=== PATIENT | female | born 1955 | race Caucasian/White ===

== ENCOUNTER 2016-09-04 11:57 | Observation (INO) ==
[2016-09-04] MEDS ORDERED: Ondansetron 4 MG/2 ML VIAL IVP ONE (13:15)
[2016-09-04] MEDS ORDERED: 0.9 % Sodium Chloride 1,000 ML IVC ONE (13:15)
[2016-09-04 13:22] LABS: Bilirubin,Urine Negative (Negative); Blood,Urine Large (Negative); Clarity,Urine Cloudy (Clear); Color,Urine Yellow (Yellow); Glucose,Urine (UA) Normal (Normal); Ketones,Urine Negative (Negative); Leukocyte Esterase,Urine Moderate (Negative); Nitrite,Urine Negative (Negative); PH,Urine 6.5 pH Units (5.0-8.0); Protein,Urine Trace mg/dL (Neg-Trace); Specific Gravity,Urine 1.015 (1.010-1.025); Urobilinogen,Urine Normal (Normal)
[2016-09-04 13:24] LABS: Bacteria,Urine None Seen per hpf (None-Few); Hyaline Casts,Urine None Seen per lpf (None-Few); RBC,Urine TNTC per hpf (0-3); Squamous Epithelial Cell,Urine Many per lpf (None-Few); WBC,Urine TNTC per hpf (0-3)
[2016-09-04 13:33] LABS: Calcium 9.5 mg/dL (8.6-10.8); Potassium 4.8 mEq/L (3.5-4.5)
--- NOTE | 2016-09-04 14:27 | Emergency Department Note ---
Disposition Clinical Impression: Diverticulitis Qualifiers: Diverticulitis site: large intestine Diverticulitis bleeding: without bleeding Diverticulitis complication: without perforation or abscess Qualified Code(s): K57.32 - Diverticulitis of large intestine without perforation or abscess without bleeding Disposition: Admitted As Inpatient Condition: Good Time of Disposition: 16:00 Abdominal Pain HPI - General Chief Complaint: ED Abdominal Pain Stated Complaint: abd pain Time Seen by Provider: 09/04/16 13:01 Source: patient Mode of arrival: ambulatory Limitations: no limitations Nursing Notes Reviewed: Yes Vital Signs Reviewed: Yes - History of Present Illness HPI Narrative: Patient is a 61-year-old female who presents to [facility] ED with a chief complaint of worsening left lower quadrant abdominal pain. States her symptoms started up again yesterday and have been worsening especially when she tries to eat. She has felt some nausea, no vomiting. Patient has been having small amounts of bowel movements without blood in them. Denies any fevers, has had some chills. Patient was recently admitted over [place] for pyelonephritis and sigmoid diverticulitis. She was treated while she was in the hospital on meropenem and then sent home on 2 weeks of Flagyl and Cipro. Pt Subjective Complaint: abdominal pain Onset (ago): day(s) Consistency: Worsening Location: LLQ Pain Severity: moderate Pain Scale: 3 Quality: stabbing, aching Radiation: none Migration to: no migration Improves with: nothing Worsens with: eating Context: recent antibiotic use Associated symptoms: Reports: nausea, chills. Denies: vomiting, diarrhea, fever , dysuria Treatments prior to arrival: none - Related Data Home Medications Medication Instructions Recorded Confirmed Allopurinol [Zyloprim] 100 mg PO DAILY 09/04/16 09/04/16 Previous Rx's Medication Instructions Recorded Metoprolol XL (24 HR) Succ [Toprol 25 mg PO DAILY 30 Days 08/28/16 Xl] Amoxicillin/Clavulanate [Augmentin] 875 mg PO BIDWM 14 Days 09/06/16 MetroNIDAZOLE [Flagyl] 500 mg PO TID #42 tablet 09/06/16 Allergies Allergy/AdvReac Type Severity Reaction Status Date / Time acetaminophen [From Percocet] Allergy Itching Verified 11/01/15 10:14 cephalexin Allergy Rash Verified 11/01/15 10:14 Cephalosporins Allergy Rash Verified 11/01/15 10:14 codeine Allergy Nausea Verified 11/01/15 10:14 hydrocodone [From Vicodin] Allergy Itching Verified 11/01/15 10:14 morphine Allergy Nausea Verified 11/01/15 10:14 Oxycodone [From Percocet] Allergy Itching Verified 11/01/15 10:14 Penicillins Allergy Rash Verified 11/01/15 10:14 propoxyphene Allergy Itching Verified 11/01/15 10:14 [From Darvocet-N 100] tobramycin Allergy Chest Pain Verified 02/21/16 15:50 diphenhydramine AdvReac Mild See Verified 09/04/16 15:08 [From Benadryl] Comments doxycycline AdvReac Vomiting Verified 11/01/15 10:14 beta-lactam Allergy Rash Uncoded 11/01/15 10:14 penicillin Allergy Rash Uncoded 11/01/15 10:14 All systems ED: reviewed and negative except as stated. Abdominal Pain PMH - Past Medical History Medical history: Reports: arthritis, cardiomyopathy, GERD, GI bleed, hypertension, osteoporosis, renal disease Female Surgical History: Reports: other HALL MONITOR history: Reports: bilateral tubal ligation, other Psychiatric history: Reports: no psych history - Social History Smoking status: Never smoker Alcohol use: Reports: none Drug use: Reports: none Physical Exam - General Limitations: no limitations General appearance: alert, in no apparent distress - Head Head exam: atraumatic, normocephalic, normal inspection - Eye Eye exam: Present: normal appearance, PERRL, EOMI - ENT ENT exam: normal exam, normal oropharynx, mucous membranes moist - Neck Neck exam: Present: normal inspection, full ROM, trachea midline - Chest Chest inspection: Present: normal inspection, symmetric chest wall rise - Respiratory Respiratory exam: Present: normal lung sounds bilaterally - Cardiovascular Cardiovascular exam: Present: regular rate, normal rhythm, normal heart sounds - Abdominal Exam Abdominal exam: Present: soft, tenderness, diminished bowel sounds. Absent: distention, guarding, rebound, rigidity Abdominal tenderness: Present: LLQ, moderate - Extremities Exam Extremities exam: Present: normal inspection, full ROM. Absent: tenderness, pedal edema - Back Exam Back exam: Present: normal inspection, full ROM. Absent: tenderness - Neurological Exam Neurological exam: Present: alert, oriented X3 - Psychiatric Psychiatric exam: Present: normal affect, normal mood - Skin Skin exam: Present: warm, dry, intact, normal color Course Course Narrative: Patient seen and examined. Recent diagnosis of diverticulitis. Already undergone 2 weeks of oral Cipro and Flagyl. Started having left lower quadrant abdominal pain again. We will get a BMP level to check renal function and CT abdomen and pelvis with IV contrast. - Reevaluation(s) Reevaluation #1: Patient's renal function with elevated and she has a history of only having one kidney. CT abdomen and pelvis without contrast ordered. This showed that she had worsening thickening of the sigmoid colon. We will talk with surgery for admission. I spoke with Dr. Mnotilla who has accepted patient for admission. Time: 16:00 Vital Signs Temperature 98.0 F 09/04/16 11:59 Pulse Rate 91 09/04/16 11:59 Respiratory Rate 16 09/04/16 11:59 Blood Pressure 121/85 09/04/16 11:59 O2 Sat by Pulse Oximetry 98 09/04/16 11:59 Temperature 97.5 F L 09/06/16 10:20 Pulse Rate 76 09/06/16 10:20 Respiratory Rate 16 09/06/16 10:20 Blood Pressure 125/83 09/06/16 10:20 O2 Sat by Pulse Oximetry 99 09/06/16 10:20 Oxygen Delivery Oxygen Delivery Room Air Abdominal Pain - Medical Records Medical records reviewed: Yes I reviewed the patient's medical records. - Lab Data Lab results reviewed: Yes I reviewed the patient's lab results. Result diagrams: 09/06/16 04:27 09/06/16 04:27 Lab Results 09/04/16 09/04/16 09/04/16 Range/Units 12:30 13:07 13:07 Sodium 137 (136-145) mEq/L Potassium 4.8 H (3.5-4.5) mEq/L Chloride 107 (98-109) mEq/L Carbon Dioxide 20 (19-29) mEq/L BUN 15 (7-20) mg/dL Creatinine 1.34 H (0.57-1.11) mg/dL Est GFR ( Amer) 49 L (> 60) Est GFR (Non-Af Amer) 40 L (> 60) BUN/Creatinine Ratio 11 (6-26) Glucose 90 (70-99) mg/dL Calculated Osmolality 284 (280-300) Lactic Acid 1.1 (0.5-2.2) mmol/L Calcium 9.5 (8.6-10.8) mg/dL Urine Color Yellow (Yellow) Urine Clarity Cloudy A (Clear) Urine pH 6.5 (5.0-8.0) pH Units Ur Specific [place] 1.015 (1.010-1.025) Urine Protein Trace (Neg-Trace) mg/dL Urine Glucose (UA) Normal (Normal) mg/dL Urine Ketones Negative (Negative) mg/dL Urine Blood Large H (Negative) Urine Nitrite Negative (Negative) Urine Bilirubin Negative (Negative) Urine Urobilinogen Normal (Normal) mg/dL Ur Leukocyte Esterase Moderate H (Negative) Urine Microscopic RBC TNTC H (0-3) per hpf Urine Microscopic WBC TNTC H (0-3) per hpf Ur Squamous Epith Cells Many H (None-Few) per lpf Urine Bacteria None Seen (None-Few) per hpf Hyaline Casts None Seen (None-Few) per lpf Ur Culture Indicated? YES A (NO) - Radiology Data Radiology results reviewed: Yes I reviewed the patient's radiology results. Attestation Statement - Attestation Attestation: I examined this patient and my medical decision-making was reviewed with the Resident Physician. I agree with the documented findings, disposition and treatment plan as described except to the extent set forth below. 2-week course of Cipro and Flagyl for diverticulitis, persistent and now worsening pain. CT shows persistent inflammation, no abscess. Admission for IV antibiotics, surgery eval.
[2016-09-04] MEDS ORDERED: Piperacillin/Tazobactam 3.375 GM in D5% in Water (Mini-Bag+) 100 ML IVPB ONE (14:54)
[2016-09-04] MEDS ORDERED: Naloxone 0.4 MG/ML INJ IVP PRN (17:05)
[2016-09-04] MEDS ORDERED: *HR* HYDROmorphone (PF) 1 MG/ML SYRINGE IVP PRN (17:05)
[2016-09-04] MEDS ORDERED: *HR* Promethazine 25 MG/ML VIAL IVP PRN (17:05)
[2016-09-04] MEDS ORDERED: Ondansetron 4 MG/2 ML VIAL IVP PRN (17:05)
[2016-09-04] MEDS: 0.9 % Sodium Chloride 1,000 ML IVC SCH (17:53)
--- NOTE | 2016-09-04 19:01 | General Surg History&Physical ---
<Connie Flaherty - Last Filed: 09/04/16 19:23> Date of Encounter: 09/04/16 Time of Encounter: 18:59 Assessment and Plan (1) Diverticulitis Current Visit: Yes Status: Acute The assessment and plan as outlined above was discussed with the patient and/or family members who expressed understanding and agreement. All questions were answered. CT shows sigmoid colonic perforation likely representing diverticulitis. The degree of wall thickening and adjacent pericolonic fat stranding has increased since prior study. no signs of peritonitis on abdominal exam NPO IVF IV cipro and flagyl pain control supportive care repeat labs AM Qualifiers: Diverticulitis site: large intestine Diverticulitis bleeding: without bleeding Diverticulitis complication: without perforation or abscess Qualified Code(s): K57.32 - Diverticulitis of large intestine without perforation or abscess without bleeding (2) Acute kidney injury superimposed on chronic kidney disease Current Visit: No Status: Acute IVF continue to monitor repeat labs AM (3) Recurrent UTI Current Visit: No Status: Chronic atonic neurogenic bladder, has been straight cathing for 20 years more recent hx of recurrent UTI urine culture pending (4) DVT prophylaxis Current Visit: No Status: Acute heparin 5,000 units SQ q8hr History of Present Illness Chief complaint: diverticulitis HPI: Ms. Hannon is a 61 year old female admitted from the emergency department with diverticulitis. She has left lower quadrant pain that radiates to midline characterized as sharp cramping pain that comes and goes in waves. At its worst she states the pain was over a 10 and she was doubled over in tears. Eating and drinking make the pain worse. Having a bowel movement makes the pain better. She has had 2 episodes of non-bloody, non-mucous diarrhea since she has arrived to the hospital. She states that this pain has been bothering her off and on for the past 4-5 months. She was in the hospital for sepsis due to complicated UTI over and had diverticulitis at that point in time. She was discharged 08/28 with 6 days of cipro and flagyl. She states that previous her prior admission she had IV antibiotics for a UTI for 2 weeks and 1 week later was when she was admitted. Her PCP, Dr. Gomes, has referred her to ID due to frequent UTIs. She straight-caths due to urinary retention and has been doing so for the past 20 years. Past Med Surg Social Fam HX - Past Medical History Medical history: arthritis, cardiomyopathy, GERD, GI bleed, hypertension, osteoporosis, renal disease, other (gout) Psychiatric history: no psych history - Past Surgical History Surgical History: other (reconstruction of ureter) - Social History Smoking Status: Never smoker Smokeless Tobacco Status: No Alcohol use: none Drug use: none - Family History Mother Living Status: Hx Family Cardiac Disorders: Yes Hx Family Respiratory Disorders: No Hx Family Cancer: No Hx Family GI Disorders: No Hx Family Endocrine Disorder: No Hx Family Neuromuscular Disorders: No Hx Family Neurologic Disorders: Yes (stroke) Hx Family HEENT Disorders: No Hx Family Autoimmune Disorders: No Medications and Allergies Metoprolol XL (24 HR) Succ [Toprol Xl] 25 mg PO DAILY 30 Days 08/28/16 [Rx] MetroNIDAZOLE [Flagyl] 500 mg PO TID 6 Days 08/28/16 [Rx] Allopurinol [Zyloprim] 100 mg PO DAILY 09/04/16 [History] Allergies acetaminophen [From Percocet] Allergy (Verified 11/01/15 10:14) Itching cephalexin Allergy (Verified 11/01/15 10:14) Rash Cephalosporins Allergy (Verified 11/01/15 10:14) Rash codeine Allergy (Verified 11/01/15 10:14) Nausea hydrocodone [From Vicodin] Allergy (Verified 11/01/15 10:14) Itching morphine Allergy (Verified 11/01/15 10:14) Nausea Oxycodone [From Percocet] Allergy (Verified 11/01/15 10:14) Itching Penicillins Allergy (Verified 11/01/15 10:14) Rash propoxyphene [From Darvocet-N 100] Allergy (Verified 11/01/15 10:14) Itching tobramycin Allergy (Verified 02/21/16 15:50) Chest Pain diphenhydramine [From Benadryl] Adverse Reaction (Mild, Verified 09/04/16 15:08) See Comments Pt states it made her dellusional doxycycline Adverse Reaction (Verified 11/01/15 10:14) Vomiting beta-lactam Allergy (Uncoded 11/01/15 10:14) Rash penicillin Allergy (Uncoded 11/01/15 10:14) Rash Review of Systems All systems PM: A 10-system review of systems was performed and is negative for pertinent findings except as documented above in the HPI. - Constitutional headache(s) (states it is a medication side effect), no anorexia, no chills, no fever(s) - Cardiovascular no chest pain - Respiratory no dyspnea - Gastrointestinal abdominal pain (LLQ ), diarrhea, no nausea, no vomiting - Genitourinary Genitourinary: no dysuria, no urinary frequency, no urinary hesitancy, no urinary urgency - Musculoskeletal no arthralgias, no myalgias - Integumentary no rash General Surgery Exam Initial Vital Signs Temp Pulse Resp BP Pulse Ox 98.0 F 91 16 121/85 98 09/04/16 11:59 09/04/16 11:59 09/04/16 11:59 09/04/16 11:59 09/04/16 11:59 - General physical appearance well developed, well nourished, no distress - Eyes PERRL, normal ocular movement - ENT normal mucosa, atraumatic, normocephalic - Neck trachea midline - Respiratory normal respiratory effort, clear to auscultation - Cardiovascular Cardiovascular exam: Present: RRR - Abdomen Abdomen general surgery: Present: bowel sounds present, soft, non tender - Integumentary Integumentary general surgery: Present: warm and dry - Neurologic Present: CN 2-12 grossly intact - Psychiatric Psychiatric general surgery: Present: A&Ox3, speech is normal Results - Labs 09/04/16 13:07 Abnormal lab results Potassium 4.8 mEq/L (3.5-4.5) H 09/04/16 13:07 Creatinine 1.34 mg/dL (0.57-1.11) H 09/04/16 13:07 Est GFR ( Amer) 49 (> 60) L 09/04/16 13:07 Est GFR (Non-Af Amer) 40 (> 60) L 09/04/16 13:07 Urine Clarity Cloudy (Clear) A 09/04/16 12:30 Urine Blood Large (Negative) H 09/04/16 12:30 Ur Leukocyte Esterase Moderate (Negative) H 09/04/16 12:30 Urine Microscopic RBC TNTC per hpf (0-3) H 09/04/16 12:30 Urine Microscopic WBC TNTC per hpf (0-3) H 09/04/16 12:30 Ur Squamous Epith Cells Many per lpf (None-Few) H 09/04/16 12:30 Ur Culture Indicated? YES (NO) A 09/04/16 12:30 All other labs normal. <Isabela Montilla - Last Filed: 09/06/16 08:50> Date of Encounter: 09/04/16 Assessment and Plan (1) Diverticulitis Current Visit: Yes Status: Acute The assessment and plan as outlined above was discussed with the patient and/or family members who expressed understanding and agreement. All questions were answered. CT does NOT show sigmoid colon perforation but rather continued sigmoid colon inflammation only. Will continue Abx, prn pain control, serial abdominal exams, check labs in AM, npo currently Qualifiers: Diverticulitis site: large intestine Diverticulitis bleeding: without bleeding Diverticulitis complication: without perforation or abscess Qualified Code(s): K57.32 - Diverticulitis of large intestine without perforation or abscess without bleeding (2) HTN (hypertension) Current Visit: No Status: Chronic The assessment and plan as outlined above was discussed with the patient and/or family members who expressed understanding and agreement. All questions were answered. continue home medication Qualifiers: Hypertension type: essential hypertension Qualified Code(s): I10 - Essential (primary) hypertension History of Present Illness HPI: Ms. Hannon is a 61 year old female who was recently admitted over [place] with diverticulitis. She was treated with cipro and flagyl and sent home on said medication as well. She is still taking the cipro and flagyl when she continued to have left lower quadrant abdominal pain, sharp which has worsened over the last few days. Past Med Surg Social Fam HX - Past Medical History Source: patient Review of Systems All systems PM: reviewed and no additional remarkable complaints except as stated All systems PM: A 10-system review of systems was performed and is negative for pertinent findings except as documented above in the HPI. General Surgery Exam Initial Vital Signs Temp Pulse Resp BP Pulse Ox 98.0 F 91 16 121/85 98 09/04/16 11:59 09/04/16 11:59 09/04/16 11:59 09/04/16 11:59 09/04/16 11:59 - General physical appearance well developed, well nourished, no distress, no pain - Eyes PERRL, normal ocular movement - ENT normal mucosa, atraumatic, normocephalic - Neck trachea midline - Respiratory normal expansion, clear to auscultation - Cardiovascular Cardiovascular exam: Present: RRR - Abdomen Abdomen general surgery: Present: bowel sounds present, soft, non tender - Integumentary Integumentary general surgery: Present: warm and dry, no abnormal pigmentation - Neurologic Present: CN 2-12 grossly intact - Musculoskeletal Present: normal gait, normal posture - Psychiatric Psychiatric general surgery: Present: A&Ox3, speech is normal Results - Labs 09/06/16 04:27 09/06/16 04:27 Abnormal lab results RBC 3.30 M/mcL (3.82-4.97) L 09/06/16 04:27 Hgb 9.2 g/dL (11.5-15.4) L 09/06/16 04:27 Hct 29.5 % (35.3-44.9) L 09/06/16 04:27 MCH 27.9 pg (28.0-33.3) L 09/06/16 04:27 MCHC 31.2 g/dL (31.6-35.5) L 09/06/16 04:27 RDW 16.1 % (11.5-14.5) H 09/06/16 04:27 MPV 9.1 fL (9.4-12.4) L 09/06/16 04:27 Chloride 113 mEq/L (98-109) H 09/06/16 04:27 Carbon Dioxide 18 mEq/L (19-29) L 09/06/16 04:27 Creatinine 1.18 mg/dL (0.57-1.11) H 09/06/16 04:27 Est GFR ( Amer) 56 (> 60) L 09/06/16 04:27 Est GFR (Non-Af Amer) 46 (> 60) L 09/06/16 04:27 Calcium 8.4 mg/dL (8.6-10.8) L 09/06/16 04:27 Urine Clarity Cloudy (Clear) A 09/04/16 12:30 Urine Blood Large (Negative) H 09/04/16 12:30 Ur Leukocyte Esterase Moderate (Negative) H 09/04/16 12:30 Urine Microscopic RBC TNTC per hpf (0-3) H 09/04/16 12:30 Urine Microscopic WBC TNTC per hpf (0-3) H 09/04/16 12:30 Ur Squamous Epith Cells Many per lpf (None-Few) H 09/04/16 12:30 Ur Culture Indicated? YES (NO) A 09/04/16 12:30 Diabetes panel 09/06/16 Range/Units 04:27 Sodium 139 (136-145) mEq/L Potassium 4.3 (3.5-4.5) mEq/L Chloride 113 H (98-109) mEq/L Carbon Dioxide 18 L (19-29) mEq/L BUN 11 (7-20) mg/dL Creatinine 1.18 H (0.57-1.11) mg/dL Glucose 72 (70-99) mg/dL Calcium 8.4 L (8.6-10.8) mg/dL Calcium panel 09/06/16 Range/Units 04:27 Calcium 8.4 L (8.6-10.8) mg/dL Pituitary panel 09/06/16 Range/Units 04:27 Sodium 139 (136-145) mEq/L Potassium 4.3 (3.5-4.5) mEq/L Chloride 113 H (98-109) mEq/L Carbon Dioxide 18 L (19-29) mEq/L BUN 11 (7-20) mg/dL Creatinine 1.18 H (0.57-1.11) mg/dL Glucose 72 (70-99) mg/dL Calcium 8.4 L (8.6-10.8) mg/dL Adrenal panel 09/06/16 Range/Units 04:27 Sodium 139 (136-145) mEq/L Potassium 4.3 (3.5-4.5) mEq/L Chloride 113 H (98-109) mEq/L Carbon Dioxide 18 L (19-29) mEq/L BUN 11 (7-20) mg/dL Creatinine 1.18 H (0.57-1.11) mg/dL Glucose 72 (70-99) mg/dL Calcium 8.4 L (8.6-10.8) mg/dL All other labs normal. - Imaging CT scan - abdomen: report reviewed, image reviewed CT scan - pelvis: report reviewed, image reviewed - Attending Attestation I examined this patient and my medical decision-making was reviewed with the [employer] TECHNICIAN/PA/Advanced Practice Nurse/Resident Physician. I agree with the documented findings, disposition and treatment plan as described except to the extent set forth below.
[2016-09-05] MEDS: MetroNIDAZOLE 500 MG/100 ML 500 MG/100 ML BAG IVPB SCH ×3 (00:13→16:16)
[2016-09-05] MEDS: *HR* Heparin 5,000 UNIT/ML VIAL SQ SCH ×3 (00:13→16:17)
[2016-09-05] MEDS: 0.9 % Sodium Chloride 1,000 ML IVC SCH (05:04)
[2016-09-05 05:08] LABS: Basophils % 0.6 %; Eosinophils # 0.2 K/mcL (0.0-0.6); Eosinophils % 3.1 %; Hematocrit 29.4 % (35.3-44.9); Immature Granulocytes % 1.3 % (0-4); Lymphocytes # 1.1 K/mcL (0.6-4.6); Lymphocytes % 16.4 %; Mean Corpuscular HGB Conc 30.6 g/dL (31.6-35.5); Mean Corpuscular Hemoglobin 26.9 pg (28.0-33.3); Monocytes # 0.6 K/mcL (0.0-1.3); Monocytes % 9.4 %; Neutrophils # 4.7 K/mcL (1.6-8.9); Platelet Count 211 K/mcL (140-400); Red Blood Count 3.34 M/mcL (3.82-4.97); Red Cell Distribution Width 15.9 % (11.5-14.5); Segmented Neutrophils % 69.2 %
[2016-09-05 05:19] LABS: Calcium 8.3 mg/dL (8.6-10.8); Magnesium 1.8 mg/dL (1.6-2.6); Phosphorous 4.5 mg/dL (2.3-4.7); Potassium 4.1 mEq/L (3.5-4.5)
[2016-09-05] MEDS ORDERED: Pantoprazole 40 MG VIAL IVP SCH (09:00)
[2016-09-05] MEDS ORDERED: Ibuprofen 400 MG TABLET PO PRN (11:16)
--- NOTE | 2016-09-05 16:47 | General Surgery Progress Note ---
<Flaquita Garcia Mary - Last Filed: 09/05/16 16:53> Date of Encounter: 09/05/16 Time of Encounter: 16:46 - Assessment and Plan (1) Diverticulitis Current Visit: Yes Status: Acute Conservative therapy Advance to clear liquids IV antibiotics- change to Zosyn Supportive care Repeat labs in the am Plan for interval colonoscopy in 6-[address] Montilla Qualifiers: Diverticulitis site: large intestine Diverticulitis bleeding: without bleeding Diverticulitis complication: without perforation or abscess Qualified Code(s): K57.32 - Diverticulitis of large intestine without perforation or abscess without bleeding (2) BORIS (acute kidney injury) Current Visit: No Status: Acute Mild improvement today 1.34>1.24 IV fluids (3) Recurrent UTI Current Visit: No Status: Chronic Urine culture from 09/04/16 shows no growth (4) DVT prophylaxis Current Visit: No Status: Acute Heparin 5,000 units SQ twice daily for DVT prophylaxis Subjective Patient reports: feels better, voiding w/o difficulty, flatus, bowel movement, afebrile Objective Vital Signs - Last 8 Hours Temp Pulse Resp BP Pulse Ox 09/05/16 16:42 98.1 F 74 16 130/82 98 09/05/16 11:29 98.1 F 68 16 126/79 100 Intake and Output 09/05/16 09/05/16 09/05/16 07:59 15:59 23:59 Intake Total 1300 / 1300 100 / 100 Output Total 0 / 0 0 / 0 Balance 1300 / 1300 100 / 100 0 / 0 Intake: IV Fluids 1300 / 1300 100 / 100 0.9 % Sodium Chloride 1, 1000 / 1000 000 ML @ 120 mls/hr IVC . Q8H20M [facility] Rx#:[id number] Cipro 400 MG/200 ML 400 200 / 200 mg In 200 ml @ 200 mls/hr IVPB Q12HR [facility] Rx#: [id number] Flagyl 500 MG/100 ML 500 100 / 100 100 / 100 mg In 100 ml @ 100 mls/hr IVPB Q8HR [facility] Rx#: [id number] Oral 0 / 0 Output: Urine 0 / 0 0 / 0 Other: Meal NPO Stool Size Moderate # Voids 1 1 Weight 73.2 kg Patient Weight 09/05/16 23:59 Weight 73.2 kg - General physical appearance well developed, well nourished, no distress, no pain - Eyes normal ocular movement - ENT normal mucosa, atraumatic, normocephalic - Neck Neck exam: trachea midline - Respiratory normal respiratory effort, clear to auscultation - Cardiovascular Cardiovascular exam: Present: RRR - Abdomen Abdomen: Present: bowel sounds present, soft, non tender - Integumentary no rash, no growths - Neurologic CN 2-12 grossly intact - Musculoskeletal normal gait, normal posture - Psychiatric oriented to time, oriented to person, oriented to place, speech is normal, memory intact - Labs 09/05/16 04:08 09/05/16 04:08 Diabetes panel 09/05/16 Range/Units 04:08 Sodium 138 (136-145) mEq/L Potassium 4.1 (3.5-4.5) mEq/L Chloride 110 H (98-109) mEq/L Carbon Dioxide 22 (19-29) mEq/L BUN 13 (7-20) mg/dL Creatinine 1.24 H (0.57-1.11) mg/dL Glucose 73 (70-99) mg/dL Calcium 8.3 L (8.6-10.8) mg/dL Calcium panel 09/05/16 Range/Units 04:08 Calcium 8.3 L (8.6-10.8) mg/dL Phosphorus 4.5 (2.3-4.7) mg/dL Pituitary panel 09/05/16 Range/Units 04:08 Sodium 138 (136-145) mEq/L Potassium 4.1 (3.5-4.5) mEq/L Chloride 110 H (98-109) mEq/L Carbon Dioxide 22 (19-29) mEq/L BUN 13 (7-20) mg/dL Creatinine 1.24 H (0.57-1.11) mg/dL Glucose 73 (70-99) mg/dL Calcium 8.3 L (8.6-10.8) mg/dL Adrenal panel 09/05/16 Range/Units 04:08 Sodium 138 (136-145) mEq/L Potassium 4.1 (3.5-4.5) mEq/L Chloride 110 H (98-109) mEq/L Carbon Dioxide 22 (19-29) mEq/L BUN 13 (7-20) mg/dL Creatinine 1.24 H (0.57-1.11) mg/dL Glucose 73 (70-99) mg/dL Calcium 8.3 L (8.6-10.8) mg/dL Consult Discharge Plan - Plan Referrals: Mir Gomes DO [Primary Care Provider] - 09/16/16 12:00 pm - Attending Attestation I examined this patient and my medical decision-making was reviewed with the HIGH SCHOOL COACH/PA/Advanced Practice Nurse/Resident Physician. I agree with the documented findings, disposition and treatment plan as described except to the extent set forth below. <Isabela Montilla - Last Filed: 09/06/16 08:54> Date of Encounter: 09/05/16 - Assessment and Plan (1) Diverticulitis Current Visit: Yes Status: Acute start clears, change Abx to zosyn, pt states PCN allergy was when she was 2 months old and she has been told it was likely due to the preservative or something that they used at that time. She was already on cipro/flagyl when her diverticulitis continues to flair. Qualifiers: Diverticulitis site: large intestine Diverticulitis bleeding: without bleeding Diverticulitis complication: without perforation or abscess Qualified Code(s): K57.32 - Diverticulitis of large intestine without perforation or abscess without bleeding (2) HTN (hypertension) Current Visit: No Status: Chronic continue home meds Qualifiers: Hypertension type: essential hypertension Qualified Code(s): I10 - Essential (primary) hypertension Subjective Patient reports: no new complaints, feels better, pain is less, voiding w/o difficulty, flatus, afebrile Objective Vital Signs - Last 8 Hours Temp Pulse Resp BP Pulse Ox 09/06/16 06:37 98.6 F 77 17 128/78 95 09/06/16 03:44 98.3 F 80 14 127/80 95 Intake and Output 09/05/16 09/06/16 09/06/16 23:59 07:59 15:59 Intake Total 460 / 460 950 / 950 Output Total 0 / 0 1250 / 1250 Balance 460 / 460 -300 / -300 Intake: IV Fluids 950 / 950 0.9 % Sodium Chloride 1, 950 / 950 000 ML @ 120 mls/hr IVC . Q8H20M [facility] Rx#:[id number] Oral 460 / 460 Output: Urine 0 / 0 600 / 600 Straight Cath 650 / 650 Other: Meal CLEARS Weight 73.2 kg Patient Weight 09/06/16 23:59 Weight 73.2 kg - General physical appearance well developed, well nourished, no distress, no pain - Eyes PERRL, normal ocular movement - ENT normal mucosa, atraumatic, normocephalic - Neck Neck exam: trachea midline - Respiratory normal expansion, normal respiratory effort, clear to auscultation - Abdomen Abdomen: Present: bowel sounds present, soft, non tender - Integumentary no rash, no growths - Neurologic CN 2-12 grossly intact - Musculoskeletal normal gait, normal posture - Psychiatric oriented to time, oriented to person, speech is normal, memory intact - Labs 09/06/16 04:27 09/06/16 04:27 Diabetes panel 09/06/16 Range/Units 04:27 Sodium 139 (136-145) mEq/L Potassium 4.3 (3.5-4.5) mEq/L Chloride 113 H (98-109) mEq/L Carbon Dioxide 18 L (19-29) mEq/L BUN 11 (7-20) mg/dL Creatinine 1.18 H (0.57-1.11) mg/dL Glucose 72 (70-99) mg/dL Calcium 8.4 L (8.6-10.8) mg/dL Calcium panel 09/06/16 Range/Units 04:27 Calcium 8.4 L (8.6-10.8) mg/dL Pituitary panel 09/06/16 Range/Units 04:27 Sodium 139 (136-145) mEq/L Potassium 4.3 (3.5-4.5) mEq/L Chloride 113 H (98-109) mEq/L Carbon Dioxide 18 L (19-29) mEq/L BUN 11 (7-20) mg/dL Creatinine 1.18 H (0.57-1.11) mg/dL Glucose 72 (70-99) mg/dL Calcium 8.4 L (8.6-10.8) mg/dL Adrenal panel 09/06/16 Range/Units 04:27 Sodium 139 (136-145) mEq/L Potassium 4.3 (3.5-4.5) mEq/L Chloride 113 H (98-109) mEq/L Carbon Dioxide 18 L (19-29) mEq/L BUN 11 (7-20) mg/dL Creatinine 1.18 H (0.57-1.11) mg/dL Glucose 72 (70-99) mg/dL Calcium 8.4 L (8.6-10.8) mg/dL
[2016-09-06] MEDS: *HR* Heparin 5,000 UNIT/ML VIAL SQ SCH ×2 (00:23→09:56)
[2016-09-06] MEDS: 0.9 % Sodium Chloride 1,000 ML IVC SCH ×4 (02:49→11:54)
[2016-09-06 05:21] LABS: Basophils % 0.6 %; Eosinophils # 0.2 K/mcL (0.0-0.6); Hematocrit 29.5 % (35.3-44.9); Hemoglobin 9.2 g/dL (11.5-15.4); Immature Granulocytes % 0.8 % (0-4); Lymphocytes # 0.8 K/mcL (0.6-4.6); Lymphocytes % 15.6 %; Mean Corpuscular HGB Conc 31.2 g/dL (31.6-35.5); Mean Corpuscular Hemoglobin 27.9 pg (28.0-33.3); Mean Corpuscular Volume 89.4 fL (83.0-100.0); Mean Platelet Volume 9.1 fL (9.4-12.4); Monocytes # 0.4 K/mcL (0.0-1.3); Monocytes % 8.3 %; Neutrophils # 3.6 K/mcL (1.6-8.9); Platelet Count 175 K/mcL (140-400); Red Cell Distribution Width 16.1 % (11.5-14.5); Segmented Neutrophils % 71.7 %
[2016-09-06 05:49] LABS: Calcium 8.4 mg/dL (8.6-10.8); Potassium 4.3 mEq/L (3.5-4.5)
[2016-09-06] MEDS ORDERED: *HR* HYDROmorphone (PF) 1 MG/ML SYRINGE IVP PRN (08:58)
[2016-09-06] MEDS ORDERED: Metoprolol XL (24 HR) Succ 25 MG TAB.ER.24H PO SCH (09:00)
[2016-09-06 10:23] VITALS: BP 125/83
--- NOTE | 2016-09-06 12:22 | Discharge Summary ---
Date of Encounter: 09/06/16 Time of Encounter: 12:19 - Discharge Diagnosis (1) Diverticulitis Priority: Primary Status: Acute Qualifiers: Diverticulitis site: large intestine Diverticulitis bleeding: without bleeding Diverticulitis complication: without perforation or abscess Qualified Code(s): K57.32 - Diverticulitis of large intestine without perforation or abscess without bleeding (2) HTN (hypertension) Priority: Secondary Status: Chronic Qualifiers: Hypertension type: essential hypertension Qualified Code(s): I10 - Essential (primary) hypertension - Discharge Medications Home Medications: Metoprolol XL (24 HR) Succ [Toprol Xl] 25 mg PO DAILY 30 Days 08/28/16 [Rx] Allopurinol [Zyloprim] 100 mg PO DAILY 09/04/16 [History] Amoxicillin/Clavulanate [Augmentin] 875 mg PO BIDWM 14 Days 09/06/16 [Rx] MetroNIDAZOLE [Flagyl] 500 mg PO TID #42 tablet 09/06/16 [Rx] Allergies/Adverse Reactions: Allergies acetaminophen [From Percocet] Allergy (Verified 11/01/15 10:14) Itching cephalexin Allergy (Verified 11/01/15 10:14) Rash Cephalosporins Allergy (Verified 11/01/15 10:14) Rash codeine Allergy (Verified 11/01/15 10:14) Nausea hydrocodone [From Vicodin] Allergy (Verified 11/01/15 10:14) Itching morphine Allergy (Verified 11/01/15 10:14) Nausea Oxycodone [From Percocet] Allergy (Verified 11/01/15 10:14) Itching Penicillins Allergy (Verified 11/01/15 10:14) Rash propoxyphene [From Darvocet-N 100] Allergy (Verified 11/01/15 10:14) Itching tobramycin Allergy (Verified 02/21/16 15:50) Chest Pain diphenhydramine [From Benadryl] Adverse Reaction (Mild, Verified 09/04/16 15:08) See Comments Pt states it made her dellusional doxycycline Adverse Reaction (Verified 11/01/15 10:14) Vomiting beta-lactam Allergy (Uncoded 11/01/15 10:14) Rash penicillin Allergy (Uncoded 11/01/15 10:14) Rash General Surgery Exam Initial Vital Signs Temp Pulse Resp BP Pulse Ox 98.0 F 91 16 121/85 98 09/04/16 11:59 09/04/16 11:59 09/04/16 11:59 09/04/16 11:59 09/04/16 11:59 - General physical appearance well developed, well nourished, no distress - Eyes PERRL, normal ocular movement - ENT normal mucosa, atraumatic, normocephalic - Respiratory normal expansion, clear to auscultation - Cardiovascular Cardiovascular exam: Present: RRR - Abdomen Abdomen general surgery: Present: bowel sounds present, soft, non tender. Absent: distended, tender, guarding, rebound - Integumentary Integumentary general surgery: Present: warm and dry, no abnormal pigmentation - Neurologic Present: CN 2-12 grossly intact - Musculoskeletal Present: normal gait, normal posture - Psychiatric Psychiatric general surgery: Present: A&Ox3, speech is normal Date of admission: 09/04/16 16:06 Primary care physician: Sirena Taylor Discharging clinician: Isabela Montilla Anticipated date of discharge: 09/06/16 - Patient Status Disposition: Home, Self-Care Condition: Good Overall status at discharge: patient is progressing back to baseline - Discharge Instructions Instructions: Low Fiber Diet (GEN), Diverticulitis Diet (GEN) Follow Up With: Mir Gomes DO [Primary Care Provider] - 09/16/16 12:00 pm Isabela Montilla MD [Partnered Physician] - 09/18/16 1:40 pm (1:40 pm on September 18) Forms: Inpatient Work/School Release Additional Instructions: Do a low residue diet for 6-8 weeks after hospital admission. After 6-8 weeks on a low residue diet you will switch to a high fiber diet and a daily fiber supplement: either gummy fibers 2 po daily or metamucil capsules 2 po daily - Diet and Activity Activity: increase activity as tolerated Diet: other (low residue diet) - Hospital Course Hospital course: Ms. Hannon is a 61 year old female who was admitted with diverticulitis - recurrent. She was previously on cipro/flagyl when she had a recurrent flair. She was admitted and started on abx and conservative management. Her pain resolved and she was started on clears which she tolerated. Will discharge home in stable condition. Pain resolved. Will send home on 2 weeks augmentin and flagyl. - Time Spent with Patient Total time spent providing and/or coordinating discharge services: Labs on day of discharge: Labs from last 24 hours 09/06/16 09/06/16 04:27 04:27 WBC 5.1 RBC 3.30 L Hgb 9.2 L Hct 29.5 L MCV 89.4 MCH 27.9 L MCHC 31.2 L RDW 16.1 H Plt Count 175 MPV 9.1 L Immature Gran % 0.8 Seg Neutrophils % 71.7 Lymphocytes % 15.6 Monocytes % 8.3 Eosinophils % 3.0 Basophils % 0.6 Neutrophils # 3.6 Lymphocytes # 0.8 Monocytes # 0.4 Eosinophils # 0.2 Basophils # 0.0 Sodium 139 Potassium 4.3 Chloride 113 H Carbon Dioxide 18 L BUN 11 Creatinine 1.18 H Est GFR ( Amer) 56 L Est GFR (Non-Af Amer) 46 L BUN/Creatinine Ratio 9 Glucose 72 Calculated Osmolality 286 Calcium 8.4 L
[2016-09-06] MEDS ORDERED: Piperacillin/Tazobactam 3.375 GM in D5% in Water (Mini-Bag+) 100 ML IVPB SCH (16:45)
== END 2016-09-06 13:52 | disposition home or self-care (01) ==
LOC: 3ANU 11:57 → EMEROO 11:57 → 3ANU 16:31
PROVIDERS: ADMIT Surgery; ATTEND Surgery

== ENCOUNTER 2016-10-10 18:08 | Observation (INO) ==
--- NOTE | 2016-10-10 18:24 | Emergency Department Note ---
Disposition Clinical Impression: Recurrent UTI Nausea & vomiting Qualifiers: Vomiting type: unspecified Vomiting Intractability: unspecified Qualified Code( s): R11.2 - Nausea with vomiting, unspecified Disposition: Admitted As Inpatient Condition: Good Referrals: Mir Gomes DO [Primary Care Provider] - Forms: ED Satisfaction Letter Time of Disposition: 19:31 General Adult HPI - General Chief complaint: ED Urogenital-Female Stated complaint: UTI Time Seen by Provider: 10/10/16 18:17 Source: patient Limitations: no limitations Nursing Notes Reviewed: Yes Vital Signs Reviewed: Yes - History of Present Illness HPI Narrative: 61-year-old who was seen here 3 days ago had a urine done culture grows out Escherichia coli greater than 100,000th and VRE greater 100,000. Patient had a fever today was not feeling well. Not been able to keep anything down. Saw her family doctor today who sent her in to be admitted for IV antibiotics. Onset (ago): day(s) Location: abdomen Radiation: non-radiation Pain Scale: 0 Associated symptoms: Reports: nausea/vomiting - Related Data Home Medications Medication Instructions Recorded Confirmed Allopurinol [Zyloprim] 100 mg PO DAILY 09/04/16 09/04/16 Previous Rx's Medication Instructions Recorded Metoprolol XL (24 HR) Succ [Toprol 25 mg PO DAILY 30 Days 08/28/16 Xl] Amoxicillin/Clavulanate [Augmentin] 875 mg PO BIDWM 14 Days 09/06/16 MetroNIDAZOLE [Flagyl] 500 mg PO TID #42 tablet 09/06/16 Cephalexin 500 mg PO QID #40 tablet 09/13/16 Allergies Allergy/AdvReac Type Severity Reaction Status Date / Time acetaminophen [From Percocet] Allergy Itching Verified 11/01/15 10:14 cephalexin Allergy Rash Verified 11/01/15 10:14 Cephalosporins Allergy Rash Verified 11/01/15 10:14 codeine Allergy Nausea Verified 11/01/15 10:14 hydrocodone [From Vicodin] Allergy Itching Verified 11/01/15 10:14 morphine Allergy Nausea Verified 11/01/15 10:14 Oxycodone [From Percocet] Allergy Itching Verified 11/01/15 10:14 Penicillins Allergy Rash Verified 11/01/15 10:14 propoxyphene Allergy Itching Verified 03/02/16 10:14 [From Darvocet-N 100] tobramycin Allergy Chest Pain Verified 02/21/16 15:50 diphenhydramine AdvReac Mild See Verified 09/04/16 15:08 [From Benadryl] Comments doxycycline AdvReac Vomiting Verified 11/01/15 10:14 beta-lactam Allergy Rash Uncoded 11/01/15 10:14 penicillin Allergy Rash Uncoded 11/01/15 10:14 Constitutional: Reports: fever. Denies: chills, weakness, weight change Eyes: Denies: eye pain, eye discharge, vision change ENT ED: Denies: ear pain, throat pain, dental pain, hearing loss, epistaxis, congestion, dysphagia Cardiovascular: Denies: chest pain, palpitations, dyspnea on exertion, edema, syncope Respiratory: Denies: cough, dyspnea, wheezes, hemoptysis, stridor Gastrointestinal: Reports: nausea, vomiting. Denies: diarrhea, constipation, hematemesis, melena, hematochezia Genitourinary: Denies: dysuria, frequency, hematuria, discharge Musculoskeletal: Denies: back pain, neck pain, arthralgia, myalgia Integumentary: Denies: rash, abrasion, lesions Neurological: Denies: headache, weakness, numbness, paresthesias, confusion, abnormal gait, vertigo Psychiatric: Denies: anxiety, depression, suicidal thoughts, homicidal thoughts , auditory hallucinations, visual hallucinations Endocrine: Denies: fatigue Hematological/Lymphatic: Denies: easy bleeding, easy bruising Allergic/Immunologic: Denies: facial swelling, urticaria Past Medical History - Past Medical History Medical history: Reports: arthritis, cardiomyopathy, GERD, GI bleed, hypertension, osteoporosis, renal disease 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) Psychiatric history: Reports: no psych history 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, other - Social History Smoking Status: Never smoker Smokeless Tobacco Status: No Alcohol use: Reports: none Drug use: Reports: none Physical Exam - General Limitations: no limitations General appearance: alert - Head Head exam: atraumatic, normocephalic, normal inspection - Eye Eye exam: Present: normal appearance, PERRL, EOMI - ENT ENT exam: normal exam, normal oropharynx, mucous membranes moist - Neck Neck exam: Present: normal inspection, full ROM, trachea midline - Chest Chest inspection: Present: normal inspection, symmetric chest wall rise - Respiratory Respiratory exam: Present: normal lung sounds bilaterally - Cardiovascular Cardiovascular exam: Present: regular rate, normal rhythm, normal heart sounds - Abdominal Exam Abdominal exam: Present: soft, Non-Tender. Absent: tenderness, distention, guarding, rebound, rigidity - Extremities Exam Extremities exam: Present: normal inspection, full ROM. Absent: tenderness, pedal edema - Expanded Lower Extremity Exam Hip/Pelvis exam: Present: normal inspection, full ROM Upper leg exam: Present: normal inspection, full ROM Neurovascular/Tendon exam: Absent: motor deficit, sensory deficit, tendon deficit Gait: observed and normal - Back Exam Back exam: Present: normal inspection - Neurological Exam Neurological exam: Present: alert, oriented X3 - Psychiatric Psychiatric exam: Present: normal affect, normal mood - Skin Skin exam: Present: warm, dry, intact, normal color Course - Reevaluation(s) Reevaluation #1: I discussed antibiotics with the patient the patient lists supple X and as an allergy however she states she took in August without any problems she also states that she took Rocephin in the past without any problems Time: 19:40 - Consultations Consultation #1: Discussed antibiotic dosing with pharmacy recommendations given. Time: 19:30 Consultation #2: Discussed with tan Marte. Time: 20:12 Vital Signs Temperature 99.2 F 10/10/16 18:11 Pulse Rate 113 10/10/16 18:11 Respiratory Rate 18 10/10/16 18:11 Blood Pressure 133/85 10/10/16 18:11 O2 Sat by Pulse Oximetry 100 10/10/16 18:11 Temperature 99.2 F 10/10/16 18:11 Pulse Rate 111 10/10/16 20:04 Respiratory Rate 18 10/10/16 20:04 Blood Pressure 116/72 10/10/16 20:04 O2 Sat by Pulse Oximetry 100 10/10/16 20:04 Oxygen Delivery Oxygen Delivery Room Air Medical Decision Making - Lab Data Result diagrams: 10/10/16 18:45 10/10/16 18:45 Lab Results 10/10/16 10/10/16 10/10/16 Range/Units 18:45 18:45 18:51 WBC 9.1 (4.3-11.1) K/mcL RBC 3.48 L (3.82-4.97) M/mcL Hgb 10.6 L (11.5-15.4) g/dL Hct 33.3 L (35.3-44.9) % MCV 95.7 D (83.0-100.0) fL MCH 30.5 (28.0-33.3) pg MCHC 31.8 (31.6-35.5) g/dL RDW 15.0 H (11.5-14.5) % Plt Count 198 (140-400) K/mcL MPV 8.9 L (9.4-12.4) fL Immature Gran % 0.8 (0-4) % Seg Neutrophils % 86.4 % Lymphocytes % 4.5 % Monocytes % 7.5 % Eosinophils % 0.7 % Basophils % 0.1 % Neutrophils # 7.9 (1.6-8.9) K/mcL Lymphocytes # 0.4 L (0.6-4.6) K/mcL Monocytes # 0.7 (0.0-1.3) K/mcL Eosinophils # 0.1 (0.0-0.6) K/mcL Basophils # 0.0 (0.0-0.2) K/mcL Sodium 138 (136-145) mEq/L Potassium 3.7 (3.5-4.5) mEq/L Chloride 107 (98-109) mEq/L Carbon Dioxide 18 L (19-29) mEq/L BUN 14 (7-20) mg/dL Creatinine 1.45 H (0.57-1.11) mg/dL Est GFR ( Amer) 44 L (> 60) Est GFR (Non-Af Amer) 37 L (> 60) BUN/Creatinine Ratio 10 (6-26) Glucose 162 H (70-99) mg/dL Calculated Osmolality 290 (280-300) Calcium 9.5 (8.6-10.8) mg/dL Ur Specimen Adequacy See below A Urine Color Red A (Yellow) Urine Clarity Cloudy A (Clear) Urine pH 5.5 (5.0-8.0) pH Units Ur Specific [place] 1.022 (1.010-1.025) Urine Protein 100 H (Neg-Trace) mg/dL Urine Glucose (UA) Normal (Normal) mg/dL Urine Ketones Trace H (Negative) mg/dL Urine Blood Large H (Negative) Urine Nitrite Positive A (Negative) Urine Bilirubin Moderate H (Negative) Urine Urobilinogen Normal (Normal) mg/dL Ur Leukocyte Esterase Large H (Negative) Ur Culture Indicated? YES A (NO)
[2016-10-10] MEDS ORDERED: Ondansetron 4 MG/2 ML VIAL IVP ONE (18:46)
[2016-10-10 19:05] LABS: Bilirubin,Urine Moderate (Negative); Blood,Urine Large (Negative); Clarity,Urine Cloudy (Clear); Color,Urine Red (Yellow); Glucose,Urine (UA) Normal (Normal); Ketones,Urine Trace mg/dL (Negative); Leukocyte Esterase,Urine Large (Negative); Nitrite,Urine Positive (Negative); PH,Urine 5.5 pH Units (5.0-8.0); Protein,Urine 100 mg/dL (Neg-Trace); Specific Gravity,Urine 1.022 (1.010-1.025); Urobilinogen,Urine Normal (Normal)
[2016-10-10 19:09] LABS: Basophils % 0.1 %; Eosinophils # 0.1 K/mcL (0.0-0.6); Eosinophils % 0.7 %; Hematocrit 33.3 % (35.3-44.9); Hemoglobin 10.6 g/dL (11.5-15.4); Immature Granulocytes % 0.8 % (0-4); Lymphocytes # 0.4 K/mcL (0.6-4.6); Lymphocytes % 4.5 %; Mean Corpuscular HGB Conc 31.8 g/dL (31.6-35.5); Mean Corpuscular Hemoglobin 30.5 pg (28.0-33.3); Mean Platelet Volume 8.9 fL (9.4-12.4); Monocytes # 0.7 K/mcL (0.0-1.3); Monocytes % 7.5 %; Neutrophils # 7.9 K/mcL (1.6-8.9); Platelet Count 198 K/mcL (140-400); Red Blood Count 3.48 M/mcL (3.82-4.97); Segmented Neutrophils % 86.4 %
[2016-10-10 19:10] LABS: Mean Corpuscular Volume 95.7 fL (83.0-100.0)
[2016-10-10] MEDS: 0.9 % Sodium Chloride 1,000 ML IVC SCH (19:21)
[2016-10-10 19:22] LABS: Calcium 9.5 mg/dL (8.6-10.8); Potassium 3.7 mEq/L (3.5-4.5)
[2016-10-10] MEDS ORDERED: Naloxone 0.4 MG/ML INJ IVP PRN (21:27)
--- NOTE | 2016-10-10 21:52 | Internal Med History&Physical ---
Date of Encounter: 10/11/16 Time of Encounter: 21:00 Assessment and Plan (1) Complicated UTI (urinary tract infection) Current visit: No Status: Acute 1 patient has frequent UTIs-secondary to frequent catheterizations. Culture sensitivity grew Escherichia coli and VRE. Blood cultures were obtained patient was started on Rocephin and nitrofurantoin in the ER which were sensitive. [address] patient on Zyvox for VRE coverage and cefepime for Escherichia coli patient's creatinine clearance is [address] santos monitor I/O (2) Chronic renal failure, stage 3 (moderate) Current visit: No Status: Chronic 1 patient has chronic kidney disease she states she only has her right kidney. Creatinine is 1.45 and appears her baseline is 1.2- 1.5 we will continue to monitor 2 avoid nephrotoxins and renally dose all antibiotics 3 monitor intake and output and daily weight (3) DVT prophylaxis Current visit: No Status: Acute 1 Heparin Internal Medicine - H&P: HPI Chief complaint: UTI Admitted From: Emergency Dept Plans for Post Hospital Care: Home History of present illness: Ms. Hannon is a 61 year old female with past medical history of GERD CKD stage III recurrent UTIs diverticulitis. She has been experiencing nausea vomiting fatigue fevers and chills over the past few days. She does have a history of frequent UTIs and went to her primary care physician10/07/2016 who prescribed her antibiotics. Her urine culture grew Escherichia coli and VRE her primary care physician advised her to go to the ER tissue being admitted to get IV antibiotics. In the ER the patient was tachycardic heart rate 11 temperature was 90.2 for pressures 1 1672 she had no leukocytosis her urine was positive for nitrate and large esterase BUN is 18 creatinine is 1.45. Blood cultures were obtained patient was given IV fluids she was given Rocephin and nitrofurantoin which were sensitive. She is admitted for further orthopedic evaluation. Presently patient appears tired she denies any abdominal pain nausea vomiting fever at this time patient states she gets urinary tract infections frequently because she straight catheters herself due to urinary retention 2-3 times a day. At present her heart rates improved at 99 for pressures stable she denies any pain or discomfort. I reviewed this case with Dr. Pizarro who agrees with the plan Past Med Surg Social Fam HX - Past Medical History Medical history: arthritis, cardiomyopathy, GERD, GI bleed, hypertension, osteoporosis, renal disease Psychiatric history: no psych history - Past Surgical History Surgical History: other (reconstruction of ureter) - Social History Smoking Status: Never smoker Smokeless Tobacco Status: No Alcohol use: none Drug use: none - Family History Mother Living Status: Hx Family Cardiac Disorders: Yes Hx Family Respiratory Disorders: No Hx Family Cancer: No Hx Family GI Disorders: No Hx Family Endocrine Disorder: No Hx Family Neuromuscular Disorders: No Hx Family Neurologic Disorders: Yes (stroke) Hx Family HEENT Disorders: No Hx Family Autoimmune Disorders: No Internal Medicine - H&P: Meds Ascorbate Calcium [Vitamin C] 500 mg PO DAILY 10/10/16 [History] Esomeprazole Magnesium [Nexium] 40 mg PO DAILY 10/10/16 [History] Ondansetron HCl [Zofran] 4 mg PO Q8H PRN 10/10/16 [History] Allergies acetaminophen [From Percocet] Allergy (Verified 11/01/15 10:14) Itching cephalexin Allergy (Verified 11/01/15 10:14) Rash Cephalosporins Allergy (Verified 11/01/15 10:14) Rash codeine Allergy (Verified 11/01/15 10:14) Nausea hydrocodone [From Vicodin] Allergy (Verified 11/01/15 10:14) Itching morphine Allergy (Verified 11/01/15 10:14) Nausea Oxycodone [From Percocet] Allergy (Verified 11/01/15 10:14) Itching Penicillins Allergy (Verified 11/01/15 10:14) Rash propoxyphene [From Darvocet-N 100] Allergy (Verified 11/01/15 10:14) Itching tobramycin Allergy (Verified 02/21/16 15:50) Chest Pain diphenhydramine [From Benadryl] Adverse Reaction (Mild, Verified 09/04/16 15:08) See Comments Pt states it made her dellusional doxycycline Adverse Reaction (Verified 11/01/15 10:14) Vomiting beta-lactam Allergy (Uncoded 11/01/15 10:14) Rash penicillin Allergy (Uncoded 11/01/15 10:14) Rash All Systems PM: A 10-system review of systems was performed and is negative for pertinent findings except as documented above in the HPI. - Constitutional Constitutional: chills, fever(s), weakness - Cardiovascular Cardiovascular ROS IM: no chest pain, no diaphoresis, no dyspnea, no lightheadedness, no palpitations, no syncope - Respiratory Respiratory: no cough, no dyspnea, no wheezing, no excessive phlegm production - Gastrointestinal Gastrointestinal: loose stools, nausea, vomiting - Genitourinary Genitourinary: urinary frequency - Neurological Neurological ROS: no confusion, no convulsions, no focal weakness, no numbness, no tingling, no tremor(s) - Constitutional Vitals: Temp Pulse Resp BP Pulse Ox 99.2 F 111 18 105/58 100 10/10/16 18:11 10/10/16 20:04 10/10/16 21:10 10/10/16 21:10 10/10/16 20:04 General appearance: Present: A&O X 3, answers questions appropriately - Head Head exam: Present: atraumatic, normocephalic - Respiratory Respiratory exam: Present: CTAB. Absent: accessory muscle use, rales, rhonchi, wheezes - Cardiovascular Cardiovascular exam: Present: RRR, +S1, +S2. Absent: diastolic murmur, gallop, rubs, systolic murmur - GI/Abdominal GI/Abdominal exam: Present: normal bowel sounds, soft, no peritoneal signs. Absent: distended, tenderness - Extremities Exam Extremities exam: Present: warm, radial pulses palpable and symetrical. Absent : calf tenderness, cyanotic, pedal edema - Neurological Exam Neurological exam: Present: CN II-XII intact, oriented X3, no focal deficits. Absent: pronater drift, facial droop, speech deficit - Skin Skin exam: Present: dry, intact Internal Med - H&P Results - Labs CBC & Chem 7: 10/10/16 18:45 10/10/16 18:45
[2016-10-10] MEDS ORDERED: 0.9 % Sodium Chloride 1,000 ML IVC ONE (22:32)
--- NOTE | 2016-10-11 01:38 | Event Note ---
Date of Encounter: 10/11/16 Time of Encounter: 01:32 Patient seen and examined withpetitioner. Patient self catheterize every day and has history of recurrent urinary tract infections. She has been placed for the past 4 days of ciprofloxacin for UTI. She continues to have fevers up to 102 at home. She is nauseous. Urine culture done 3 days ago shows VRE and E. coli. Patient would be started on Zyvox and cefepime. She she would be hydrated. 1 L food bolus will be given now. She is not hypotensive. She is alert oriented times 3. There is no CVA tenderness. She was diagnosed with stress cardiomyopathy month ago during hospitalization however repeat echocardiogram according to her showed normal LV function. Also the diagnosis of see the suspected last admission was never confirmed by lab testing. She denies any diarrhea currently. Full code. Inpatient admission
[2016-10-11] MEDS: Ondansetron 4 MG/2 ML VIAL IVP PRN (04:27)
[2016-10-11] MEDS ORDERED: Cefepime HCl 1,000 MG in D5% in Water (Mini-Bag+) 100 ML IVPB SCH (06:00)
[2016-10-11 06:04] LABS: Basophils % 0.3 %; Eosinophils # 0.1 K/mcL (0.0-0.6); Eosinophils % 0.9 %; Hematocrit 27.9 % (35.3-44.9); Immature Granulocytes % 0.7 % (0-4); Lymphocytes # 0.6 K/mcL (0.6-4.6); Lymphocytes % 8.7 %; Mean Corpuscular HGB Conc 31.9 g/dL (31.6-35.5); Mean Corpuscular Hemoglobin 30.6 pg (28.0-33.3); Mean Corpuscular Volume 95.9 fL (83.0-100.0); Mean Platelet Volume 8.8 fL (9.4-12.4); Monocytes # 0.7 K/mcL (0.0-1.3); Monocytes % 10.6 %; Neutrophils # 5.3 K/mcL (1.6-8.9); Platelet Count 148 K/mcL (140-400); Red Blood Count 2.91 M/mcL (3.82-4.97); Segmented Neutrophils % 78.8 %
[2016-10-11 06:06] LABS: Hemoglobin 8.9 g/dL (11.5-15.4)
[2016-10-11 06:19] LABS: BUN/Creatinine Ratio 10 (6-26); Blood Urea Nitrogen 11 mg/dL (7-20); Calcium 8.2 mg/dL (8.6-10.8); Carbon Dioxide 18 mEq/L (19-29); Chloride 111 mEq/L (98-109); Glucose 124 mg/dL (70-99); Osmolality,Calculated 287 (280-300); Potassium 3.4 mEq/L (3.5-4.5); Sodium 138 mEq/L (136-145); eGFR For African Americans > 60 (> 60); eGFR For Non-African Americans 50 (> 60)
[2016-10-11] MEDS ORDERED: Potassium Chloride Elixir 20 MEQ/15 ML UDC PO ONE (06:45)
[2016-10-11] MEDS: *HR* Heparin 5,000 UNIT/ML VIAL SQ SCH ×2 (09:09→19:58)
[2016-10-11] MEDS: Ascorbic Acid 500 MG TABLET PO SCH (09:09)
[2016-10-11] MEDS: Famotidine 20 MG TABLET PO SCH (09:09)
--- NOTE | 2016-10-11 09:37 | Internal Med Progress Note ---
<Jose David Narayan - Last Filed: 10/11/16 14:05> Date of Encounter: 10/11/16 Time of Encounter: 08:30 - Assessment and plan (1) Complicated UTI (urinary tract infection) Current Visit: No Status: Acute Assessment and plan: -Sensitivities for Urine culture to macrobid and rocephin. Patient has good GFR. Patient has only one functioning kidney. Spoke with pharmacist about this and she agrees with treatment plan. -Patient not having complains. Frequent UTIs and divertiulitis. Concern that patient may have fistula formation. -Consider getting CT scan to evaluate for fistula. Plan -Abx switch to macrobid and rocephin. (2) DVT prophylaxis Current Visit: No Status: Acute Assessment and plan: -On heparin. Continue heparin. Dont use lovenox to spare the kidneys. - Time Spent With Patient Greater than 35 minutes - Subjective Interval history: c/c complicated UTI Patient seen by her PCP for UTI like symptoms. PCP did urine culture. Found to have Ecoli and VRE. Patient at that time had fever, nausea and vomiting. Told to go to ED and be evaluated. Patient states she is doing well today. Denies N/V/D/abdominal pain/superpubic pain, CVA tenderness. She has a santos in place. Has to self cath because her "bladder doesn't empty". Denies stroke, trauma. Blames over filling of her bladder on an OB procedure during child . 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 She has several UTI. States that sometimes she finds stool in her underware, which could contribute to her UTIs. Denies any stool mixed with her urine. PHM of recurrent diverticulitis. - Constitutional Vitals: Temp Pulse Resp BP Pulse Ox 97.6 F 82 16 118/75 92 L 10/11/16 08:19 10/11/16 08:19 10/11/16 08:19 10/11/16 08:19 10/11/16 04:07 General appearance: Present: A&O X 3, answers questions appropriately - Head Head exam: Present: atraumatic, normocephalic - Eye Eye exam: Present: PERRL, conjuntiva pink, sclera anicteric Pupils: Present: PERRL - Neck Neck exam general surgery: Present: supple, trachea midline. Absent: lymphadenopathy - Respiratory Respiratory exam: Present: CTAB. Absent: accessory muscle use, rales, rhonchi, wheezes - Cardiovascular Cardiovascular exam: Present: RRR, +S1, +S2. Absent: diastolic murmur, gallop, rubs, systolic murmur - GI/Abdominal GI/Abdominal exam: Present: normal bowel sounds, soft, no peritoneal signs. Absent: distended, tenderness - Extremities Exam Extremities exam: Present: warm, radial pulses palpable and symetrical. Absent : calf tenderness, cyanotic, pedal edema - Neurological Exam Neurological exam: Present: CN II-XII intact, oriented X3, no focal deficits. Absent: pronater drift, facial droop, speech deficit - Skin Skin exam: Present: dry, intact - Other Additional findings: No CVA tenderness, superpubic pain or adominal pain. Santos in place. Dark yellow urine in bag. Internal Medicine: Result - Labs CBC & Chem 7: 10/11/16 13:00 10/11/16 05:48 Labs: Short CBC 10/11/16 Range/Units 05:48 WBC 6.7 (4.3-11.1) K/mcL Hgb 8.9 L D (11.5-15.4) g/dL Hct 27.9 L (35.3-44.9) % Plt Count 148 (140-400) K/mcL Neutrophils # 5.3 (1.6-8.9) K/mcL BMP 10/11/16 05:48 Sodium 138 Potassium 3.4 L Chloride 111 H Carbon Dioxide 18 L BUN 11 Creatinine 1.10 Glucose 124 H Calcium 8.2 L Consult Discharge Plan - Plan Referrals: Mir Gomes DO [Primary Care Provider] - <Satya Sanchez P - Last Filed: 10/11/16 14:55> Date of Encounter: 10/11/16 - Constitutional Vitals: Temp Pulse Resp BP Pulse Ox 99.0 F 86 18 126/47 99 10/11/16 12:18 10/11/16 12:18 10/11/16 12:18 10/11/16 12:18 10/11/16 12:18 Internal Medicine: Result - Labs CBC & Chem 7: 10/11/16 13:00 10/11/16 05:48 Labs: Short CBC 10/11/16 10/11/16 Range/Units 05:48 13:00 WBC 6.7 (4.3-11.1) K/mcL Hgb 8.9 L D 9.0 L (11.5-15.4) g/dL Hct 27.9 L 28.5 L (35.3-44.9) % Plt Count 148 (140-400) K/mcL Neutrophils # 5.3 (1.6-8.9) K/mcL BMP 10/11/16 05:48 Sodium 138 Potassium 3.4 L Chloride 111 H Carbon Dioxide 18 L BUN 11 Creatinine 1.10 Glucose 124 H Calcium 8.2 L - Attending Attestation I examined this patient and my medical decision-making was reviewed with the CHLORINE OPERATOR/PA/Advanced Practice Nurse/Resident Physician. I agree with the documented findings, disposition and treatment plan as described except to the extent set forth below.
[2016-10-11] MEDS ORDERED: Calcium Gluconate 1,000 MG in D5% in Water 100 ML IVPB PRN (10:18)
[2016-10-11] MEDS ORDERED: Magnesium Sulfate 2 GM in D5% in Water 100 ML IVPB PRN (10:18)
[2016-10-11 13:17] LABS: Hematocrit 28.5 % (35.3-44.9)
[2016-10-11] MEDS: 0.9 % Sodium Chloride 1,000 ML IVC SCH (15:55)
[2016-10-11] MEDS: Nitrofurantoin (BID) 100 MG CAPSULE PO SCH (17:59)
[2016-10-12] MEDS: 0.9 % Sodium Chloride 1,000 ML IVC SCH ×3 (03:52→21:56)
[2016-10-12] MEDS: *HR* Heparin 5,000 UNIT/ML VIAL SQ SCH ×2 (06:00→18:25)
[2016-10-12 06:28] LABS: Hematocrit 27.2 % (35.3-44.9); Hemoglobin 8.8 g/dL (11.5-15.4)
[2016-10-12 06:42] LABS: BUN/Creatinine Ratio 8 (6-26); Blood Urea Nitrogen 8 mg/dL (7-20); Calcium 8.3 mg/dL (8.6-10.8); Carbon Dioxide 20 mEq/L (19-29); Chloride 111 mEq/L (98-109); Glucose 80 mg/dL (70-99); Osmolality,Calculated 283 (280-300); Potassium 3.8 mEq/L (3.5-4.5); Sodium 138 mEq/L (136-145); eGFR For African Americans > 60 (> 60); eGFR For Non-African Americans 59 (> 60)
[2016-10-12] MEDS: Ascorbic Acid 500 MG TABLET PO SCH (10:30)
[2016-10-12] MEDS: Nitrofurantoin (BID) 100 MG CAPSULE PO SCH (10:31)
[2016-10-12] MEDS: Famotidine 20 MG TABLET PO SCH (10:31)
[2016-10-12] MEDS: Ondansetron 4 MG/2 ML VIAL IVP PRN ×2 (13:40→22:05)
--- NOTE | 2016-10-12 18:09 | Internal Med Progress Note ---
Date of Encounter: 10/12/16 Time of Encounter: 18:07 - Assessment and plan (1) Complicated UTI (urinary tract infection) Current Visit: No Status: Acute Assessment and plan: -Sensitivities for Urine culture to macrobid and rocephin. Patient has good GFR. Patient has only one functioning kidney. Spoke with pharmacist about this and she agrees with treatment plan. -Patient not having complains. Frequent UTIs and divertiulitis. Concern that patient may have fistula formation. -Consider getting CT scan to evaluate for fistula. Plan -Abx switch to macrobid and rocephin. 10/12/2016. Date 2: Ceftriaxone Urine culture: Escherichia coli: Sensitive to ceftriaxone Will continue same antibiotics. (2) DVT prophylaxis Current Visit: No Status: Acute Assessment and plan: -On heparin. Continue heparin. Dont use lovenox to spare the kidneys. - Subjective Interval history: Seen and examined. Patient is comfortably lying in the bed. Denies any pain or dysuria. Has occasional discomfort in the lower abdomen. - Constitutional Vitals: Temp Pulse Resp BP Pulse Ox 99 F 97 16 112/72 96 10/12/16 16:19 10/12/16 11:06 10/12/16 16:19 10/12/16 16:19 10/12/16 16:19 General appearance: Present: A&O X 3, answers questions appropriately - Head Head exam: Present: atraumatic, normocephalic - Eye Eye exam: Present: PERRL, conjuntiva pink, sclera anicteric Pupils: Present: PERRL - Neck Neck exam general surgery: Present: supple, trachea midline. Absent: lymphadenopathy - Respiratory Respiratory exam: Present: CTAB. Absent: accessory muscle use, rales, rhonchi, wheezes - Cardiovascular Cardiovascular exam: Present: RRR, +S1, +S2. Absent: diastolic murmur, gallop, rubs, systolic murmur - GI/Abdominal GI/Abdominal exam: Present: normal bowel sounds, soft, no peritoneal signs. Absent: distended, tenderness - Extremities Exam Extremities exam: Present: warm, radial pulses palpable and symetrical. Absent : calf tenderness, cyanotic, pedal edema - Neurological Exam Neurological exam: Present: CN II-XII intact, oriented X3, no focal deficits. Absent: pronater drift, facial droop, speech deficit - Skin Skin exam: Present: dry, intact Internal Medicine: Result - Labs CBC & Chem 7: 10/12/16 06:14 10/12/16 06:14 Labs: Short CBC 10/12/16 Range/Units 06:14 Hgb 8.8 L (11.5-15.4) g/dL Hct 27.2 L (35.3-44.9) % BMP 10/12/16 06:14 Sodium 138 Potassium 3.8 Chloride 111 H Carbon Dioxide 20 BUN 8 Creatinine 0.96 Glucose 80 Calcium 8.3 L Consult Discharge Plan - Plan Referrals: Mir Gomes DO [Primary Care Provider] -
[2016-10-13 05:39] LABS: Basophils % 0.6 %; Eosinophils # 0.2 K/mcL (0.0-0.6); Eosinophils % 3.6 %; Hematocrit 27.4 % (35.3-44.9); Hemoglobin 8.8 g/dL (11.5-15.4); Immature Granulocytes % 1.3 % (0-4); Lymphocytes # 0.7 K/mcL (0.6-4.6); Lymphocytes % 15.6 %; Mean Corpuscular HGB Conc 32.1 g/dL (31.6-35.5); Mean Corpuscular Hemoglobin 30.7 pg (28.0-33.3); Mean Corpuscular Volume 95.5 fL (83.0-100.0); Mean Platelet Volume 8.9 fL (9.4-12.4); Monocytes # 0.5 K/mcL (0.0-1.3); Neutrophils # 3.2 K/mcL (1.6-8.9); Platelet Count 156 K/mcL (140-400); Red Blood Count 2.87 M/mcL (3.82-4.97); Red Cell Distribution Width 14.6 % (11.5-14.5); Segmented Neutrophils % 67.9 %
[2016-10-13 05:53] LABS: BUN/Creatinine Ratio 7 (6-26); Blood Urea Nitrogen 6 mg/dL (7-20); Calcium 8.2 mg/dL (8.6-10.8); Carbon Dioxide 20 mEq/L (19-29); Chloride 112 mEq/L (98-109); Glucose 79 mg/dL (70-99); Osmolality,Calculated 285 (280-300); Sodium 139 mEq/L (136-145); eGFR For African Americans > 60 (> 60); eGFR For Non-African Americans > 60 (> 60)
[2016-10-13] MEDS: *HR* Heparin 5,000 UNIT/ML VIAL SQ SCH ×2 (06:30→18:27)
--- NOTE | 2016-10-13 08:56 | Urology - Consult Note ---
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 We have discussed nephroureterectomy in the past to remove the atrophic kidney and ureter. One month ago it appeared she had a significant diverticulitis. No imaging in the last month. I' m suspicious that her recent illness and fever are secondary to persistent diverticulitis rather than a significant urinary tract infection. This is highlighted further by the fact that she describes no recent dysuria or increasing urinary symptoms. I recommend a CT urogram with by mouth contrast to help identify the etiology of her recent illness. Continue culture specific antibiotics until the imaging is complete Urology CN:HPI Consult date: 10/13/16 History of present illness: patient well known to [facility] service. long hx of recurrent UTIs and colonization. hx of left ureteral reimplantation by prior urologist but problems persisted. we have discussed on multiple occasions proceeding with a nephroureterectomy to remove possible nidus for stones but pt has elected for observation bc unsure if surgery would resolve issue. CT scan last month with diverticulitis and possible perforation. left lower quadrant pain has worsened. currently admitted bc of increasing symptoms. Past Med Surg Social Fam HX - Past Medical History Medical history: arthritis, cardiomyopathy, GERD, GI bleed, hypertension, osteoporosis, renal disease Psychiatric history: no psych history - Past Surgical History Surgical History: other (reconstruction of ureter) - Social History Smoking Status: Never smoker Smokeless Tobacco Status: No Alcohol use: none Drug use: none - Family History Mother Living Status: Hx Family Cardiac Disorders: Yes Hx Family Respiratory Disorders: No Hx Family Cancer: No Hx Family GI Disorders: No Hx Family Endocrine Disorder: No Hx Family Neuromuscular Disorders: No Hx Family Neurologic Disorders: Yes (stroke) Hx Family HEENT Disorders: No Hx Family Autoimmune Disorders: No Medications and Allergies Ascorbate Calcium [Vitamin C] 500 mg PO DAILY 10/10/16 [History] Esomeprazole Magnesium [Nexium] 40 mg PO DAILY 10/10/16 [History] Ondansetron HCl [Zofran] 4 mg PO Q8H PRN 02/09/17 [History] Allergies acetaminophen [From Percocet] Allergy (Verified 11/01/15 10:14) Itching cephalexin Allergy (Verified 11/01/15 10:14) Rash Cephalosporins Allergy (Verified 11/01/15 10:14) Rash codeine Allergy (Verified 11/01/15 10:14) Nausea hydrocodone [From Vicodin] Allergy (Verified 11/01/15 10:14) Itching morphine Allergy (Verified 11/01/15 10:14) Nausea Oxycodone [From Percocet] Allergy (Verified 11/01/15 10:14) Itching Penicillins Allergy (Verified 11/01/15 10:14) Rash propoxyphene [From Darvocet-N 100] Allergy (Verified 11/01/15 10:14) Itching tobramycin Allergy (Verified 02/21/16 15:50) Chest Pain diphenhydramine [From Benadryl] Adverse Reaction (Mild, Verified 09/04/16 15:08) See Comments Pt states it made her dellusional doxycycline Adverse Reaction (Verified 11/01/15 10:14) Vomiting beta-lactam Allergy (Uncoded 11/01/15 10:14) Rash penicillin Allergy (Uncoded 11/01/15 10:14) Rash Review of Systems - Constitutional chills, fatigue, fever(s), malaise - EENT Nose, mouth and throat: no dizziness - Cardiovascular no chest pain - Respiratory no cough - Gastrointestinal abdominal pain, nausea, no vomiting - Genitourinary Genitourinary: other (no pneumoturia), no dysuria - Musculoskeletal back pain - Integumentary no erythema - Neurological no confusion - Psychiatric no anxiety - Hematologic/Lymphatic no easy bleeding - Allergic/Immunologic no throat swelling Exam Initial Vital Signs Temp Pulse Resp BP Pulse Ox 99.2 F 113 18 133/85 100 10/10/16 18:11 10/10/16 18:11 10/10/16 18:11 10/10/16 18:11 10/10/16 18:11 - General physical appearance Present: well developed, no distress - Eyes Present: PERRL - ENT Present: normal nares - Neck Present: no masses - Respiratory Present: normal respiratory effort - Cardiovascular Cardiovascular exam IM: RRR - Abdomen Abdomen: Present: soft - Integumentary Present: no rash - Neurologic Present: normal coordination. Absent: disoriented, confused - Additional Findings santos cath with clear urine Urology Results - Labs 10/13/16 05:10 10/13/16 05:10 Abnormal lab results RBC 2.87 M/mcL (3.82-4.97) L 10/13/16 05:10 Hgb 8.8 g/dL (11.5-15.4) L 10/13/16 05:10 Hct 27.4 % (35.3-44.9) L 10/13/16 05:10 RDW 14.6 % (11.5-14.5) H 10/13/16 05:10 MPV 8.9 fL (9.4-12.4) L 10/13/16 05:10 Chloride 112 mEq/L (98-109) H 10/13/16 05:10 BUN 6 mg/dL (7-20) L 10/13/16 05:10 Calcium 8.2 mg/dL (8.6-10.8) L 10/13/16 05:10 Magnesium 1.2 mg/dL (1.6-2.6) L 10/11/16 05:48 Ur Specimen Adequacy See below A 10/10/16 18:51 Urine Color Red (Yellow) A 10/10/16 18:51 Urine Clarity Cloudy (Clear) A 10/10/16 18:51 Urine Protein 100 mg/dL (Neg-Trace) H 10/10/16 18:51 Urine Ketones Trace mg/dL (Negative) H 10/10/16 18:51 Urine Blood Large (Negative) H 10/10/16 18:51 Urine Nitrite Positive (Negative) A 10/10/16 18:51 Urine Bilirubin Moderate (Negative) H 10/10/16 18:51 Ur Leukocyte Esterase Large (Negative) H 10/10/16 18:51 Ur Culture Indicated? YES (NO) A 10/10/16 18:51 Diabetes panel 10/13/16 Range/Units 05:10 Sodium 139 (136-145) mEq/L Potassium 4.0 (3.5-4.5) mEq/L Chloride 112 H (98-109) mEq/L Carbon Dioxide 20 (19-29) mEq/L BUN 6 L (7-20) mg/dL Creatinine 0.89 (0.57-1.11) mg/dL Glucose 79 (70-99) mg/dL Calcium 8.2 L (8.6-10.8) mg/dL Calcium panel 10/13/16 Range/Units 05:10 Calcium 8.2 L (8.6-10.8) mg/dL Pituitary panel 10/13/16 Range/Units 05:10 Sodium 139 (136-145) mEq/L Potassium 4.0 (3.5-4.5) mEq/L Chloride 112 H (98-109) mEq/L Carbon Dioxide 20 (19-29) mEq/L BUN 6 L (7-20) mg/dL Creatinine 0.89 (0.57-1.11) mg/dL Glucose 79 (70-99) mg/dL Calcium 8.2 L (8.6-10.8) mg/dL Adrenal panel 10/13/16 Range/Units 05:10 Sodium 139 (136-145) mEq/L Potassium 4.0 (3.5-4.5) mEq/L Chloride 112 H (98-109) mEq/L Carbon Dioxide 20 (19-29) mEq/L BUN 6 L (7-20) mg/dL Creatinine 0.89 (0.57-1.11) mg/dL Glucose 79 (70-99) mg/dL Calcium 8.2 L (8.6-10.8) mg/dL All other labs normal. Consult Discharge Plan - Plan Referrals: Mir Gomes DO [Primary Care Provider] -
[2016-10-13] MEDS: Famotidine 20 MG TABLET PO SCH (09:45)
[2016-10-13] MEDS: Ascorbic Acid 500 MG TABLET PO SCH (09:46)
--- NOTE | 2016-10-13 10:31 | Internal Med Progress Note ---
<Mir Reyes - Last Filed: 10/13/16 11:43> Date of Encounter: 10/13/16 Time of Encounter: 09:20 - Assessment and plan (1) Complicated UTI (urinary tract infection) Current Visit: No Status: Acute Assessment and plan: Hx of recurrent urinary tract infections with frequent findings of E.coli in urine cultures. Recent Urine culture on 10/07/2016 demonstrated VRE and E.coli, sensitivities were reviewed and she was started on the appropriate antibiotics. Urine culture collected on 10/10/2016 resulted E.coli which is sensitive to Rocephin. Patient continued on Rocephin. She has a history of frequent recurrent urinary tract infections with roughly 7 in the past 1.5 years. She has a known atrophic left kidney with an associated hx of left ureteral reimplantation by prior urologist. Her right kidney demonstrates signs of scarring likely from previous episodes of pyleonephritis. Recent CT scan has been reviewed which demonstrates distal colonic diverticula and sigmoid wall thickening with associated adjacent inflammatory changes. There is concern for possible colonic-vesicular fistula vs. colonic disease including possible diverticular abscess that may be contributing to her current symptoms. Dr. Florian with Urology was consulted and is following the patient. Plan: - CT abd/pelvis W/WO contrast was ordered for CT urogram, CT with PO contrast with delayed imaging was ordered - Imaging studies to be reviewed may require general surgery involvement. - Continue Rocephin (day 3). (2) DVT prophylaxis Current Visit: No Status: Acute Assessment and plan: Continue SQ Heparin Q12hrs. - Subjective Interval history: Ms. Hannon has been seen and evaluated at patient bedside this morning. She says she is doing well and her only concern is feeling gassy. She denies any recent fevers, chills, or sweating all of which she had prior to admission. She denies any abdominal pain and has regular bowel movements. She has tolerated PO intake without nausea or vomiting. In discussion regarding her bladder she mentions she has a history of urinary retention and straight caths 3 x per day. She voids but does not fully empty her bladder. She has recurrent urinary infections over the past 5 + years and has had 7 in the last 1.5 years with E.coli present in all of her urine cultures. She denies any pain/burning with urination. She has a history of diverticulitis but denies any trouble currently. - Constitutional Vitals: Temp Pulse Resp BP Pulse Ox 98.3 F 80 15 115/76 97 10/13/16 06:57 10/13/16 06:57 10/13/16 06:57 10/13/16 06:57 10/13/16 06:57 General appearance: Present: A&O X 3, answers questions appropriately - Head Head exam: Present: atraumatic, normocephalic - Eye Eye exam: Present: PERRL, conjuntiva pink, sclera anicteric Pupils: Present: PERRL - ENT ENT exam: Present: mucous membranes moist - Neck Neck exam general surgery: Present: supple, trachea midline. Absent: lymphadenopathy - Respiratory Respiratory exam: Present: CTAB. Absent: accessory muscle use, rales, rhonchi, wheezes - Cardiovascular Cardiovascular exam: Present: RRR, systolic murmur. Absent: diastolic murmur, gallop, rubs Additional comments: grade 2/6 systolic ejection murmur. - GI/Abdominal GI/Abdominal exam: Present: normal bowel sounds, soft Additional comments: non-tender to palpation, fullness to the hypogastric region. - Extremities Exam Extremities exam: Present: warm, radial pulses palpable and symetrical. Absent : calf tenderness, cyanotic, pedal edema - Neurological Exam Neurological exam: Present: alert, oriented X3, no focal deficits. Absent: pronater drift, facial droop, speech deficit - Psychiatric Psychiatric exam: Present: normal affect, normal mood - Skin Skin exam: Present: dry, warm Internal Medicine: Result - Labs CBC & Chem 7: 10/13/16 05:10 10/13/16 05:10 Labs: Short CBC 10/13/16 Range/Units 05:10 WBC 4.7 (4.3-11.1) K/mcL Hgb 8.8 L (11.5-15.4) g/dL Hct 27.4 L (35.3-44.9) % Plt Count 156 (140-400) K/mcL Neutrophils # 3.2 (1.6-8.9) K/mcL BMP 10/13/16 05:10 Sodium 139 Potassium 4.0 Chloride 112 H Carbon Dioxide 20 BUN 6 L Creatinine 0.89 Glucose 79 Calcium 8.2 L Consult Discharge Plan - Plan Referrals: Mir Gomes DO [Primary Care Provider] - <Satya Sanchez P - Last Filed: 10/13/16 16:31> Date of Encounter: 10/13/16 - Assessment and plan (1) Complicated UTI (urinary tract infection) Current Visit: No Status: Acute (2) DVT prophylaxis Current Visit: No Status: Acute - Constitutional Vitals: Temp Pulse Resp BP Pulse Ox 98.2 F 81 15 121/79 96 10/13/16 16:01 10/13/16 16:01 10/13/16 16:01 10/13/16 16:01 10/13/16 16:01 Internal Medicine: Result - Labs CBC & Chem 7: 10/13/16 05:10 10/13/16 05:10 Labs: Short CBC 10/13/16 Range/Units 05:10 WBC 4.7 (4.3-11.1) K/mcL Hgb 8.8 L (11.5-15.4) g/dL Hct 27.4 L (35.3-44.9) % Plt Count 156 (140-400) K/mcL Neutrophils # 3.2 (1.6-8.9) K/mcL BMP 10/13/16 05:10 Sodium 139 Potassium 4.0 Chloride 112 H Carbon Dioxide 20 BUN 6 L Creatinine 0.89 Glucose 79 Calcium 8.2 L - Attending Attestation I examined this patient and my medical decision-making was reviewed with the TYPING CHECKER/PA/Advanced Practice Nurse/Resident Physician. I agree with the documented findings, disposition and treatment plan as described except to the extent set forth below.
[2016-10-13] MEDS ORDERED: Acetaminophen/Aspirin/Caffeine TABLET PO ONE (11:30)
[2016-10-14] MEDS: *HR* Heparin 5,000 UNIT/ML VIAL SQ SCH ×2 (06:19→19:38)
[2016-10-14 06:47] LABS: BUN/Creatinine Ratio 7 (6-26); Blood Urea Nitrogen 6 mg/dL (7-20); Calcium 8.2 mg/dL (8.6-10.8); Carbon Dioxide 19 mEq/L (19-29); Chloride 110 mEq/L (98-109); Glucose 77 mg/dL (70-99); Osmolality,Calculated 278 (280-300); Potassium 3.8 mEq/L (3.5-4.5); Sodium 136 mEq/L (136-145); eGFR For African Americans > 60 (> 60); eGFR For Non-African Americans > 60 (> 60)
--- NOTE | 2016-10-14 09:55 | Internal Med Progress Note ---
<Agapito Bañuelos - Last Filed: 10/14/16 14:11> Date of Encounter: 10/14/16 Time of Encounter: 09:53 - Assessment and plan (1) Complicated UTI (urinary tract infection) Current Visit: No Status: Acute Assessment and plan: 61 y/o Female with hx of mutliple UTI, urinary retention and straight caths 3x per day. Patient has left atrophic kidney, with hx of left ureteral reimplantation. Patient has hx of PHILIP and multidurg resistant ecoli. Currently she has UTI 2nd to Ecoli and being with rocephin. Patient had CT abdomen/pelvis with delayed oral contrast showing sigmonid diverticulitis without abscess or fistula formation. Urology states patient was offered to undergo a left nephroureterectomy to remove with the atrophic kidney and ureter however patient elected not to undergo procedure. Today she is on day four of ceftriaxone. (2) DVT prophylaxis Current Visit: No Status: Acute Assessment and plan: -continue heparin (3) Diverticulitis Current Visit: No Status: Acute Assessment and plan: Past two CT indicates sigmoid diverticulitis w/o perforation, abscess or fistula. Patient is currently on rocephin and will add flagyl. Continue regular diet. Qualifiers: Diverticulitis site: large intestine Diverticulitis bleeding: without bleeding Diverticulitis complication: without perforation or abscess Qualified Code(s): K57.32 - Diverticulitis of large intestine without perforation or abscess without bleeding - Subjective Interval history: Patient had no complaints overnight. She underwent a Abdomen and pelvis CT scan with oral contrast with delayed imaging this morning. - Constitutional Vitals: Temp Pulse Resp BP Pulse Ox 98 F 72 16 147/87 98 10/14/16 07:39 10/14/16 07:39 10/14/16 07:39 10/14/16 07:39 10/14/16 08:43 General appearance: Present: A&O X 3, answers questions appropriately - Head Head exam: Present: atraumatic, normocephalic - Eye Eye exam: Present: PERRL, conjuntiva pink, sclera anicteric Pupils: Present: PERRL - Neck Neck exam general surgery: Present: supple, trachea midline. Absent: lymphadenopathy - Respiratory Respiratory exam: Present: CTAB. Absent: accessory muscle use, rales, rhonchi, wheezes - Cardiovascular Cardiovascular exam: Present: RRR, +S1, +S2. Absent: diastolic murmur, gallop, rubs, systolic murmur - GI/Abdominal GI/Abdominal exam: Present: normal bowel sounds, soft, no peritoneal signs. Absent: distended, tenderness - Extremities Exam Extremities exam: Present: warm, radial pulses palpable and symetrical. Absent : calf tenderness, cyanotic, pedal edema - Neurological Exam Neurological exam: Present: CN II-XII intact, oriented X3, no focal deficits. Absent: pronater drift, facial droop, speech deficit - Skin Skin exam: Present: dry, intact Internal Medicine: Result - Labs CBC & Chem 7: 10/14/16 10:30 10/14/16 05:58 Labs: BMP 10/14/16 05:58 Sodium 136 Potassium 3.8 Chloride 110 H Carbon Dioxide 19 BUN 6 L Creatinine 0.90 Glucose 77 Calcium 8.2 L - Impressions Impressions Abdomen/Pelvis CT 10/13/16 13:30 IMPRESSION: Findings consistent with persistent diverticulitis and free fluid seen within the pelvis, there is no evidence for abscess or bowel rupture. D/ / 10/13/2016 16:36:51 Clint Enriquez MD / barbra Interpreting Provider: Clint Enriquez MD Consult Discharge Plan - Plan Referrals: Mir Gomes DO [Primary Care Provider] - <Satya Sanchez - Last Filed: 10/14/16 18:02> Date of Encounter: 10/14/16 - Assessment and plan (1) Complicated UTI (urinary tract infection) Current Visit: No Status: Acute (2) DVT prophylaxis Current Visit: No Status: Acute - Constitutional Vitals: Temp Pulse Resp BP Pulse Ox 98.9 F 76 16 131/82 97 10/14/16 15:49 10/14/16 15:49 10/14/16 15:49 10/14/16 15:49 10/14/16 15:49 Internal Medicine: Result - Labs CBC & Chem 7: 10/14/16 10:30 10/14/16 05:58 Labs: Short CBC 10/14/16 Range/Units 10:30 WBC 5.5 (4.3-11.1) K/mcL Hgb 9.4 L (11.5-15.4) g/dL Hct 28.6 L (35.3-44.9) % Plt Count 192 (140-400) K/mcL [facility] 10/14/16 05:58 Sodium 136 Potassium 3.8 Chloride 110 H Carbon Dioxide 19 BUN 6 L Creatinine 0.90 Glucose 77 Calcium 8.2 L - Impressions Impressions Abdomen/Pelvis CT 10/13/16 13:30 IMPRESSION: Findings consistent with persistent diverticulitis and free fluid seen within the pelvis, there is no evidence for abscess or bowel rupture. D/ / 10/13/2016 16:36:51 Clint Enriquez MD / barbra Interpreting Provider: Clint Enriquez MD Abdomen/Pelvis CT 10/14/16 09:30 IMPRESSION: A least moderate wall thickening of a long segment of sigmoid colon with adjacent fat stranding suggesting acute inflammation. Inflammatory changes are similar to increased since prior study. Findings are suggestive of recurrent or unresolved diverticulitis. Follow-up to exclude underlying neoplasm is recommended. D/ / Emelia Dinero Cha, MD / Emelia Dinero Cha, MD Interpreting Provider: Emelia Dinero Cha, MD - Attending Attestation I examined this patient and my medical decision-making was reviewed with the SYNTHETIC CLOTH BINDING CUTTER/PA/Advanced Practice Nurse/Resident Physician. I agree with the documented findings, disposition and treatment plan as described except to the extent set forth below. Need surgery opinion tomorrow for possible chronic inflammation and possible fistula.
[2016-10-14 11:02] LABS: Hematocrit 28.6 % (35.3-44.9); Hemoglobin 9.4 g/dL (11.5-15.4); Mean Corpuscular HGB Conc 32.9 g/dL (31.6-35.5); Mean Corpuscular Hemoglobin 30.5 pg (28.0-33.3); Mean Corpuscular Volume 92.9 fL (83.0-100.0); Mean Platelet Volume 9.3 fL (9.4-12.4); Platelet Count 192 K/mcL (140-400); Red Blood Count 3.08 M/mcL (3.82-4.97); Red Cell Distribution Width 14.6 % (11.5-14.5)
[2016-10-14] MEDS: Famotidine 20 MG TABLET PO SCH (11:46)
[2016-10-14] MEDS: Ascorbic Acid 500 MG TABLET PO SCH (11:47)
[2016-10-14] MEDS: Ondansetron 4 MG/2 ML VIAL IVP PRN (14:51)
[2016-10-14] MEDS: MetroNIDAZOLE 500 MG/100 ML 500 MG/100 ML BAG IVPB SCH (18:30)
[2016-10-14] MEDS: 0.9 % Sodium Chloride 1,000 ML IVC SCH (19:39)
[2016-10-15] MEDS: MetroNIDAZOLE 500 MG/100 ML 500 MG/100 ML BAG IVPB SCH ×2 (01:45→08:28)
[2016-10-15 05:44] LABS: Basophils % 0.4 %; Eosinophils # 0.1 K/mcL (0.0-0.6); Eosinophils % 2.2 %; Hematocrit 27.6 % (35.3-44.9); Hemoglobin 8.9 g/dL (11.5-15.4); Immature Granulocytes % 1.5 % (0-4); Lymphocytes # 0.9 K/mcL (0.6-4.6); Lymphocytes % 16.9 %; Mean Corpuscular HGB Conc 32.2 g/dL (31.6-35.5); Mean Corpuscular Hemoglobin 30.8 pg (28.0-33.3); Mean Corpuscular Volume 95.5 fL (83.0-100.0); Mean Platelet Volume 8.7 fL (9.4-12.4); Monocytes # 0.5 K/mcL (0.0-1.3); Monocytes % 9.6 %; Neutrophils # 3.8 K/mcL (1.6-8.9); Platelet Count 165 K/mcL (140-400); Red Blood Count 2.89 M/mcL (3.82-4.97); Red Cell Distribution Width 14.5 % (11.5-14.5); Segmented Neutrophils % 69.4 %
[2016-10-15 06:04] LABS: BUN/Creatinine Ratio 8 (6-26); Blood Urea Nitrogen 7 mg/dL (7-20); Calcium 8.4 mg/dL (8.6-10.8); Carbon Dioxide 24 mEq/L (19-29); Chloride 111 mEq/L (98-109); Glucose 98 mg/dL (70-99); Osmolality,Calculated 288 (280-300); Potassium 4.5 mEq/L (3.5-4.5); Sodium 140 mEq/L (136-145); eGFR For African Americans > 60 (> 60); eGFR For Non-African Americans > 60 (> 60)
[2016-10-15] MEDS: 0.9 % Sodium Chloride 1,000 ML IVC SCH (08:27)
[2016-10-15] MEDS: Ascorbic Acid 500 MG TABLET PO SCH (08:30)
[2016-10-15] MEDS: Famotidine 20 MG TABLET PO SCH (08:30)
[2016-10-15] MEDS: *HR* Heparin 5,000 UNIT/ML VIAL SQ SCH (08:31)
--- NOTE | 2016-10-15 10:56 | Discharge Summary ---
<Agapito Bañuelos - Last Filed: 10/15/16 10:52> Date of Encounter: 10/15/16 Time of Encounter: 10:52 - Discharge Diagnosis (1) Complicated UTI (urinary tract infection) Priority: Primary Status: Acute (2) DVT prophylaxis Priority: Secondary Status: Acute (3) Diverticulitis Priority: Secondary Status: Acute Qualifiers: Diverticulitis site: large intestine Diverticulitis bleeding: without bleeding Diverticulitis complication: without perforation or abscess Qualified Code(s): K57.32 - Diverticulitis of large intestine without perforation or abscess without bleeding - Discharge Medications Prescriptions: Ciprofloxacin [Cipro] 500 mg PO BID #28 tablet MetroNIDAZOLE [Flagyl] 500 mg PO TID #42 tablet Home Medications: Ascorbate Calcium [Vitamin C] 500 mg PO DAILY 10/10/16 [History] Esomeprazole Magnesium [Nexium] 40 mg PO DAILY 10/10/16 [History] Ondansetron HCl [Zofran] 4 mg PO Q8H PRN 10/10/16 [History] Ciprofloxacin [Cipro] 500 mg PO BID #28 tablet 10/15/16 [Rx] MetroNIDAZOLE [Flagyl] 500 mg PO TID #42 tablet 10/15/16 [Rx] Allergies/Adverse Reactions: Allergies acetaminophen [From Percocet] Allergy (Verified 11/01/15 10:14) Itching cephalexin Allergy (Verified 11/01/15 10:14) Rash Cephalosporins Allergy (Verified 11/01/15 10:14) Rash codeine Allergy (Verified 11/01/15 10:14) Nausea hydrocodone [From Vicodin] Allergy (Verified 11/01/15 10:14) Itching morphine Allergy (Verified 11/01/15 10:14) Nausea Oxycodone [From Percocet] Allergy (Verified 11/01/15 10:14) Itching Penicillins Allergy (Verified 11/01/15 10:14) Rash propoxyphene [From Darvocet-N 100] Allergy (Verified 11/01/15 10:14) Itching tobramycin Allergy (Verified 02/21/16 15:50) Chest Pain diphenhydramine [From Benadryl] Adverse Reaction (Mild, Verified 09/04/16 15:08) See Comments Pt states it made her dellusional doxycycline Adverse Reaction (Verified 11/01/15 10:14) Vomiting beta-lactam Allergy (Uncoded 11/01/15 10:14) Rash penicillin Allergy (Uncoded 11/01/15 10:14) Rash Procedures/tests Complete & Pending: Procedures Performed prior 72 hours Category Date Time Status CT abd pelvis wo iv oral only [CT] Routine Cat Scan 10/14/16 09:[address] abdomen pelvis wo/w con [CT] Routine Cat Scan 10/13/16 13:30 Completed Date of admission: 10/10/16 22:35 Primary care physician: Sirena Taylor Consults: 10/14/16 13:13 Consult to Paper Winder [CONS] Routine Reason for SW Consult: Poss home IV abx Discharging clinician: Agapito Bañuelos Anticipated date of discharge: 10/15/16 - Patient Status Disposition: Home, Self-Care Condition: Good Functional capacity at discharge: independent ambulation Overall status at discharge: patient is progressing back to baseline - Discharge Instructions Instructions: Urinary Tract Infection in Women (DC) Follow Up With: Mir Gomes DO [Primary Care Provider] - Isabela Montilla MD [Partnered Physician] - (Recurrent diverticulitis. Patient started fourteen day course on cipro and flagyl on 10/15/16. In the past year she has had multiple occurences of diverticulitis. CT Abdomen and pelvis shows sigmoid diverticulitis. Last colonoscopy in October 2015. ) - Diet and Activity Activity: increase activity as tolerated Diet: advance to your usual diet Hospital course: Ms. Hannon is a 61 year old female 61-year-old female with history of recurrent UTIs, diverticulitis, CTD stage III, left atrophic kidney, left ureteral reconstruction who presented with nausea and vomiting fatigue fevers and chills on 10/10/16. 3 days before admission patient had went to her primary care physician who prescribed her antibiotics. At that time her urine culture grew Escherichia coli and VRE and her primary care physician advised her to go to the ER to get IV antibiotics. Patient was started on IV fluids, Rocephin and nitrofurantoin based on based on culture sensitivities. Patient has an atonic bladder and straight catheters herself 2-3 times a day. On admission her creatinine was 1.45 which is her baseline. Due to recurrent diverticulitis and UTI it was considered that patient may have veisculocolic fistula. CT obtained did not show this but there was evidence of acute diverticulitis. Repeat urine cultures indecated sensitivity to ceftriaxone and patient was switched to ceftriaxone. Urology was consulted for further evaluation and explained patient has left atrophic kideny and ureter. She has hx of left ureter reconstruction that was unsuccessful and afterwards her left kidney function declined. She was offered left nephroureterectomy but denied the procedure. Urologist believe her condition and symptoms may be more likely 2nd to diverticulitis than UTI. They recommend patient not be treated for UTI unless she is symptomatic as she will further develop resistance. Patient was started on flagyl for diverticulitis. Her nausea, vomitting improved over the course of her stay. Her kindey funciton remained stable. She has good oral intake, urine output, and bowel movements. She will need to restart straight caths at home. Today she has no complaints. She will be discharged with 14 day course of cipro and flagyl and will need to see general surgery outpatient for treatment of recurrent diverticulitis. Furthermore she will need to see PCP in the next 7 days. - Time Spent with Patient Total time spent providing and/or coordinating discharge services: - Constitutional Vitals: Temp Pulse Resp BP Pulse Ox 98.6 F 83 22 127/80 100 10/15/16 07:50 10/15/16 07:50 10/15/16 07:50 10/15/16 07:50 10/14/16 21:00 General appearance: Present: A&O X 3, answers questions appropriately - Head Head exam: Present: atraumatic, normocephalic - Eye Eye exam: Present: PERRL, conjuntiva pink, sclera anicteric - Neck Neck exam general surgery: Present: supple, trachea midline. Absent: lymphadenopathy - Respiratory Respiratory exam: Present: CTAB. Absent: accessory muscle use, rales, rhonchi, wheezes - Cardiovascular Cardiovascular exam: Present: RRR, +S1, +S2. Absent: diastolic murmur, gallop, rubs, systolic murmur - GI/Abdominal GI/Abdominal exam: Present: normal bowel sounds, soft, no peritoneal signs. Absent: distended, tenderness - Extremities Exam Extremities exam: Present: warm, radial pulses palpable and symetrical. Absent : calf tenderness, cyanotic, pedal edema - Neurological Exam Neurological exam: Present: CN II-XII intact, oriented X3, no focal deficits. Absent: pronater drift, facial droop, speech deficit - Skin Skin exam: Present: dry, intact <Mike Watson - Last Filed: 10/15/16 17:15> Date of Encounter: 10/15/16 - Discharge Diagnosis (1) Diverticulitis Status: Acute Qualifiers: Diverticulitis site: large intestine Diverticulitis bleeding: without bleeding Diverticulitis complication: without perforation or abscess Qualified Code(s): K57.32 - Diverticulitis of large intestine without perforation or abscess without bleeding (2) Anemia of chronic disease Priority: Secondary Status: Chronic (3) Complicated UTI (urinary tract infection) Status: Acute (4) HTN (hypertension) Priority: Secondary Status: Chronic Qualifiers: Hypertension type: essential hypertension Qualified Code(s): I10 - Essential (primary) hypertension Procedures/tests Complete & Pending: Procedures Performed prior 72 hours Category Date Time Status CT abd pelvis wo iv oral only [CT] Routine Cat Scan 10/14/16 09:[address] abdomen pelvis wo/w con [CT] Routine Cat Scan 10/13/16 13:30 Completed Date of admission: 10/10/16 22:35 Primary care physician: Sirena Taylor Consults: 10/14/16 13:13 Consult to Paper Winder [CONS] Routine Reason for SW Consult: Poss home IV abx Hospital course: Ms. Hannon is a 61 year old female - Time Spent with Patient Total time spent providing and/or coordinating discharge services: 33min - Constitutional Vitals: Temp Pulse Resp BP Pulse Ox 97.9 F 86 18 132/82 100 10/15/16 11:10 10/15/16 11:10 10/15/16 11:10 10/15/16 11:10 10/14/16 21:00 - Attending Attestation I examined this patient and my medical decision-making was reviewed with the Resident Physician on 10/15/16. I agree with the documented findings, disposition and treatment plan as described except to the extent set forth below. Ms. Hannon is feeling better. She is ready to go home. No new symptoms overnight. Exam Alert. Comfortable Heart reg No wheeze Plan D/C today.
[2016-10-15 11:24] VITALS: BP 132/82
== END 2016-10-15 14:37 | disposition home or self-care (01) ==
LOC: EMEROO 18:08 → 2NENU 18:08 → SUATTDRO 22:35
PROVIDERS: ADMIT Internal Medicine; ATTEND Internal Medicine

== ENCOUNTER 2016-11-04 11:02 | Inpatient (IN) ==
[2016-11-04] MEDS ORDERED: 0.9 % Sodium Chloride 1,000 ML IVC ONE (11:40)
[2016-11-04 12:16] LABS: Basophils % 0.1 %; Hematocrit 34.3 % (35.3-44.9); Hemoglobin 11.1 g/dL (11.5-15.4); Immature Granulocytes % 0.5 % (0-4); Lymphocytes # 0.3 K/mcL (0.6-4.6); Mean Corpuscular HGB Conc 32.4 g/dL (31.6-35.5); Mean Corpuscular Hemoglobin 29.8 pg (28.0-33.3); Mean Platelet Volume 8.8 fL (9.4-12.4); Monocytes % 5.8 %; Neutrophils # 15.3 K/mcL (1.6-8.9); Platelet Count 203 K/mcL (140-400); Red Blood Count 3.73 M/mcL (3.82-4.97); Red Cell Distribution Width 13.1 % (11.5-14.5); Segmented Neutrophils % 91.6 %
--- NOTE | 2016-11-04 12:16 | Emergency Department Note ---
Disposition Clinical Impression: Diverticulitis Qualifiers: Diverticulitis site: large intestine Diverticulitis bleeding: with bleeding Diverticulitis complication: with perforation and abscess Qualified Code(s): K57.21 - Diverticulitis of large intestine with perforation and abscess with bleeding Disposition: Admitted As Inpatient Condition: Fair Abdominal Pain HPI - General Chief Complaint: ED Abdominal Pain Stated Complaint: diverticulitis, bloody stool Time Seen by Provider: 11/04/16 11:36 Source: patient, family Mode of arrival: ambulatory Limitations: no limitations Nursing Notes Reviewed: Yes Vital Signs Reviewed: Yes - History of Present Illness HPI Narrative: Patient here for evaluation of left lower quadrant pain. Patient states she has been dealing with diverticulitis and describes complicated course in outpatient management regarding increase in estimated antibiotics. She has been taken care of by Dr. Smith, the general surgeon, and have already discussed possible need for surgery. The patient was going to have some outpatient blood work and CT scan, however she had 2 episodes of bright red blood per rectum and came to the emergency department. Pain Scale: 0 - Related Data Home Medications Medication Instructions Recorded Confirmed Ascorbate Calcium [Vitamin C] 500 mg PO DAILY 10/10/16 11/04/16 Esomeprazole Magnesium [Nexium] 40 mg PO DAILY 10/10/16 11/04/16 Ondansetron HCl [Zofran] 4 mg PO Q8H PRN 10/10/16 11/04/16 Previous Rx's Medication Instructions Recorded Ciprofloxacin [Cipro] 500 mg PO BID #28 tablet 10/15/16 MetroNIDAZOLE [Flagyl] 500 mg PO TID #42 tablet 10/15/16 Allergies Allergy/AdvReac Type Severity Reaction Status Date / Time acetaminophen [From Percocet] Allergy Itching Verified 11/04/16 11:22 Cephalosporins Allergy Rash Verified 11/04/16 11:22 codeine Allergy Nausea Verified 11/04/16 11:22 hydrocodone [From Vicodin] Allergy Itching Verified 11/04/16 11:22 morphine Allergy Nausea Verified 11/04/16 11:22 Oxycodone [From Percocet] Allergy Itching Verified 11/04/16 11:22 propoxyphene Allergy Itching Verified 11/04/16 11:22 [From Darvocet-N 100] tobramycin Allergy Chest Pain Verified 11/04/16 11:22 diphenhydramine AdvReac Mild See Verified 09/04/16 15:08 [From Benadryl] Comments doxycycline AdvReac Vomiting Verified 11/01/15 10:14 beta-lactam Allergy Rash Uncoded 11/01/15 10:14 Constitutional: Reports: fever, chills, weakness Cardiovascular: Denies: chest pain, palpitations Respiratory: Denies: cough, dyspnea Gastrointestinal: Reports: abdominal pain, nausea, hematochezia. Denies: vomiting, diarrhea Genitourinary: Denies: urgency Endocrine: Reports: fatigue Abdominal Pain PMH - Past Medical History Medical history: Reports: arthritis, cardiomyopathy, GERD, GI bleed, hypertension, osteoporosis, renal disease Female Surgical History: Reports: other ACCESS SERVICES REPRESENTATIVE history: Reports: bilateral tubal ligation, other Psychiatric history: Reports: no psych history - Social History Smoking status: Never smoker Alcohol use: Reports: none Drug use: Reports: none Physical Exam - General Limitations: no limitations General appearance: alert, in no apparent distress - Head Head exam: atraumatic, normocephalic - Eye Eye exam: Present: normal appearance - ENT ENT exam: normal exam, normal oropharynx - Neck Neck exam: Present: normal inspection. Absent: tenderness - Chest Chest inspection: Present: normal inspection, symmetric chest wall rise. Absent : tenderness - Respiratory Respiratory exam: Present: normal lung sounds bilaterally. Absent: respiratory distress, wheezes - Cardiovascular Cardiovascular exam: Present: regular rate, normal rhythm - Abdominal Exam Abdominal exam: Present: soft, tenderness Abdominal tenderness: Present: LLQ, moderate - Extremities Exam Extremities exam: Present: normal inspection - Neurological Exam Neurological exam: Present: alert, oriented X3 - Psychiatric Psychiatric exam: Present: normal affect, normal mood - Skin Skin exam: Present: warm, dry, intact Course - Reevaluation(s) Reevaluation #1: Patient with complicated diverticulitis including contained perforation and abscess. Patient's heart rate improving with fluids. Remains borderline hypotensive. - Consultations Consultation #1: Discussed with Dr. Smith. This patient is accepted to his service and will be placed on meropenem. He has discussed this with pharmacy. Zosyn had been given in the emergency department so meropenem will be added in addition to Zosyn. Vital Signs Temperature 98.3 F 11/04/16 11:22 Pulse Rate 105 11/04/16 11:22 Respiratory Rate 18 11/04/16 11:22 Blood Pressure 92/63 11/04/16 11:22 O2 Sat by Pulse Oximetry 98 11/04/16 11:22 Temperature 98.9 F 11/05/16 03:20 Pulse Rate 88 11/05/16 03:20 Respiratory Rate 20 11/05/16 03:20 Blood Pressure 133/83 11/05/16 03:20 O2 Sat by Pulse Oximetry 94 L 11/05/16 03:20 Oxygen Delivery Oxygen Delivery Room Air Abdominal Pain - Lab Data Lab results reviewed: Yes I reviewed the patient's lab results. Result diagrams: 11/05/16 06:27 11/05/16 06:27 Lab Results 11/04/16 11/04/16 11/04/16 Range/Units 12:00 12:00 12:00 WBC 16.7 H (4.3-11.1) K/mcL RBC 3.73 L (3.82-4.97) M/mcL Hgb 11.1 L (11.5-15.4) g/dL Hct 34.3 L (35.3-44.9) % MCV 92.0 (83.0-100.0) fL MCH 29.8 (28.0-33.3) pg MCHC 32.4 (31.6-35.5) g/dL RDW 13.1 (11.5-14.5) % Plt Count 203 (140-400) K/mcL MPV 8.8 L (9.4-12.4) fL Immature Gran % 0.5 (0-4) % Seg Neutrophils % 91.6 % Lymphocytes % 2.0 % Monocytes % 5.8 % Eosinophils % 0.0 % Basophils % 0.1 % Neutrophils # 15.3 H (1.6-8.9) K/mcL Lymphocytes # 0.3 L (0.6-4.6) K/mcL Monocytes # 1.0 (0.0-1.3) K/mcL Eosinophils # 0.0 (0.0-0.6) K/mcL Basophils # 0.0 (0.0-0.2) K/mcL PT 16.5 H (9.4-12.1) Seconds INR 1.5 Sodium 138 (136-145) mEq/L Potassium 3.8 (3.5-4.5) mEq/L Chloride 108 (98-109) mEq/L Carbon Dioxide 22 (19-29) mEq/L BUN 15 (7-20) mg/dL Creatinine 1.27 H (0.57-1.11) mg/dL Est GFR ( Amer) 52 L (> 60) Est GFR (Non-Af Amer) 43 L (> 60) BUN/Creatinine Ratio 12 (6-26) Glucose 130 H (70-99) mg/dL Calculated Osmolality 289 (280-300) Lactic Acid (0.5-2.2) mmol/L Calcium 8.6 (8.6-10.8) mg/dL Total Bilirubin 0.4 (0.2-1.2) mg/dL Direct Bilirubin 0.2 (0.0-0.5) mg/dL Indirect Bilirubin 0.2 (0.0-1.2) mg/dL AST 12 (5-34) Units/L ALT < 6 (0-55) Units/L Alkaline Phosphatase 51 (38-126) Units/L Serum Total Protein 6.8 (6.0-8.3) g/dL Albumin 3.0 L (3.5-5.0) g/dL Globulin 3.8 H (2.4-3.5) g/dL Albumin/Globulin Ratio 0.8 L (1.1-2.2) Lipase 13 (8-78) Units/L Blood Type Antibody Screen Antibody Identification 11/04/16 11/04/16 Range/Units 12:52 12:52 WBC (4.3-11.1) K/mcL RBC (3.82-4.97) M/mcL Hgb (11.5-15.4) g/dL Hct (35.3-44.9) % MCV (83.0-100.0) fL MCH (28.0-33.3) pg MCHC (31.6-35.5) g/dL RDW (11.5-14.5) % Plt Count (140-400) K/mcL MPV (9.4-12.4) fL Immature Gran % (0-4) % Seg Neutrophils % % Lymphocytes % % Monocytes % % Eosinophils % % Basophils % % Neutrophils # (1.6-8.9) K/mcL Lymphocytes # (0.6-4.6) K/mcL Monocytes # (0.0-1.3) K/mcL Eosinophils # (0.0-0.6) K/mcL Basophils # (0.0-0.2) K/mcL PT (9.4-12.1) Seconds INR Sodium (136-145) mEq/L Potassium (3.5-4.5) mEq/L Chloride (98-109) mEq/L Carbon Dioxide (19-29) mEq/L BUN (7-20) mg/dL Creatinine (0.57-1.11) mg/dL Est GFR ( Amer) (> 60) Est GFR (Non-Af Amer) (> 60) BUN/Creatinine Ratio (6-26) Glucose (70-99) mg/dL Calculated Osmolality (280-300) Lactic Acid 0.8 (0.5-2.2) mmol/L Calcium (8.6-10.8) mg/dL Total Bilirubin (0.2-1.2) mg/dL Direct Bilirubin (0.0-0.5) mg/dL Indirect Bilirubin (0.0-1.2) mg/dL AST (5-34) Units/L ALT (0-55) Units/L Alkaline Phosphatase (38-126) Units/L Serum Total Protein (6.0-8.3) g/dL Albumin (3.5-5.0) g/dL Globulin (2.4-3.5) g/dL Albumin/Globulin Ratio (1.1-2.2) Lipase (8-78) Units/L Blood Type O POSITIVE Antibody Screen POSITIVE Antibody Identification Known Anti-Fya - Radiology Data Radiology results reviewed: Yes I reviewed the patient's radiology results. Abdomen/Pelvis CT 11/04/16 11:44 IMPRESSION: 1. Pericolonic inflammatory changes involving the sigmoid colon most likely related to a diverticulitis. Extraluminal gas with no free intraperitoneal air, likely related to contained perforation. Small focal abscess in the left hemipelvis measuring just under 3 cm. Gas within the bladder suggesting possible fistula. Correlation for recent bladder instrumentation. 2. Otherwise no acute findings within the abdomen or pelvis. Stable marked left renal atrophy and renal cortical scarring on the right. D/ / 11/04/2016 14:15:13 Contreras Guerrero MD / kaylee Interpreting Provider: Contreras Guerrero MD
[2016-11-04 12:23] LABS: INR 1.5; Prothrombin Time 16.5 Seconds (9.4-12.1)
--- NOTE | 2016-11-04 12:26 | Emergency Department Note ---
START Narrative - START START: I examined this patient and my medical decision-making was reviewed with the PROGRESSIVE ASSEMBLER AND FITTER/PA/Advanced Practice Nurse/Resident Physician. I agree with the documented findings, disposition and treatment plan as described except to the extent set forth below. Patient in the emergency department with abdominal pain. Vomiting and diarrhea. Patient states she has been treated for diverticulitis per 2 months. She is on understanding and she has a ordered to get labs drawn today and a CAT scan tomorrow. On exam she is in no distress. She is a soft abdomen with left lower quadrant tenderness. Plan. We will obtain labs and CT. CT scan shows diverticulitis with contained perforation and abscess formation. Patient admitted to Dr. Smith..
[2016-11-04 12:30] LABS: Albumin/Globulin Ratio 0.8 (1.1-2.2); Alkaline Phosphatase 51 Units/L (38-126); Aspartate Amino Transferase 12 Units/L (5-34); BUN/Creatinine Ratio 12 (6-26); Bilirubin,Direct 0.2 mg/dL (0.0-0.5); Bilirubin,Indirect 0.2 mg/dL (0.0-1.2); Bilirubin,Total 0.4 mg/dL (0.2-1.2); Blood Urea Nitrogen 15 mg/dL (7-20); Calcium 8.6 mg/dL (8.6-10.8); Carbon Dioxide 22 mEq/L (19-29); Chloride 108 mEq/L (98-109); Globulin 3.8 g/dL (2.4-3.5); Glucose 130 mg/dL (70-99); Lipase 13 Units/L (8-78); Osmolality,Calculated 289 (280-300); Potassium 3.8 mEq/L (3.5-4.5); Sodium 138 mEq/L (136-145); Total Protein 6.8 g/dL (6.0-8.3); eGFR For African Americans 52 (> 60); eGFR For Non-African Americans 43 (> 60)
[2016-11-04 12:31] LABS: Alanine Aminotransferase < 6 Units/L (0-55)
[2016-11-04] MEDS ORDERED: 0.9 % Sodium Chloride 1,000 ML IV ONE (13:23)
[2016-11-04] MEDS ORDERED: Piperacillin/Tazobactam 4.5 GM in D5% in Water (Mini-Bag+) 100 ML IVPB ONE (13:52)
[2016-11-04] MEDS ORDERED: Meropenem 1,000 MG in 0.9 % Sodium Chloride Mini Bag 100 ML IVPB STA (14:38)
[2016-11-04] MEDS ORDERED: *HR* HYDROmorphone (PF) 1 MG/ML SYRINGE IVP PRN (18:18)
--- NOTE | 2016-11-04 18:28 | General Surg History&Physical ---
Date of Encounter: 11/04/16 Time of Encounter: 18:00 History of Present Illness Chief complaint: refractory sigmoid diverticulitis with peyton colic abscess HPI: Ms. Hannon is a 61 year old female admitted after returning to [facility] ED with worsening left lower quadrant abdominal pain, vomiting and diarrhea since last evening. The patient has a known history of acute sigmoid diverticulitis for which she was hospitalized in September 2016 and again in October 2016. She recently presented to my office with assistance symptoms despite oral antibiotic therapy. Patient presented in acute distress with a white count of 16.7 and radiologic evidence or something acute sigmoid diverticulitis with interval development of a pericolic abscess since the prior CT dated 10/14/16. Past medical history is notable for the refractory sigmoid diverticulitis as noted above, irregular heartbeat, anemia, and single functioning kidney. Surgical history: Heart catheterization believed to have occurred in 2012; tubal ligation 1976; ureteral reconstruction in the remote past which ultimately failed with atrophy of one of her kidneys. Allergies: Percocet, Vicodin, Darvocet-N 100 (propoxyphene); Tylenol No. 3 with codeine; morphine, diphenhydramine, doxycycline, tobramycin, cephalosporins around disease beta lactams) Medications: Nexium 40 mg daily Ciprofloxacin 500 mg by mouth every 12 hours Metronidazole 500 mg by mouth every 6 hours Social history: Menarche at age 15; G2, P2; the patient has never smoked, she denies any alcohol or illicit drug use Family history: Father and brother with lung cancer; brother with heart disease. Physical examination: Age-appropriate woman resting comfortably in her hospital bed. She appears to be in no acute distress. Skin is warm, without obvious jaundice The patient is afebrile, 98.8; pulse 81, respirations 20, blood pressure 118/ 75; SPO2 on room air 95% Lungs: Clear to auscultation, no obvious abdominal pain with deep inspiration Cardiac: Regular rate despite history of irregular heartbeat; no appreciable murmur Abdomen: Soft, and tender. No appreciable masses. No rebound. Bowel sounds hypoactive. Laboratories: White count 16.7, hemoglobin 11.1, hematocrit 34.3; platelet count 203,000 PT 16.5, INR 1.5; sodium 138, potassium 3.8, chloride 108, bicarbonate 22, UN 15, creatinine 1.27 (elevated over historical data); estimated GFR 43. CT: Reviewed with [facility] with comparison to prior CTs 09/03/2016 and . Findings include: clear lung bases; a small hiatal hernia; the unenhanced liver, spleen, pancreas and adrenal glands appear unremarkable; renal cortical scarring right kidney with marked atrophy of the left kidney; significant pericolic inflammatory changes involving the sigmoid colon with loss of the fat plane adjacent uterus and inflammatory change extending to the posterior margin of the urinary bladder; extraluminal gas and fluid are noted with a small focal collection in the left hemipelvis measuring 28 x 29 mm cystoscopy with a pericolic abscess. The inflammatory changes have progressed since the prior CT dated 10/14/16. Impression : 61-year-old with long-standing, refractory sigmoid diverticulitis. Patient relates symptoms dating back 3 possibly 4 months. The patient now presents with radiologic findings of a pericolic abscess and inflammatory changes and into the adjacent uterus and posterior margin of the urinary bladder. No fully developed fistula was identified but certainly must be considered. Plan: Admit; NPO; IV ATB - Meropenem Aggressive administration of IV fluids to offset dehydration resulting from nausea, vomiting, diarrhea over the last 24 hours. Surgical intervention during this hospitalization. If the patient responds to the IV antibiotics surgery may be deferred for several days to allow for control of the pericolic abscess. If patient continues to demonstrate refractory disease - Nevin procedure will be completed. This has been discussed extensively with the patient. Past Med Surg Social Fam HX - Past Medical History Medical history: arthritis, cardiomyopathy, GERD, GI bleed, hypertension, osteoporosis, renal disease Psychiatric history: no psych history - Past Surgical History Surgical History: other (reconstruction of ureter) - Social History Smoking Status: Never smoker Smokeless Tobacco Status: No Alcohol use: none Drug use: none - Family History Mother Living Status: Hx Family Cardiac Disorders: Yes Hx Family Respiratory Disorders: No Hx Family Cancer: No Hx Family GI Disorders: No Hx Family Endocrine Disorder: No Hx Family Neuromuscular Disorders: No Hx Family Neurologic Disorders: Yes (stroke) Hx Family HEENT Disorders: No Hx Family Autoimmune Disorders: No Medications and Allergies Ascorbate Calcium [Vitamin C] 500 mg PO DAILY 10/10/16 [History] Esomeprazole Magnesium [Nexium] 40 mg PO DAILY 10/10/16 [History] Ondansetron HCl [Zofran] 4 mg PO Q8H PRN 10/10/16 [History] Ciprofloxacin [Cipro] 500 mg PO BID #28 tablet 10/15/16 [Rx] MetroNIDAZOLE [Flagyl] 500 mg PO TID #42 tablet 10/15/16 [Rx] Allergies acetaminophen [From Percocet] Allergy (Verified 11/04/16 11:22) Itching Cephalosporins Allergy (Verified 11/04/16 11:22) Rash codeine Allergy (Verified 11/04/16 11:22) Nausea hydrocodone [From Vicodin] Allergy (Verified 11/04/16 11:22) Itching morphine Allergy (Verified 11/04/16 11:22) Nausea Oxycodone [From Percocet] Allergy (Verified 11/04/16 11:22) Itching propoxyphene [From Darvocet-N 100] Allergy (Verified 11/04/16 11:22) Itching tobramycin Allergy (Verified 11/04/16 11:22) Chest Pain diphenhydramine [From Benadryl] Adverse Reaction (Mild, Verified 09/04/16 15:08) See Comments Pt states it made her dellusional doxycycline Adverse Reaction (Verified 11/01/15 10:14) Vomiting beta-lactam Allergy (Uncoded 11/01/15 10:14) Rash Review of Systems All systems PM: A 10-system review of systems was performed and is negative for pertinent findings except as documented above in the HPI. General Surgery Exam Initial Vital Signs Temp Pulse Resp BP Pulse Ox 98.3 F 105 18 92/63 98 11/04/16 11:22 11/04/16 11:22 11/04/16 11:22 11/04/16 11:22 11/04/16 11:22 Results - Labs 11/04/16 12:00 11/04/16 12:00 Abnormal lab results WBC 16.7 K/mcL (4.3-11.1) H 11/04/16 12:00 RBC 3.73 M/mcL (3.82-4.97) L 11/04/16 12:00 Hgb 11.1 g/dL (11.5-15.4) L 11/04/16 12:00 Hct 34.3 % (35.3-44.9) L 11/04/16 12:00 MPV 8.8 fL (9.4-12.4) L 11/04/16 12:00 Neutrophils # 15.3 K/mcL (1.6-8.9) H 11/04/16 12:00 Lymphocytes # 0.3 K/mcL (0.6-4.6) L 11/04/16 12:00 PT 16.5 Seconds (9.4-12.1) H 11/04/16 12:00 Creatinine 1.27 mg/dL (0.57-1.11) H 11/04/16 12:00 Est GFR ( Amer) 52 (> 60) L 11/04/16 12:00 Est GFR (Non-Af Amer) 43 (> 60) L 11/04/16 12:00 Glucose 130 mg/dL (70-99) H 11/04/16 12:00 POC Glucose 101 (58-89) H 11/04/16 17:04 Albumin 3.0 g/dL (3.5-5.0) L 11/04/16 12:00 Globulin 3.8 g/dL (2.4-3.5) H 11/04/16 12:00 Albumin/Globulin Ratio 0.8 (1.1-2.2) L 11/04/16 12:00 All other labs normal.
[2016-11-04] MEDS ORDERED: *HR* Promethazine 25 MG/ML VIAL IVP PRN (19:48)
[2016-11-04] MEDS: 0.9 % Sodium Chloride 1,000 ML IVC SCH (20:00)
[2016-11-04] MEDS ORDERED: 0.9 % Sodium Chloride Mini Bag 0 ML ONE (23:45)
[2016-11-04] MEDS: Meropenem 1,000 MG in 0.9 % Sodium Chloride Mini Bag 100 ML IVPB SCH (23:48)
[2016-11-05 02:55] LABS: Bilirubin,Urine Small (Negative); Blood,Urine Large (Negative); Clarity,Urine Turbid (Clear); Color,Urine Red (Yellow); Glucose,Urine (UA) Normal (Normal); Ketones,Urine Trace mg/dL (Negative); Leukocyte Esterase,Urine Large (Negative); Nitrite,Urine Positive (Negative); Protein,Urine 100 mg/dL (Neg-Trace); Specific Gravity,Urine 1.024 (1.010-1.025); Urobilinogen,Urine Normal (Normal)
[2016-11-05 02:56] LABS: Bacteria,Urine Moderate per hpf (None-Few); Hyaline Casts,Urine None Seen per lpf (None-Few); Squamous Epithelial Cell,Urine Many per lpf (None-Few); WBC,Urine TNTC per hpf (0-3)
[2016-11-05 03:20] LABS: RBC,Urine TNTC per hpf (0-3)
[2016-11-05] MEDS: 0.9 % Sodium Chloride 1,000 ML IVC SCH ×2 (04:26→17:54)
[2016-11-05] MEDS ORDERED: *HR* Heparin 5,000 UNIT/ML VIAL SQ SCH (06:00)
[2016-11-05] MEDS: Meropenem 1,000 MG in 0.9 % Sodium Chloride Mini Bag 100 ML IVPB SCH ×2 (06:04→17:54)
[2016-11-05 06:38] LABS: Basophils % 0.3 %; Eosinophils % 0.5 %; Hematocrit 28.7 % (35.3-44.9); Immature Granulocytes % 0.5 % (0-4); Lymphocytes # 0.5 K/mcL (0.6-4.6); Lymphocytes % 8.1 %; Mean Corpuscular HGB Conc 31.7 g/dL (31.6-35.5); Mean Corpuscular Hemoglobin 30.1 pg (28.0-33.3); Mean Platelet Volume 8.6 fL (9.4-12.4); Monocytes # 0.6 K/mcL (0.0-1.3); Monocytes % 8.6 %; Neutrophils # 5.3 K/mcL (1.6-8.9); Platelet Count 133 K/mcL (140-400); Red Blood Count 3.02 M/mcL (3.82-4.97); Red Cell Distribution Width 13.4 % (11.5-14.5)
[2016-11-05 06:39] LABS: Hemoglobin 9.1 g/dL (11.5-15.4)
[2016-11-05 06:58] LABS: BUN/Creatinine Ratio 10 (6-26); Blood Urea Nitrogen 10 mg/dL (7-20); Calcium 7.5 mg/dL (8.6-10.8); Carbon Dioxide 18 mEq/L (19-29); Chloride 115 mEq/L (98-109); Glucose 75 mg/dL (70-99); Osmolality,Calculated 290 (280-300); Potassium 3.6 mEq/L (3.5-4.5); Sodium 141 mEq/L (136-145); eGFR For African Americans > 60 (> 60); eGFR For Non-African Americans 58 (> 60)
[2016-11-05] MEDS: Pantoprazole 40 MG VIAL IV SCH (07:55)
--- NOTE | 2016-11-05 12:26 | Electrocardiograph Report ---
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
[2016-11-05] MEDS ORDERED: D10% in Water 500 ML IV PRN (13:52)
--- NOTE | 2016-11-05 15:06 | General Surgery Progress Note ---
Date of Encounter: 11/05/16 Time of Encounter: 13:30 Subjective Patient reports: feels better Narrative: Hospital Day #1 - patient feeling better; abdominal pain diminished with IV narcotic analgesics, no N/V Maximum temperature 99.3; pulse 93, respirations 18, blood pressure 139/85. SPO2 on room air 95% Lungs: Clear Abdomen: Soft, minimal tenderness; hypoactive bowel sounds. Small, loose, BM in the last 24 hours. Urine output approximately 400 mL; urine cultures positive for VRE. Laboratories: White count 6.4, hemoglobin 9.1, hematocrit 28.7 - diminished H&H likely due to IV fluids. Platelet count 133,000. Sodium 141, potassium 3.6, BUN 18, creatinine 0.98 (significant improvement) ; estimated GFR 58 (significant improvement) Nursing having difficulty maintaining IV access. Central venous line has been discussed with the patient and consent has been obtained Review of records demonstrated a urology consultation with Dr. Juan Florian 08/17. I discussed this with Dr. Florian ultimately have consulted him to assist in the management of this patient. Dr. Florian informed me that the patient underwent ureteral reimplantation in the remote past. Unfortunately the patient has since developed severe left renal atrophy. Patient has a history of long-standing resistant bladder infection. Review of records indicate that this is the case stating back at least a year. Dr Florian has previously recommended left nephrectomy with ureterectomy and partial resection of the bladder where the ureter was implanted. This effectively impacts the surgical options available to this patient. Sigmoid colectomy with colocolonic anastomosis will certainly make future access to the left kidney, ureter and bladder significantly more difficult. Also, a history of previous left ureteral reimplantation increases the risk of bladder injury during the sigmoid colectomy with resultant intra operative consultation with [facility]. In my discussion with Dr. Florian, the best/safest operation is a Nevin procedure with concurrent nephrectomy, ureterectomy, and partial cystectomy. I have discussed this in detail with the patient. The patient's granddaughter was present for this discussion. Incidental notation of air in the bladder, per [facility], is likely due self catheterization that the patient performs several times daily. This information was not known to me at the time of admission. A colo-vesical fistula remains a possibility but can be addressed if patient willing to proceed with the combined operation outlined above. 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 Will plan placement CVL With placement CVL - will consult Nutrition for TPN. Objective Vital Signs - Last 8 Hours Temp Pulse Resp BP Pulse Ox 11/05/16 07:46 99.3 F 93 18 139/85 95 Intake and Output 11/04/16 11/05/16 11/05/16 23:59 07:59 15:59 Intake Total 1100 / 1100 1676 / 1676 Output Total 400 / 400 400 / 400 Balance 700 / 700 1276 / 1276 Intake: IV Fluids 1100 / 1100 1676 / 1676 0.9 % Sodium Chloride 1, 1000 / 1000 000 ML @ 9999 mls/hr IV BOLUS ONE Rx#:[id number] 0.9 % Sodium Chloride 1, 1476 / 1476 000 ML @ 125 mls/hr IVC . Q8H PRINCESS Rx#:[id number] Merrem 1,000 MG In 0.9 % 100 / 100 200 / 200 Sodium Chloride (Mini-Bag +) 100 ML @ 200 mls/hr IVPB Q8H PRINCESS Rx#: [id number] Oral 0 / 0 0 / 0 Output: Urine 400 / 400 0 / 0 Straight Cath 400 / 400 Other: Meal NPO Percent of Meal Consumed 0% Stool Size Small Stool Consistency loose Stool Color Denny Colored # Bowel Movement Diapers 1 Blood Glucose* 101 81 - Labs 11/05/16 06:27 11/05/16 06:27 Diabetes panel 11/05/16 Range/Units 06:27 Sodium 141 (136-145) mEq/L Potassium 3.6 (3.5-4.5) mEq/L Chloride 115 H (98-109) mEq/L Carbon Dioxide 18 L (19-29) mEq/L BUN 10 (7-20) mg/dL Creatinine 0.98 (0.57-1.11) mg/dL Glucose 75 (70-99) mg/dL Calcium 7.5 L (8.6-10.8) mg/dL Calcium panel 11/05/16 Range/Units 06:27 Calcium 7.5 L (8.6-10.8) mg/dL Pituitary panel 11/05/16 Range/Units 06:27 Sodium 141 (136-145) mEq/L Potassium 3.6 (3.5-4.5) mEq/L Chloride 115 H (98-109) mEq/L Carbon Dioxide 18 L (19-29) mEq/L BUN 10 (7-20) mg/dL Creatinine 0.98 (0.57-1.11) mg/dL Glucose 75 (70-99) mg/dL Calcium 7.5 L (8.6-10.8) mg/dL Adrenal panel 11/05/16 Range/Units 06:27 Sodium 141 (136-145) mEq/L Potassium 3.6 (3.5-4.5) mEq/L Chloride 115 H (98-109) mEq/L Carbon Dioxide 18 L (19-29) mEq/L BUN 10 (7-20) mg/dL Creatinine 0.98 (0.57-1.11) mg/dL Glucose 75 (70-99) mg/dL Calcium 7.5 L (8.6-10.8) mg/dL Consult Discharge Plan - Plan Referrals: Mir Gomes DO [Primary Care Provider] -
--- NOTE | 2016-11-05 15:12 | Operative Note ---
Date of procedure: 11/05/16 Pre-op diagnosis: Poor peripheral access, acute sigmoid diverticulitis with perforation Post-op diagnosis: same Procedure: Placement central venous line via left subclavian vein Implants: Central venous line - 3 lumen, 30 cm, 7FR Arrow-godwin catheter Complications: None apparent Anesthesia: local Local Anesthetics: 1% Lidocaine HCL with Epinephrine 1:200,000 SubQ (cc) (5 mL) Surgeon: Silviano Smith Estimated blood loss (cc): 0 Condition: stable Disposition: no change Procedure in Detail: Central venous line placement was discussed with the patient. Risks including hemorrhage, infection, pneumothorax, and malposition of the catheter. Consent was obtained. After obtaining consent, the patient was placed supine in her hospital bed. The left chest and shoulder was prepped with chlorhexidine. The surgeon was gowned gloved masking. A whole body drape was used. The patient was placed in Trendelenburg. 5 mL of 1% lidocaine was infiltrated into the infraclavicular skin. Using an 18-gauge needle, the left subclavian vein was located. At no time was air aspirated. In the technique described by Hanseler , a guidewire was inserted, the needle extracted. The skin tract was incised and dilated. A 3 lumen, 30 cm, 7Fr, Arrow-godwin catheter is advanced over the needle to 10 cm. The guidewire was extracted. The catheter was secured to the infraclavicular skin with 3-0 silk. The 3 ports were aspirated for blood and flushed with saline. A Biopatch was applied followed by an OpSite dressing. Patient tolerated the procedure well and had bilateral equal breath sounds at the completion of the central venous line placement. A stat portable chest x- ray is pending and will be reviewed when available for inspection.
[2016-11-05] MEDS ORDERED: Clinimix E 5%-15% SOLUTION 2,000 ML with MVI, adult with vitamin K 10 ML IV SCH (17:00)
[2016-11-06] MEDS: Meropenem 1,000 MG in 0.9 % Sodium Chloride Mini Bag 100 ML IVPB SCH ×4 (00:38→23:55)
[2016-11-06 04:39] LABS: Basophils % 0.4 %; Eosinophils # 0.1 K/mcL (0.0-0.6); Eosinophils % 2.1 %; Hematocrit 29.2 % (35.3-44.9); Hemoglobin 9.2 g/dL (11.5-15.4); Immature Granulocytes % 0.5 % (0-4); Lymphocytes # 0.5 K/mcL (0.6-4.6); Mean Corpuscular HGB Conc 31.5 g/dL (31.6-35.5); Mean Corpuscular Hemoglobin 29.2 pg (28.0-33.3); Mean Corpuscular Volume 92.7 fL (83.0-100.0); Mean Platelet Volume 8.3 fL (9.4-12.4); Monocytes # 0.4 K/mcL (0.0-1.3); Monocytes % 7.7 %; Neutrophils # 4.6 K/mcL (1.6-8.9); Platelet Count 149 K/mcL (140-400); Red Blood Count 3.15 M/mcL (3.82-4.97); Red Cell Distribution Width 13.1 % (11.5-14.5); Segmented Neutrophils % 80.3 %
[2016-11-06 04:56] LABS: Albumin/Globulin Ratio 0.7 (1.1-2.2); Alkaline Phosphatase 41 Units/L (38-126); Aspartate Amino Transferase 9 Units/L (5-34); BUN/Creatinine Ratio 10 (6-26); Bilirubin,Total 0.4 mg/dL (0.2-1.2); Blood Urea Nitrogen 8 mg/dL (7-20); Calcium 7.5 mg/dL (8.6-10.8); Carbon Dioxide 21 mEq/L (19-29); Chloride 110 mEq/L (98-109); Globulin 3.3 g/dL (2.4-3.5); Glucose 81 mg/dL (70-99); Osmolality,Calculated 285 (280-300); Potassium 3.4 mEq/L (3.5-4.5); Sodium 139 mEq/L (136-145); Total Protein 5.6 g/dL (6.0-8.3); eGFR For African Americans > 60 (> 60); eGFR For Non-African Americans > 60 (> 60)
[2016-11-06 05:01] LABS: Magnesium 1.5 mg/dL (1.6-2.6); Phosphorous 2.5 mg/dL (2.3-4.7)
[2016-11-06 05:12] LABS: Alanine Aminotransferase < 6 Units/L (0-55); Albumin 2.3 g/dL (3.5-5.0)
[2016-11-06] MEDS: 0.9 % Sodium Chloride 1,000 ML IVC SCH (06:14)
[2016-11-06] MEDS ORDERED: Potassium Chloride 40 MEQ/200 ML BAG IVPB ONE (07:49)
[2016-11-06] MEDS: Pantoprazole 40 MG VIAL IV SCH (08:46)
--- NOTE | 2016-11-06 12:59 | Urology - Consult Note ---
Date of Encounter: 11/06/16 Time of Encounter: 12:57 - Assessment and Plan (1) Atrophic kidney, acquired Current Visit: Yes Status: Acute Assessment and plan: I had a discussion with Dr. Smith yesterday regarding this patient. She has a long history of bacterial colonization of the urinary tract and remains mostly asymptomatic from a urologic standpoint. The diverticulitis appears to be worsening and may require surgical intervention. Because of her history of a ureteral reimplant surgery, potential involvement of the diverticulitis and inflammation with her bladder wall, and the atrophic left kidney I suspect there will be significant involvement of the urinary tract during any surgical procedure. This will ultimately result in the need for a nephrouretectomy and resection of involved bladder wall. Primary anastomosis of the colon would increase the risk of a fistula and the patient may require a diverting colostomy as a result of surgical intervention. I discussed these options with the patient and she understands the seriousness of her condition and the potential need for both general surgery and urologic intervention. We will discuss with Dr. smith the Timing of this surgery and the availability of the urologist. This case was also discussed with Dr Contreras. (2) Diverticulitis Current Visit: Yes Status: Acute Qualifiers: Diverticulitis site: large intestine Diverticulitis bleeding: with bleeding Diverticulitis complication: with perforation and abscess Qualified Code(s): K57.21 - Diverticulitis of large intestine with perforation and abscess with bleeding (3) Complicated UTI (urinary tract infection) Current Visit: No Status: Acute Urology CN:HPI Consult date: 11/06/16 History of present illness: Patient well known to the urology service. History of chronic bacterial urinary colonization. History of a ureteral reimplant surgery approximately 8-10 years ago. Chronically atrophic left kidney. Currently with worsening diverticulitis which will potentially require surgical management Past Med Surg Social Fam HX - Past Medical History Medical history: arthritis, cardiomyopathy, GERD, GI bleed, hypertension, osteoporosis, renal disease Psychiatric history: no psych history - Past Surgical History Surgical History: other (reconstruction of ureter) - Social History Smoking Status: Never smoker Smokeless Tobacco Status: No Alcohol use: none Drug use: none - Family History Mother Living Status: Hx Family Cardiac Disorders: Yes Hx Family Respiratory Disorders: No Hx Family Cancer: No Hx Family GI Disorders: No Hx Family Endocrine Disorder: No Hx Family Neuromuscular Disorders: No Hx Family Neurologic Disorders: Yes (stroke) Hx Family HEENT Disorders: No Hx Family Autoimmune Disorders: No Medications and Allergies Ascorbate Calcium [Vitamin C] 500 mg PO DAILY 10/10/16 [History] Esomeprazole Magnesium [Nexium] 40 mg PO DAILY 10/10/16 [History] Ondansetron HCl [Zofran] 4 mg PO Q8H PRN 10/10/16 [History] Ciprofloxacin [Cipro] 500 mg PO BID #28 tablet 10/15/16 [Rx] MetroNIDAZOLE [Flagyl] 500 mg PO TID #42 tablet 10/15/16 [Rx] Allergies acetaminophen [From Percocet] Allergy (Verified 11/04/16 11:22) Itching Cephalosporins Allergy (Verified 11/04/16 11:22) Rash codeine Allergy (Verified 11/04/16 11:22) Nausea hydrocodone [From Vicodin] Allergy (Verified 11/04/16 11:22) Itching morphine Allergy (Verified 11/04/16 11:22) Nausea Oxycodone [From Percocet] Allergy (Verified 11/04/16 11:22) Itching propoxyphene [From Darvocet-N 100] Allergy (Verified 11/04/16 11:22) Itching tobramycin Allergy (Verified 11/04/16 11:22) Chest Pain diphenhydramine [From Benadryl] Adverse Reaction (Mild, Verified 09/04/16 15:08) See Comments Pt states it made her dellusional doxycycline Adverse Reaction (Verified 11/01/15 10:14) Vomiting beta-lactam Allergy (Uncoded 11/01/15 10:14) Rash Review of Systems - Constitutional chills, fatigue, fever(s), malaise - EENT Nose, mouth and throat: no dizziness - Cardiovascular no chest pain - Respiratory no cough - Gastrointestinal abdominal pain, nausea - Genitourinary Genitourinary: no dysuria, no flank pain - Musculoskeletal back pain - Integumentary no erythema - Neurological no confusion - Psychiatric no anxiety - Hematologic/Lymphatic no easy bleeding - Allergic/Immunologic no throat swelling Exam Initial Vital Signs Temp Pulse Resp BP Pulse Ox 98.3 F 105 18 92/63 98 11/04/16 11:22 11/04/16 11:22 11/04/16 11:22 11/04/16 11:22 11/04/16 11:22 - General physical appearance Present: well developed, no distress - Eyes Present: PERRL - ENT Present: normal nares - Neck Present: no masses - Respiratory Present: normal respiratory effort - Cardiovascular Cardiovascular exam IM: RRR - Abdomen Abdomen: Present: soft - Neurologic Present: normal coordination. Absent: disoriented, confused - Additional Findings Yoder catheter with clear urine Urology Results - Labs 11/06/16 04:10 11/06/16 04:10 Abnormal lab results RBC 3.15 M/mcL (3.82-4.97) L 11/06/16 04:10 Hgb 9.2 g/dL (11.5-15.4) L 11/06/16 04:10 Hct 29.2 % (35.3-44.9) L 11/06/16 04:10 MCHC 31.5 g/dL (31.6-35.5) L 11/06/16 04:10 MPV 8.3 fL (9.4-12.4) L 11/06/16 04:10 Lymphocytes # 0.5 K/mcL (0.6-4.6) L 11/06/16 04:10 PT 16.5 Seconds (9.4-12.1) H 11/04/16 12:00 Potassium 3.4 mEq/L (3.5-4.5) L 11/06/16 04:10 Chloride 110 mEq/L (98-109) H 11/06/16 04:10 POC Glucose 104 (58-89) H 11/06/16 11:22 Calcium 7.5 mg/dL (8.6-10.8) L 11/06/16 04:10 Magnesium 1.5 mg/dL (1.6-2.6) L 11/06/16 04:10 Serum Total Protein 5.6 g/dL (6.0-8.3) L 11/06/16 04:10 Albumin 2.3 g/dL (3.5-5.0) L D 11/06/16 04:10 Albumin/Globulin Ratio 0.7 (1.1-2.2) L 11/06/16 04:10 Prealbumin 8.0 mg/dL (16.0-38.0) L 11/06/16 04:10 Urine Color Red (Yellow) A 11/05/16 01:45 Urine Clarity Turbid (Clear) A 11/05/16 01:45 Urine Protein 100 mg/dL (Neg-Trace) H 11/05/16 01:45 Urine Ketones Trace mg/dL (Negative) H 11/05/16 01:45 Urine Blood Large (Negative) H 11/05/16 01:45 Urine Nitrite Positive (Negative) A 11/05/16 01:45 Urine Bilirubin Small (Negative) H 11/05/16 01:45 Ur Leukocyte Esterase Large (Negative) H 11/05/16 01:45 Urine Microscopic RBC TNTC per hpf (0-3) H 11/05/16 01:45 Urine Microscopic WBC TNTC per hpf (0-3) H 11/05/16 01:45 Ur Squamous Epith Cells Many per lpf (None-Few) H 11/05/16 01:45 Urine Bacteria Moderate per hpf (None-Few) H 11/05/16 01:45 Ur Culture Indicated? YES (NO) A 11/05/16 01:45 Diabetes panel 11/06/16 11/06/16 Range/Units 04:10 04:10 Sodium 139 (136-145) mEq/L Potassium 3.4 L (3.5-4.5) mEq/L Chloride 110 H (98-109) mEq/L Carbon Dioxide 21 (19-29) mEq/L BUN 8 (7-20) mg/dL Creatinine 0.84 (0.57-1.11) mg/dL Glucose 81 (70-99) mg/dL Calcium 7.5 L (8.6-10.8) mg/dL AST 9 (5-34) Units/L ALT < 6 (0-55) Units/L Alkaline Phosphatase 41 (38-126) Units/L Albumin 2.3 L D (3.5-5.0) g/dL Triglycerides 98 (< 150) mg/dL Calcium panel 11/06/16 11/06/16 Range/Units 04:10 04:10 Calcium 7.5 L (8.6-10.8) mg/dL Phosphorus 2.5 (2.3-4.7) mg/dL Albumin 2.3 L D (3.5-5.0) g/dL Pituitary panel 11/06/16 Range/Units 04:10 Sodium 139 (136-145) mEq/L Potassium 3.4 L (3.5-4.5) mEq/L Chloride 110 H (98-109) mEq/L Carbon Dioxide 21 (19-29) mEq/L BUN 8 (7-20) mg/dL Creatinine 0.84 (0.57-1.11) mg/dL Glucose 81 (70-99) mg/dL Calcium 7.5 L (8.6-10.8) mg/dL Adrenal panel 11/06/16 Range/Units 04:10 Sodium 139 (136-145) mEq/L Potassium 3.4 L (3.5-4.5) mEq/L Chloride 110 H (98-109) mEq/L Carbon Dioxide 21 (19-29) mEq/L BUN 8 (7-20) mg/dL Creatinine 0.84 (0.57-1.11) mg/dL Glucose 81 (70-99) mg/dL Calcium 7.5 L (8.6-10.8) mg/dL Total Bilirubin 0.4 (0.2-1.2) mg/dL AST 9 (5-34) Units/L ALT < 6 (0-55) Units/L Alkaline Phosphatase 41 (38-126) Units/L Albumin 2.3 L D (3.5-5.0) g/dL All other labs normal. Consult Discharge Plan - Plan Referrals: Mir Gomes DO [Primary Care Provider] -
[2016-11-06] MEDS ORDERED: Magnesium Sulfate 2 GM in D5% in Water 100 ML IVPB ONE (14:09)
[2016-11-06] MEDS ORDERED: *HR* Dextrose 50 % in Water (Syg) 50 ML SYRINGE IVP PRN (14:13)
[2016-11-06] MEDS ORDERED: Dextrose Gel 15 GM PO PRN ×2 (14:13)
[2016-11-06] MEDS ORDERED: D5% in Water 1,000 ML IV PRN (14:13)
--- NOTE | 2016-11-06 14:29 | General Surgery Progress Note ---
Date of Encounter: 11/06/16 Time of Encounter: 14:00 Subjective Patient reports: feels better Narrative: Hospital day #2: patient feeling well. Denies any abdominal pain, N/V Afebrile, 98.1; pulse 74, respirations 16, blood pressure 142/86. SPO2 on room air 96-97% Accu-Cheks 100-114 Lungs: Clear Cardiac: Regular rate, no appreciable murmurs Abdomen: Soft, nontender. No detected intra-abdominal masses. No rebound. Active bowel sounds. Urine output approximately 1150 mL - debris is noted within the Yoder but urine is fairly clear; yellow in color Appreciate Dr. Florian's consultation and assistance care of this patient Central venous line placed yesterday appears to be functioning properly; bleeding at the insertion site appears to have stopped. Laboratories: White count 5.7, hemoglobin 9.2 with hematocrit 29.2; platelet count has rebounded to 149,000 Sodium 139, potassium 3.4, chloride 110, BUN 8, creatinine 0.84; estimated GFR greater than 60 Phosphorus 2.5, magnesium 1.5; total protein 5.6, albumin 2.3; pre-albumen 8 Impression: Long-standing, chronic acute refractory sigmoid diverticulitis with pericolic abscess. Abdominal pain, nausea vomiting related to the refractory sigmoid diverticulitis - resolved Chronic bacterial urinary colonization VRE positive urine cultures Hypokalemia and hypophosphatemia - IV supplementation ordered Anemia - likely due to IV fluids/dilution in conjunction with long standing disease (prolonged refractory sigmoid diverticulitis) Hypoproteinemia, hypoalbuminemia - TPN initiated Overall patient status improved. Will continue current management. Surgery pending based on clinical improvement in response to tx. Objective Vital Signs - Last 8 Hours Temp Pulse Resp BP Pulse Ox 11/06/16 11:20 98.1 F 74 16 142/86 97 11/06/16 07:22 97.9 F 74 17 137/65 96 Intake and Output 11/05/16 11/06/16 11/06/16 23:59 07:59 15:59 Intake Total 764.8 / 764.8 911.2 / 911.2 100 / 100 Output Total 1200 / 1200 600 / 600 550 / 550 Balance -435.2 / -435.2 311.2 / 311.2 -450 / -450 Intake: IV Fluids 764.8 / 764.8 911.2 / 911.2 100 / 100 Clinimix E 5%-15% 126 / 126 SOLUTION 2,000 ML @ 50 mls/hr IV .Q24H [facility] with M.v.i. Adult 10 ml Rx#: [id number] 0.9 % Sodium Chloride 1, 487 / 487 513 / 513 000 ML @ 75 mls/hr IVC . [id number] [facility] Rx#: [id number] Intralipid 20% 250 ML @ 51.8 / 51.8 198.2 / 198.2 21 mls/hr IVPB DAILY@1700 [facility] Rx#:[id number] Merrem 1,000 MG In 0.9 % 100 / 100 200 / 200 Sodium Chloride (Mini-Bag +) 100 ML @ 200 mls/hr IVPB Q8H [facility] Rx#: [id number] Potassium Chloride 20 mEq 100 / 100 /100 mL 20 meq In 100 ml @ 100 mls/hr IVPB Q1H [facility] Rx#:[id number] Oral 0 / 0 0 / 0 Output: Urine 500 / 500 Urethral (Yoder) 500 / 500 Catheter 700 / 700 600 / 600 550 / 550 Other: Meal NPO Percent of Meal Consumed 0% Weight 68.128 kg Blood Glucose* 89 100 104 Patient Weight 11/06/16 23:59 Weight 68.128 kg - Labs 11/06/16 04:10 11/06/16 04:10 Diabetes panel 11/06/16 11/06/16 Range/Units 04:10 04:10 Sodium 139 (136-145) mEq/L Potassium 3.4 L (3.5-4.5) mEq/L Chloride 110 H (98-109) mEq/L Carbon Dioxide 21 (19-29) mEq/L BUN 8 (7-20) mg/dL Creatinine 0.84 (0.57-1.11) mg/dL Glucose 81 (70-99) mg/dL Calcium 7.5 L (8.6-10.8) mg/dL AST 9 (5-34) Units/L ALT < 6 (0-55) Units/L Alkaline Phosphatase 41 (38-126) Units/L Albumin 2.3 L D (3.5-5.0) g/dL Triglycerides 98 (< 150) mg/dL Calcium panel 11/06/16 11/06/16 Range/Units 04:10 04:10 Calcium 7.5 L (8.6-10.8) mg/dL Phosphorus 2.5 (2.3-4.7) mg/dL Albumin 2.3 L D (3.5-5.0) g/dL Pituitary panel 11/06/16 Range/Units 04:10 Sodium 139 (136-145) mEq/L Potassium 3.4 L (3.5-4.5) mEq/L Chloride 110 H (98-109) mEq/L Carbon Dioxide 21 (19-29) mEq/L BUN 8 (7-20) mg/dL Creatinine 0.84 (0.57-1.11) mg/dL Glucose 81 (70-99) mg/dL Calcium 7.5 L (8.6-10.8) mg/dL Adrenal panel 11/06/16 Range/Units 04:10 Sodium 139 (136-145) mEq/L Potassium 3.4 L (3.5-4.5) mEq/L Chloride 110 H (98-109) mEq/L Carbon Dioxide 21 (19-29) mEq/L BUN 8 (7-20) mg/dL Creatinine 0.84 (0.57-1.11) mg/dL Glucose 81 (70-99) mg/dL Calcium 7.5 L (8.6-10.8) mg/dL Total Bilirubin 0.4 (0.2-1.2) mg/dL AST 9 (5-34) Units/L ALT < 6 (0-55) Units/L Alkaline Phosphatase 41 (38-126) Units/L Albumin 2.3 L D (3.5-5.0) g/dL Consult Discharge Plan - Plan Referrals: Mir Gomes DO [Primary Care Provider] -
[2016-11-06] MEDS ORDERED: Clinimix E 5%-15% SOLUTION 2,000 ML with MVI, adult with vitamin K 10 ML IV SCH (17:00)
[2016-11-06] MEDS: Insulin LISPRO 300 UNITS/3 ML VIAL SQ SCH ×2 (17:25→22:12)
[2016-11-06] MEDS: *HR* Heparin 5,000 UNIT/ML VIAL SQ SCH (17:33)
[2016-11-06] MEDS ORDERED: Insulin LISPRO 300 UNITS/3 ML VIAL SQ SCH (18:00)
[2016-11-07] MEDS: Insulin LISPRO 300 UNITS/3 ML VIAL SQ SCH ×7 (04:49→20:38)
[2016-11-07 05:17] LABS: INR 1.2; Prothrombin Time 12.8 Seconds (9.4-12.1)
[2016-11-07 05:18] LABS: Basophils % 0.2 %; Eosinophils # 0.2 K/mcL (0.0-0.6); Eosinophils % 4.2 %; Hematocrit 29.7 % (35.3-44.9); Hemoglobin 9.5 g/dL (11.5-15.4); Immature Granulocytes % 0.9 % (0-4); Lymphocytes # 0.7 K/mcL (0.6-4.6); Mean Corpuscular Hemoglobin 29.4 pg (28.0-33.3); Mean Platelet Volume 8.7 fL (9.4-12.4); Monocytes # 0.5 K/mcL (0.0-1.3); Monocytes % 11.2 %; Neutrophils # 3.1 K/mcL (1.6-8.9); Platelet Count 159 K/mcL (140-400); Red Blood Count 3.23 M/mcL (3.82-4.97); Red Cell Distribution Width 12.9 % (11.5-14.5); Segmented Neutrophils % 68.5 %
[2016-11-07 05:23] LABS: Phosphorous 2.6 mg/dL (2.3-4.7); Potassium 3.7 mEq/L (3.5-4.5)
[2016-11-07] MEDS: Meropenem 1,000 MG in 0.9 % Sodium Chloride Mini Bag 100 ML IVPB SCH ×3 (06:26→23:22)
[2016-11-07] MEDS: *HR* Heparin 5,000 UNIT/ML VIAL SQ SCH ×2 (06:26→20:41)
[2016-11-07] MEDS: Pantoprazole 40 MG VIAL IV SCH (09:46)
--- NOTE | 2016-11-07 13:44 | General Surgery Progress Note ---
Date of Encounter: 11/07/16 Time of Encounter: 13:39 Subjective Patient reports: no new complaints Narrative: Hospital day 3: Patient feeling well and denies any abdominal pain. Tolerating clear liquids, no nausea or vomiting. Afebrile, 98.8; pulse 77, respirations 16, blood pressure 130/86. Lungs: Clear Abdomen: Soft, nontender. No appreciable intra-abdominal or pelvic masses. No rebound. Urine output 1600 mL, ; 1000 mL so far today Laboratories: White count 4.5; hemoglobin 9.5, hematocrit 29.7 - H&H slightly improved as patient diureses. Platelets 159,000; PT 12.8, INR 1.2; potassium 3.7 Impression: Long-standing, chronic refractory sigmoid diverticulitis with pericolic abscess. Repeat CT in a.m. to recheck status of the peyton colic abscess and for pre operative surgical planning. Hypokalemia - resolved Abdominal pain, nausea and vomiting - resolved VRE positive urine cultures - the urine culture pending Protein & calorie malnutrition - continue TPN Objective Vital Signs - Last 8 Hours Temp Pulse Resp BP Pulse Ox 11/07/16 10:15 98.0 F 74 16 129/85 98 11/07/16 07:59 98.8 F 77 17 138/86 97 Intake and Output 11/06/16 11/07/16 11/07/16 23:59 07:59 15:59 Intake Total 120 / 120 1510 / 1510 757 / 757 Output Total 525 / 525 775 / 775 1000 / 1000 Balance -405 / -405 735 / 735 -243 / -243 Intake: IV Fluids 1510 / 1510 277 / 277 Clinimix E 5%-15% 1060 / 1060 277 / 277 SOLUTION 2,000 ML @ 83.3 mls/hr IV .Q24H [facility] with M.v.i. Adult 10 ml Rx#: [id number] Intralipid 20% 250 ML @ 250 / 250 21 mls/hr IVPB DAILY@1700 [facility] Rx#:[id number] Merrem 1,000 MG In 0.9 % 200 / 200 Sodium Chloride (Mini-Bag +) 100 ML @ 200 mls/hr IVPB Q8H [facility] Rx#: [id number] Oral 120 / 120 0 / 0 480 / 480 Output: Urine 525 / 525 775 / 775 Catheter 1000 / 1000 Other: Meal Breakfast Blood Glucose* 117 112 103 - Labs 11/07/16 05:05 11/07/16 05:05 Diabetes panel 11/07/16 Range/Units 05:05 Potassium 3.7 (3.5-4.5) mEq/L Calcium panel 11/07/16 Range/Units 05:05 Phosphorus 2.6 (2.3-4.7) mg/dL Pituitary panel 11/07/16 Range/Units 05:05 Potassium 3.7 (3.5-4.5) mEq/L Adrenal panel 11/07/16 Range/Units 05:05 Potassium 3.7 (3.5-4.5) mEq/L Consult Discharge Plan - Plan Referrals: Mir Gomes DO [Primary Care Provider] -
[2016-11-07] MEDS ORDERED: Clinimix E 5%-15% SOLUTION 2,000 ML with MVI, adult with vitamin K 10 ML IV SCH (17:00)
[2016-11-07] MEDS: Acetaminophen/Aspirin/Caffeine TABLET PO PRN (17:09)
[2016-11-07] MEDS: 0.9 % Sodium Chloride 1,000 ML IVC SCH (20:22)
[2016-11-08] MEDS: Insulin LISPRO 300 UNITS/3 ML VIAL SQ SCH ×7 (02:28→22:28)
[2016-11-08] MEDS: Acetaminophen/Aspirin/Caffeine TABLET PO PRN (04:39)
[2016-11-08 04:48] LABS: Basophils % 0.4 %; Eosinophils # 0.2 K/mcL (0.0-0.6); Eosinophils % 4.3 %; Hematocrit 30.8 % (35.3-44.9); Hemoglobin 9.6 g/dL (11.5-15.4); Lymphocytes # 0.7 K/mcL (0.6-4.6); Lymphocytes % 14.2 %; Mean Corpuscular HGB Conc 31.2 g/dL (31.6-35.5); Mean Corpuscular Hemoglobin 28.6 pg (28.0-33.3); Mean Corpuscular Volume 91.7 fL (83.0-100.0); Monocytes # 0.5 K/mcL (0.0-1.3); Monocytes % 10.1 %; Neutrophils # 3.6 K/mcL (1.6-8.9); Platelet Count 156 K/mcL (140-400); Red Blood Count 3.36 M/mcL (3.82-4.97)
[2016-11-08 05:12] LABS: BUN/Creatinine Ratio 27 (6-26); Calcium 7.5 mg/dL (8.6-10.8); Carbon Dioxide 22 mEq/L (19-29); Chloride 110 mEq/L (98-109); Glucose 78 mg/dL (70-99); Magnesium 1.9 mg/dL (1.6-2.6); Osmolality,Calculated 287 (280-300); Phosphorous 3.2 mg/dL (2.3-4.7); Potassium 4.3 mEq/L (3.5-4.5); Sodium 138 mEq/L (136-145); eGFR For African Americans > 60 (> 60); eGFR For Non-African Americans > 60 (> 60)
[2016-11-08 05:15] LABS: Albumin 2.2 g/dL (3.5-5.0); Albumin/Globulin Ratio 0.6 (1.1-2.2); Alkaline Phosphatase 38 Units/L (38-126); Aspartate Amino Transferase 12 Units/L (5-34); BUN/Creatinine Ratio 25 (6-26); Bilirubin,Total 0.3 mg/dL (0.2-1.2); Blood Urea Nitrogen 19 mg/dL (7-20); Blood Urea Nitrogen 20 mg/dL (7-20); Calcium 7.6 mg/dL (8.6-10.8); Carbon Dioxide 22 mEq/L (19-29); Chloride 110 mEq/L (98-109); Globulin 3.4 g/dL (2.4-3.5); Glucose 78 mg/dL (70-99); Osmolality,Calculated 287 (280-300); Potassium 4.3 mEq/L (3.5-4.5); Sodium 138 mEq/L (136-145); Total Protein 5.6 g/dL (6.0-8.3); eGFR For African Americans > 60 (> 60); eGFR For Non-African Americans > 60 (> 60)
[2016-11-08 05:16] LABS: Alanine Aminotransferase < 6 Units/L (0-55)
[2016-11-08] MEDS: Meropenem 1,000 MG in 0.9 % Sodium Chloride Mini Bag 100 ML IVPB SCH ×3 (06:22→22:33)
[2016-11-08] MEDS: *HR* Heparin 5,000 UNIT/ML VIAL SQ SCH (06:22)
[2016-11-08] MEDS: Pantoprazole 40 MG VIAL IV SCH (08:47)
--- NOTE | 2016-11-08 13:25 | General Surgery Progress Note ---
Date of Encounter: 11/08/16 Time of Encounter: 13:00 Subjective Patient reports: no new complaints Narrative: Hospital day 4: patient voicing no complaints. Afebrile 97.7; pulse 81, respirations 16, blood pressure 123/82. Lungs: Clear Abdomen: Soft, nontender. Tolerating clear liquids with no abdominal pain, N/ V Urine output, 1600 mL in the last 24 hours; approximately 1625 mL so far today Laboratories: White count 5.1, hemoglobin 9.6 with hematocrit 30.8. Platelet count 156,000. Electrolytes stable, sodium 138, potassium 4.3, BUN 19, creatinine 0.75 Phosphorus 3.2, magnesium 1.9, pre-albumen 14.0; total protein 5.6, albumin 2.2; LFTs within normal limits. CT abd/pelvis - personally reviewed with [facility] Findings include persistent inflammatory changes surrounding the sigmoid colon; no detected development or increased abscess. Since prior CT. A persistent suspected abscess along the left pelvic sidewall also demonstrates less air noted internally. Stable extraluminal air along the left lateral and superior margins sigmoid colon. The amount of extraluminal air appears to have decreased. A stable enlarged left external iliac lymph node measuring 1.3 x 1.3 cm again noted. This adenopathy likely due to the prolonged infectious process. Impression: overall status stable to slightly improved. It appears to be the optimal time to consider surgery. This was discussed extensively with the patient. I have also discussed this with Dr Contreras. Explor celiotomy with Nevin procedure (sigmoid colectomy with end colostomy) planned for AM. Dr Contreras to be available to complete the left nephrectomy with ureterectomy. The proposed surgery will entail a midline incision from xiphoid to pubis, resection of the sigmoid creating a Nevin pouch and then mobilization of the more proximal descending colon to create a colostomy. Once mobilization has been completed, Dr Contreras will complete the left nephrectomy with ureterectomy. Once that is complete, the colostomy will be created and the abdomen closed. Risks of surgery include: Hemorrhage, infection, intra-abdominal abscess, injury to adjacent structures; cardiac and respiratory risks. These have discussed extensively with the patient. The family is aware the procedure may require in excess of 5 hours to complete. Consent has been obtained. Objective Vital Signs - Last 8 Hours Temp Pulse Resp BP Pulse Ox 11/08/16 11:47 97.7 F 81 16 123/82 98 11/08/16 07:38 97.6 F 87 16 116/75 98 Intake and Output 11/07/16 11/08/16 11/08/16 23:59 07:59 15:59 Intake Total 1137 / 1137 450 / 450 Output Total 375 / 375 1225 / 1225 400 / 400 Balance 762 / 762 -775 / -775 -400 / -400 Intake: IV Fluids 657 / 657 450 / 450 Clinimix E 5%-15% 657 / 657 SOLUTION 2,000 ML @ 83.3 mls/hr IV .Q24H [facility] with M.v.i. Adult 10 ml Rx#: [id number] Intralipid 20% 250 ML @ 250 / 250 21 mls/hr IVPB DAILY@1700 [facility] Rx#:[id number] Merrem 1,000 MG In 0.9 % 200 / 200 Sodium Chloride (Mini-Bag +) 100 ML @ 200 mls/hr IVPB Q8H [facility] Rx#: [id number] Oral 480 / 480 0 / 0 Output: Urine 375 / 375 1125 / 1125 Catheter 100 / 100 400 / 400 Other: Meal NPO Weight 68.2 kg Blood Glucose* 96 114 91 Patient Weight 11/08/16 23:59 Weight 68.2 kg - Labs 11/08/16 04:10 11/08/16 04:10 Diabetes panel 11/08/16 11/08/16 Range/Units 04:10 04:10 Sodium 138 138 (136-145) mEq/L Potassium 4.3 4.3 (3.5-4.5) mEq/L Chloride 110 H 110 H (98-109) mEq/L Carbon Dioxide 22 22 (19-29) mEq/L BUN 20 D 19 (7-20) mg/dL Creatinine 0.73 0.75 (0.57-1.11) mg/dL Glucose 78 78 (70-99) mg/dL Calcium 7.5 L 7.6 L (8.6-10.8) mg/dL AST 12 (5-34) Units/L ALT < 6 (0-55) Units/L Alkaline Phosphatase 38 (38-126) Units/L Albumin 2.2 L (3.5-5.0) g/dL Calcium panel 11/08/16 11/08/16 Range/Units 04:10 04:10 Calcium 7.5 L 7.6 L (8.6-10.8) mg/dL Phosphorus 3.2 (2.3-4.7) mg/dL Albumin 2.2 L (3.5-5.0) g/dL Pituitary panel 11/08/16 11/08/16 Range/Units 04:10 04:10 Sodium 138 138 (136-145) mEq/L Potassium 4.3 4.3 (3.5-4.5) mEq/L Chloride 110 H 110 H (98-109) mEq/L Carbon Dioxide 22 22 (19-29) mEq/L BUN 20 D 19 (7-20) mg/dL Creatinine 0.73 0.75 (0.57-1.11) mg/dL Glucose 78 78 (70-99) mg/dL Calcium 7.5 L 7.6 L (8.6-10.8) mg/dL Adrenal panel 11/08/16 11/08/16 Range/Units 04:10 04:10 Sodium 138 138 (136-145) mEq/L Potassium 4.3 4.3 (3.5-4.5) mEq/L Chloride 110 H 110 H (98-109) mEq/L Carbon Dioxide 22 22 (19-29) mEq/L BUN 20 D 19 (7-20) mg/dL Creatinine 0.73 0.75 (0.57-1.11) mg/dL Glucose 78 78 (70-99) mg/dL Calcium 7.5 L 7.6 L (8.6-10.8) mg/dL Total Bilirubin 0.3 (0.2-1.2) mg/dL AST 12 (5-34) Units/L ALT < 6 (0-55) Units/L Alkaline Phosphatase 38 (38-126) Units/L Albumin 2.2 L (3.5-5.0) g/dL - VTE Documentation of Mechanical Device: Intermittent pneumatic compression device Consult Discharge Plan - Plan Referrals: Mir Gomes DO [Primary Care Provider] -
[2016-11-08] MEDS ORDERED: Clinimix E 5%-15% SOLUTION 2,000 ML with MVI, adult with vitamin K 10 ML IV SCH (17:00)
--- NOTE | 2016-11-08 18:22 | Urology Progress Note ---
Date of Encounter: 11/08/16 Time of Encounter: 18:20 - Assessment and Plan (1) Atrophic kidney Current Visit: Yes Status: Acute Assessment and plan: 61-year-old woman with atrophy of her left kidney and a pelvic abscess associated with diverticulitis. I reviewed her films, laboratory values and case. After discussion I recommend proceeding with a left nephrectomy, possible nephroureterectomy, and repair of any bladder injury. She is aware of the risks of the surgery which include but are not limited to bleeding, infection, injury to other structures, need for further procedures, urine leak, and the risk of anesthesia. She is willing to proceed. Qualifiers: Laterality: left Qualified Code(s): N26.1 - Atrophy of kidney (terminal) Progress Note Narrative: 61-year-old woman with significant sigmoid diverticulitis with pelvic abscess was seen in follow-up today. She has a nonfunctioning left kidney and previously had a left ureteral reimplantation. Her pelvic abscess seems to involve her bladder and possibly the left ureter. Dr. Smith asked to see the patient in regards to possible nephrectomy on the left side. Given the significant abscess there is concern that there may be some involvement of it with her ureter. As she is going to have a sigmoidectomy there is concern of possible ureteral injury. Her left kidney may still make urine and if it was left in place, this could cause issues with a urinoma. Objective Initial Vital Signs Temp Pulse Resp BP Pulse Ox 98.3 F 105 18 92/63 98 11/04/16 11:22 11/04/16 11:22 11/04/16 11:22 11/04/16 11:22 11/04/16 11:22 - General physical appearance Present: well developed, well nourished, no distress - Respiratory Present: normal respiratory effort - Abdomen Present: soft - Labs 11/08/16 04:10 11/08/16 04:10 Diabetes panel 11/08/16 11/08/16 Range/Units 04:10 04:10 Sodium 138 138 (136-145) mEq/L Potassium 4.3 4.3 (3.5-4.5) mEq/L Chloride 110 H 110 H (98-109) mEq/L Carbon Dioxide 22 22 (19-29) mEq/L BUN 20 D 19 (7-20) mg/dL Creatinine 0.73 0.75 (0.57-1.11) mg/dL Glucose 78 78 (70-99) mg/dL Calcium 7.5 L 7.6 L (8.6-10.8) mg/dL AST 12 (5-34) Units/L ALT < 6 (0-55) Units/L Alkaline Phosphatase 38 (38-126) Units/L Albumin 2.2 L (3.5-5.0) g/dL Calcium panel 11/08/16 11/08/16 Range/Units 04:10 04:10 Calcium 7.5 L 7.6 L (8.6-10.8) mg/dL Phosphorus 3.2 (2.3-4.7) mg/dL Albumin 2.2 L (3.5-5.0) g/dL Pituitary panel 11/08/16 11/08/16 Range/Units 04:10 04:10 Sodium 138 138 (136-145) mEq/L Potassium 4.3 4.3 (3.5-4.5) mEq/L Chloride 110 H 110 H (98-109) mEq/L Carbon Dioxide 22 22 (19-29) mEq/L BUN 20 D 19 (7-20) mg/dL Creatinine 0.73 0.75 (0.57-1.11) mg/dL Glucose 78 78 (70-99) mg/dL Calcium 7.5 L 7.6 L (8.6-10.8) mg/dL Adrenal panel 11/08/16 11/08/16 Range/Units 04:10 04:10 Sodium 138 138 (136-145) mEq/L Potassium 4.3 4.3 (3.5-4.5) mEq/L Chloride 110 H 110 H (98-109) mEq/L Carbon Dioxide 22 22 (19-29) mEq/L BUN 20 D 19 (7-20) mg/dL Creatinine 0.73 0.75 (0.57-1.11) mg/dL Glucose 78 78 (70-99) mg/dL Calcium 7.5 L 7.6 L (8.6-10.8) mg/dL Total Bilirubin 0.3 (0.2-1.2) mg/dL AST 12 (5-34) Units/L ALT < 6 (0-55) Units/L Alkaline Phosphatase 38 (38-126) Units/L Albumin 2.2 L (3.5-5.0) g/dL - VTE Documentation of Mechanical Device: Intermittent pneumatic compression device Consult Discharge Plan - Plan Referrals: Mir Gomes DO [Primary Care Provider] -
--- NOTE | 2016-11-08 18:37 | Anesthesia Evaluation PreOp ---
Date of Encounter: 11/08/16 Time of Encounter: 18:30 - Past History Planned Operation: Exploratory Celiotomy Carmichael Pouch, Neprectomy Left Cardiac History: CHF (Hx Takotsubo Cardiomyopathy 2011, recovered with EF30% 2014 and now EF 45%), HTN (Off Meds) Pulmonary History: Denies Any Significant HX COMMUNITY SPORTS COORDINATOR History: Denies Any Significant HX Other Medical History: Renal (CKD Stage III, non functioning Left Kidney), GERD Anesthesia History: No Prior Anesthetic Complications, Past Anesthesia ( Failed Reconstruction Left Ureter) : No Alcohol Use: none Drug use: none Medications and Allergies Ascorbate Calcium [Vitamin C] 500 mg PO DAILY 10/10/16 [History] Esomeprazole Magnesium [Nexium] 40 mg PO DAILY 10/10/16 [History] Ondansetron HCl [Zofran] 4 mg PO Q8H PRN 10/10/16 [History] Ciprofloxacin [Cipro] 500 mg PO BID #28 tablet 10/15/16 [Rx] MetroNIDAZOLE [Flagyl] 500 mg PO TID #42 tablet 10/15/16 [Rx] Allergies acetaminophen [From Percocet] Allergy (Verified 11/04/16 11:22) Itching Cephalosporins Allergy (Verified 11/04/16 11:22) Rash codeine Allergy (Verified 11/04/16 11:22) Nausea hydrocodone [From Vicodin] Allergy (Verified 11/04/16 11:22) Itching morphine Allergy (Verified 11/04/16 11:22) Nausea Oxycodone [From Percocet] Allergy (Verified 11/04/16 11:22) Itching propoxyphene [From Darvocet-N 100] Allergy (Verified 11/04/16 11:22) Itching tobramycin Allergy (Verified 11/04/16 11:22) Chest Pain diphenhydramine [From Benadryl] Adverse Reaction (Mild, Verified 09/04/16 15:08) See Comments Pt states it made her dellusional doxycycline Adverse Reaction (Verified 11/01/15 10:14) Vomiting beta-lactam Allergy (Uncoded 11/01/15 10:14) Rash - Meds/Allergy Pre-op Review Medications Reviewed: Yes Allergies Reviewed: Yes Beta Blockers on Current Med List: No Anesthesia Results - Labs 11/08/16 04:10 11/08/16 04:10 - Imaging EKG: report reviewed (SR) Additional studies: ECHO EF 45% Anesthesia Exam O2 Sat Weight 68.2 kg O2 Sat by Pulse Oximetry 95 O2 Sat by Pulse Oximetry 98 O2 Sat by Pulse Oximetry 98 O2 Sat by Pulse Oximetry 93 O2 Sat by Pulse Oximetry 97 O2 Sat by Pulse Oximetry 95 Vital Signs Temp Pulse Resp BP Pulse Ox 98.3 F 105 18 92/63 98 11/04/16 11:22 11/04/16 11:22 11/04/16 11:22 11/04/16 11:22 11/04/16 11:22 Height: 5'5 Weight: 150 lbs NPO (# of Hours): MN - HEENT Pupil (Motor): Pupils equal, EOMI Mallampati: III Teeth: Prosthesis (Partials) Oral Opening: Less than or equal to 3 - COMMUNITY SPORTS COORDINATOR LOC: Oriented COMMUNITY SPORTS COORDINATOR Motor: Normal RUE, Normal LUE, Normal RLE, Normal LLE, Normal Face COMMUNITY SPORTS COORDINATOR Sensory: Normal: RUE, LUE, RLE, LLE, Face - Cardiac Rhythm: Regular Murmur: None JVD: No Carotid Bruit: No - Pulmonary Breath Sounds: bilateral Clear Respiratory Effort: Symmetrical Anesthesia Assess/Plan ASA Score: 3 (CKD Hx Cardiomyopathy) Modified [place] Scale for Level of Consciousness: Cooperative, oriented, and tranquil Anesthetic Plan: General Monitoring Plan: Standard Monitors Recovery Plan: PACU (Discussed GA, possible Kavitha, agrees to proceed. Patient T& S)
[2016-11-09] MEDS: Insulin LISPRO 300 UNITS/3 ML VIAL SQ SCH ×4 (02:18→23:27)
--- NOTE | 2016-11-09 07:30 | Urology Progress Note ---
Date of Encounter: 11/09/16 Time of Encounter: 07:29 - Assessment and Plan (1) Atrophic kidney Current Visit: Yes Status: Acute Assessment and plan: Plan for surgery today. All questions answered. I discussed the case with her family members. Qualifiers: Laterality: left Qualified Code(s): N26.1 - Atrophy of kidney (terminal) Progress Note Narrative: Doing well this morning. PLan for left nephrectomy, possible left nephroureterectomy and repair of any bladder injury. Objective Initial Vital Signs Temp Pulse Resp BP Pulse Ox 98.3 F 105 18 92/63 98 11/04/16 11:22 11/04/16 11:22 11/04/16 11:22 11/04/16 11:22 11/04/16 11:22 - General physical appearance Present: well developed, well nourished, no distress - Respiratory Present: normal respiratory effort - Abdomen Present: soft - Labs 11/08/16 04:10 11/08/16 04:10 - VTE Documentation of Mechanical Device: Intermittent pneumatic compression device Consult Discharge Plan - Plan Referrals: Mir Gomes DO [Primary Care Provider] -
[2016-11-09] MEDS: Meropenem 1,000 MG in 0.9 % Sodium Chloride Mini Bag 100 ML IVPB SCH ×3 (07:31→23:35)
[2016-11-09] MEDS ORDERED: *HR* HYDROmorphone 2 MG/ML SYRINGE ONE ×2 (07:41→09:09)
[2016-11-09] MEDS ORDERED: *HR* Rocuronium Bromide 50 MG/5 ML VIAL ONE ×2 (07:42→09:25)
[2016-11-09] MEDS ORDERED: Lidocaine -MPF 2% 2 ML VIAL ONE ×2 (07:42)
[2016-11-09] MEDS ORDERED: Dexamethasone 4 MG/ML VIAL ONE (07:42)
[2016-11-09] MEDS ORDERED: *HR* Etomidate 40 MG/20 ML VIAL IVP ONE (07:42)
[2016-11-09] MEDS ORDERED: Ondansetron 4 MG/2 ML VIAL ONE (07:42)
[2016-11-09] MEDS ORDERED: *HR* Phenylephrine 10 MG/ML VIAL ONE (07:51)
[2016-11-09] MEDS ORDERED: Bupivacaine/Clonidine Syringe 1 EACH SYRINGE ONE ×2 (08:03→08:04)
[2016-11-09] MEDS: Ringers Solution, Lactated 1,000 ML IVC SCH ×4 (08:13→13:34)
[2016-11-09] MEDS ORDERED: Esmolol 100 MG/10 ML VIAL IVP ONE (08:23)
[2016-11-09] MEDS ORDERED: *HR* Metoprolol 5 MG/5 ML VIAL IVP ONE (08:48)
--- NOTE | 2016-11-09 09:00 | Anesthesia Procedures ---
Date of Encounter: 11/09/16 Time of Encounter: 08:30 Procedures: Anesthesia - Nerve Block Procedure Date: 11/09/16 Time: 08:30 Allergies/Adv Reactions: see chart Pre-op Diagnosis: ruputured sigmoid colon Surgical Procedure: ex lap, wesley's, ureteroscopy, l nephrectomy Checklist: Correct Patient Identifier, Correct procedure, History checked Correct side: Left (this is bilat, post induction) Blood Thinner: No Monitor Applied: EKG, BP, Pulse Oximetry Supplemental Oxygen via Nasal Cannula (L/min): 2 Indication: Post Op Analgesia (request per dr juarez) Pre-op Neuro Deficits: No Block Type: Other (bilat QL1) Catheter placed: No Sterile Technique: Yes Ultrasound used: Yes Anatomy identified: Yes Visual spread of Local: Yes Neuro Stimulation: No Blood on Needle Aspiration: No Smooth Injection of Local: Yes Pain with Injection of Local: No Prep: Chlorhexadine Needle: 21 x 100 mm Stimuplex Local: 0.25% Bupivicaine w/Clonidine 20 mcg/cc Volume (cc): 60 Number of Attempts: 1 Complications: None/effective block Vitals: see or note Comments: 30 bilat
[2016-11-09] MEDS ORDERED: Ketamine *HR* 500 MG/10 ML MDV ONE (09:11)
--- NOTE | 2016-11-09 13:13 | Operative Note ---
Date of procedure: 11/09/16 Pre-op diagnosis: Non functioning left kidney, sigmoid abscess Post-op diagnosis: same Procedure: Cystoscopy, bilateral ureteral stent placement. Left nephroureterectomy. Assisted sigmoidectomy, Hartmans, left salpingo-oopherectomy. Implants: 18 Tristanian Yoder catheter. Complications: none. Anesthesia: LUCHO Surgeon: Tadeo Contreras Film Flat Inspector: Silviano Smith Estimated blood loss (cc): 700 Urine output (cc): 210 Specimen: left kidney and ureter Condition: stable Disposition: PACU Procedure in Detail: Indications: This is a 61-year-old woman who has a history of left vesicoureteral reflux. She previously had a left ureteral reimplantation with tapering. Eventually, she developed worsening renal function and now has an atrophic left kidney. She has diverticulitis and developed a pelvic abscess. The pelvic abscess seemed to be involving or near the left ureter. Given that the kidney was nonfunctioning and she has had recurrent urinary tract infections she has elected to undergo a left nephroureterectomy. She is aware of the risks of the surgery which include but are not limited to bleeding, infection, injury to other structures, need for further procedures, urine leak, pain, renal insufficiency, and the risk of anesthesia. She is want to proceed. Procedure: After informed consent was obtained Ms. Hannon was brought back to the operating room and placed in the supine position. A timeout was performed. Gen. anesthesia was administered and an endotracheal tube was placed. An abdominal block was obtained by anesthesia. Her lower abdomen and genitalia were then prepped and draped in the usual sterile fashion. Cystoscopy was then performed. The anterior urethra was unremarkable. The right ureteral orifice was in the normal orthotopic position. The left ureteral orifice was deviated somewhat laterally. It was initially difficult to identify but after a wire was placed into it, the ureteral orifice was identified as being widely patulous. A 5 Tristanian open-ended catheter was placed over the wire and brought up to 20 cm. The scope was then removed and replaced. On the right side a wire was placed into the right ureteral orifice and another 5 Tristanian open ended catheter was placed over the wire and brought to 20 cm at the level of the ureterovesical junction. The scope was removed. I then placed an 18 Tristanian Yoder catheter. The stents were placed through the Yoder and into the drainage bag. Her abdomen was then prepped and draped in the usual sterile fashion. I assisted Dr. Smith through his case. He performed a sigmoidectomy, left oophorectomy, and Carmichael's procedure. A midline incision was made from the pubic symphysis to the xiphoid process. Once the sigmoid colon was removed I proceeded to perform a left nephroureterectomy. The sigmoid colon was mobilized to the spleen along the white line of Toldt using electrocautery. In doing so there was a small capsular tear to the spleen. This was packed with a lap pad and the bleeding improved. Once that was controlled, the bowel was retracted medially. The ureter was identified in the pelvis with ease by palpating the left ureteral stent. The gonadal vein was identified next to it and it was divided and tied off with a 3-0 silk suture. The ureter was dissected superiorly to the renal pelvis. A combination of blunt dissection and electrocautery allowed us to identify the kidney. I dissected lateral and posterior to the kidney. Anterior dissection allowed me to identify the artery and the renal vein. These were secured individually using the vascular load stapler. With downward retraction on the kidney I was able to dissect superior to it. I dissected across the gonadal vein and cut it. There was bleeding from this. The vein was secured with a right angle clamp. We then clamped across the vein. A suture ligature was placed underneath the clips as well. This controlled the bleeding quite well and only about 10-20 mL of blood loss had occurred. The remaining adhesions to the kidney were freed until the end. I felt the best near the hilum to place another stapler load across this area. A total of 3 staple loads were utilized to secure the kidney from the hilum. The kidney was then dissected down with the ureter to the pelvis. I dissected the ureter to the level bladder. A combination of sharp and electrocautery dissection was utilized to free the ureter up posteriorly to the bladder. The bladder was then filled. Silk stay sutures were placed in the bladder. The bladder was then opened using cautery. The fluid in the bladder was then aspirated away. The Oyder catheter was identified in the bladder. Both stents were identified as well. A 2-0 chromic suture was placed just distal to the left ureteral orifice. The stay suture allowed me to retract the ureter superiorly. I did cut the stent that was coming out of the left ureter and secured the stent that remained in the ureter to the chromic stitch. Using the needle-tipped Bovie the ureter was incised. The dense adhesions were dissected using electrocautery. There were some perforating blood vessels that required electrocautery hemostasis. With finger dissection I was able to free the ureter from the posterior aspect of the bladder. The ureter was then taken through the bladder and removed intact with the kidney. Specimen was then sent off. The posterior bladder muscle was then closed in a running fashion using a 2-0 Vicryl suture. The mucosa of the bladder was closed in a running fashion using another 2-0 Vicryl suture. The right ureter was identified with its stent and was quite far from the left ureter in my closure there. I then closed our cystotomy incision with a 3-0 Monocryl along the urothelial surface. The muscle was then closed using a 2-0 Vicryl suture in a running fashion. The bladder was then filled to 180 mL of sterile water and there was no evidence of leak. Hemostasis appeared excellent in the pelvis. I then assisted Dr. Smith with the remainder of his case. We reassessed the splenic laceration and there was minimal bleeding at that point. Avista was applied to the lacerated surface of the spleen. The ostomy was created and the fascia was closed. Please see his note for further details. At the end the case I removed the right ureteral stent in the remaining portion of the left ureteral stent. The Yoder catheter remained in place. The urine had a light pink color. The patient was then awakened from general anesthesia about her room in good condition. All sponge, needle, and inserted counts were correct.
--- NOTE | 2016-11-09 13:56 | Operative Note ---
Date of procedure: 11/09/16 Pre-op diagnosis: acute & chronic diverticulitis w/ perforation; nonfunctioning left kidney Post-op diagnosis: same Procedure: Cystoscopy, bilateral ureteral stent placement; exploratory celiotomy, sigmoid colectomy with end colostomy (Nevin procedure); left salpingo-oophorectomy; appendectomy; left nephroureterectomy. Complications: none apparent Anesthesia: GETA Surgeon: Silviano Smith Co-Surgeon: Tadeo Contreras Estimated blood loss (cc): 700 IV fluids (cc): 3,000 (3 liters crystalloid, 2 units PRBC) Specimen: Sigmoid colon, left tube and ovary, appendix, left kidney and ureter Condition: stable Disposition: PACU Procedure in Detail: The patient was brought to the operating room where she was placed supine upon the operating room table. The patient was appropriately identified as to person and procedure. The accuracy of this information is confirmed by the procedure team. Patient was then intubated and anesthetized under the supervision of Dr. Tadeo Crooks. The patient was then positioned in high lithotomy to complete a cystoscopy and placement bilateral ureteral stents by Dr Tadeo Contreras. This portion of the procedure was dictated by Dr Contreras under a separate cover. The patient was then returned to the supine position. The abdomen was prepped and draped in usual sterile fashion. Midline incision was made with a #10 scalpel from xiphoid to pubis. Bleeding points were controlled with electrocautery. The fascia was incised along the linea alba. The abdomen was entered atraumatically. Exposure was facilitated with a self-retaining Omni tract retractor. The abdomen was quickly explored. Liver gallbladder and spleen were grossly normal. An OG tube was evident within the gastric fundus. The stomach was otherwise normal. The mall bowel was examined from the ligament of Treitz to the ileocecal valve. A normal- appearing appendix was evident at the proximal tip of the cecum. This was removed without difficulty. The mesoappendix was divided at the junction of the appendix with the cecum. The appendix was transected at it junction with the cecum using an Ethicon TX 60 mm stapler (blue cartridge). The mesoappendix was transected with the aid of a Covidien Impact Ligasure dissector. The appendiceal artery was suture ligated with 3-0 silk prior to being divided. The appendix was removed and sent to pathology for evaluation. The ascending and transverse colon was grossly normal. The descending colon was also normal the sigmoid colon was markedly abnormal with extensive thickening, induration and inflammatory changes causing fixation of the sigmoid to the bladder. The patient has a history of previous ureteral reimplantation attributing to this fixation. The sigmoid was mobilized by incising the lateral peritoneal reflection along the white line of Toldt. A point on the descending colon was selected, the mesentery divided, and the bowel transected using an Ethicon 75 mm linear stapler. The sigmoid mesentery was then divided with the aid of the LigaSure dissector. The left colic vessels were identified, suture ligated with 2-0 silk, and then divided. The sigmoid was dissected from the bladder and surrounding structures until sufficiently mobilized to allow dissection to continue into the pelvis. The left tube and ovary were densely adherent to the sigmoid. These were dissected free of the sigmoid and transected at the junction with the uterus using an Ethicon TX 60 mm stapler. The gonadal vessels were also divided after suture ligation with 2-0 silk. The colon was divided at the rectosigmoid junction using an Ethicon TX 60 mm stapler (blue cartridge). The sigmoid was removed and sent to pathology for analysis along with the appendix and left tube and ovary. The descending colon was mobilized incising the lateral peritoneal reflection to the splenic flexure. Dissection proceeded onto the distal transverse colon. Would facilitate exposure of the atrophic left kidney. Dr. Contreras was present to assist with the surgery and complete the left nephrouterectomy. Once the left kidney and ureter were removed. The urinary bladder was repaired. The abdomen was inspected for adequate hemostasis. This was found to be adequate. A preliminary sponge count was obtained and found to be correct. The descending colon was then exteriorized through the left upper anterior abdominal wall in preparation for an end descending colostomy. The abdomen was then closed in layers. The peritoneum was closed with running interlocking 0 Vicryl. The fascia was reapproximated with interrupted [id number] 0 Vicryl. The subcutaneous tissue was reapproximated with running 3-0 Vicryl and the skin edges approximated with sukh. The end colostomy was then opened and matured. This was accomplished with 4 corner vertical mattress 3-0 chromic followed by simple interrupted 3-0 chromic to approximate colon mucosa to the skin edges. An ostomy appliance was placed. A dry sterile dressing was applied to the midline incision. The patient was taken to recovery in stable condition. Needle, sponge, and instrument counts were correct at the close of the case.
--- NOTE | 2016-11-09 14:11 | Anesthesia Evaluation Post Op ---
Date of Encounter: 11/09/16 Time of Encounter: 14:11 - Vital Signs Vital Signs: Vital Signs/O2 Sat/Glucose, Most Current Temp Pulse Resp BP Pulse Ox 11/09/16 14:00 79 22 123/78 95 11/09/16 13:50 97.5 F L 80 22 116/76 97 11/09/16 13:40 97.6 F 79 24 121/83 98 11/09/16 13:30 79 24 124/74 98 11/09/16 13:20 96.7 F L 89 22 120/76 98 - Lungs Lungs: Clear Ascult./Percussion - Airway Airway: Non-obstructed - Cardiovascular Regular Rate - Mental Status Mental Status: Sedated (responds to two level command) - Pain Pain Scale: 0 Pain Scale used: Fran (Faces) - Nausea Vomiting Nausea Vomiting: Not Present - Hydration Hydration: NPO - Discharge PostOp Status: Transfer Patient to floor
[2016-11-09] MEDS ORDERED: *HR* Promethazine 25 MG/ML VIAL IVP PRN (14:15)
[2016-11-09] MEDS ORDERED: D10% in Water 500 ML IV PRN (14:15)
[2016-11-09] MEDS ORDERED: *HR* Dextrose 50 % in Water (Syg) 50 ML SYRINGE IVP PRN (14:15)
[2016-11-09] MEDS ORDERED: Dextrose Gel 15 GM PO PRN (14:15)
[2016-11-09] MEDS ORDERED: Ringers Solution, Lactated 1,000 ML IVC SCH (14:15)
[2016-11-09] MEDS ORDERED: Clinimix E 5%-15% SOLUTION 2,000 ML with MVI, adult with vitamin K 10 ML IV SCH ×3 (15:00→17:00)
[2016-11-09] MEDS: *HR* HYDROmorphone (PF) 1 MG/ML SYRINGE IVP PRN ×4 (16:01→23:37)
[2016-11-09 16:04] LABS: Hematocrit 36.3 % (35.3-44.9)
[2016-11-09 16:05] LABS: Hemoglobin 11.5 g/dL (11.5-15.4)
[2016-11-10] MEDS: Insulin LISPRO 300 UNITS/3 ML VIAL SQ SCH ×6 (00:18→20:28)
[2016-11-10] MEDS: *HR* HYDROmorphone (PF) 1 MG/ML SYRINGE IVP PRN ×9 (04:03→23:26)
[2016-11-10 04:30] LABS: Basophils % 0.1 %; Eosinophils % 0.1 %; Hematocrit 31.2 % (35.3-44.9); Immature Granulocytes % 0.9 % (0-4); Lymphocytes # 0.5 K/mcL (0.6-4.6); Lymphocytes % 5.6 %; Mean Corpuscular HGB Conc 32.1 g/dL (31.6-35.5); Mean Corpuscular Volume 90.4 fL (83.0-100.0); Mean Platelet Volume 9.1 fL (9.4-12.4); Monocytes % 11.7 %; Neutrophils # 7.1 K/mcL (1.6-8.9); Platelet Count 135 K/mcL (140-400); Red Blood Count 3.45 M/mcL (3.82-4.97); Red Cell Distribution Width 13.8 % (11.5-14.5); Segmented Neutrophils % 81.6 %
[2016-11-10 04:45] LABS: BUN/Creatinine Ratio 41 (6-26); Blood Urea Nitrogen 28 mg/dL (7-20); Carbon Dioxide 18 mEq/L (19-29); Chloride 115 mEq/L (98-109); Glucose 112 mg/dL (70-99); Osmolality,Calculated 290 (280-300); Potassium 4.3 mEq/L (3.5-4.5); Sodium 137 mEq/L (136-145); eGFR For African Americans > 60 (> 60); eGFR For Non-African Americans > 60 (> 60)
[2016-11-10 05:11] LABS: Calcium 6.2 mg/dL (8.6-10.8)
[2016-11-10] MEDS: Meropenem 1,000 MG in 0.9 % Sodium Chloride Mini Bag 100 ML IVPB SCH ×3 (05:56→23:27)
--- NOTE | 2016-11-10 07:34 | General Surgery Progress Note ---
Date of Encounter: 11/10/16 Time of Encounter: 07:27 Subjective Narrative: Postoperative day 1: Patient voicing no complaints, indicates that her incisional pain is controlled. Afebrile, 98.6; pulse 102-119, respirations 18, blood pressure 103/62. SPO2 on 2 L/m nasal cannula 95% Lungs: A few scattered bibasilar rales; fairly good inspiratory effort Abdomen: Soft, quiet. Incision clean and dry. Ostomy in the left upper quadrant appears healthy; no output Urine output 1100 mL for 11/09/2016; 350 mL so far today - hematuria noted and expected Laboratories: White count 8.7; hemoglobin 10.0, hematocrit 31.2; platelet count 135,000. Electrolytes within acceptable range, BUN has increased to 28, creatinine 0.69, estimated GFR remains greater than 60. Blood glucose 112; Accu-Cheks 115-229 Impression: POD #1 - acceptable status encourage incentive spirometry, patient to be out of bed / ambulatory today. thrombocytopenia and recent surgery with extensive dissection - hold heparin Objective Vital Signs - Last 8 Hours Temp Pulse Resp BP Pulse Ox 11/10/16 07:11 98.6 F 119 18 103/62 95 11/10/16 03:50 98.5 F 102 20 109/73 96 11/09/16 23:34 98.3 F 108 16 100/68 97 11/09/16 23:24 98.3 F 118 18 94/64 95 11/09/16 22:40 98.1 F 120 20 80/51 94 L Intake and Output 11/09/16 11/09/16 11/10/16 15:59 23:59 08:59 Intake Total 3200 / 3200 2109 1774 / 1774 Output Total 1150 / 1150 300 / 300 350 / 350 Balance 2049 1810 / 1810 1424 / 1424 Intake: IV Fluids 3200 / 3200 21090 1774 / 1774 Clinimix E 5%-15% 2009 909 / 909 SOLUTION 2,000 ML @ 83.3 mls/hr IV .Q24H [facility]ESS with M.v.i. Adult 10 ml Rx#: [id number] Lactated Ringers 1,000 ML 3000 / 3000 515 / 515 @ 75 mls/hr IVC .[id number] [facility] Rx#:[id number] Intralipid 20% 250 ML @ 100 / 100 150 / 150 21 mls/hr IVPB DAILY@1700 [facility] Rx#:[id number] Merrem 1,000 MG In 0.9 % 200 / 200 200 / 200 Sodium Chloride (Mini-Bag +) 100 ML @ 200 mls/hr IVPB Q8H [facility] Rx#: [id number] Oral 0 / 0 Output: Estimated Blood Loss 700 / 700 Urine Amount (Catheter) 450 / 450 Catheter 300 / 300 350 / 350 Other: Meal NPO npo Weight 78.9 kg Blood Glucose* 229 144 129 Patient Weight 11/11/16 00:59 Weight 78.9 kg - Labs 11/10/16 04:13 11/10/16 04:14 Diabetes panel 11/10/16 Range/Units 04:14 Sodium 137 (136-145) mEq/L Potassium 4.3 (3.5-4.5) mEq/L Chloride 115 H (98-109) mEq/L Carbon Dioxide 18 L (19-29) mEq/L BUN 28 H (7-20) mg/dL Creatinine 0.69 (0.57-1.11) mg/dL Glucose 112 H (70-99) mg/dL Calcium 6.2 L D (8.6-10.8) mg/dL Calcium panel 11/10/16 Range/Units 04:14 Calcium 6.2 L D (8.6-10.8) mg/dL Pituitary panel 11/10/16 Range/Units 04:14 Sodium 137 (136-145) mEq/L Potassium 4.3 (3.5-4.5) mEq/L Chloride 115 H (98-109) mEq/L Carbon Dioxide 18 L (19-29) mEq/L BUN 28 H (7-20) mg/dL Creatinine 0.69 (0.57-1.11) mg/dL Glucose 112 H (70-99) mg/dL Calcium 6.2 L D (8.6-10.8) mg/dL Adrenal panel 11/10/16 Range/Units 04:14 Sodium 137 (136-145) mEq/L Potassium 4.3 (3.5-4.5) mEq/L Chloride 115 H (98-109) mEq/L Carbon Dioxide 18 L (19-29) mEq/L BUN 28 H (7-20) mg/dL Creatinine 0.69 (0.57-1.11) mg/dL Glucose 112 H (70-99) mg/dL Calcium 6.2 L D (8.6-10.8) mg/dL - VTE Documentation of Mechanical Device: Intermittent pneumatic compression device Consult Discharge Plan - Plan Referrals: Mir Gomes DO [Primary Care Provider] -
[2016-11-10] MEDS: Pantoprazole 40 MG VIAL IV SCH (07:56)
--- NOTE | 2016-11-10 09:53 | Urology Progress Note ---
Date of Encounter: 11/10/16 Time of Encounter: 09:51 - Assessment and Plan (1) Atrophic kidney Current Visit: Yes Status: Acute Assessment and plan: Status post left nephroureterectomy. Postoperative day #1. Appreciate general surgery care. Continue Yoder catheter. Diet once bowel function returns. Continue ambulation. Okay for subcutaneous prophylaxis. Qualifiers: Laterality: left Qualified Code(s): N26.1 - Atrophy of kidney (terminal) Progress Note Narrative: Status post left nephroureterectomy with sigmoidectomy, left salpingo- oophorectomy, and Nevin's pouch, postoperative day #1. Patient is sitting in a chair. She says her pain is adequately controlled, but she is sore. She is breathing well. Urine output was good overnight. Her urine is clear. Hemoglobin dropped slightly and she is somewhat tachycardic. Blood pressure has been stable. Objective Initial Vital Signs Temp Pulse Resp BP Pulse Ox 98.3 F 105 18 92/63 98 11/04/16 11:22 11/04/16 11:22 11/04/16 11:22 11/04/16 11:22 11/04/16 11:22 - General physical appearance Present: well developed, well nourished, no distress - Respiratory Present: normal respiratory effort - Abdomen Present: soft - Genitourinary Urine Appearance: Present: Clear - Labs 11/10/16 04:13 11/10/16 04:14 Diabetes panel 11/10/16 Range/Units 04:14 Sodium 137 (136-145) mEq/L Potassium 4.3 (3.5-4.5) mEq/L Chloride 115 H (98-109) mEq/L Carbon Dioxide 18 L (19-29) mEq/L BUN 28 H (7-20) mg/dL Creatinine 0.69 (0.57-1.11) mg/dL Glucose 112 H (70-99) mg/dL Calcium 6.2 L D (8.6-10.8) mg/dL Calcium panel 11/10/16 Range/Units 04:14 Calcium 6.2 L D (8.6-10.8) mg/dL Pituitary panel 11/10/16 Range/Units 04:14 Sodium 137 (136-145) mEq/L Potassium 4.3 (3.5-4.5) mEq/L Chloride 115 H (98-109) mEq/L Carbon Dioxide 18 L (19-29) mEq/L BUN 28 H (7-20) mg/dL Creatinine 0.69 (0.57-1.11) mg/dL Glucose 112 H (70-99) mg/dL Calcium 6.2 L D (8.6-10.8) mg/dL Adrenal panel 11/10/16 Range/Units 04:14 Sodium 137 (136-145) mEq/L Potassium 4.3 (3.5-4.5) mEq/L Chloride 115 H (98-109) mEq/L Carbon Dioxide 18 L (19-29) mEq/L BUN 28 H (7-20) mg/dL Creatinine 0.69 (0.57-1.11) mg/dL Glucose 112 H (70-99) mg/dL Calcium 6.2 L D (8.6-10.8) mg/dL - VTE Documentation of Mechanical Device: Intermittent pneumatic compression device Consult Discharge Plan - Plan Referrals: Mir Gomes DO [Primary Care Provider] -
[2016-11-10] MEDS: Ringers Solution, Lactated 1,000 ML IVC SCH (12:50)
[2016-11-10] MEDS ORDERED: Clinimix E 5%-15% SOLUTION 2,000 ML with MVI, adult with vitamin K 10 ML IV SCH ×2 (17:00)
[2016-11-11] MEDS: *HR* HYDROmorphone (PF) 1 MG/ML SYRINGE IVP PRN ×8 (00:36→21:22)
[2016-11-11] MEDS: Insulin LISPRO 300 UNITS/3 ML VIAL SQ SCH ×6 (01:39→21:00)
[2016-11-11 05:19] LABS: Basophils % 0.3 %; Eosinophils # 0.2 K/mcL (0.0-0.6); Eosinophils % 1.9 %; Hematocrit 25.7 % (35.3-44.9); Immature Granulocytes % 1.1 % (0-4); Lymphocytes # 0.9 K/mcL (0.6-4.6); Lymphocytes % 9.2 %; Mean Corpuscular HGB Conc 32.3 g/dL (31.6-35.5); Mean Corpuscular Hemoglobin 29.6 pg (28.0-33.3); Mean Corpuscular Volume 91.8 fL (83.0-100.0); Mean Platelet Volume 9.4 fL (9.4-12.4); Monocytes # 0.9 K/mcL (0.0-1.3); Monocytes % 9.5 %; Neutrophils # 7.2 K/mcL (1.6-8.9); Platelet Count 113 K/mcL (140-400); Red Cell Distribution Width 14.2 % (11.5-14.5)
[2016-11-11 05:20] LABS: Hemoglobin 8.3 g/dL (11.5-15.4)
[2016-11-11 05:39] LABS: Alanine Aminotransferase 9 Units/L (0-55); Albumin/Globulin Ratio 0.6 (1.1-2.2); Alkaline Phosphatase 41 Units/L (38-126); Aspartate Amino Transferase 16 Units/L (5-34); BUN/Creatinine Ratio 41 (6-26); Bilirubin,Total 0.5 mg/dL (0.2-1.2); Blood Urea Nitrogen 32 mg/dL (7-20); Calcium 8.1 mg/dL (8.6-10.8); Carbon Dioxide 24 mEq/L (19-29); Chloride 105 mEq/L (98-109); Globulin 3.1 g/dL (2.4-3.5); Glucose 113 mg/dL (70-99); Osmolality,Calculated 280 (280-300); Potassium 4.8 mEq/L (3.5-4.5); Sodium 131 mEq/L (136-145); eGFR For African Americans > 60 (> 60); eGFR For Non-African Americans > 60 (> 60)
[2016-11-11 05:40] LABS: Albumin 1.9 g/dL (3.5-5.0)
--- NOTE | 2016-11-11 07:16 | Urology Progress Note ---
Date of Encounter: 11/11/16 Time of Encounter: 07:14 - Assessment and Plan (1) Atrophic kidney Current Visit: Yes Status: Acute Assessment and plan: s/p left NU. POD #2. 1. Continue santos catheter. 2. Monitor H&H. HR and BP stable. 3. Creatinine is stable. 4. Will follow along. Qualifiers: Laterality: left Qualified Code(s): N26.1 - Atrophy of kidney (terminal) Progress Note Narrative: s/p left Nephroureterectomy. POD #2. Doing well today. She has been out of bed x 3 yesterday. No gas out ostomy. Pain is controlled. Urine has been clear. H&H has trended down somewhat. Objective Initial Vital Signs Temp Pulse Resp BP Pulse Ox 98.3 F 105 18 92/63 98 11/04/16 11:22 11/04/16 11:22 11/04/16 11:22 11/04/16 11:22 11/04/16 11:22 - General physical appearance Present: well developed, well nourished, no distress - Respiratory Present: normal respiratory effort - Abdomen Present: soft (sukh intact, clean and dry. Ostomy is pink.) - Genitourinary Urine Appearance: Present: Clear - Labs 11/11/16 04:50 11/11/16 04:50 Diabetes panel 11/11/16 Range/Units 04:50 Sodium 131 L (136-145) mEq/L Potassium 4.8 H (3.5-4.5) mEq/L Chloride 105 (98-109) mEq/L Carbon Dioxide 24 (19-29) mEq/L BUN 32 H (7-20) mg/dL Creatinine 0.78 (0.57-1.11) mg/dL Glucose 113 H (70-99) mg/dL Calcium 8.1 L D (8.6-10.8) mg/dL AST 16 (5-34) Units/L ALT 9 (0-55) Units/L Alkaline Phosphatase 41 (38-126) Units/L Albumin 1.9 L (3.5-5.0) g/dL Calcium panel 11/11/16 Range/Units 04:50 Calcium 8.1 L D (8.6-10.8) mg/dL Albumin 1.9 L (3.5-5.0) g/dL Pituitary panel 11/11/16 Range/Units 04:50 Sodium 131 L (136-145) mEq/L Potassium 4.8 H (3.5-4.5) mEq/L Chloride 105 (98-109) mEq/L Carbon Dioxide 24 (19-29) mEq/L BUN 32 H (7-20) mg/dL Creatinine 0.78 (0.57-1.11) mg/dL Glucose 113 H (70-99) mg/dL Calcium 8.1 L D (8.6-10.8) mg/dL Adrenal panel 11/11/16 Range/Units 04:50 Sodium 131 L (136-145) mEq/L Potassium 4.8 H (3.5-4.5) mEq/L Chloride 105 (98-109) mEq/L Carbon Dioxide 24 (19-29) mEq/L BUN 32 H (7-20) mg/dL Creatinine 0.78 (0.57-1.11) mg/dL Glucose 113 H (70-99) mg/dL Calcium 8.1 L D (8.6-10.8) mg/dL Total Bilirubin 0.5 (0.2-1.2) mg/dL AST 16 (5-34) Units/L ALT 9 (0-55) Units/L Alkaline Phosphatase 41 (38-126) Units/L Albumin 1.9 L (3.5-5.0) g/dL - VTE Documentation of Mechanical Device: Intermittent pneumatic compression device Consult Discharge Plan - Plan Referrals: Mir Gomes DO [Primary Care Provider] -
[2016-11-11] MEDS: Meropenem 1,000 MG in 0.9 % Sodium Chloride Mini Bag 100 ML IVPB SCH ×3 (07:53→23:26)
[2016-11-11] MEDS: Ringers Solution, Lactated 1,000 ML IVC SCH (08:53)
[2016-11-11] MEDS: Pantoprazole 40 MG VIAL IV SCH (09:15)
--- NOTE | 2016-11-11 12:37 | General Surgery Progress Note ---
Date of Encounter: 11/11/16 Time of Encounter: 11:55 Subjective Patient reports: feels better Narrative: Postoperative day 2: patient seated a bedside; denies signicant incisional pain. Afebrile, 98.5; pulse 96, respirations 16, blood pressure 131/79 lungs: Right basilar rales; diminished breath sounds left bas - patient will be encoued to increase incentive spirometry and continue activity OOB abdomen: soft,diet. The appearing stoma upper left quadrant. No noted passage of flatus or stool. Urine output approximately 1400 mL laboratories: White count 9.3; hemoglobin 8.3 with hematocrit 25.7. - Likely dilution but will continue to monitor. decrease IV fluids Electrolytes notable for potassium 4.8; BUN slightly increased at 32, creatinine 0.78. Pathology pending Impression: Acceptable postoperative status. Protein and calorie depletion - continue TPN Hyperkalemia - hemolyzed specimen versus potassium supplied via TPN Diminished breath sounds left base - due to mobilization of splenic flexure, encourage incentive spirometry Thrombocytopenia -platelet count 113,000; continue to hold anticoagulation ( VTE prophylaxis) Objective Vital Signs - Last 8 Hours Temp Pulse Resp BP Pulse Ox 11/11/16 11:03 98.5 F 96 24 105/65 93 L 11/11/16 06:44 97.9 F 98 16 131/79 94 L 11/11/16 04:30 97.9 F 102 15 137/84 95 Intake and Output 11/10/16 11/11/16 11/11/16 23:59 07:59 15:59 Intake Total 2009 1000 / 1000 100 / 100 Output Total 150 / 150 950 / 950 450 / 450 Balance 1860 / 1860 50 / 50 -350 / -350 Intake: IV Fluids 2009 1000 / 1000 100 / 100 Lactated Ringers 1,000 ML 900 / 900 100 / 100 @ 50 mls/hr IVC .Q20H [facility] Rx#:[id number] Merrem 1,000 MG In 0.9 % 100 / 100 Sodium Chloride (Mini-Bag +) 100 ML @ 200 mls/hr IVPB Q8H [facility] Rx#: [id number] Oral 0 / 0 Output: Catheter 150 / 150 950 / 950 450 / 450 Other: Meal NPO NPO breakfast Weight 81.2 kg Blood Glucose* 124 114 121 Patient Weight 11/11/16 23:59 Weight 81.2 kg - Labs 11/11/16 04:50 11/11/16 04:50 Diabetes panel 11/11/16 Range/Units 04:50 Sodium 131 L (136-145) mEq/L Potassium 4.8 H (3.5-4.5) mEq/L Chloride 105 (98-109) mEq/L Carbon Dioxide 24 (19-29) mEq/L BUN 32 H (7-20) mg/dL Creatinine 0.78 (0.57-1.11) mg/dL Glucose 113 H (70-99) mg/dL Calcium 8.1 L D (8.6-10.8) mg/dL AST 16 (5-34) Units/L ALT 9 (0-55) Units/L Alkaline Phosphatase 41 (38-126) Units/L Albumin 1.9 L (3.5-5.0) g/dL Calcium panel 11/11/16 Range/Units 04:50 Calcium 8.1 L D (8.6-10.8) mg/dL Albumin 1.9 L (3.5-5.0) g/dL Pituitary panel 11/11/16 Range/Units 04:50 Sodium 131 L (136-145) mEq/L Potassium 4.8 H (3.5-4.5) mEq/L Chloride 105 (98-109) mEq/L Carbon Dioxide 24 (19-29) mEq/L BUN 32 H (7-20) mg/dL Creatinine 0.78 (0.57-1.11) mg/dL Glucose 113 H (70-99) mg/dL Calcium 8.1 L D (8.6-10.8) mg/dL Adrenal panel 11/11/16 Range/Units 04:50 Sodium 131 L (136-145) mEq/L Potassium 4.8 H (3.5-4.5) mEq/L Chloride 105 (98-109) mEq/L Carbon Dioxide 24 (19-29) mEq/L BUN 32 H (7-20) mg/dL Creatinine 0.78 (0.57-1.11) mg/dL Glucose 113 H (70-99) mg/dL Calcium 8.1 L D (8.6-10.8) mg/dL Total Bilirubin 0.5 (0.2-1.2) mg/dL AST 16 (5-34) Units/L ALT 9 (0-55) Units/L Alkaline Phosphatase 41 (38-126) Units/L Albumin 1.9 L (3.5-5.0) g/dL - VTE Documentation of Mechanical Device: Intermittent pneumatic compression device Consult Discharge Plan - Plan Referrals: Mir Gomes DO [Primary Care Provider] -
[2016-11-11] MEDS ORDERED: Clinimix E 5%-15% SOLUTION 2,000 ML with MVI, adult with vitamin K 10 ML IV SCH (17:00)
[2016-11-11] MEDS ORDERED: hydrOXYzine pamoate 25 MG CAPSULE PO PRN (17:58)
[2016-11-12] MEDS: Insulin LISPRO 300 UNITS/3 ML VIAL SQ SCH ×6 (00:27→21:55)
[2016-11-12] MEDS: *HR* HYDROmorphone (PF) 1 MG/ML SYRINGE IVP PRN ×8 (00:31→22:04)
[2016-11-12 04:51] LABS: Basophils % 0.2 %; Eosinophils # 0.2 K/mcL (0.0-0.6); Eosinophils % 3.9 %; Hematocrit 22.6 % (35.3-44.9); Hemoglobin 7.4 g/dL (11.5-15.4); Immature Granulocytes % 1.6 % (0-4); Lymphocytes # 0.7 K/mcL (0.6-4.6); Lymphocytes % 10.5 %; Mean Corpuscular HGB Conc 32.7 g/dL (31.6-35.5); Mean Corpuscular Volume 91.5 fL (83.0-100.0); Mean Platelet Volume 8.9 fL (9.4-12.4); Monocytes # 0.7 K/mcL (0.0-1.3); Monocytes % 11.3 %; Neutrophils # 4.5 K/mcL (1.6-8.9); Platelet Count 108 K/mcL (140-400); Red Blood Count 2.47 M/mcL (3.82-4.97); Red Cell Distribution Width 13.9 % (11.5-14.5); Segmented Neutrophils % 72.5 %
[2016-11-12 05:08] LABS: BUN/Creatinine Ratio 36 (6-26); Blood Urea Nitrogen 26 mg/dL (7-20); Calcium 7.9 mg/dL (8.6-10.8); Carbon Dioxide 24 mEq/L (19-29); Chloride 105 mEq/L (98-109); Glucose 79 mg/dL (70-99); Osmolality,Calculated 282 (280-300); Phosphorous 3.3 mg/dL (2.3-4.7); Sodium 134 mEq/L (136-145); eGFR For African Americans > 60 (> 60); eGFR For Non-African Americans > 60 (> 60)
[2016-11-12] MEDS: Meropenem 1,000 MG in 0.9 % Sodium Chloride Mini Bag 100 ML IVPB SCH ×2 (05:49→15:40)
--- NOTE | 2016-11-12 07:12 | Urology Progress Note ---
Date of Encounter: 11/12/16 Time of Encounter: 07:10 - Assessment and Plan (1) Atrophic kidney Current Visit: Yes Status: Acute Assessment and plan: POD #3 s/p left NU. Creatinine is stable. H&H trending down. Likely dilutional. HR and BP are stable. She had small splenic capsule tear. Will continue to monitor and transfuse as necessary. Appreciate general surgery input. will continue to follow along. Continue catheter. Qualifiers: Laterality: left Qualified Code(s): N26.1 - Atrophy of kidney (terminal) Progress Note Narrative: s/p left Nephroureterectomy. POD #3. Doing well today. She has been out of bed, but hasn't walked much. No gas out ostomy. Pain is controlled. Urine has been clear. H&H continues downward trend. HR and BP are stable. Objective Initial Vital Signs Temp Pulse Resp BP Pulse Ox 98.3 F 105 18 92/63 98 11/04/16 11:22 11/04/16 11:22 11/04/16 11:22 11/04/16 11:22 11/04/16 11:22 - General physical appearance Present: well developed - Respiratory Present: normal respiratory effort - Abdomen Present: soft - Genitourinary Present: normal external genitalia Urine Appearance: Present: Clear - Labs 11/12/16 04:45 11/12/16 04:45 Diabetes panel 11/12/16 Range/Units 04:45 Sodium 134 L (136-145) mEq/L Potassium 5.0 H (3.5-4.5) mEq/L Chloride 105 (98-109) mEq/L Carbon Dioxide 24 (19-29) mEq/L BUN 26 H (7-20) mg/dL Creatinine 0.73 (0.57-1.11) mg/dL Glucose 79 (70-99) mg/dL Calcium 7.9 L (8.6-10.8) mg/dL Calcium panel 11/12/16 Range/Units 04:45 Calcium 7.9 L (8.6-10.8) mg/dL Phosphorus 3.3 (2.3-4.7) mg/dL Pituitary panel 11/12/16 Range/Units 04:45 Sodium 134 L (136-145) mEq/L Potassium 5.0 H (3.5-4.5) mEq/L Chloride 105 (98-109) mEq/L Carbon Dioxide 24 (19-29) mEq/L BUN 26 H (7-20) mg/dL Creatinine 0.73 (0.57-1.11) mg/dL Glucose 79 (70-99) mg/dL Calcium 7.9 L (8.6-10.8) mg/dL Adrenal panel 11/12/16 Range/Units 04:45 Sodium 134 L (136-145) mEq/L Potassium 5.0 H (3.5-4.5) mEq/L Chloride 105 (98-109) mEq/L Carbon Dioxide 24 (19-29) mEq/L BUN 26 H (7-20) mg/dL Creatinine 0.73 (0.57-1.11) mg/dL Glucose 79 (70-99) mg/dL Calcium 7.9 L (8.6-10.8) mg/dL - VTE Documentation of Mechanical Device: Intermittent pneumatic compression device Consult Discharge Plan - Plan Referrals: Mir Gomes DO [Primary Care Provider] -
[2016-11-12] MEDS: Pantoprazole 40 MG VIAL IV SCH (07:55)
[2016-11-12 14:58] LABS: Basophils % 0.2 %; Eosinophils # 0.2 K/mcL (0.0-0.6); Eosinophils % 3.8 %; Hematocrit 22.9 % (35.3-44.9); Hemoglobin 7.5 g/dL (11.5-15.4); Immature Granulocytes % 1.3 % (0-4); Lymphocytes # 0.6 K/mcL (0.6-4.6); Mean Corpuscular HGB Conc 32.8 g/dL (31.6-35.5); Mean Corpuscular Hemoglobin 29.9 pg (28.0-33.3); Mean Corpuscular Volume 91.2 fL (83.0-100.0); Mean Platelet Volume 9.3 fL (9.4-12.4); Monocytes # 0.6 K/mcL (0.0-1.3); Monocytes % 9.2 %; Neutrophils # 4.5 K/mcL (1.6-8.9); Platelet Count 129 K/mcL (140-400); Red Blood Count 2.51 M/mcL (3.82-4.97); Segmented Neutrophils % 75.5 %
[2016-11-12 15:11] LABS: Alanine Aminotransferase 58 Units/L (0-55); Albumin/Globulin Ratio 0.5 (1.1-2.2); Alkaline Phosphatase 92 Units/L (38-126); Aspartate Amino Transferase 102 Units/L (5-34); BUN/Creatinine Ratio 34 (6-26); Blood Urea Nitrogen 26 mg/dL (7-20); Calcium 8.1 mg/dL (8.6-10.8); Carbon Dioxide 26 mEq/L (19-29); Chloride 104 mEq/L (98-109); Globulin 3.6 g/dL (2.4-3.5); Glucose 126 mg/dL (70-99); Osmolality,Calculated 284 (280-300); Potassium 5.1 mEq/L (3.5-4.5); Sodium 134 mEq/L (136-145); Total Protein 5.4 g/dL (6.0-8.3); eGFR For African Americans > 60 (> 60); eGFR For Non-African Americans > 60 (> 60)
[2016-11-12 15:12] LABS: Bilirubin,Total 0.9 mg/dL (0.2-1.2)
[2016-11-12 15:13] LABS: Albumin 1.8 g/dL (3.5-5.0)
[2016-11-12] MEDS ORDERED: Clinimix 5%-20% SOLUTION 2,000 ML with MVI, adult with vitamin K 10 ML, Sodium Phosph... IV SCH (17:00)
[2016-11-12] MEDS ORDERED: 0.9 % Sodium Chloride 250 ML ONE (17:21)
--- NOTE | 2016-11-12 19:00 | General Surgery Progress Note ---
Date of Encounter: 11/12/16 Time of Encounter: 18:48 Subjective Narrative: Postoperative day 3: Afebrile, 98.3, pulse 84, respirations 16, blood pressure 131/81. SPO2 on room air 94% Lungs: Clear with better aeration left lung base Abdomen: Soft with active bowel sounds. Scant stool at stoma. Digital exam exam demonstrates patent, healthy stoma. patient c/o mild to moderate cramping abdominal pain -likely due to returning bowel function Urine output 2650 mL, 11/11/2016; 3925 mL so far today White count 6.0, hemoglobin 7.5 with hematocrit 22.9 this is a repeated result. IV fluids were continued thru the night despite the order to discontinue them. Despite this the anemia is sufficiently profound to warrant transfusion. Pathology results still pending Impression: Chronic, persistent, sigmoid diverticulitis with perforation - postoperative day 3, status post Nevin procedure, acceptable status Protein and calorie depletion - improved, protein 5.4, albumin 1.8 - continue TPN until enteral route available Cramping abdominal pain as bowel function resumes - we will allow clear liquids tonight Anemia - combined acute blood loss anemia related to surgery and IV hydration causing dilution effects - transfuse 2 units PRBC hyperkalemia - likely due to TPN (containing K+) Improving renal status - BUN 26, creatinine 0.77 Elevated AST and ALT likely due to TPN chronic urinary bladder colonization - VRE chronically atrophic left kidney - s/p nephroureterectomy at the time of the Nevin Procedure Objective Vital Signs - Last 8 Hours Temp Pulse Resp BP Pulse Ox 11/12/16 16:38 98.3 F 84 16 131/81 94 L 11/12/16 12:04 98.2 F 91 17 148/83 95 Intake and Output 11/12/16 11/12/16 11/12/16 07:59 15:59 23:59 Intake Total 568.0 / 568.0 0 / 0 1156 / 1156 Output Total 3100 / 3100 875 / 875 700 / 700 Balance -2532.0 / -2532.0 -875 / -875 456 / 456 Intake: IV Fluids 568.0 / 568.0 1156 / 1156 Clinimix E 5%-15% 328 / 328 1056 / 1056 SOLUTION 2,000 ML @ 83.3 mls/hr IV .Q24H [facility] with M.v.i. Adult 10 ml Rx#: [id number] Intralipid 20% 250 ML @ 140.0 / 140.0 21 mls/hr IVPB DAILY@1700 [facility] Rx#:[id number] Merrem 1,000 MG In 0.9 % 100 / 100 100 / 100 Sodium Chloride (Mini-Bag +) 100 ML @ 200 mls/hr IVPB Q8H [facility] Rx#: [id number] Oral 0 / 0 0 / 0 0 / 0 Output: Urine 750 / 750 Urethral (Yoder) 750 / 750 Catheter 2350 / 2350 875 / 875 700 / 700 Other: Meal NPO Blood Glucose* 132 130 100 - Labs 11/12/16 14:45 11/12/16 14:45 Diabetes panel 11/12/16 11/12/16 Range/Units 04:45 14:45 Sodium 134 L 134 L (136-145) mEq/L Potassium 5.0 H 5.1 H (3.5-4.5) mEq/L Chloride 105 104 (98-109) mEq/L Carbon Dioxide 24 26 (19-29) mEq/L BUN 26 H 26 H (7-20) mg/dL Creatinine 0.73 0.77 (0.57-1.11) mg/dL Glucose 79 126 H (70-99) mg/dL Calcium 7.9 L 8.1 L (8.6-10.8) mg/dL AST 102 H (5-34) Units/L ALT 58 H (0-55) Units/L Alkaline Phosphatase 92 (38-126) Units/L Albumin 1.8 L (3.5-5.0) g/dL Calcium panel 11/12/16 11/12/16 Range/Units 04:45 14:45 Calcium 7.9 L 8.1 L (8.6-10.8) mg/dL Phosphorus 3.3 (2.3-4.7) mg/dL Albumin 1.8 L (3.5-5.0) g/dL Pituitary panel 11/12/16 11/12/16 Range/Units 04:45 14:45 Sodium 134 L 134 L (136-145) mEq/L Potassium 5.0 H 5.1 H (3.5-4.5) mEq/L Chloride 105 104 (98-109) mEq/L Carbon Dioxide 24 26 (19-29) mEq/L BUN 26 H 26 H (7-20) mg/dL Creatinine 0.73 0.77 (0.57-1.11) mg/dL Glucose 79 126 H (70-99) mg/dL Calcium 7.9 L 8.1 L (8.6-10.8) mg/dL Adrenal panel 11/12/16 11/12/16 Range/Units 04:45 14:45 Sodium 134 L 134 L (136-145) mEq/L Potassium 5.0 H 5.1 H (3.5-4.5) mEq/L Chloride 105 104 (98-109) mEq/L Carbon Dioxide 24 26 (19-29) mEq/L BUN 26 H 26 H (7-20) mg/dL Creatinine 0.73 0.77 (0.57-1.11) mg/dL Glucose 79 126 H (70-99) mg/dL Calcium 7.9 L 8.1 L (8.6-10.8) mg/dL Total Bilirubin 0.9 D (0.2-1.2) mg/dL AST 102 H (5-34) Units/L ALT 58 H (0-55) Units/L Alkaline Phosphatase 92 (38-126) Units/L Albumin 1.8 L (3.5-5.0) g/dL - VTE Documentation of Mechanical Device: Intermittent pneumatic compression device Consult Discharge Plan - Plan Referrals: Mir Gomes DO [Primary Care Provider] -
[2016-11-13] MEDS: Meropenem 1,000 MG in 0.9 % Sodium Chloride Mini Bag 100 ML IVPB SCH ×2 (00:01→06:16)
[2016-11-13] MEDS: *HR* HYDROmorphone (PF) 1 MG/ML SYRINGE IVP PRN ×7 (00:01→23:46)
[2016-11-13] MEDS: Insulin LISPRO 300 UNITS/3 ML VIAL SQ SCH ×7 (00:02→23:49)
[2016-11-13] MEDS ORDERED: 0.9 % Sodium Chloride 250 ML ONE (03:20)
[2016-11-13] MEDS: Pantoprazole 40 MG VIAL IV SCH (08:08)
[2016-11-13 08:44] LABS: Hematocrit 32.1 % (35.3-44.9); Immature Granulocytes % 3.2 % (0-4); Mean Corpuscular HGB Conc 32.7 g/dL (31.6-35.5); Mean Corpuscular Hemoglobin 28.8 pg (28.0-33.3); Mean Corpuscular Volume 87.9 fL (83.0-100.0); Mean Platelet Volume 9.3 fL (9.4-12.4); Platelet Count 160 K/mcL (140-400); Red Blood Count 3.65 M/mcL (3.82-4.97); Red Cell Distribution Width 14.1 % (11.5-14.5)
[2016-11-13 08:45] LABS: Basophils % 0.4 %; Eosinophils # 0.2 K/mcL (0.0-0.6); Eosinophils % 3.2 %; Lymphocytes # 0.5 K/mcL (0.6-4.6); Lymphocytes % 7.8 %; Monocytes # 0.7 K/mcL (0.0-1.3); Monocytes % 10.4 %; Neutrophils # 5.1 K/mcL (1.6-8.9)
[2016-11-13 08:48] LABS: Hemoglobin 10.5 g/dL (11.5-15.4)
[2016-11-13 08:58] LABS: BUN/Creatinine Ratio 32 (6-26); Blood Urea Nitrogen 23 mg/dL (7-20); Carbon Dioxide 24 mEq/L (19-29); Chloride 105 mEq/L (98-109); Glucose 83 mg/dL (70-99); Osmolality,Calculated 287 (280-300); Potassium 4.4 mEq/L (3.5-4.5); Sodium 137 mEq/L (136-145); Triglycerides 134 mg/dL (< 150); eGFR For African Americans > 60 (> 60); eGFR For Non-African Americans > 60 (> 60)
[2016-11-13] MEDS ORDERED: Clinimix 5%-20% SOLUTION 2,000 ML with MVI, adult with vitamin K 10 ML, Sodium Phosph... IV SCH (17:00)
--- NOTE | 2016-11-13 18:12 | General Surgery Progress Note ---
Date of Encounter: 11/13/16 Time of Encounter: 18:06 Subjective Narrative: Postoperative day 4: Patient voicing no new complaints though admits to cramping abdominal pain when questioned. Tolerating clears, no nausea vomiting but the patient admits that she has significant anorexia - possibly due to ongoing TPN Afebrile, pulse 94-99; respiratory 16 blood pressure 161/89. Lungs: Diminished breath sounds left base; right side clear Abdomen: Tender in the right upper quadrant and epigastrium. Active bowel sounds but no flatus or BM through the stoma. The stoma appears healthy. White count 6.8, hemoglobin 10.5 with hematocrit 32.1 in response to transfusion of 2 units packed red blood cells. Platelet count 160,000 Electrolytes, BUN and creatinine is in an acceptable range. Impression: Postoperative day 4, status post Nevin procedure with nephroureterectomy Clinically, bowel function slowly returning. Patient seems to be tolerating clear liquids. Plan: Taper TPN, DC fat emulsions in a.m. Allow full liquids PA/Lateral chest in a.m. Objective Vital Signs - Last 8 Hours Temp Pulse Resp BP Pulse Ox 11/13/16 15:15 98.0 F 99 16 161/89 97 11/13/16 10:18 98.1 F 94 16 160/98 99 Intake and Output 11/13/16 11/13/16 11/13/16 07:59 15:59 23:59 Intake Total 1308.0 / 1308.0 120 / 120 240 / 240 Output Total 3325 / 3325 1050 / 1050 Balance -2017.0 / -2017.0 -930 / -930 240 / 240 Intake: IV Fluids 606.0 / 606.0 Clinimix 5%-20% SOLUTION 292 / 292 2,000 ML @ 83.3 mls/hr IV .Q24H [facility] with M.v.i. Adult 10 ml with Sodium Phosphate 30 MMOL with Sodium Acetate 20 MEQ with Sodium Chloride 10 MEQ with Magnesium Sulfate 10 MEQ with Calcium Gluconate 9 [facility]Q Rx#:[id number] Intralipid 20% 250 ML @ 114.0 / 114.0 21 mls/hr IVPB DAILY@1700 [facility] Rx#:[id number] Merrem 1,000 MG In 0.9 % 200 / 200 Sodium Chloride (Mini-Bag +) 100 ML @ 200 mls/hr IVPB Q8H [facility] Rx#: [id number] Oral 0 / 0 120 / 120 240 / 240 Blood Product 702 / 702 Rbcs Leuko Poor As-1 371 / 371 Unit [id number] Rbcs Leuko Poor As-1 331 / 331 Unit [id number] Output: Urine 1000 / 1000 Urethral (Yoder) 1000 / 1000 Catheter 2325 / 2325 1050 / 1050 Other: Meal Breakfast Dinner Blood Glucose* 85 103 - Labs 11/13/16 08:30 11/13/16 08:30 Diabetes panel 11/13/16 Range/Units 08:30 Sodium 137 (136-145) mEq/L Potassium 4.4 (3.5-4.5) mEq/L Chloride 105 (98-109) mEq/L Carbon Dioxide 24 (19-29) mEq/L BUN 23 H (7-20) mg/dL Creatinine 0.72 (0.57-1.11) mg/dL Glucose 83 (70-99) mg/dL Calcium 8.0 L (8.6-10.8) mg/dL Triglycerides 134 (< 150) mg/dL Calcium panel 11/13/16 Range/Units 08:30 Calcium 8.0 L (8.6-10.8) mg/dL Pituitary panel 11/13/16 Range/Units 08:30 Sodium 137 (136-145) mEq/L Potassium 4.4 (3.5-4.5) mEq/L Chloride 105 (98-109) mEq/L Carbon Dioxide 24 (19-29) mEq/L BUN 23 H (7-20) mg/dL Creatinine 0.72 (0.57-1.11) mg/dL Glucose 83 (70-99) mg/dL Calcium 8.0 L (8.6-10.8) mg/dL Adrenal panel 11/13/16 Range/Units 08:30 Sodium 137 (136-145) mEq/L Potassium 4.4 (3.5-4.5) mEq/L Chloride 105 (98-109) mEq/L Carbon Dioxide 24 (19-29) mEq/L BUN 23 H (7-20) mg/dL Creatinine 0.72 (0.57-1.11) mg/dL Glucose 83 (70-99) mg/dL Calcium 8.0 L (8.6-10.8) mg/dL - VTE Documentation of Mechanical Device: Intermittent pneumatic compression device Consult Discharge Plan - Plan Referrals: Silviano Smith MD [Non-Partnered Physician] - Mri Gomes DO [Primary Care Provider] -
[2016-11-14] MEDS: *HR* HYDROmorphone (PF) 1 MG/ML SYRINGE IVP PRN ×3 (04:10→13:16)
[2016-11-14] MEDS: Insulin LISPRO 300 UNITS/3 ML VIAL SQ SCH ×5 (05:15→21:00)
[2016-11-14 05:48] LABS: Basophils % 0.4 %; Eosinophils # 0.3 K/mcL (0.0-0.6); Eosinophils % 4.5 %; Hematocrit 31.2 % (35.3-44.9); Hemoglobin 10.2 g/dL (11.5-15.4); Immature Granulocytes % 3.8 % (0-4); Lymphocytes # 0.8 K/mcL (0.6-4.6); Lymphocytes % 10.9 %; Mean Corpuscular HGB Conc 32.7 g/dL (31.6-35.5); Mean Corpuscular Hemoglobin 29.4 pg (28.0-33.3); Mean Corpuscular Volume 89.9 fL (83.0-100.0); Mean Platelet Volume 9.7 fL (9.4-12.4); Monocytes # 0.8 K/mcL (0.0-1.3); Neutrophils # 4.7 K/mcL (1.6-8.9); Platelet Count 176 K/mcL (140-400); Red Blood Count 3.47 M/mcL (3.82-4.97); Red Cell Distribution Width 14.6 % (11.5-14.5); Segmented Neutrophils % 68.4 %
[2016-11-14 05:50] LABS: BUN/Creatinine Ratio 31 (6-26); Blood Urea Nitrogen 23 mg/dL (7-20); Calcium 7.9 mg/dL (8.6-10.8); Carbon Dioxide 24 mEq/L (19-29); Chloride 104 mEq/L (98-109); Glucose 105 mg/dL (70-99); Osmolality,Calculated 282 (280-300); Potassium 3.9 mEq/L (3.5-4.5); Sodium 134 mEq/L (136-145); eGFR For African Americans > 60 (> 60); eGFR For Non-African Americans > 60 (> 60)
--- NOTE | 2016-11-14 07:54 | Urology Progress Note ---
Date of Encounter: 11/14/16 Time of Encounter: 07:52 - Assessment and Plan (1) Atrophic kidney Current Visit: Yes Status: Acute Assessment and plan: Postop day #5 after left nephroureterectomy. H&H has improved with transfusion. Pathology was reviewed with the patient. No evidence of cancer was noted. Continue Yoder catheter for a 2 week course. Qualifiers: Laterality: left Qualified Code(s): N26.1 - Atrophy of kidney (terminal) Progress Note Narrative: s/p left Nephroureterectomy. POD #5. Doing well today. She has been out of bed. + gas out ostomy. Pain is controlled. Urine has been clear. H&H improved after 2 units of blood. Objective Initial Vital Signs Temp Pulse Resp BP Pulse Ox 98.3 F 105 18 92/63 98 11/04/16 11:22 11/04/16 11:22 11/04/16 11:22 11/04/16 11:22 11/04/16 11:22 - General physical appearance Present: well developed, well nourished, no distress - Respiratory Present: normal respiratory effort - Abdomen Present: soft (Inc - c,d,i.) - Genitourinary Urine Appearance: Present: Clear - Labs 11/14/16 01:59 11/14/16 01:05 Diabetes panel 11/13/16 11/14/16 Range/Units 08:30 01:05 Sodium 137 134 L (136-145) mEq/L Potassium 4.4 3.9 (3.5-4.5) mEq/L Chloride 105 104 (98-109) mEq/L Carbon Dioxide 24 24 (19-29) mEq/L BUN 23 H 23 H (7-20) mg/dL Creatinine 0.72 0.74 (0.57-1.11) mg/dL Glucose 83 105 H (70-99) mg/dL Calcium 8.0 L 7.9 L (8.6-10.8) mg/dL Triglycerides 134 (< 150) mg/dL Calcium panel 11/13/16 11/14/16 Range/Units 08:30 01:05 Calcium 8.0 L 7.9 L (8.6-10.8) mg/dL Pituitary panel 11/13/16 11/14/16 Range/Units 08:30 01:05 Sodium 137 134 L (136-145) mEq/L Potassium 4.4 3.9 (3.5-4.5) mEq/L Chloride 105 104 (98-109) mEq/L Carbon Dioxide 24 24 (19-29) mEq/L BUN 23 H 23 H (7-20) mg/dL Creatinine 0.72 0.74 (0.57-1.11) mg/dL Glucose 83 105 H (70-99) mg/dL Calcium 8.0 L 7.9 L (8.6-10.8) mg/dL Adrenal panel 11/13/16 11/14/16 Range/Units 08:30 01:05 Sodium 137 134 L (136-145) mEq/L Potassium 4.4 3.9 (3.5-4.5) mEq/L Chloride 105 104 (98-109) mEq/L Carbon Dioxide 24 24 (19-29) mEq/L BUN 23 H 23 H (7-20) mg/dL Creatinine 0.72 0.74 (0.57-1.11) mg/dL Glucose 83 105 H (70-99) mg/dL Calcium 8.0 L 7.9 L (8.6-10.8) mg/dL - VTE Documentation of Mechanical Device: Intermittent pneumatic compression device Consult Discharge Plan - Plan Referrals: Silviano Smith MD [Non-Partnered Physician] - Mir Gomes DO [Primary Care Provider] -
[2016-11-14] MEDS: Pantoprazole 40 MG VIAL IV SCH (09:51)
[2016-11-14] MEDS ORDERED: Acetaminophen 325 MG TABLET PO PRN (13:37)
[2016-11-14] MEDS ORDERED: *HR* HYDROmorphone (PF) 1 MG/ML SYRINGE IVP PRN (13:43)
--- NOTE | 2016-11-14 13:51 | General Surgery Progress Note ---
Date of Encounter: 11/14/16 Time of Encounter: 01:15 Subjective Patient reports: no new complaints, feels better, pain is less Narrative: Postoperative day 5: Abdominal pain has diminished the last 24 hours; patient remains afebrile, pulse 94, respirations 16, blood pressure 144/87 Lungs: Still diminished breath sounds on the left; chest x-ray shows bilateral bandlike atelectasis mid lung zones as well as left base opacity insistent with the clinical exam. Pneumoperitoneum also noted but consistent with recent transabdominal surgery. Abdomen: Less tender; bowel sounds. Healthy stoma in the left upper abdomen. No reported flatus or BM. Digital exam demonstrates a patent stoma. Laboratories : White count 6.9, hemoglobin 10.2 with hematocrit 31.2. Platelet count 176,000 Electrolytes noted for sodium 134 but otherwise within an acceptable range. Accu-Cheks 108-162 also acceptable Impression: Postoperative day 5, status post Artman procedure with left nephroureterectomy. Bowel function slowly returning. Patient tolerating full liquids Plan: Taper TPN, continue to advance diet as tolerated change IV meds to oral. Objective Vital Signs - Last 8 Hours Temp Pulse Resp BP Pulse Ox 11/14/16 11:00 97.9 F 94 16 144/87 99 11/14/16 07:19 98.0 F 89 16 154/85 98 Intake and Output 11/13/16 11/14/16 11/14/16 23:59 07:59 15:59 Intake Total 240 / 240 370 / 370 240 / 240 Output Total 1075 / 1075 1150 / 1150 400 / 400 Balance -835 / -835 -780 / -780 -160 / -160 Intake: IV Fluids 250 / 250 Intralipid 20% 250 ML @ 250 / 250 21 mls/hr IVPB DAILY@1700 [facility] Rx#:[id number] Oral 240 / 240 120 / 120 240 / 240 Output: Urine 450 / 450 Stool 0 / 0 50 / 50 Catheter 625 / 625 1150 / 1150 350 / 350 Other: Meal Dinner Breakfast Percent of Meal Consumed 10% Blood Glucose* 140 162 108 - Labs 11/14/16 01:59 11/14/16 01:05 Diabetes panel 11/14/16 Range/Units 01:05 Sodium 134 L (136-145) mEq/L Potassium 3.9 (3.5-4.5) mEq/L Chloride 104 (98-109) mEq/L Carbon Dioxide 24 (19-29) mEq/L BUN 23 H (7-20) mg/dL Creatinine 0.74 (0.57-1.11) mg/dL Glucose 105 H (70-99) mg/dL Calcium 7.9 L (8.6-10.8) mg/dL Calcium panel 11/14/16 Range/Units 01:05 Calcium 7.9 L (8.6-10.8) mg/dL Pituitary panel 11/14/16 Range/Units 01:05 Sodium 134 L (136-145) mEq/L Potassium 3.9 (3.5-4.5) mEq/L Chloride 104 (98-109) mEq/L Carbon Dioxide 24 (19-29) mEq/L BUN 23 H (7-20) mg/dL Creatinine 0.74 (0.57-1.11) mg/dL Glucose 105 H (70-99) mg/dL Calcium 7.9 L (8.6-10.8) mg/dL Adrenal panel 11/14/16 Range/Units 01:05 Sodium 134 L (136-145) mEq/L Potassium 3.9 (3.5-4.5) mEq/L Chloride 104 (98-109) mEq/L Carbon Dioxide 24 (19-29) mEq/L BUN 23 H (7-20) mg/dL Creatinine 0.74 (0.57-1.11) mg/dL Glucose 105 H (70-99) mg/dL Calcium 7.9 L (8.6-10.8) mg/dL - VTE Documentation of Mechanical Device: Intermittent pneumatic compression device Consult Discharge Plan - Plan Referrals: Silviano Smith MD [Non-Partnered Physician] - Mir Gomes DO [Primary Care Provider] -
[2016-11-14] MEDS: traMADol 50 MG TABLET PO PRN ×2 (16:36→20:56)
[2016-11-15] MEDS: traMADol 50 MG TABLET PO PRN ×3 (04:36→13:40)
--- NOTE | 2016-11-15 16:39 | Urology Progress Note ---
Date of Encounter: 11/15/16 Time of Encounter: 16:38 - Assessment and Plan (1) Atrophic kidney Current Visit: Yes Status: Acute Assessment and plan: Doing well after left NU. POD #6. Will follow along. Continue santos x 2 weeks. Qualifiers: Laterality: left Qualified Code(s): N26.1 - Atrophy of kidney (terminal) Progress Note Narrative: s/p left Nephroureterectomy. POD #6. Doing well today. She has been out of bed. + gas out ostomy. Pain is controlled. Urine has been clear. H&H stable. Tolerating full liquids. Some pain with deep breathing. Objective Initial Vital Signs Temp Pulse Resp BP Pulse Ox 98.3 F 105 18 92/63 98 11/04/16 11:22 11/04/16 11:22 11/04/16 11:22 11/04/16 11:22 11/04/16 11:22 - General physical appearance Present: well developed, well nourished, no distress - Respiratory Present: normal respiratory effort - Abdomen Present: soft - Genitourinary Urine Appearance: Present: Clear - Labs 11/14/16 01:59 11/14/16 01:05 - VTE Documentation of Mechanical Device: Intermittent pneumatic compression device Consult Discharge Plan - Plan Referrals: Silviano Smith MD [Non-Partnered Physician] - Mir Gomes DO [Primary Care Provider] -
--- NOTE | 2016-11-15 18:34 | General Surgery Progress Note ---
Date of Encounter: 11/15/16 Time of Encounter: 18:25 Subjective Narrative: Postoperative day 6: Patient complaining of right-sided chest pain, exacerbated by movement and deep inspiration. The patient characterizes it as similar to "when she had pleurisy". The patient has been afebrile, maximum temperature 99.2, heart rate 101, respiratory rate 14, blood pressure 106/72. Lungs were clear to auscultation; chest x-ray, completed yesterday, demonstrated bandlike atelectasis in the bilateral mid lung jane. The chest x -ray also demonstrated a pneumothorax which was more prominent on the right side consistent with the open abdominal surgery completed approximately one week ago. The patient is likely experiencing diaphragmatic irritation related to this surgery rather than true pleurisy. Cardiac: Rate slightly elevated but no appreciable murmurs Abdomen: Soft, less tender than yesterday. Active bowel sounds. Colostomy in the left upper abdomen is healthy. Bowel movement occurred in response to colostomy irrigation last evening. Pathology: Acute sigmoid diverticulitis with diverticulosis and pericol)ic abscess. Left fallopian tube and ovary benign with diffuse inflammation and reactive changes consistent with an adjacent inflammatory process (pericolic abscess). Left fallopian tube was benign with abscess formation. Left kidney and ureter with acute and chronic inflammation, fibrosis and reactive changes. These findings were consistent with the clinical diagnosis for which the patient underwent surgery. Impression: Postoperative day 6: Patient making satisfactory recovery; TPN has been discontinued, diet has been advanced. IV medications have been converted to oral meds - pain control with Tramadol rather than IV narcotics. With this "weaning" patient likely to experience more discomfort at first but the pain is expected to continue to diminish as healing progresses. Objective Vital Signs - Last 8 Hours Temp Pulse Resp BP Pulse Ox 11/15/16 15:15 99.2 F 101 14 106/72 93 L 11/15/16 11:52 98.8 F 101 14 113/76 Intake and Output 11/15/16 11/15/16 11/15/16 07:59 15:59 23:59 Intake Total 360 / 360 Output Total 450 / 450 0 / 0 Balance -450 / -450 360 / 360 Intake: Oral 360 / 360 Output: Catheter 450 / 450 0 / 0 Other: Meal Lunch Percent of Meal Consumed 50% Weight 74.3 kg Blood Glucose* 87 95 Patient Weight 11/15/16 23:59 Weight 74.3 kg - Labs 11/14/16 01:59 11/14/16 01:05 - VTE Documentation of Mechanical Device: Intermittent pneumatic compression device Consult Discharge Plan - Plan Referrals: Silviano Smith MD [Non-Partnered Physician] - Mir Gomes DO [Primary Care Provider] -
--- NOTE | 2016-11-16 09:23 | Urology Progress Note ---
Date of Encounter: 11/16/16 Time of Encounter: 09:23 - Assessment and Plan (1) Atrophic kidney, acquired Current Visit: Yes Status: Acute (2) Diverticulitis Current Visit: Yes Status: Acute Qualifiers: Diverticulitis site: large intestine Diverticulitis bleeding: with bleeding Diverticulitis complication: with perforation and abscess Qualified Code(s): K57.21 - Diverticulitis of large intestine with perforation and abscess with bleeding (3) Complicated UTI (urinary tract infection) Current Visit: No Status: Acute Assessment and plan: continue santos cath for [address] Contreras recommendations. no additional recommendations at this time Progress Note Subjective: feels better Narrative: no acute urology issues overnight. some pleuritis Objective Initial Vital Signs Temp Pulse Resp BP Pulse Ox 98.3 F 105 18 92/63 98 11/04/16 11:22 11/04/16 11:22 11/04/16 11:22 11/04/16 11:22 11/04/16 11:22 - General physical appearance Present: well developed, no distress - Labs 11/14/16 01:59 11/14/16 01:05 - VTE Documentation of Mechanical Device: Intermittent pneumatic compression device Consult Discharge Plan - Plan Referrals: Silviano Smith MD [Non-Partnered Physician] - Mir Gomes DO [Primary Care Provider] -
[2016-11-16] MEDS: Acetaminophen/Aspirin/Caffeine TABLET PO PRN ×2 (10:21→20:09)
--- NOTE | 2016-11-16 13:20 | General Surgery Progress Note ---
Date of Encounter: 11/16/16 Time of Encounter: 13:14 Subjective Patient reports: no new complaints, feels better Narrative: Postoperative day 7: Previous complaints of chest pain have completely resolved. Patient voicing no other complaints. Maximum temperature 99.2; pulse 85-100, respirations 16, blood pressure 122/ 80 Lungs: Clear to auscultation, no wheezes or rales. No pain on deep inspiration Abdomen: Soft with active bowel sounds; incision clean and dry stigmata of recent drainage was evident on the patient's gown; ostomy healthy Impression: Postoperative day #7 - status post Nevin procedure with left nephroureterectomy. Doing well; patient has yet to change her own colostomy. Tolerating regular diet; no nausea vomiting or abdominal distention. - Objective Vital Signs - Last 8 Hours Temp Pulse Resp BP Pulse Ox 11/16/16 12:27 98.4 F 100 16 122/80 96 11/16/16 07:55 98.3 F 85 16 123/78 97 Intake and Output 11/15/16 11/16/16 11/16/16 23:59 07:59 15:59 Intake Total 480 / 480 240 / 240 120 / 120 Output Total 650 / 650 1200 / 1200 450 / 450 Balance -170 / -170 -960 / -960 -330 / -330 Intake: Oral 480 / 480 240 / 240 120 / 120 Output: Stool 0 / 0 Catheter 650 / 650 1200 / 1200 450 / 450 Other: Meal Breakfast Percent of Meal Consumed 25% Weight 75.1 kg Blood Glucose* 93 Patient Weight 11/16/16 23:59 Weight 75.1 kg - Labs 11/14/16 01:59 11/14/16 01:05 - VTE Documentation of Mechanical Device: Intermittent pneumatic compression device Consult Discharge Plan - Plan Referrals: Silviano Smith MD [Non-Partnered Physician] - Mir Gomes DO [Primary Care Provider] -
[2016-11-17] MEDS: traMADol 50 MG TABLET PO PRN (03:44)
--- NOTE | 2016-11-17 09:59 | General Surgery Progress Note ---
Date of Encounter: 11/17/16 Time of Encounter: 09:55 Subjective Patient reports: no new complaints, feels better Narrative: Postoperative day 8: Patient is afebrile, maximum heart rate 99, respirations 16 , blood pressure 131/80 Patient seated at bedside, voicing no complaints. Lungs: Clear, satisfactory inspiratory effort Abdomen: Off, nontender. Sanguinous drainage from the caudal pole of the incision - most likely related to surgery 8 days ago. Colostomy left upper anterior abdominal wall - healthy and functioning appropriately Patient still lacking on colostomy care education Output significantly greater than intake as patient diuresis and returns to baseline Impression: Postoperative day 8 - doing well. Plan: Colostomy teaching with likely discharge home v ECF in the next day or 2 anticipate Home Health referral if discharged home Objective Vital Signs - Last 8 Hours Temp Pulse Resp BP Pulse Ox 11/17/16 08:04 97.7 F 93 16 131/80 98 11/17/16 03:34 97.6 F 90 14 129/82 98 Intake and Output 11/16/16 11/17/16 11/17/16 23:59 07:59 15:59 Intake Total 240 / 240 0 / 0 Output Total 1400 / 1400 1150 / 1150 550 / 550 Balance -1160 / -1160 -1150 / -1150 -550 / -550 Intake: Oral 240 / 240 0 / 0 Output: Urine 600 / 600 Urethral (Yoder) 300 / 300 Stool 300 / 300 500 / 500 Catheter 500 / 500 650 / 650 550 / 550 Other: Meal Dinner Percent of Meal Consumed 25% Stool Size Moderate Stool Consistency soft loose Stool Color Brown Brown Weight 72.1 kg Patient Weight 11/17/16 23:59 Weight 72.1 kg - Labs 11/14/16 01:59 11/14/16 01:05 - VTE Documentation of Mechanical Device: Intermittent pneumatic compression device Consult Discharge Plan - Plan Referrals: Silviano Smith MD [Non-Partnered Physician] - Mir Gomes DO [Primary Care Provider] -
[2016-11-18] MEDS: traMADol 50 MG TABLET PO PRN (12:39)
--- NOTE | 2016-11-18 17:45 | General Surgery Progress Note ---
Date of Encounter: 11/18/16 Time of Encounter: 17:39 Subjective Patient reports: no new complaints Narrative: Postoperative day 9: Afebrile, pulse 94-100, respirations 16-24, blood pressure 119/76. SPO2 on room air 96% Lungs: Clear Abdomen: Soft, nontender. Colostomy left upper quadrant, healthy and functioning properly Scant serosanguineous drainage from the caudal portion of the midline incision. Urine output: 700 mL so far today. Yoder catheter intact. Impression:POD #9 - doing well post op s/p Nevin procedure with left nephroureterectomy. Yoder used after bladder resection necessary for the ureterectomy. Yoder to remain in situ for [address] Contreras Colostomy teaching in progress Patient is tolerating diet, bowels are moving normally, colostomy functioning properly Plan: Likely discharge home in a.m. [facility] to assist with continued colostomy teaching, management and care Objective Vital Signs - Last 8 Hours Temp Pulse Resp BP Pulse Ox 11/18/16 15:30 97.9 F 98 16 119/76 96 11/18/16 11:08 97.9 F 100 20 119/83 96 Intake and Output 11/18/16 11/18/16 11/18/16 07:59 15:59 23:59 Intake Total 0 / 0 120 / 120 Output Total 850 / 850 350 / 350 Balance -850 / -850 -230 / -230 Intake: Oral 0 / 0 120 / 120 Output: Urine 700 / 700 Stool 150 / 150 50 / 50 Catheter 300 / 300 Other: Meal Lunch Percent of Meal Consumed 50% Stool Consistency liquid Stool Color Brown Weight 72.6 kg Patient Weight 11/18/16 23:59 Weight 72.6 kg - Labs 11/14/16 01:59 11/14/16 01:05 - VTE Documentation of Mechanical Device: Intermittent pneumatic compression device Consult Discharge Plan - Plan Referrals: Silviano Smith MD [Non-Partnered Physician] - Mir Gomes DO [Primary Care Provider] -
[2016-11-19] MEDS: traMADol 50 MG TABLET PO PRN ×2 (06:16→19:33)
--- NOTE | 2016-11-19 12:25 | Urology Progress Note ---
Date of Encounter: 11/19/16 Time of Encounter: 12:23 - Assessment and Plan (1) Atrophic kidney Current Visit: Yes Status: Acute Assessment and plan: POD #10. S/p left NU. Appreciate general surgery support. Will be available as needed. Continue catheter until next week. She can follow up with me in the office for catheter removal. Qualifiers: Laterality: left Qualified Code(s): N26.1 - Atrophy of kidney (terminal) Progress Note Narrative: POD #10 s/p left nu. Doing well. She is having some pain with deep breathing in her chest on the right side. Tolerating diet. Ostomy is now productive. Objective Initial Vital Signs Temp Pulse Resp BP Pulse Ox 98.3 F 105 18 92/63 98 11/04/16 11:22 11/04/16 11:22 11/04/16 11:22 11/04/16 11:22 11/04/16 11:22 - General physical appearance Present: well developed, well nourished, no distress - Respiratory Present: normal respiratory effort - Abdomen Present: soft - Genitourinary Urine Appearance: Present: Clear - Labs 11/14/16 01:59 11/14/16 01:05 - VTE Documentation of Mechanical Device: Intermittent pneumatic compression device Consult Discharge Plan - Plan Referrals: Silviano Smith MD [Non-Partnered Physician] - Mir Gomes DO [Primary Care Provider] -
--- NOTE | 2016-11-19 15:22 | General Surgery Progress Note ---
Date of Encounter: 11/19/16 Time of Encounter: 15:18 Subjective Narrative: POD #10 - patient indicates that she is not feeling as well as she did yesterday. She is complaining of recurrent right sided pleuritic pain. No obvious fever, chills, nausea, vomiting. The patient is afebrile, 97.7, pulse 85-95, respirations 14, blood pressure 129/86 Lungs: Clear to auscultation but a pleural rub is evident along the right lateral chest. Patient has pain on deep inspiration Cardiac: Regular rate, no appreciable murmurs Abdomen: Soft, nontender. Active bowel sounds. Persistent scant drainage caudal pole midline incision. Colostomy -Healthy, functioning properly Impression: Recurrent right-sided pleuritic pain. 10 days status post Nevin procedure with left nephroureterectomy. Plan: PA and lateral CXR check labs continue colostomy care teaching Objective Vital Signs - Last 8 Hours Temp Pulse Resp BP Pulse Ox 11/19/16 09:20 97.7 F 95 14 129/86 96 Intake and Output 11/18/16 11/19/16 11/19/16 23:59 07:59 15:59 Intake Total 0 / 0 0 / 0 120 / 120 Output Total 0 / 0 175 / 175 150 / 150 Balance 0 / 0 -175 / -175 -30 / -30 Intake: Oral 0 / 0 0 / 0 120 / 120 Output: Urine 0 / 0 Catheter 175 / 175 150 / 150 Other: Meal Breakfast Percent of Meal Consumed 100% Weight 72.8 kg Patient Weight 11/19/16 23:59 Weight 72.8 kg - Labs 11/14/16 01:59 11/14/16 01:05 - VTE Documentation of Mechanical Device: Intermittent pneumatic compression device Consult Discharge Plan - Plan Referrals: Silviano Smith MD [Non-Partnered Physician] - Mir Gomes DO [Primary Care Provider] -
[2016-11-20 04:38] LABS: Basophils % 0.5 %; Eosinophils # 0.6 K/mcL (0.0-0.6); Hematocrit 30.9 % (35.3-44.9); Hemoglobin 9.9 g/dL (11.5-15.4); Immature Granulocytes % 4.1 % (0-4); Lymphocytes # 0.8 K/mcL (0.6-4.6); Lymphocytes % 10.4 %; Mean Corpuscular Hemoglobin 29.4 pg (28.0-33.3); Mean Corpuscular Volume 91.7 fL (83.0-100.0); Mean Platelet Volume 8.9 fL (9.4-12.4); Monocytes # 0.7 K/mcL (0.0-1.3); Monocytes % 8.8 %; Neutrophils # 5.1 K/mcL (1.6-8.9); Platelet Count 222 K/mcL (140-400); Red Blood Count 3.37 M/mcL (3.82-4.97); Red Cell Distribution Width 14.1 % (11.5-14.5); Segmented Neutrophils % 68.2 %
[2016-11-20 05:00] LABS: Alanine Aminotransferase 32 Units/L (0-55); Albumin 2.4 g/dL (3.5-5.0); Albumin/Globulin Ratio 0.6 (1.1-2.2); Alkaline Phosphatase 106 Units/L (38-126); Aspartate Amino Transferase 18 Units/L (5-34); BUN/Creatinine Ratio 14 (6-26); Bilirubin,Total 1.3 mg/dL (0.2-1.2); Blood Urea Nitrogen 14 mg/dL (7-20); Calcium 8.2 mg/dL (8.6-10.8); Carbon Dioxide 23 mEq/L (19-29); Chloride 105 mEq/L (98-109); Globulin 3.8 g/dL (2.4-3.5); Glucose 82 mg/dL (70-99); Osmolality,Calculated 280 (280-300); Potassium 4.3 mEq/L (3.5-4.5); Sodium 135 mEq/L (136-145); Total Protein 6.2 g/dL (6.0-8.3); eGFR For African Americans > 60 (> 60); eGFR For Non-African Americans 57 (> 60)
[2016-11-20 05:05] LABS: Platelet Estimate Normal (Normal); Reactive Lymphocytes Present (Not Present)
[2016-11-20 11:34] VITALS: BP 129/83
--- NOTE | 2016-11-20 14:51 | Physician Discharge Referral ---
Home Health/Hosp Referral Info Transfer to: Home Health (home health to assist with colostomy care and teaching ) Attending Provider: ann - Respiratory Orders Smoking Cessation: Smoking cessation has been advised. For more information, call the [place] Tobacco Quit Line at 8-550-HSEV-NOW. - Transfer Medications Home Medications: Ascorbate Calcium [Vitamin C] 500 mg PO DAILY 10/10/16 [History] Esomeprazole Magnesium [Nexium] 40 mg PO DAILY 10/10/16 [History] Ondansetron HCl [Zofran] 4 mg PO Q8H PRN 10/10/16 [History] Ciprofloxacin [Cipro] 500 mg PO BID #28 tablet 10/15/16 [Rx] MetroNIDAZOLE [Flagyl] 500 mg PO TID #42 tablet 10/15/16 [Rx] Allergies/Adverse Reactions: Allergies acetaminophen [From Percocet] Allergy (Verified 11/04/16 11:22) Itching Cephalosporins Allergy (Verified 11/04/16 11:22) Rash codeine Allergy (Verified 11/04/16 11:22) Nausea hydrocodone [From Vicodin] Allergy (Verified 11/04/16 11:22) Itching morphine Allergy (Verified 11/04/16 11:22) Nausea Oxycodone [From Percocet] Allergy (Verified 11/04/16 11:22) Itching propoxyphene [From Darvocet-N 100] Allergy (Verified 11/04/16 11:22) Itching tobramycin Allergy (Verified 11/04/16 11:22) Chest Pain diphenhydramine [From Benadryl] Adverse Reaction (Mild, Verified 09/04/16 15:08) See Comments Pt states it made her dellusional doxycycline Adverse Reaction (Verified 11/01/15 10:14) Vomiting beta-lactam Allergy (Uncoded 11/01/15 10:14) Rash Certification: Further, I certify that my clinical findings support that this patient is homebound (i.e. absences from home require considerable and taxing effort and are for medical reasons or anglican services or infrequently or short duration when for other reasons) because: Homebound Reason: Patient requires assistance of a person or device to safely leave home Attestation: My signature below is to certify that this patient is under my care and that I, or nurse practitioner, or a physician's psychological assistant working with me, has a face-to -face encounter with this patient.
--- NOTE | 2016-11-20 15:10 | General Surgery Progress Note ---
Date of Encounter: 11/20/16 Time of Encounter: 14:54 Subjective Patient reports: no new complaints Narrative: General Surgery Progress Note / Discharge Summary POD#11 - patient feeling well. Denies any right chest pain until getting back into bed several minutes before my arrival. CXR was personally reviewed with [facility] - findings include stable mild bibasilar atelectasis and trace layering bilateral pleural effusions which appear to have increased since last chest x-ray. Previously noted pneumoperitoneum is no longer present. The patient is afebrile, 98.3, pulse 82-92; respirations 18, blood pressure 129/ 83. SPO2 on room air 97% Lungs: Clear to auscultation with no obvious pain on deep inspiration as noted yesterday Abdomen: Soft, nontender. Ostomy stoma left upper quadrant healthy and functioning appropriately. Midline incision, clean and healing well. Yoder remains in situ - urine output approximately 575 mL so far today Impression: Postoperative day #11 status post Nevin procedure for long- standing, refractory diverticulitis with concomitant left nephroureterectomy for chronic atrophy left kidney with prior history ureteral reimplantation. The patient is doing well, and ready for discharge Hospital course: Patient admitted 11/04/16, after returning to [facility] ED with worsening left lower quadrant abdominal pain, vomiting and diarrhea. Patient was hospitalized several weeks prior with acute, refractory sigmoid diverticulitis. In this presentation there was evidence of persistent acute sigmoid diverticulitis with pericolic abscess consistent with perforation. Patient was admitted, aggressively treated with IV antibiotics and prepared for surgery which was ultimately completed 11/09/16. Central venous line was placed on 11/05/16, to facilitate parenteral nutrition and prolonged IV access during this hospitalization. [facility] was consulted to assist with management chronic urinary bladder colonization with VRE as well as assist with management of atrophic left kidney. A left nephrectomy with ureterectomy had been previously considered due to the chronic atrophy and non function of the kidney as well as the chronic colonization of the urinary bladder. A combined approach was ultimately determined to be best. The Nevin procedure with left nephroureterectomy was completed 11/09/2016. The post up course was fairly unremarkable except for transient right pleuritic pain , bibasilar atelectasis, transient hypokalemia which was addressed and corrected with IV supplementation; anemia related to IV hydration as well as acute on chronic disease including operative blood losses. The patient continued slow steady progress until her discharge 11/19/16. The patient complained of recurrent pleuritic chest pain on 11/18/16 with repeat CXR demonstrating stable mild bibasilar atelectasis and trace layering bilateral pleural effusions. The patient was discharged in good physical condition. Home health was consulted to continue ostomy care and teaching post discharge. Follow up with me will be arranged in approximately 1 week, 11/29/16. Discharge diagnoses: Acute diverticulitis with diverticulosis and pericolonic abscess Incidental removal of left fallopian tube and ovary - both showing diffuse inflammation and reactive changes; a left fallopian tube abscess was noted The left kidney and ureter were atrophic with acute and chronic inflammation , fibrosis and reactive changes. Anemia related to acute on chronic disease; IV hydration, and intraoperative acute blood loss Transient renal insufficiency - resolved over the course of this hospitalization Chronic urinary bladder colonization with V Recurrent right pleuritic chest pain Bibasilar atelectasis with trace layering bilateral pleural effusions Objective Vital Signs - Last 8 Hours Temp Pulse Resp BP Pulse Ox 11/20/16 11:32 98.3 F 92 18 129/83 97 11/20/16 08:30 98.4 F 84 18 120/78 96 Intake and Output 11/19/16 11/20/16 11/20/16 23:59 07:59 15:59 Intake Total 240 / 240 480 / 480 Output Total 100 / 100 575 / 575 Balance 140 / 140 -95 / -95 Intake: Oral 240 / 240 480 / 480 Output: Catheter 100 / 100 575 / 575 Other: Meal Lunch Breakfast Percent of Meal Consumed 50% 15% - Labs 11/20/16 04:30 11/20/16 04:30 Diabetes panel 11/20/16 Range/Units 04:30 Sodium 135 L (136-145) mEq/L Potassium 4.3 (3.5-4.5) mEq/L Chloride 105 (98-109) mEq/L Carbon Dioxide 23 (19-29) mEq/L BUN 14 (7-20) mg/dL Creatinine 0.99 (0.57-1.11) mg/dL Glucose 82 (70-99) mg/dL Calcium 8.2 L (8.6-10.8) mg/dL AST 18 (5-34) Units/L ALT 32 (0-55) Units/L Alkaline Phosphatase 106 (38-126) Units/L Albumin 2.4 L (3.5-5.0) g/dL Calcium panel 11/20/16 Range/Units 04:30 Calcium 8.2 L (8.6-10.8) mg/dL Albumin 2.4 L (3.5-5.0) g/dL Pituitary panel 11/20/16 Range/Units 04:30 Sodium 135 L (136-145) mEq/L Potassium 4.3 (3.5-4.5) mEq/L Chloride 105 (98-109) mEq/L Carbon Dioxide 23 (19-29) mEq/L BUN 14 (7-20) mg/dL Creatinine 0.99 (0.57-1.11) mg/dL Glucose 82 (70-99) mg/dL Calcium 8.2 L (8.6-10.8) mg/dL Adrenal panel 11/20/16 Range/Units 04:30 Sodium 135 L (136-145) mEq/L Potassium 4.3 (3.5-4.5) mEq/L Chloride 105 (98-109) mEq/L Carbon Dioxide 23 (19-29) mEq/L BUN 14 (7-20) mg/dL Creatinine 0.99 (0.57-1.11) mg/dL Glucose 82 (70-99) mg/dL Calcium 8.2 L (8.6-10.8) mg/dL Total Bilirubin 1.3 H (0.2-1.2) mg/dL AST 18 (5-34) Units/L ALT 32 (0-55) Units/L Alkaline Phosphatase 106 (38-126) Units/L Albumin 2.4 L (3.5-5.0) g/dL - VTE Documentation of Mechanical Device: Intermittent pneumatic compression device Consult Discharge Plan - Plan Referrals: Silviano Smith MD [Non-Partnered Physician] - Mir Gomes DO [Primary Care Provider] -
--- NOTE | 2016-11-20 15:31 | Discharge Summary ---
Outpatient Proc Discharge Plan - Plan Additional Instructions: regular diet patient may shower, wash incision with soap and water activities as tolerated, lifting limited to less than 20# colostomy care and management as demonstrated while hospitalized with Home Health assistance post discharge follow up my office 11/29/2016 - patient to call office in AM to make appointment Yoder catheter to gravity drainage, care and management per [facility] Prescriptions: Tramadol HCl [Ultram] 50 mg PO TID PRN #15 tab PRN Reason: Pain Home Medications: Ascorbate Calcium [Vitamin C] 500 mg PO DAILY 10/10/16 [History] Esomeprazole Magnesium [Nexium] 40 mg PO DAILY 10/10/16 [History] Acetaminophen/Aspirin/Caffeine [Excedrin EX] 1 each PO Q6HR PRN #0 tablet [Rx] Tramadol HCl [Ultram] 50 mg PO TID PRN #15 tab 11/20/16 [Rx]
== END 2016-11-20 19:11 | disposition home health service (06) | DRG 330 ==
LOC: EMEROO 11:02 → 3ANU 14:58
PROVIDERS: ADMIT Surgery; ATTEND Surgery

== ENCOUNTER 2017-05-28 06:25 | Inpatient (IN) ==
[2017-05-28] MEDS ORDERED: Lidocaine -MPF 4% 5 ML AMPUL ONE (06:46)
[2017-05-28] MEDS ORDERED: *HR* Phenylephrine 10 MG/ML VIAL ONE (06:55)
[2017-05-28] MEDS ORDERED: Ondansetron 4 MG/2 ML VIAL ONE (06:59)
[2017-05-28] MEDS ORDERED: *HR* Propofol 200 MG/20 ML VIAL IVP ONE (06:59)
[2017-05-28] MEDS ORDERED: Dexamethasone 4 MG/ML VIAL ONE (06:59)
[2017-05-28] MEDS ORDERED: *HR* Rocuronium Bromide 50 MG/5 ML VIAL ONE ×2 (06:59→10:49)
[2017-05-28] MEDS ORDERED: Lidocaine -MPF 2% 2 ML VIAL ONE (06:59)
[2017-05-28] MEDS ORDERED: *HR* FentaNYL (PF) 100 MCG/2 ML VIAL ONE ×2 (06:59→08:48)
[2017-05-28] MEDS ORDERED: *HR* Midazolam HCl 2 MG/2 ML VIAL ONE (06:59)
[2017-05-28] MEDS ORDERED: Lidocaine -MPF 1% 2 ML VIAL ID ONE (07:06)
--- NOTE | 2017-05-28 07:06 | Anesthesia Evaluation PreOp ---
Date of Encounter: 05/28/17 Time of Encounter: 07:03 - Past History Planned Operation: exploratory celiotomy, amadeo pouch, colostomy Cardiac History: CHF (hx of Takotsubo cardiomyopathy 2011, EF 45% now) Pulmonary History: Denies Any Significant HX OIL TREATER History: Denies Any Significant HX Other Medical History: Renal (CKD stage 3) Anesthesia History: No Prior Anesthetic Complications, Past Anesthesia ( laparotomy, partial cystectomy, left nephrectomy, colon resection) : No Alcohol Use: none Drug use: none Medications and Allergies Ascorbate Calcium [Vitamin C] 500 mg PO DAILY 10/10/16 [History] Esomeprazole Magnesium [Nexium] 40 mg PO DAILY 10/10/16 [History] Acetaminophen/Aspirin/Caffeine [Excedrin EX] 1 each PO Q6HR PRN #0 tablet [Rx] Tramadol HCl [Ultram] 50 mg PO TID PRN #15 tab 11/20/16 [Rx] 3 Allergy/AdvReac Type Severity Reaction Status Date / Time acetaminophen [From Percocet] Allergy Itching Verified 11/04/16 11:22 Cephalosporins Allergy Rash Verified 11/04/16 11:22 codeine Allergy Nausea Verified 11/04/16 11:22 hydrocodone [From Vicodin] Allergy Itching Verified 11/04/16 11:22 morphine Allergy Nausea Verified 11/04/16 11:22 Oxycodone [From Percocet] Allergy Itching Verified 11/04/16 11:22 propoxyphene Allergy Itching Verified 11/04/16 11:22 [From Darvocet-N 100] tobramycin Allergy Chest Pain Verified 11/04/16 11:22 diphenhydramine AdvReac Mild See Verified 09/04/16 15:08 [From Benadryl] Comments doxycycline AdvReac Vomiting Verified 11/01/15 10:14 beta-lactam Allergy Rash Uncoded 11/01/15 10:14 - Meds/Allergy Pre-op Review Medications Reviewed: Yes Allergies Reviewed: Yes Anesthesia Results - Labs Laboratory Tests 05/23/17 05/23/17 09:50 09:50 Hgb 9.7 L Hct 32.5 L Plt Count 224 Sodium 139 Potassium 4.3 BUN 26 H Creatinine 1.56 H - Imaging EKG: report reviewed (SINUS RHYTHM LOW QRS VOLTAGE IN PRECORDIAL LEADS) Additional studies: echo: LVEF 40-45%. Mild concentric left ventricular hypertrophy. Mild left ventricular diastolic dysfunction. Systolic anterior motion of the mitral valve leaflets. Moderate outflow tract obstruction; mean gradient 35 mmHg. The apical segments and apex appear hypokinetic, while the basal segments are hyperdynamic. Although these segmental wall abnormalities could be due to CAD, they are suggestive of Takotsubo Syndrome. Normal right ventricular structure and function. Borderline mild pulmonary hypertension. Estimated RVSP is 35 mmHg. Anesthesia Exam Selected Entries 05/28/17 06:50 Temperature 97.9 F Pulse Rate 66 Respiratory Rate 18 Blood Pressure 134/76 O2 Sat by Pulse Oximetry 100 Weight: 71kg NPO (# of Hours): 8 Pain Scale: 0 Pain Scale Used: Numeric (1 - 10) - HEENT Pupil (Motor): EOMI Mallampati: II Teeth: Missing, Prosthesis Oral Opening: Less than or equal to 3 - OIL TREATER LOC: Oriented OIL TREATER Motor: Normal RUE, Normal LUE, Normal RLE, Normal LLE, Normal Face OIL TREATER Sensory: Normal: RUE, LUE, RLE, LLE, Face - Cardiac Rhythm: Regular Murmur: None - Pulmonary Breath Sounds: bilateral Clear Respiratory Effort: Symmetrical Anesthesia Assess/Plan ASA Score: 3 Modified [place] Scale for Level of Consciousness: Cooperative, oriented, and tranquil Anesthetic Plan: General Monitoring Plan: Standard Monitors Recovery Plan: PACU (Discussed risks of GA, questions answered and agrees to proceed.)
[2017-05-28] MEDS ORDERED: Ringers Solution, Lactated 1,000 ML IVC SCH (07:15)
[2017-05-28] MEDS ORDERED: Ertapenem 1,000 MG in 0.9 % Sodium Chloride Mini Bag 100 ML IVPB ONE (07:27)
[2017-05-28] MEDS ORDERED: Plasma-Lyte A (PH 7.4) 1,000 ML IVC SCH (07:30)
--- NOTE | 2017-05-28 07:30 | History & Physical Report ---
Date of Encounter: 05/28/17 Time of Encounter: 07:25 24 Hour HP Update - Instructions Instructions: If the History and Physical is less than 30 days old and was completed prior to A.M. admission and or procedure and has NOT been updated on calendar day of procedure please complete this update prior to performing procedure. - Update Patient reports changes in Medical Condition: No Changes in examination, assessment, or condition: No Changes in Medication: No Preop tests/diagnostics Reviewed: Yes Surgery Remains Indicated: Yes Consent for Planned Operative Procedure(s) Verified: Yes Review of Patient reveals the following changes:: patient indicates she is taking no routine medications at home. - Pre-Operative Checklist Preoperative Checklist Indicated: Yes Prophylactic Antibiotic Ordered: Yes Home Medications Include Beta Jhony: No Beta Jhony Taken Today (Day of Surgery): No Beta Jhony Taken Yesterday (Day Prior to Surgery): No Is VTE Prophylaxis Indicated?: Yes
[2017-05-28] MEDS ORDERED: Heparin 1,000 UNITS/500 mL NS 500 ML ONE (07:36)
[2017-05-28] MEDS ORDERED: Lacri-Lube 3.5 GM TUBE ONE (08:02)
[2017-05-28] MEDS ORDERED: EPHEDrine 50 MG/ML VIAL ONE (08:08)
[2017-05-28] MEDS ORDERED: *HR* HYDROmorphone (PF) 1 MG/ML SYRINGE IVP PRN (09:00)
[2017-05-28] MEDS ORDERED: *HR* Labetalol 20 MG/4 ML SYRINGE IVP PRN (09:00)
[2017-05-28] MEDS ORDERED: *HR* Promethazine 25 MG/ML VIAL IVP PRN ×3 (09:00→13:37)
[2017-05-28] MEDS ORDERED: Dexamethasone 4 MG/ML VIAL IVP ONE (09:00)
[2017-05-28] MEDS ORDERED: Ondansetron 4 MG/2 ML VIAL IVP ONE (09:00)
--- NOTE | 2017-05-28 09:00 | Anesthesia Procedures ---
Date of Encounter: 05/28/17 Time of Encounter: 07:50 Procedures: Anesthesia - Arterial Line Consent obtained: verbal consent Time out performed: Yes Sedation: Versed (mg): 2 (documented on anesthesia record) Supplemental Oxygen via Nasal Cannula (L/min): 15 (via FM) Size (Gauge): 20 Length (inches): 1 3/4 Technique Used: sterile prep, direct puncture technique Post-Procedure: line taped into place, dry sterile dressing placed Patient tolerated procedure: well, no complications Complications: none Site: Radial R Vitals: see anesthesia record Comments: performed after induction in OR
[2017-05-28] MEDS ORDERED: *HR* HYDROmorphone 2 MG/ML SYRINGE ONE (09:04)
[2017-05-28 09:47] LABS: Hematocrit 29.7 % (35.3-44.9); Hemoglobin 8.9 g/dL (11.5-15.4)
[2017-05-28] MEDS ORDERED: Albumin Human 5% 25.0 GM/500 ML VIAL ONE (09:48)
[2017-05-28] MEDS ORDERED: Neostigmine Methylsulfate 3 MG/3 ML SYRINGE ONE ×2 (10:56→11:50)
[2017-05-28 11:48] LABS: Hematocrit 27.3 % (35.3-44.9); Hemoglobin 8.3 g/dL (11.5-15.4)
[2017-05-28] MEDS ORDERED: Ondansetron 4 MG/2 ML VIAL IVP PRN (12:15)
[2017-05-28] MEDS ORDERED: *HR* HYDROmorphone 20 MG/20 ML PCA IVC PRN ×2 (12:29→13:37)
--- NOTE | 2017-05-28 12:35 | Operative Note ---
Date of procedure: 05/28/17 Pre-op diagnosis: Revision end colostomy / Nevin pouch Post-op diagnosis: same Procedure: Explor celiotomy with PABLO x 70 minutes, resection / revision End descending colostomy with Nevin pouch; mobilization splenic flexure; intra operative rigid sigmoidoscopy Complications: none apparent Anesthesia: LUCHO Surgeon: Silviano Smith [employer] Laboratory Asst: Clark Rodriguez Estimated blood loss (cc): 400 IV fluids (cc): 3,000 (375 colloid) Specimen: resection end colostomy, omentum. anastomotic rings Condition: stable Disposition: PACU Procedure in Detail: Brief history: 62-year-old female who returns to [facility] this date to undergo reversal of a previously created end colostomy with Nevin pouch (Nevin procedure). The patient initially presented to [facility] in October 2016, with history of refractory diverticulitis and a single functioning kidney (right). The patient was emergently admitted with abrupt onset severe left lower quadrant abdominal pain due to acute sigmoid diverticulitis with perforation. The patient had a single functioning kidney due to chronic ureteral reflux involving the left side. The patient underwent a ureteral reimplantation many years ago which has subsequently occluded with resultant left renal dysfunction. The patient underwent exploratory celiotomy with sigmoid colectomy, end colostomy and Nevin pouch, left salpingo-oophorectomy , incidental appendectomy and left nephroureterectomy 11/09/16. The left nephroureterectomy was completed by Dr. Tadeo Contreras. The patient presents now to have the Nevin procedure reversed. The patient was brought to the operating room where she was placed supine upon the operating table. Surgical consent had been obtained prior to this date. The patient was appropriately identified as to person and procedure. The accuracy of this information was confirmed by the procedure team. The patient was intubated and anesthetized under the supervision of Dr. Tono Wallis. Once anesthesia induced and the airway secured, the patient was placed in low lithotomy position using yellowfin stirrups. An OG tube was passed by anesthesia. A Yoder catheter was established by the OR nursing staff. Shortly after placing the Yoder catheter, Anesthesia reported bloody urine. The Yoder placement was not described to be difficult. The perineum was prepped with Betadine, the abdomen prepped with chlorhexidine. A healthy-appearing colostomy was evident the left anterior abdomen. This was covered by an Ioban drape after the patient was appropriately prepped and draped in the usual sterile fashion. A midline incision was created with a #10 scalpel. The dissection extended to the fascia. Bleeding points were controlled electrocautery. The fascia was incised in the midline, along the linea alba. The abdomen was entered atraumatically but adhesions were immediately encountered. The adhesions to the anterior abdominal wall were primarily omentum. These adhesions were dissected and it was necessary to complete an extended lysis of adhesions (approximately 70 minutes) to mobilize the small bowel from the pelvis, the left abdominal wall and mobilize multiple adherent loops small bowel loops. The omentum was resected with aid of a Covidien Impact Dissector. Exposure was facilitated by a self-retaining Omni tract retractor. When the mobilization was complete, the end colostomy was mobilized. The mucocutaneous margin was incised with dissection carried through the anterior abdominal wall extending to the posterior fascia. This fascia was incised. The end colostomy was exteriorized through the midline incision. I was able to follow the end colostomy proximally to the splenic flexure. The transverse colon was also mobilized with the dissection extending to the splenic flexure. When the splenic flexure was fully mobilized, the distal colon easily reached the pelvis. A portion of colon that had extended through the anterior abdominal wall was resected. A pursestring device applied to the ascending colon proximal to that segment extending through the anterior abdominal wall. The bowel measured to 29 mm using EEA sounds. The anvil of an Ethicon EEA 29 mm stapler was placed in the end descending colon and the pursestring secured. I then proceeded to the perineum and passed the EEA sound into the rectum. The Nevin pouch was identified, approximately 10 cm in length. It was necessary to retract the uterus anteriorly to facilitate exposure. A 29 EEA stapler was inserted rectally, the trocar was passed through the stapled end of the Nevin pouch, followed by placement of the anvil onto this trocar. A stapled EEA anastomosis was completed with 2 intact anastomotic rings recovered. The proximal anastomotic ring was marked with a suture prior to sending both rings to pathology with the omentum and the resected end descending colon. Rigid sigmoidoscopy was then completed with visualization of an intact colocolonic anastomosis. The pelvis was filled with saline and air was insufflated into the colon through the rigid sigmoidoscope. There was no "string of bubbles" seen in the pelvis that would indicate an anastomotic leak. The proximal colon was also visualized dilating with insufflated air. The insufflated air was evacuated, the rigid sigmoidoscope was removed. The surgeon was regowned and gloved. The small bowel was examined from ligament of Treitz to the ileocecal valve with no abnormalities detected, no injuries related to the extended lysis of adhesions. The cecum appeared intact with evidence of a prior appendectomy. The ascending and transverse colon also appeared normal. The liver, stomach, and spleen were unremarkable. The gallbladder was still in situ without palpable stones or wall thickening. The abdomen was inspected for adequate hemostasis. Closure was initiated. The peritoneum was closed with running interlocking 0 Vicryl. The midline fascia was approximated with interrupted [id number] 0 Vicryl. The fascial defect related to the colostomy was also closed with interrupted [id number] 0 Vicryl. The subcutaneous tissues of the colostomy and midline incision were reapproximated with running 3-0 Vicryl. The skin of the colostomy was left open and dressed with Xeroform gauze. The midline incision was closed with sukh. Dry sterile gauze was applied to both the colostomy and the midline incision held in place with Medipore tape. The patient was taken to recovery in stable condition. Needle, sponge, and instrument counts were correct at the close of the case.
--- NOTE | 2017-05-28 13:17 | Anesthesia Evaluation Post Op ---
Date of Encounter: 05/28/17 Time of Encounter: 13:17 - Vital Signs Vital Signs: Last Vital Signs Temp 97.0 F L 05/28/17 13:10 Pulse 90 05/28/17 13:10 Resp 20 05/28/17 13:10 BP 108/58 05/28/17 13:10 Pulse Ox 99 05/28/17 13:10 - Lungs Lungs: Clear Ascult./Percussion - Airway Airway: Non-obstructed - Cardiovascular Regular Rate - Mental Status Mental Status: Alert & Oriented, Answers Appropriately - Pain Pain Scale: 3 - Nausea Vomiting Nausea Vomiting: Not Present - Hydration Hydration: NPO - Discharge PostOp Status: Transfer Patient to floor
[2017-05-28] MEDS: 0.9 % Sodium Chloride 1,000 ML IVC SCH (14:14)
[2017-05-28] MEDS: Pantoprazole 40 MG VIAL IVP SCH (14:15)
[2017-05-28] MEDS: Ondansetron 4 MG/2 ML VIAL IVP PRN ×2 (18:04→22:19)
[2017-05-29] MEDS: 0.9 % Sodium Chloride 1,000 ML IVC SCH ×2 (00:15→10:47)
[2017-05-29 05:23] LABS: Basophils % 0.2 %; Eosinophils % 0.3 %; Hematocrit 23.4 % (35.3-44.9); Hemoglobin 6.9 g/dL (11.5-15.4); Immature Granulocytes % 0.6 % (0-4); Lymphocytes # 0.5 K/mcL (0.6-4.6); Lymphocytes % 4.2 %; Mean Corpuscular HGB Conc 29.5 g/dL (31.6-35.5); Mean Corpuscular Hemoglobin 25.6 pg (28.0-33.3); Mean Corpuscular Volume 86.7 fL (83.0-100.0); Mean Platelet Volume 9.1 fL (9.4-12.4); Monocytes # 0.9 K/mcL (0.0-1.3); Neutrophils # 10.1 K/mcL (1.6-8.9); Platelet Count 134 K/mcL (140-400); Red Cell Distribution Width 14.5 % (11.5-14.5); Segmented Neutrophils % 86.7 %
[2017-05-29 05:35] LABS: Potassium 4.7 mEq/L (3.5-4.5)
[2017-05-29] MEDS: Pantoprazole 40 MG VIAL IVP SCH (10:47)
[2017-05-29] MEDS: Ondansetron 4 MG/2 ML VIAL IVP PRN ×2 (10:47→18:11)
--- NOTE | 2017-05-29 12:11 | General Surgery Progress Note ---
Date of Encounter: 05/29/17 Time of Encounter: 11:59 Subjective Patient reports: still having pain, no flatus, no bowel movement Narrative: General Surgery - POD #1 The patient complaining of dry mouth and incisional pain "especially when she moves or coughs" Patient has been afebrile since surgery, currently 98.2; patient is mildly tachycardic as high as 108, currently 101; respirations 14, blood pressure 129/ 75 Lungs: Clear to auscultation, nursing reports poor incentive spirometry with maximum volume approximate 500 mL; week/noneffective cough Abdomen: Soft, active bowel sounds but no BM or flatus. Dressing removed, incision clean and dry. Ostomy site also clean and dry Urine output: 400 mL recorded since surgery Laboratories: White count 11.6, hemoglobin 6.9 with hematocrit 23.4; platelet count 134,000; neutrophils 10.1% Sodium 140, potassium 4.7, chloride 117, bicarbonate 16, BUN 18, creatinine 1.12, eGFR 49 (pre op 34) Impression: Postoperative day 1, status post extended lysis of adhesions, resection/reversal end colostomy with stapled colocolonic anastomosis. S/p Nevin procedure 11/09/2016 due to acute sigmoid diverticulitis with perforation. Postoperative anemia - patient was anemic preop; this is now been compounded by acute intraoperative blood loss. Nursing has incorrectly recorded intra operative blood loss 800 mL - it was estimated to be approx 400 mL - the patient will be transfused CKD - stage 3 pre op; also contributing to anemia Mild leukocytosis with neutrophilia - reactions surgery and is expected to resolve as recovery progresses Postop incisional pain as expected; due to this pain the patient's respiratory status has been diminished as the patient has been unwilling to cough, deep breathe, or ambulate out of bed. Plan: transfuse, encourage ambulation and activity OOB; incentive spirometry maintain santos for accurate I&O as well as possible urinary bladder dysfunction following pelvic dissection to restore bowel continuity repeat labs in AM; monitor renal status as patient s/p left nephrectomy at the time of the Nevin procedure. Objective Vital Signs - Last 8 Hours Temp Pulse Resp BP Pulse Ox 05/29/17 10:00 98.1 F 108 14 129/75 93 05/29/17 06:41 98.0 F 101 16 113/67 94 Intake and Output 0905/29/17 05/29/17 23:59 07:59 15:59 Intake Total 1000 / 1000 1000 / 1000 Output Total 0 / 0 400 / 400 Balance 1000 / 1000 600 / 600 Intake: IV Fluids 1000 / 1000 1000 / 1000 0.9 % Sodium Chloride 1,000 ML 1000 / 1000 1000 / 1000 @ 100 mls/hr IVC .Q10H [facility] Rx#: [id number] Output: Catheter 0 / 0 400 / 400 Other: Meal NPO Weight 71.486 kg Blood Glucose* 95 Patient Weight 05/29/17 23:59 Weight 71.486 kg - Labs 05/29/17 04:49 05/29/17 04:49 Diabetes panel 05/29/17 Range/Units 04:49 Sodium 140 (136-145) mEq/L Potassium 4.7 H (3.5-4.5) mEq/L Chloride 117 H (98-109) mEq/L Carbon Dioxide 16 L (19-29) mEq/L BUN 18 (7-20) mg/dL Creatinine 1.12 H (0.57-1.11) mg/dL Glucose 115 H (70-99) mg/dL Calcium 8.0 L (8.6-10.8) mg/dL Calcium panel 05/29/17 Range/Units 04:49 Calcium 8.0 L (8.6-10.8) mg/dL Pituitary panel 05/29/17 Range/Units 04:49 Sodium 140 (136-145) mEq/L Potassium 4.7 H (3.5-4.5) mEq/L Chloride 117 H (98-109) mEq/L Carbon Dioxide 16 L (19-29) mEq/L BUN 18 (7-20) mg/dL Creatinine 1.12 H (0.57-1.11) mg/dL Glucose 115 H (70-99) mg/dL Calcium 8.0 L (8.6-10.8) mg/dL Adrenal panel 05/29/17 Range/Units 04:49 Sodium 140 (136-145) mEq/L Potassium 4.7 H (3.5-4.5) mEq/L Chloride 117 H (98-109) mEq/L Carbon Dioxide 16 L (19-29) mEq/L BUN 18 (7-20) mg/dL Creatinine 1.12 H (0.57-1.11) mg/dL Glucose 115 H (70-99) mg/dL Calcium 8.0 L (8.6-10.8) mg/dL - VTE Documentation of Mechanical Device: Intermittent pneumatic compression device Consult Discharge Plan - Plan Referrals: Silviano Smith MD [Non-Partnered Physician] - Mir Gomes DO [Primary Care Provider] -
[2017-05-29] MEDS ORDERED: 0.9 % Sodium Chloride 250 ML ONE (13:54)
[2017-05-29] MEDS: Albuterol 2.5 MG/3 ML NEBULIZER IH SCH ×2 (15:47→22:38)
[2017-05-30] MEDS: Albuterol 2.5 MG/3 ML NEBULIZER IH SCH ×4 (03:05→21:25)
[2017-05-30] MEDS: 0.9 % Sodium Chloride 1,000 ML IVC SCH ×4 (04:32→05:41)
[2017-05-30 05:13] LABS: Basophils % 0.3 %; Eosinophils # 0.2 K/mcL (0.0-0.6); Eosinophils % 1.6 %; Immature Granulocytes % 0.5 % (0-4); Lymphocytes # 0.5 K/mcL (0.6-4.6); Lymphocytes % 4.7 %; Mean Corpuscular HGB Conc 31.1 g/dL (31.6-35.5); Mean Corpuscular Hemoglobin 26.6 pg (28.0-33.3); Mean Corpuscular Volume 85.6 fL (83.0-100.0); Mean Platelet Volume 9.1 fL (9.4-12.4); Monocytes # 0.9 K/mcL (0.0-1.3); Monocytes % 8.3 %; Neutrophils # 9.5 K/mcL (1.6-8.9); Platelet Count 139 K/mcL (140-400); Red Blood Count 3.27 M/mcL (3.82-4.97); Segmented Neutrophils % 84.6 %
[2017-05-30 05:14] LABS: Hemoglobin 8.7 g/dL (11.5-15.4)
[2017-05-30 05:25] LABS: Calcium 8.4 mg/dL (8.6-10.8); Potassium 3.9 mEq/L (3.5-4.5)
[2017-05-30] MEDS: Ondansetron 4 MG/2 ML VIAL IVP PRN ×3 (07:23→20:45)
[2017-05-30] MEDS: Pantoprazole 40 MG VIAL IVP SCH (07:23)
[2017-05-30] MEDS: D5% in 0.45% NACL 1,000 ML IVC SCH (10:58)
[2017-05-30] MEDS ORDERED: Furosemide 20 MG/2 ML VIAL IVP ONE (11:10)
--- NOTE | 2017-05-30 11:17 | General Surgery Progress Note ---
Date of Encounter: 05/30/17 Time of Encounter: 11:11 Subjective Patient reports: other (left chest pain) Narrative: General Surgery - POD #2 The patient appears to be in no acute distress but is complaining of left- sided chest pain. The patient is afebrile, MAXIMUM TEMPERATURE 99.4; she is mildly tachycardic currently at 102, but as high as 116; respirations 18 and nonlabored, blood pressure 156/83. SPO2 on room air 93-94% Lungs: Clear to auscultation but inspiratory effort is still diminished Cardiac: Rapid rate, no appreciable murmur; EKG demonstrated no evidence of acute injury; troponin pending Abdomen: Soft with active bowel sounds, no reported flatus or BM. Midline incision clean and dry. Ostomy site also clean and dry, packing removed Extremities no obvious clubbing cyanosis or edema Urine output 1400 mL so far today Laboratories: Hemoglobin 8.7 with hematocrit 28.0 and response to transfusion 2 units packed cells; white count stable around 11.3, neutrophils slightly improved 9.5%. Electrolytes remained within normal limits, BUN 16 creatinine 1.22. eGFR 45 Pathology: No new findings; the omentum, resected end descending colostomy and anastomotic rings demonstrate no pathologic findings Impression: Postoperative day 2 The patient complaining of left-sided chest pain that appears hemodynamically stable and in no acute distress. EKG demonstrates no acute evidence; troponins pending but it appears that the chest pain is due to the extended left-sided abdominal surgery Which included mobilization of splenic flexure. Anemia, proved with transfusion Tachycardia: Likely due to pain and postoperative changes. Patient has used very little Dilaudid via CHANGE CONSULTANT CKD 2 - 3 : stable and improved iwth peyton operative fluids. Objective Vital Signs - Last 8 Hours Temp Pulse Resp BP Pulse Ox 05/30/17 10:15 98.2 F 102 18 156/83 93 05/30/17 07:47 98.3 F 101 18 133/79 94 05/30/17 05:42 98.2 F 104 16 159/81 93 Intake and Output 05/29/17 05/30/17 05/30/17 23:59 07:59 15:59 Intake Total 834 / 834 700 / 700 251 / 251 Output Total 850 / 850 600 / 600 Balance 834 / 834 -150 / -150 -349 / -349 Intake: IV Fluids 134 / 134 700 / 700 251 / 251 0.9 % Sodium Chloride 1,000 ML 134 / 134 700 / 700 251 / 251 @ 60 mls/hr IVC .[id number] [facility] Rx #:[id number] Oral 0 / 0 0 / 0 Blood Product 700 / 700 Rbcs Leuko Poor As-3 2nd Unit 350 / 350 [id number] Rbcs Leuko Poor As-3 Ph Unit 350 / 350 [id number] Output: Catheter 850 / 850 600 / 600 Other: Meal NPO npo Percent of Meal Consumed 0% Blood Glucose* 106 105 - Labs 05/30/17 05:03 05/30/17 05:03 Diabetes panel 05/30/17 Range/Units 05:03 Sodium 140 (136-145) mEq/L Potassium 3.9 (3.5-4.5) mEq/L Chloride 114 H (98-109) mEq/L Carbon Dioxide 18 L (19-29) mEq/L BUN 16 (7-20) mg/dL Creatinine 1.22 H (0.57-1.11) mg/dL Glucose 108 H (70-99) mg/dL Calcium 8.4 L (8.6-10.8) mg/dL Calcium panel 05/30/17 Range/Units 05:03 Calcium 8.4 L (8.6-10.8) mg/dL Pituitary panel 05/30/17 Range/Units 05:03 Sodium 140 (136-145) mEq/L Potassium 3.9 (3.5-4.5) mEq/L Chloride 114 H (98-109) mEq/L Carbon Dioxide 18 L (19-29) mEq/L BUN 16 (7-20) mg/dL Creatinine 1.22 H (0.57-1.11) mg/dL Glucose 108 H (70-99) mg/dL Calcium 8.4 L (8.6-10.8) mg/dL Adrenal panel 05/30/17 Range/Units 05:03 Sodium 140 (136-145) mEq/L Potassium 3.9 (3.5-4.5) mEq/L Chloride 114 H (98-109) mEq/L Carbon Dioxide 18 L (19-29) mEq/L BUN 16 (7-20) mg/dL Creatinine 1.22 H (0.57-1.11) mg/dL Glucose 108 H (70-99) mg/dL Calcium 8.4 L (8.6-10.8) mg/dL - VTE Documentation of Mechanical Device: Intermittent pneumatic compression device Consult Discharge Plan - Plan Referrals: Silviano Smith MD [Non-Partnered Physician] - Mir Gomes DO [Primary Care Provider] -
[2017-05-31] MEDS: D5% in 0.45% NACL 1,000 ML IVC SCH (01:59)
[2017-05-31] MEDS: Albuterol 2.5 MG/3 ML NEBULIZER IH SCH ×4 (03:15→21:15)
[2017-05-31 03:55] LABS: Basophils % 0.1 %; Eosinophils # 0.4 K/mcL (0.0-0.6); Eosinophils % 5.3 %; Hematocrit 27.3 % (35.3-44.9); Hemoglobin 8.5 g/dL (11.5-15.4); Immature Granulocytes % 0.7 % (0-4); Lymphocytes # 0.6 K/mcL (0.6-4.6); Lymphocytes % 8.2 %; Mean Corpuscular HGB Conc 31.1 g/dL (31.6-35.5); Mean Corpuscular Hemoglobin 26.9 pg (28.0-33.3); Mean Corpuscular Volume 86.4 fL (83.0-100.0); Mean Platelet Volume 9.3 fL (9.4-12.4); Monocytes # 0.8 K/mcL (0.0-1.3); Monocytes % 11.2 %; Neutrophils # 5.6 K/mcL (1.6-8.9); Platelet Count 122 K/mcL (140-400); Red Blood Count 3.16 M/mcL (3.82-4.97); Red Cell Distribution Width 15.1 % (11.5-14.5); Segmented Neutrophils % 74.5 %
[2017-05-31 04:06] LABS: BUN/Creatinine Ratio 14 (6-26); Blood Urea Nitrogen 15 mg/dL (7-20); Calcium 8.3 mg/dL (8.6-10.8); Carbon Dioxide 23 mEq/L (19-29); Chloride 110 mEq/L (98-109); Glucose 120 mg/dL (70-99); Osmolality,Calculated 290 (280-300); Sodium 139 mEq/L (136-145); eGFR For African Americans > 60 (> 60); eGFR For Non-African Americans 50 (> 60)
[2017-05-31] MEDS: Ondansetron 4 MG/2 ML VIAL IVP PRN ×2 (04:58→13:25)
[2017-05-31] MEDS: Pantoprazole 40 MG VIAL IVP SCH (08:37)
--- NOTE | 2017-05-31 10:28 | General Surgery Progress Note ---
Date of Encounter: 05/31/17 Time of Encounter: 10:20 Subjective Patient reports: feels better, tolerating liquids well, flatus Narrative: General Surgery: POD #3 Patient feeling better, complaining of chest pain "only when she moves or coughs". Cramping abdominal pain last evening has resolved, no nausea vomiting. Tolerating liquid diet. Afebrile, currently 98.3, pulse 98, respirations 14-17, blood pressure 146/82. SPO2 on room air 91 and 93% Lungs: Clear to auscultation, better inspiratory effort Cardiac: Tachycardia appears to have resolved; regular rate, no appreciable murmur Abdomen: Soft with active bowel sounds. Midline incision clean and dry. No detected fascial defects. The ostomy site also intact and healing. Urine output: Approximately 3500 mL in the last 24 hours, satisfactory response to Lasix Laboratories: White count has returned to normal, 7.5; hemoglobin 8.5, hematocrit 27.3; platelet count 122,000. Differential has returned to normal; neutrophil 5.6% Electrolytes are stable and within normal limits, BUN 15, creatinine 1.11; eGFR improved to 50 Impression: Postoperative day 3, status post exploratory ciliotomy extended lysis of adhesions with reversal Nevin procedure to reestablish bowel continuity. Acceptable bowel postoperative status Mild thrombocytopenia Mild renal failure - improved with peyton operative fluids Anemia - combined acute blood losses during surgery and chronic anemia ( patient anemic prior to surgery) Plan: remove Yoder reduce IV fluids as oral intake improves with advancement of diet continue to monitor renal function. Objective Vital Signs - Last 8 Hours Temp Pulse Resp BP Pulse Ox 05/31/17 07:00 98.3 F 98 14 146/82 93 05/31/17 03:28 98.4 F 97 17 151/83 91 Intake and Output 05/30/17 05/31/17 05/31/17 23:59 07:59 15:59 Intake Total 803 / 803 677 / 677 120 / 120 Output Total 500 / 500 350 / 350 Balance 303 / 303 327 / 327 120 / 120 Intake: IV Fluids 323 / 323 677 / 677 D5% And 0.45% Nacl 1000 Ml Bag 323 / 323 677 / 677 1,000 ML @ 60 mls/hr IVC . [id number] [facility] Rx#:[id number] Oral 480 / 480 0 / 0 120 / 120 Output: Catheter 500 / 500 350 / 350 Other: Meal Breakfast Percent of Meal Consumed 0% Weight 72.3 kg Blood Glucose* 126 Patient Weight 05/31/17 23:59 Weight 72.3 kg - Labs 05/31/17 03:17 05/31/17 03:17 Diabetes panel 05/31/17 Range/Units 03:17 Sodium 139 (136-145) mEq/L Potassium 4.0 (3.5-4.5) mEq/L Chloride 110 H (98-109) mEq/L Carbon Dioxide 23 (19-29) mEq/L BUN 15 (7-20) mg/dL Creatinine 1.11 (0.57-1.11) mg/dL Glucose 120 H (70-99) mg/dL Calcium 8.3 L (8.6-10.8) mg/dL Calcium panel 05/31/17 Range/Units 03:17 Calcium 8.3 L (8.6-10.8) mg/dL Pituitary panel 05/31/17 Range/Units 03:17 Sodium 139 (136-145) mEq/L Potassium 4.0 (3.5-4.5) mEq/L Chloride 110 H (98-109) mEq/L Carbon Dioxide 23 (19-29) mEq/L BUN 15 (7-20) mg/dL Creatinine 1.11 (0.57-1.11) mg/dL Glucose 120 H (70-99) mg/dL Calcium 8.3 L (8.6-10.8) mg/dL Adrenal panel 05/31/17 Range/Units 03:17 Sodium 139 (136-145) mEq/L Potassium 4.0 (3.5-4.5) mEq/L Chloride 110 H (98-109) mEq/L Carbon Dioxide 23 (19-29) mEq/L BUN 15 (7-20) mg/dL Creatinine 1.11 (0.57-1.11) mg/dL Glucose 120 H (70-99) mg/dL Calcium 8.3 L (8.6-10.8) mg/dL - VTE Documentation of Mechanical Device: Intermittent pneumatic compression device Consult Discharge Plan - Plan Referrals: Silviano Smith MD [Non-Partnered Physician] - Mir Gomes DO [Primary Care Provider] -
[2017-05-31] MEDS ORDERED: D5% in 0.45% NACL 1,000 ML IVC SCH (10:31)
[2017-06-01] MEDS: Albuterol 2.5 MG/3 ML NEBULIZER IH SCH ×4 (03:35→22:20)
[2017-06-01 04:38] LABS: Eosinophils # 0.3 K/mcL (0.0-0.6); Eosinophils % 6.9 %; Hematocrit 27.8 % (35.3-44.9); Hemoglobin 8.7 g/dL (11.5-15.4); Immature Granulocytes % 0.2 % (0-4); Lymphocytes # 0.6 K/mcL (0.6-4.6); Lymphocytes % 12.6 %; Mean Corpuscular HGB Conc 31.3 g/dL (31.6-35.5); Mean Corpuscular Volume 86.3 fL (83.0-100.0); Monocytes # 0.7 K/mcL (0.0-1.3); Monocytes % 14.9 %; Neutrophils # 3.1 K/mcL (1.6-8.9); Platelet Count 124 K/mcL (140-400); Red Blood Count 3.22 M/mcL (3.82-4.97); Segmented Neutrophils % 65.4 %
[2017-06-01 04:56] LABS: BUN/Creatinine Ratio 12 (6-26); Blood Urea Nitrogen 13 mg/dL (7-20); Calcium 8.2 mg/dL (8.6-10.8); Carbon Dioxide 23 mEq/L (19-29); Chloride 108 mEq/L (98-109); Glucose 94 mg/dL (70-99); Osmolality,Calculated 286 (280-300); Potassium 3.6 mEq/L (3.5-4.5); Sodium 138 mEq/L (136-145); eGFR For African Americans > 60 (> 60); eGFR For Non-African Americans 50 (> 60)
--- NOTE | 2017-06-01 11:25 | General Surgery Progress Note ---
Date of Encounter: 06/01/17 Time of Encounter: 11:00 Subjective Patient reports: no new complaints, feels better Narrative: General Surgery - POD #4 Patient resting comfortably in hospital bed, voicing no new complaints; describes large BM earlier today. The patient mentions that she is still experiencing chest pain with activities - this is most likely musculoskeletal Patient remains afebrile, maximum temperature 99.1; pulse 94 - no noted tachycardia in the last 24 hours; respirations 18, blood pressure 127/83 Lungs: Clear; no abdominal pain with deep inspiration Abdomen: Soft, minimal tenderness, active bowel sounds. Midline incision clean and dry. Ostomy site with a small amount of serous drainage Buttocks: Developing sacral decubitus; intervention/treatment has been initiated. Yoder removed, patient has voided since but notes hematuria. Patient had hematuria on insertion of the Yoder catheter. Urine output 525 mL in the last 24 hours. Labs: White count 4.8, hemoglobin stable at 8.7, hematocrit 27.8; platelet count 124,000; differential remains within normal limits Electrolytes also stable and within normal limits, BUN 13, creatinine 1.10; eGFR stable at 50 Impression: Postoperative day 4, status post exploratory celiotomy with reversal of Nevin procedure, bowel continuity reestablished Hematuria - patient describes episodes of hematuria in the past; we will have the patient follow up with urology as an outpatient Chronic anemia - appears stable Sacral decubitus - intervention/treatment initiated. Patient encouraged to spend more time out of bed Returning bowel function - patient passing flatus and moving her bowels; advance diet; begin oral analgesics Objective Vital Signs - Last 8 Hours Temp Pulse Resp BP Pulse Ox 06/01/17 08:12 98.2 F 94 18 127/83 96 06/01/17 03:56 99.0 F 17 132/80 95 Intake and Output 05/31/17 06/01/17 06/01/17 23:59 07:59 15:59 Intake Total 0 / 0 120 / 120 120 / 120 Output Total 100 / 100 100 / 100 Balance 0 / 0 20 / 20 20 / 20 Intake: Oral 0 / 0 120 / 120 120 / 120 Output: Urine 100 / 100 100 / 100 Other: Meal Dinner Breakfast Percent of Meal Consumed 10% 90% Stool Size Smear Stool Consistency liquid Stool Color Green # Voids 1 # Bowel Movements 1 Weight 70.9 kg Patient Weight 06/01/17 23:59 Weight 70.9 kg - Labs 06/01/17 04:18 06/01/17 04:18 Diabetes panel 06/01/17 Range/Units 04:18 Sodium 138 (136-145) mEq/L Potassium 3.6 (3.5-4.5) mEq/L Chloride 108 (98-109) mEq/L Carbon Dioxide 23 (19-29) mEq/L BUN 13 (7-20) mg/dL Creatinine 1.10 (0.57-1.11) mg/dL Glucose 94 (70-99) mg/dL Calcium 8.2 L (8.6-10.8) mg/dL Calcium panel 06/01/17 Range/Units 04:18 Calcium 8.2 L (8.6-10.8) mg/dL Pituitary panel 06/01/17 Range/Units 04:18 Sodium 138 (136-145) mEq/L Potassium 3.6 (3.5-4.5) mEq/L Chloride 108 (98-109) mEq/L Carbon Dioxide 23 (19-29) mEq/L BUN 13 (7-20) mg/dL Creatinine 1.10 (0.57-1.11) mg/dL Glucose 94 (70-99) mg/dL Calcium 8.2 L (8.6-10.8) mg/dL Adrenal panel 06/01/17 Range/Units 04:18 Sodium 138 (136-145) mEq/L Potassium 3.6 (3.5-4.5) mEq/L Chloride 108 (98-109) mEq/L Carbon Dioxide 23 (19-29) mEq/L BUN 13 (7-20) mg/dL Creatinine 1.10 (0.57-1.11) mg/dL Glucose 94 (70-99) mg/dL Calcium 8.2 L (8.6-10.8) mg/dL - VTE Documentation of Mechanical Device: Intermittent pneumatic compression device Consult Discharge Plan - Plan Referrals: Silviano Smith MD [Non-Partnered Physician] - Mir Gomes DO [Primary Care Provider] -
[2017-06-01] MEDS ORDERED: *HR* HYDROmorphone (PF) 1 MG/ML SYRINGE IVP PRN (11:30)
[2017-06-01] MEDS ORDERED: traMADol 50 MG TABLET PO PRN (11:30)
--- NOTE | 2017-06-01 17:45 | Electrocardiograph Report ---
[address] [address] Test Date: 2017-05-30 Pat Name: Ana Hannon Department: 115 Room: 3A22 Gender: Reversal Print Inspector: [id number] : 1955 Requested By: Silviano Smith Order Number: [id number] Reading MD: Albert Dooley MD Measurements Intervals [place] Rate: 101 P: 61 OK: 170 QRS: -13 QRSD: 107 T: 54 QT: 324 QTc: 382 Interpretive Statements SINUS TACHYCARDIA LOW QRS VOLTAGE IN PRECORDIAL LEADS Electronically Signed On 06-01-2017 17:43:30 EDT by Albert Dooley MD
[2017-06-02] MEDS: Albuterol 2.5 MG/3 ML NEBULIZER IH SCH ×2 (03:25→10:46)
[2017-06-02 10:40] VITALS: BP 139/79
--- NOTE | 2017-06-02 12:20 | General Surgery Progress Note ---
Date of Encounter: 06/02/17 Time of Encounter: 12:08 Subjective Patient reports: no new complaints, feels better Narrative: General Surgery - POD # 5 Progress Note/Discharge Summary Patient feeling well, voicing no complaints. Patient tolerating regular diet , passing flatus and moving bowels. She denies any diarrhea Patient is afebrile, maximum temperature 99.1, pulse 91, respirations 16, blood pressure 139/79. His PO2 on room air 94-97% Lungs: Clear, no abdominal pain with deep inspiration Abdomen: Soft, nontender. Oral medications (tramadol) providing adequate pain relief Incision clean, intact and healing well. No palpable fascial defects. Ostomy site also clean and dry - both healing well Extremities: No obvious clubbing, cyanosis, or edema. Urine output: 500 mL for calendar day 06/01/17; 400 mL so far today Impression: Postoperative day 5, acceptable postoperative status. Plan: Discharge home Brief history: 62-year-old female admitted to [facility] after presenting 05/28/17 to undergo reversal/revision of her end colostomy/ Nevin procedure. Her seizures completed without difficulty and the patient has had an unremarkable postoperative recovery. Postoperative diagnoses include: chronic anemia Acute blood loss anemia requiring postoperative trilogy Thrombocytopenia Hematuria CKD stage 3 Postoperative development of the sacral decubitus related to patient refusing to be mobilized out of bed for the first 48 hours following surgery. Current status is controlled. 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 Objective Vital Signs - Last 8 Hours Temp Pulse Resp BP Pulse Ox 06/02/17 10:31 97.5 F L 91 16 139/79 97 06/02/17 07:31 98.9 F 93 16 136/82 94 06/02/17 04:11 99.1 F 98 15 145/87 96 Intake and Output 06/01/17 06/02/17 06/02/17 23:59 07:59 15:59 Intake Total 1720 / 1720 200 / 200 120 / 120 Output Total 100 / 100 400 / 400 Balance 1620 / 1620 -200 / -200 120 / 120 Intake: IV Fluids 1000 / 1000 D5% And 0.45% Nacl 1000 Ml Bag 1000 / 1000 1,000 ML @ 40 mls/hr IVC .Q24H PRINCESS Rx#:[id number] Oral 720 / 720 200 / 200 120 / 120 Output: Urine 100 / 100 400 / 400 Other: Meal Dinner Breakfast Percent of Meal Consumed 0% 30% Stool Size Small Stool Consistency loose Stool Color Yellow Green Weight 70 kg Patient Weight 06/02/17 23:59 Weight 70 kg - Labs 06/01/17 04:18 06/01/17 04:18 - VTE Documentation of Mechanical Device: Intermittent pneumatic compression device Consult Discharge Plan - Plan Referrals: Silviano Smith MD [Non-Partnered Physician] - Mir Gomes DO [Primary Care Provider] -
--- NOTE | 2017-06-02 12:25 | Discharge Summary ---
Outpatient Proc Discharge Plan - Plan Additional Instructions: Regular diet Activity as tolerated; lifting limited to less than 20 pounds Patient may shower, wash incision and ostomy site with soap and water Patient may leave incision and ostomy site open to air Prescription for tramadol 100 mg, #15, one every 6 hours as needed for pain Follow-up in the office, 06/06/2017 Patient may resume home meds Prescriptions: Tramadol HCl [Ultram] 100 mg PO Q6H PRN #15 tab PRN Reason: Pain Home Medications: Acetaminophen/Aspirin/Caffeine [Excedrin EX] 1 tab PO Q6HR PRN 05/28/17 [History ] Tramadol HCl [Ultram] 100 mg PO Q6H PRN #15 tab 06/02/17 [Rx]
== END 2017-06-02 13:04 | disposition home or self-care (01) | DRG 336 ==
LOC: SAMDAY 06:25 → 3ANU 13:35
PROVIDERS: ADMIT Surgery; ATTEND Surgery

== ENCOUNTER 2018-01-27 08:40 | Observation (INO) ==
--- NOTE | 2018-01-27 09:07 | Emergency Department Note ---
Disposition Clinical Impression: Acute renal insufficiency Urinary tract infection Qualifiers: Urinary tract infection type: acute cystitis Hematuria presence: with hematuria Qualified Code(s): N30.01 - Acute cystitis with hematuria Disposition: Admitted As Inpatient Condition: Fair Referrals: Mir Gomes DO [Primary Care Provider] - Forms: ED Satisfaction Letter Time of Disposition: 12:23 General Adult HPI - General Chief complaint: ED Fever Stated complaint: fever,diarrhea Time Seen by Provider: 01/27/18 08:46 Source: patient Mode of arrival: ambulatory Limitations: no limitations Nursing Notes Reviewed: Yes Vital Signs Reviewed: Yes - History of Present Illness HPI Narrative: Nontoxic-appearing 62-year-old female presents for evaluation of persistent diarrhea as well as a fever of up to 102 degrees Fahrenheit. She also complains of mild nausea and a couple episodes of vomiting since symptoms began. Fever and diarrhea began this past . She presented to a local urgent care yesterday, where she underwent laboratory testing. She denies any associated abdominal pain. She denies any urinary symptoms. She denies any known sick contacts or recent foreign travel. She denies any recent antibiotic use. Pain Scale: 0 Associated symptoms: Reports: fever/chills, nausea/vomiting, other (diarrhea) - Related Data Home Medications Medication Instructions Recorded Confirmed Cetirizine HCl [All Day Allergy] 10 mg PO DAILY 11/04/17 01/27/18 Omeprazole [PriLOSEC] 40 mg PO DAILY 12/23/17 01/27/18 Acetaminophen/Aspirin/Caffeine 1 tab PO Q6HR PRN 01/27/18 01/27/18 [Excedrin EX] Allergies Allergy/AdvReac Type Severity Reaction Status Date / Time cephalexin [From Keflex] Allergy See Verified 01/27/18 12:06 Comments Cephalosporins Allergy Rash Verified 01/27/18 12:06 hydrocodone [From Vicodin] Allergy Itching Verified 01/27/18 12:06 Oxycodone [From Percocet] Allergy Itching Verified 01/27/18 12:06 propoxyphene Allergy Itching Verified 01/27/18 12:06 [From Darvocet-N 100] diphenhydramine AdvReac Mild Confusion Verified 01/27/18 12:06 [From Benadryl] codeine AdvReac Nausea Verified 01/27/18 12:06 doxycycline AdvReac Vomiting Verified 01/27/18 12:06 morphine AdvReac Nausea Verified 01/27/18 12:06 tobramycin AdvReac Chest Pain Verified 01/27/18 12:06 beta-lactam Allergy Rash Uncoded 01/27/18 12:06 All systems ED: reviewed and negative except as stated. Constitutional: Reports: as per HPI, fever, chills. Denies: weakness, weight change Eyes: Denies: eye pain, eye discharge, vision change ENT ED: Denies: ear pain, throat pain, dental pain, hearing loss, epistaxis, congestion, dysphagia Cardiovascular: Denies: chest pain, palpitations, dyspnea on exertion, edema, syncope Respiratory: Denies: cough, dyspnea, wheezes, hemoptysis, stridor Gastrointestinal: Reports: as per HPI, nausea, vomiting, diarrhea. Denies: abdominal pain, constipation, hematemesis, melena, hematochezia Genitourinary: Denies: dysuria, frequency, hematuria, discharge Musculoskeletal: Denies: back pain, neck pain, arthralgia, myalgia Integumentary: Denies: rash, abrasion, lesions Neurological: Denies: headache, weakness, numbness, paresthesias, confusion, abnormal gait, vertigo Psychiatric: Denies: anxiety, depression, suicidal thoughts, homicidal thoughts , auditory hallucinations, visual hallucinations Endocrine: Denies: fatigue Hematological/Lymphatic: Denies: easy bleeding, easy bruising Allergic/Immunologic: Denies: facial swelling, urticaria Past Medical History - Past Medical History Attestation: Yes The following information was validated with the patient. Source: patient, nursing notes reviewed Medical history: Reports: arthritis, cardiomyopathy, GERD, GI bleed, hypertension, osteoporosis, renal disease, other Surgical history: Reports: appendectomy Psychiatric history: Reports: no psych history MANAGEMENT PSYCHOLOGIST history: Reports: bilateral tubal ligation, other - Social History Smoking Status: Never smoker Smokeless Tobacco Status: No Alcohol use: Reports: none Drug use: Reports: none Physical Exam - General Limitations: no limitations General appearance: alert, in no apparent distress - Head Head exam: atraumatic, normocephalic, normal inspection - Eye Eye exam: Present: normal appearance, PERRL, EOMI. Absent: nystagmus - ENT ENT exam: mucous membranes moist - Neck Neck exam: Present: normal inspection, full ROM, trachea midline - Chest Chest inspection: Present: normal inspection, symmetric chest wall rise - Respiratory Respiratory exam: Present: normal lung sounds bilaterally. Absent: respiratory distress, wheezes, stridor, accessory muscle use, prolonged expiratory phase - Cardiovascular Cardiovascular exam: Present: regular rate, normal rhythm, normal heart sounds - Abdominal Exam Abdominal exam: Present: soft, Non-Tender, normal bowel sounds. Absent: distention, guarding, rebound, rigidity, mass - Rectal Exam Raw Material Handler present during exam: Yes (DANIEL Simental) Rectal exam: Present: heme (+) stool (faintly positive), hemorrhoids (external, non-thrombosed) - Extremities Exam Extremities exam: Present: normal inspection, full ROM. Absent: tenderness, pedal edema - Neurological Exam Neurological exam: Present: alert, oriented X3 - Psychiatric Psychiatric exam: Present: normal affect, normal mood - Skin Skin exam: Present: warm, dry, intact, normal color. Absent: rash Course Course Narrative: 1222: I spoke with Dr. Pittman of the hospitalist service who has accepted the patient for admission to the hospitalist care. Concern regarding the patient's nitrite positive urinary tract infection and a history of a left- sided nephrectomy along with acute on chronic renal insufficiency. I discussed this plan with Dr. Sarina Gilliam. Dr. Sarina Gilliam has had a wlod-yw-ovap evaluation with patient and agrees with this plan. Vital Signs Temperature 98.2 F 01/27/18 08:42 Pulse Rate 80 01/27/18 08:42 Respiratory Rate 18 01/27/18 08:42 Blood Pressure 120/73 01/27/18 08:42 O2 Sat by Pulse Oximetry 97 01/27/18 08:42 Temperature 98.2 F 01/27/18 10:09 Pulse Rate 66 01/27/18 10:09 Respiratory Rate 14 01/27/18 10:09 Blood Pressure 108/61 01/27/18 10:09 O2 Sat by Pulse Oximetry 97 01/27/18 10:09 Oxygen Delivery Oxygen Delivery Room Air Medical Decision Making - Medical Records Medical records reviewed: Yes I reviewed the patient's medical records. - Lab Data Lab results reviewed: Yes I reviewed the patient's lab results. Lab results narrative: Lab Results 05/29/18 05/29/18 05/29/18 Range/Units 08:47 08:47 08:47 WBC 7.3 (4.3-11.1) K/mcL RBC 3.26 L (3.82-4.97) M/mcL Hgb 9.1 L (11.5-15.4) g/dL Hct 29.2 L (35.3-44.9) % MCV 89.6 (83.0-100.0) fL MCH 27.9 L (28.0-33.3) pg MCHC 31.2 L (31.6-35.5) g/dL RDW 13.7 (11.5-14.5) % Plt Count 136 L (140-400) K/mcL MPV 8.9 L (9.4-12.4) fL Immature Gran % 0.7 (0-4) % Seg Neutrophils % 76.8 % Lymphocytes % 9.9 % Monocytes % 10.5 % Eosinophils % 1.7 % Basophils % 0.4 % Neutrophils # 5.6 (1.6-8.9) K/mcL Lymphocytes # 0.7 (0.6-4.6) K/mcL Monocytes # 0.8 (0.0-1.3) K/mcL Eosinophils # 0.1 (0.0-0.6) K/mcL Basophils # 0.0 (0.0-0.2) K/mcL PT 12.8 H (9.4-12.1) Seconds INR 1.2 APTT 33.6 (26.0-36.0) Seconds Sodium 136 (136-145) mEq/L Potassium 3.3 L (3.5-5.1) mEq/L Chloride 108 H (98-107) mEq/L Carbon Dioxide 19 L (23-29) mEq/L BUN 18 (8-23) mg/dL Creatinine 1.92 H (0.60-1.20) mg/dL Est GFR ( Amer) 32 L (> 60) Est GFR (Non-Af Amer) 26 L (> 60) BUN/Creatinine Ratio 9 (6-26) Glucose 154 H (70-105) mg/dL Calculated Osmolality 287 (280-300) Lactic Acid (0.5-2.2) mmol/L Calcium 8.8 (8.6-10.3) mg/dL Total Bilirubin 0.4 (0.3-1.0) mg/dL Direct Bilirubin 0.0 (0.0-0.2) mg/dL Indirect Bilirubin 0.4 (0.0-1.2) mg/dL AST 11 L (13-39) Units/L ALT 11 (7-52) Units/L Alkaline Phosphatase 72 (34-104) Units/L Serum Total Protein 6.6 (6.4-8.9) g/dL Albumin 3.7 (3.5-5.7) g/dL Globulin 2.9 (2.4-3.5) g/dL Albumin/Globulin Ratio 1.3 (1.1-2.2) Amylase 101 (29-103) Units/L Lipase 19 (11-82) Units/L Urine Color (Yellow) Urine Clarity (Clear) Urine pH (5.0-8.0) pH Units Ur Specific [place] (1.010-1.025) Urine Protein (Neg-Trace) mg/dL Urine Glucose (UA) (Normal) mg/dL Urine Ketones (Negative) mg/dL Urine Blood (Negative) Urine Nitrite (Negative) Urine Bilirubin (Negative) Urine Urobilinogen (Normal) mg/dL Ur Leukocyte Esterase (Negative) Urine Microscopic RBC (0-3) per hpf Urine Microscopic WBC (0-3) per hpf Ur Squamous Epith Cells (None-Few) per lpf Ur Transition Epith Cell (None-Few) per hpf Urine Bacteria (None-Few) per hpf Ur Culture Indicated? (NO) 01/27/18 01/27/18 Range/Units 09:22 11:34 WBC (4.3-11.1) K/mcL RBC (3.82-4.97) M/mcL Hgb (11.5-15.4) g/dL Hct (35.3-44.9) % MCV (83.0-100.0) fL MCH (28.0-33.3) pg MCHC (31.6-35.5) g/dL RDW (11.5-14.5) % Plt Count (140-400) K/mcL MPV (9.4-12.4) fL Immature Gran % (0-4) % Seg Neutrophils % % Lymphocytes % % Monocytes % % Eosinophils % % Basophils % % Neutrophils # (1.6-8.9) K/mcL Lymphocytes # (0.6-4.6) K/mcL Monocytes # (0.0-1.3) K/mcL Eosinophils # (0.0-0.6) K/mcL Basophils # (0.0-0.2) K/mcL PT (9.4-12.1) Seconds INR APTT (26.0-36.0) Seconds Sodium (136-145) mEq/L Potassium (3.5-5.1) mEq/L Chloride (98-107) mEq/L Carbon Dioxide (23-29) mEq/L BUN (8-23) mg/dL Creatinine (0.60-1.20) mg/dL Est GFR ( Amer) (> 60) Est GFR (Non-Af Amer) (> 60) BUN/Creatinine Ratio (6-26) Glucose (70-105) mg/dL Calculated Osmolality (280-300) Lactic Acid 2.2 (0.5-2.2) mmol/L Calcium (8.6-10.3) mg/dL Total Bilirubin (0.3-1.0) mg/dL Direct Bilirubin (0.0-0.2) mg/dL Indirect Bilirubin (0.0-1.2) mg/dL AST (13-39) Units/L ALT (7-52) Units/L Alkaline Phosphatase (34-104) Units/L Serum Total Protein (6.4-8.9) g/dL Albumin (3.5-5.7) g/dL Globulin (2.4-3.5) g/dL Albumin/Globulin Ratio (1.1-2.2) Amylase (29-103) Units/L Lipase (11-82) Units/L Urine Color Brown (Yellow) Urine Clarity Turbid A (Clear) Urine pH 6.0 (5.0-8.0) pH Units Ur Specific [place] 1.020 (1.010-1.025) Urine Protein 100 H (Neg-Trace) mg/dL Urine Glucose (UA) Normal (Normal) mg/dL Urine Ketones Trace H (Negative) mg/dL Urine Blood Large H (Negative) Urine Nitrite Positive A (Negative) Urine Bilirubin Negative (Negative) Urine Urobilinogen Normal (Normal) mg/dL Ur Leukocyte Esterase Large H (Negative) Urine Microscopic RBC Present (0-3) per hpf Urine Microscopic WBC TNTC H (0-3) per hpf Ur Squamous Epith Cells Many H (None-Few) per lpf Ur Transition Epith Cell Present (None-Few) per hpf Urine Bacteria Moderate H (None-Few) per hpf Ur Culture Indicated? NO. A (NO) Result diagrams: 01/27/18 08:47 01/27/18 08:47 Lab Results 01/27/18 01/27/18 01/27/18 Range/Units 08:47 08:47 08:47 WBC 7.3 (4.3-11.1) K/mcL RBC 3.26 L (3.82-4.97) M/mcL Hgb 9.1 L (11.5-15.4) g/dL Hct 29.2 L (35.3-44.9) % MCV 89.6 (83.0-100.0) fL MCH 27.9 L (28.0-33.3) pg MCHC 31.2 L (31.6-35.5) g/dL RDW 13.7 (11.5-14.5) % Plt Count 136 L (140-400) K/mcL MPV 8.9 L (9.4-12.4) fL Immature Gran % 0.7 (0-4) % Seg Neutrophils % 76.8 % Lymphocytes % 9.9 % Monocytes % 10.5 % Eosinophils % 1.7 % Basophils % 0.4 % Neutrophils # 5.6 (1.6-8.9) K/mcL Lymphocytes # 0.7 (0.6-4.6) K/mcL Monocytes # 0.8 (0.0-1.3) K/mcL Eosinophils # 0.1 (0.0-0.6) K/mcL Basophils # 0.0 (0.0-0.2) K/mcL PT 12.8 H (9.4-12.1) Seconds INR 1.2 APTT 33.6 (26.0-36.0) Seconds Sodium 136 (136-145) mEq/L Potassium 3.3 L (3.5-5.1) mEq/L Chloride 108 H (98-107) mEq/L Carbon Dioxide 19 L (23-29) mEq/L BUN 18 (8-23) mg/dL Creatinine 1.92 H (0.60-1.20) mg/dL Est GFR ( Amer) 32 L (> 60) Est GFR (Non-Af Amer) 26 L (> 60) BUN/Creatinine Ratio 9 (6-26) Glucose 154 H (70-105) mg/dL Calculated Osmolality 287 (280-300) Lactic Acid (0.5-2.2) mmol/L Calcium 8.8 (8.6-10.3) mg/dL Total Bilirubin 0.4 (0.3-1.0) mg/dL Direct Bilirubin 0.0 (0.0-0.2) mg/dL Indirect Bilirubin 0.4 (0.0-1.2) mg/dL AST 11 L (13-39) Units/L ALT 11 (7-52) Units/L Alkaline Phosphatase 72 (34-104) Units/L Serum Total Protein 6.6 (6.4-8.9) g/dL Albumin 3.7 (3.5-5.7) g/dL Globulin 2.9 (2.4-3.5) g/dL Albumin/Globulin Ratio 1.3 (1.1-2.2) Amylase 101 (29-103) Units/L Lipase 19 (11-82) Units/L Urine Color (Yellow) Urine Clarity (Clear) Urine pH (5.0-8.0) pH Units Ur Specific [place] (1.010-1.025) Urine Protein (Neg-Trace) mg/dL Urine Glucose (UA) (Normal) mg/dL Urine Ketones (Negative) mg/dL Urine Blood (Negative) Urine Nitrite (Negative) Urine Bilirubin (Negative) Urine Urobilinogen (Normal) mg/dL Ur Leukocyte Esterase (Negative) Urine Microscopic RBC (0-3) per hpf Urine Microscopic WBC (0-3) per hpf Ur Squamous Epith Cells (None-Few) per lpf Ur Transition Epith Cell (None-Few) per hpf Urine Bacteria (None-Few) per hpf Ur Culture Indicated? (NO) 01/27/18 01/27/18 Range/Units 09:22 11:34 WBC (4.3-11.1) K/mcL RBC (3.82-4.97) M/mcL Hgb (11.5-15.4) g/dL Hct (35.3-44.9) % MCV (83.0-100.0) fL MCH (28.0-33.3) pg MCHC (31.6-35.5) g/dL RDW (11.5-14.5) % Plt Count (140-400) K/mcL MPV (9.4-12.4) fL Immature Gran % (0-4) % Seg Neutrophils % % Lymphocytes % % Monocytes % % Eosinophils % % Basophils % % Neutrophils # (1.6-8.9) K/mcL Lymphocytes # (0.6-4.6) K/mcL Monocytes # (0.0-1.3) K/mcL Eosinophils # (0.0-0.6) K/mcL Basophils # (0.0-0.2) K/mcL PT (9.4-12.1) Seconds INR APTT (26.0-36.0) Seconds Sodium (136-145) mEq/L Potassium (3.5-5.1) mEq/L Chloride (98-107) mEq/L Carbon Dioxide (23-29) mEq/L BUN (8-23) mg/dL Creatinine (0.60-1.20) mg/dL Est GFR ( Amer) (> 60) Est GFR (Non-Af Amer) (> 60) BUN/Creatinine Ratio (6-26) Glucose (70-105) mg/dL Calculated Osmolality (280-300) Lactic Acid 2.2 (0.5-2.2) mmol/L Calcium (8.6-10.3) mg/dL Total Bilirubin (0.3-1.0) mg/dL Direct Bilirubin (0.0-0.2) mg/dL Indirect Bilirubin (0.0-1.2) mg/dL AST (13-39) Units/L ALT (7-52) Units/L Alkaline Phosphatase (34-104) Units/L Serum Total Protein (6.4-8.9) g/dL Albumin (3.5-5.7) g/dL Globulin (2.4-3.5) g/dL Albumin/Globulin Ratio (1.1-2.2) Amylase (29-103) Units/L Lipase (11-82) Units/L Urine Color Brown (Yellow) Urine Clarity Turbid A (Clear) Urine pH 6.0 (5.0-8.0) pH Units Ur Specific [place] 1.020 (1.010-1.025) Urine Protein 100 H (Neg-Trace) mg/dL Urine Glucose (UA) Normal (Normal) mg/dL Urine Ketones Trace H (Negative) mg/dL Urine Blood Large H (Negative) Urine Nitrite Positive A (Negative) Urine Bilirubin Negative (Negative) Urine Urobilinogen Normal (Normal) mg/dL Ur Leukocyte Esterase Large H (Negative) Urine Microscopic RBC Present (0-3) per hpf Urine Microscopic WBC TNTC H (0-3) per hpf Ur Squamous Epith Cells Many H (None-Few) per lpf Ur Transition Epith Cell Present (None-Few) per hpf Urine Bacteria Moderate H (None-Few) per hpf Ur Culture Indicated? NO. A (NO) - Radiology Data Radiology results reviewed: Yes I reviewed the patient's radiology results. Abdomen/Pelvis CT 01/27/18 10:21 IMPRESSION: 1. Diffuse bladder wall thickening with surrounding induration. Correlate clinical evidence of cystitis. 2. Left nephrectomy. D/ / 01/27/2018 11:33:01 Gilles Daily MD / saw Interpreting Provider: Gilles Daily MD
[2018-01-27] MEDS ORDERED: 0.9 % Sodium Chloride 1,000 ML IVC ONE ×2 (09:08→11:34)
[2018-01-27 09:36] LABS: Basophils % 0.4 %; Eosinophils # 0.1 K/mcL (0.0-0.6); Eosinophils % 1.7 %; Hematocrit 29.2 % (35.3-44.9); Hemoglobin 9.1 g/dL (11.5-15.4); Immature Granulocytes % 0.7 % (0-4); Lymphocytes # 0.7 K/mcL (0.6-4.6); Lymphocytes % 9.9 %; Mean Corpuscular HGB Conc 31.2 g/dL (31.6-35.5); Mean Corpuscular Hemoglobin 27.9 pg (28.0-33.3); Mean Corpuscular Volume 89.6 fL (83.0-100.0); Mean Platelet Volume 8.9 fL (9.4-12.4); Monocytes # 0.8 K/mcL (0.0-1.3); Monocytes % 10.5 %; Neutrophils # 5.6 K/mcL (1.6-8.9); Platelet Count 136 K/mcL (140-400); Red Blood Count 3.26 M/mcL (3.82-4.97); Red Cell Distribution Width 13.7 % (11.5-14.5); Segmented Neutrophils % 76.8 %
[2018-01-27 09:49] LABS: INR 1.2; Prothrombin Time 12.8 Seconds (9.4-12.1)
[2018-01-27 09:52] LABS: Activated Partial Thrombo Time 33.6 Seconds (26.0-36.0)
[2018-01-27 09:55] LABS: Albumin 3.7 g/dL (3.5-5.7); Albumin/Globulin Ratio 1.3 (1.1-2.2); Bilirubin,Indirect 0.4 mg/dL (0.0-1.2); Bilirubin,Total 0.4 mg/dL (0.3-1.0); Calcium 8.8 mg/dL (8.6-10.3); Globulin 2.9 g/dL (2.4-3.5); Potassium 3.3 mEq/L (3.5-5.1); Total Protein 6.6 g/dL (6.4-8.9)
[2018-01-27 11:45] LABS: Bilirubin,Urine Negative (Negative); Blood,Urine Large (Negative); Clarity,Urine Turbid (Clear); Glucose,Urine (UA) Normal (Normal); Ketones,Urine Trace mg/dL (Negative); Leukocyte Esterase,Urine Large (Negative); Nitrite,Urine Positive (Negative); Protein,Urine 100 mg/dL (Neg-Trace); Urobilinogen,Urine Normal (Normal)
[2018-01-27 11:46] LABS: Bacteria,Urine Moderate per hpf (None-Few); Squamous Epithelial Cell,Urine Many per lpf (None-Few); WBC,Urine TNTC per hpf (0-3)
[2018-01-27 11:48] LABS: Color,Urine Brown (Yellow)
--- NOTE | 2018-01-27 11:50 | Emergency Department Note ---
Disposition Clinical Impression: Cystitis Disposition: Home, Self-Care Referrals: Mir Gomes DO [Primary Care Provider] - Forms: ED Satisfaction Letter General Adult HPI - General Chief complaint: ED Nausea/Vomiting/Diarrhea Stated complaint: fever,diarrhea Time Seen by Provider: 01/27/18 08:46 Source: patient Mode of arrival: ambulatory Limitations: no limitations - History of Present Illness Pain Scale: 0 Associated symptoms: Reports: fever/chills, nausea/vomiting, other (diarrhea) - Related Data Home Medications Medication Instructions Recorded Confirmed Cetirizine HCl [All Day Allergy] 10 mg PO DAILY 11/04/17 12/23/17 Colestipol HCl [Colestid] 1 gm PO TID 12/23/17 12/23/17 Omeprazole [PriLOSEC] 40 mg PO DAILY 12/23/17 12/23/17 Allergies Allergy/AdvReac Type Severity Reaction Status Date / Time cephalexin [From Keflex] Allergy See Verified 12/23/17 08:02 Comments Cephalosporins Allergy Rash Verified 12/23/17 08:02 hydrocodone [From Vicodin] Allergy Itching Verified 12/23/17 08:02 Oxycodone [From Percocet] Allergy Itching Verified 12/23/17 08:02 propoxyphene Allergy Itching Verified 12/23/17 08:02 [From Darvocet-N 100] diphenhydramine AdvReac Mild Confusion Verified 12/23/17 08:02 [From Benadryl] codeine AdvReac Nausea Verified 12/23/17 08:02 doxycycline AdvReac Vomiting Verified 12/23/17 08:02 morphine AdvReac Nausea Verified 12/23/17 08:02 tobramycin AdvReac Chest Pain Verified 12/23/17 08:02 beta-lactam Allergy Rash Uncoded 12/23/17 08:02 Constitutional: Reports: as per HPI, fever, chills. Denies: weakness, weight change Eyes: Denies: eye pain, eye discharge, vision change ENT ED: Denies: ear pain, throat pain, dental pain, hearing loss, epistaxis, congestion, dysphagia Cardiovascular: Denies: chest pain, palpitations, dyspnea on exertion, edema, syncope Respiratory: Denies: cough, dyspnea, wheezes, hemoptysis, stridor Gastrointestinal: Reports: as per HPI, nausea, vomiting, diarrhea. Denies: abdominal pain, constipation, hematemesis, melena, hematochezia Genitourinary: Denies: dysuria, frequency, hematuria, discharge Musculoskeletal: Denies: back pain, neck pain, arthralgia, myalgia Integumentary: Denies: rash, abrasion, lesions Neurological: Denies: headache, weakness, numbness, paresthesias, confusion, abnormal gait, vertigo Psychiatric: Denies: anxiety, depression, suicidal thoughts, homicidal thoughts , auditory hallucinations, visual hallucinations Endocrine: Denies: fatigue Hematological/Lymphatic: Denies: easy bleeding, easy bruising Allergic/Immunologic: Denies: facial swelling, urticaria Past Medical History - Past Medical History Medical history: Reports: arthritis, cardiomyopathy, GERD, GI bleed, hypertension, osteoporosis, renal disease, other Surgical history: Reports: appendectomy Psychiatric history: Reports: no psych history [employer] history: Reports: bilateral tubal ligation, other - Social History Smoking Status: Never smoker Smokeless Tobacco Status: No Alcohol use: Reports: none Drug use: Reports: none Physical Exam - General Limitations: no limitations General appearance: alert, in no apparent distress Course Vital Signs Temperature 98.2 F 01/27/18 08:42 Pulse Rate 80 01/27/18 08:42 Respiratory Rate 18 01/27/18 08:42 Blood Pressure 120/73 01/27/18 08:42 O2 Sat by Pulse Oximetry 97 01/27/18 08:42 Temperature 98.2 F 01/27/18 10:09 Pulse Rate 66 01/27/18 10:09 Respiratory Rate 14 01/27/18 10:09 Blood Pressure 108/61 01/27/18 10:09 O2 Sat by Pulse Oximetry 97 01/27/18 10:09 Oxygen Delivery Oxygen Delivery Room Air Medical Decision Making - Lab Data Result diagrams: 01/27/18 08:47 01/27/18 08:47 Lab Results 01/27/18 01/27/18 01/27/18 Range/Units 08:47 08:47 08:47 WBC 7.3 (4.3-11.1) K/mcL RBC 3.26 L (3.82-4.97) M/mcL Hgb 9.1 L (11.5-15.4) g/dL Hct 29.2 L (35.3-44.9) % MCV 89.6 (83.0-100.0) fL MCH 27.9 L (28.0-33.3) pg MCHC 31.2 L (31.6-35.5) g/dL RDW 13.7 (11.5-14.5) % Plt Count 136 L (140-400) K/mcL MPV 8.9 L (9.4-12.4) fL Immature Gran % 0.7 (0-4) % Seg Neutrophils % 76.8 % Lymphocytes % 9.9 % Monocytes % 10.5 % Eosinophils % 1.7 % Basophils % 0.4 % Neutrophils # 5.6 (1.6-8.9) K/mcL Lymphocytes # 0.7 (0.6-4.6) K/mcL Monocytes # 0.8 (0.0-1.3) K/mcL Eosinophils # 0.1 (0.0-0.6) K/mcL Basophils # 0.0 (0.0-0.2) K/mcL PT 12.8 H (9.4-12.1) Seconds INR 1.2 APTT 33.6 (26.0-36.0) Seconds Sodium 136 (136-145) mEq/L Potassium 3.3 L (3.5-5.1) mEq/L Chloride 108 H (98-107) mEq/L Carbon Dioxide 19 L (23-29) mEq/L BUN 18 (8-23) mg/dL Creatinine 1.92 H (0.60-1.20) mg/dL Est GFR ( Amer) 32 L (> 60) Est GFR (Non-Af Amer) 26 L (> 60) BUN/Creatinine Ratio 9 (6-26) Glucose 154 H (70-105) mg/dL Calculated Osmolality 287 (280-300) Lactic Acid (0.5-2.2) mmol/L Calcium 8.8 (8.6-10.3) mg/dL Total Bilirubin 0.4 (0.3-1.0) mg/dL Direct Bilirubin 0.0 (0.0-0.2) mg/dL Indirect Bilirubin 0.4 (0.0-1.2) mg/dL AST 11 L (13-39) Units/L ALT 11 (7-52) Units/L Alkaline Phosphatase 72 (34-104) Units/L Serum Total Protein 6.6 (6.4-8.9) g/dL Albumin 3.7 (3.5-5.7) g/dL Globulin 2.9 (2.4-3.5) g/dL Albumin/Globulin Ratio 1.3 (1.1-2.2) Amylase 101 (29-103) Units/L Lipase 19 (11-82) Units/L Urine Color (Yellow) Urine Clarity (Clear) Urine pH (5.0-8.0) pH Units Ur Specific [place] (1.010-1.025) Urine Protein (Neg-Trace) mg/dL Urine Glucose (UA) (Normal) mg/dL Urine Ketones (Negative) mg/dL Urine Blood (Negative) Urine Nitrite (Negative) Urine Bilirubin (Negative) Urine Urobilinogen (Normal) mg/dL Ur Leukocyte Esterase (Negative) 01/27/18 01/27/18 Range/Units 09:22 11:34 WBC (4.3-11.1) K/mcL RBC (3.82-4.97) M/mcL Hgb (11.5-15.4) g/dL Hct (35.3-44.9) % MCV (83.0-100.0) fL MCH (28.0-33.3) pg MCHC (31.6-35.5) g/dL RDW (11.5-14.5) % Plt Count (140-400) K/mcL MPV (9.4-12.4) fL Immature Gran % (0-4) % Seg Neutrophils % % Lymphocytes % % Monocytes % % Eosinophils % % Basophils % % Neutrophils # (1.6-8.9) K/mcL Lymphocytes # (0.6-4.6) K/mcL Monocytes # (0.0-1.3) K/mcL Eosinophils # (0.0-0.6) K/mcL Basophils # (0.0-0.2) K/mcL PT (9.4-12.1) Seconds INR APTT (26.0-36.0) Seconds Sodium (136-145) mEq/L Potassium (3.5-5.1) mEq/L Chloride (98-107) mEq/L Carbon Dioxide (23-29) mEq/L BUN (8-23) mg/dL Creatinine (0.60-1.20) mg/dL Est GFR ( Amer) (> 60) Est GFR (Non-Af Amer) (> 60) BUN/Creatinine Ratio (6-26) Glucose (70-105) mg/dL Calculated Osmolality (280-300) Lactic Acid 2.2 (0.5-2.2) mmol/L Calcium (8.6-10.3) mg/dL Total Bilirubin (0.3-1.0) mg/dL Direct Bilirubin (0.0-0.2) mg/dL Indirect Bilirubin (0.0-1.2) mg/dL AST (13-39) Units/L ALT (7-52) Units/L Alkaline Phosphatase (34-104) Units/L Serum Total Protein (6.4-8.9) g/dL Albumin (3.5-5.7) g/dL Globulin (2.4-3.5) g/dL Albumin/Globulin Ratio (1.1-2.2) Amylase (29-103) Units/L Lipase (11-82) Units/L Urine Color Brown (Yellow) Urine Clarity Turbid A (Clear) Urine pH 6.0 (5.0-8.0) pH Units Ur Specific [place] 1.020 (1.010-1.025) Urine Protein 100 H (Neg-Trace) mg/dL Urine Glucose (UA) Normal (Normal) mg/dL Urine Ketones Trace H (Negative) mg/dL Urine Blood Large H (Negative) Urine Nitrite Positive A (Negative) Urine Bilirubin Negative (Negative) Urine Urobilinogen Normal (Normal) mg/dL Ur Leukocyte Esterase Large H (Negative) Attestation Statement - Attestation Attestation: For this encounter, I have reviewed the [employer] or PA documentation, treatment plan, and medical decision making; and I have had face to face time with this patient. 62 year old female present to the ED and it appers that she has cystitis and has been dealing with fevers at home and has BORIS. We are waiting on urine but have given her IV hydraiton and states that she is feeling better. She was originally sent for recheck of lipase which is nromal. WE will likely admit if postitive UTI.
[2018-01-27 12:02] LABS: Transitional Epi Cells,Urine Present per hpf (None-Few)
[2018-01-27 12:03] LABS: RBC,Urine Present per hpf (0-3)
[2018-01-27] MEDS ORDERED: Acetaminophen 325 MG TABLET PO PRN (13:18)
[2018-01-27] MEDS ORDERED: Naloxone 0.4 MG/ML INJ IVP PRN (13:20)
[2018-01-27] MEDS ORDERED: traMADol 50 MG TABLET PO PRN (13:20)
--- NOTE | 2018-01-27 13:25 | Internal Med History&Physical ---
Date of Encounter: 01/27/18 Time of Encounter: 13:22 Internal Medicine - H&P: HPI Chief complaint: Dehydration, nausea, vomiting and diarrhea Admitted From: Emergency Dept History of present illness: Ms. Hannon is a 62 year old female with a past medical history of nephrectomy, Takotsubo cardiomyopathy, chronic kidney disease stage III, GERD and recurrent urinary tract infections came to emergency room complaining of fever of 102, watery diarrhea since , chills, mild dysuria, nausea and vomiting. Became dehydrated, her creatinine has increased up to 1.92 from a baseline of 1.53. CT scan of the abdomen shows possible cystitis. Patient has been having also watery diarrhea and has had 4 episodes since yesterday, glucose is 154 today and hemoglobin is 9.1) baseline. Denies any cramps, no sick contacts or traveling. She says that in the past she had a documented allergy to penicillin but she has been able to take penicillin related medications without any problems recently. Was given ciprofloxacin at the emergency room as her UA suggested a UTI. Past Med Surg Social Fam HX - Past Medical History Medical history: arthritis, cardiomyopathy (Ejection fraction on last echocardiogram was 40-45% showed mild diastolic dysfunction and had history of possible Takotsubo cardiomyopathy), GERD, GI bleed, hypertension, osteoporosis, renal disease (Chronic kidney disease stage III), other (Recurrent urinary tract infections, osteoporosis, chronic iron deficiency anemia) Psychiatric history: no psych history - Past Surgical History Surgical History: appendectomy, other (Nephrectomy, ureter reconstruction, colon surgery) - Social History Smoking Status: Never smoker Smokeless Tobacco Status: No Alcohol use: none Drug use: none - Family History Mother Living Status: Hx Family Cardiac Disorders: Yes Hx Family Respiratory Disorders: No Hx Family Cancer: No Hx Family GI Disorders: No Hx Family Endocrine Disorder: No Hx Family Neuromuscular Disorders: No Hx Family Neurologic Disorders: Yes (stroke) Hx Family HEENT Disorders: No Hx Family Autoimmune Disorders: No - Additional Family History Additional family history: Mother with CVA Internal Medicine - H&P: Meds Cetirizine HCl [All Day Allergy] 10 mg PO DAILY 11/04/17 [History] Omeprazole [PriLOSEC] 40 mg PO DAILY 12/23/17 [History] Acetaminophen/Aspirin/Caffeine [Excedrin EX] 1 tab PO Q6HR PRN 01/27/18 [History ] 3 Allergy/AdvReac Type Severity Reaction Status Date / Time cephalexin [From Keflex] Allergy See Verified 01/27/18 12:06 Comments Cephalosporins Allergy Rash Verified 01/27/18 12:06 hydrocodone [From Vicodin] Allergy Itching Verified 01/27/18 12:06 Oxycodone [From Percocet] Allergy Itching Verified 01/27/18 12:06 propoxyphene Allergy Itching Verified 01/27/18 12:06 [From Darvocet-N 100] diphenhydramine AdvReac Mild Confusion Verified 01/27/18 12:06 [From Benadryl] codeine AdvReac Nausea Verified 01/27/18 12:06 doxycycline AdvReac Vomiting Verified 01/27/18 12:06 morphine AdvReac Nausea Verified 01/27/18 12:06 tobramycin AdvReac Chest Pain Verified 01/27/18 12:06 beta-lactam Allergy Rash Uncoded 01/27/18 12:06 All Systems PM: A 10-system review of systems was performed and is negative for pertinent findings except as documented above in the HPI. Review of systems: Mild headache, no chest pain or shortness of breath, other systems out of the 10 reviewed were negative - Constitutional Vitals: Temp Pulse Resp BP Pulse Ox 98.2 F 66 14 108/61 97 01/27/18 10:09 01/27/18 10:09 01/27/18 10:09 01/27/18 10:09 01/27/18 10:09 General appearance: Present: A&O X 3 - Head Head exam: Present: atraumatic, normocephalic Additional comments: Appears dehydrated, dry mucosa - Eye Eye exam: Present: PERRL, conjuntiva pink, sclera anicteric Pupils: Present: PERRL - Neck Neck exam general surgery: Present: supple, trachea midline. Absent: lymphadenopathy - Respiratory Respiratory exam: Present: CTAB. Absent: accessory muscle use, rales, rhonchi, wheezes - Cardiovascular Cardiovascular exam: Present: RRR, +S1, +S2. Absent: diastolic murmur, gallop, rubs, systolic murmur - GI/Abdominal GI/Abdominal exam: Present: normal bowel sounds, soft, no peritoneal signs. Absent: distended, tenderness - Extremities Exam Extremities exam: Present: warm, radial pulses palpable and symmetrical. Absent : calf tenderness, cyanotic, pedal edema - Neurological Exam Neurological exam: Present: CN II-XII intact, oriented X3, no focal deficits. Absent: pronater drift, facial droop, speech deficit - Skin Skin exam: Present: dry, intact Internal Med - H&P Results - Labs CBC & Chem 7: 01/27/18 08:47 01/27/18 08:47 - Assessment and plan (1) Dehydration Current Visit: Yes Status: Acute Assessment and plan: Dehydration secondary to acute gastroenteritis and UTI Continue ciprofloxacin, culture ordered Continue IV fluids, Zofran as needed Omeprazole for GI prophylaxis and subcutaneous tenderness heparin for DVT prophylaxis. The patient will be admitted for observation. Full code. Time spent on this admission 40 minutes (2) Gastroenteritis Current Visit: No Status: Acute Assessment and plan: Send a GI panel (3) Hypokalemia Current Visit: No Status: Acute Assessment and plan: At potassium to IV fluids, give oral potassium as well (4) Nausea & vomiting Current Visit: No Status: Acute Qualifiers: Vomiting type: unspecified Vomiting Intractability: unspecified Qualified Code(s): R11.2 - Nausea with vomiting, unspecified (5) Anemia of chronic disease Current Visit: No Status: Chronic Assessment and plan: Stable (6) Chronic renal failure, stage 3 (moderate) Current Visit: No Status: Chronic (7) HTN (hypertension) Current Visit: No Status: Chronic Qualifiers: Hypertension type: essential hypertension Qualified Code(s): I10 - Essential (primary) hypertension (8) Recurrent UTI Current Visit: No Status: Chronic - Time Spent With Patient Total time spent is greater than 50% in coordination of care (as documented) at patient's floor/unit and/or counseling patient:
[2018-01-27] MEDS ORDERED: Ondansetron 4 MG/2 ML VIAL IVP PRN (13:28)
[2018-01-27] MEDS: *HR* Heparin 5,000 UNIT/ML VIAL SQ SCH ×2 (15:42→23:28)
[2018-01-27] MEDS ORDERED: Vancomycin Oral Soln 125 MG/2.5 ML UDC PO SCH (17:00)
[2018-01-27] MEDS: Acetaminophen/Aspirin/Caffeine TABLET PO PRN (18:21)
[2018-01-27] MEDS: Vancomycin Oral Soln 125 MG/2.5 ML UDC PO SCH ×2 (18:23→23:16)
[2018-01-28] MEDS: *HR* Heparin 5,000 UNIT/ML VIAL SQ SCH ×4 (05:30→20:59)
[2018-01-28 06:24] LABS: Hematocrit 28.2 % (35.3-44.9); Hemoglobin 8.8 g/dL (11.5-15.4); Mean Corpuscular HGB Conc 31.2 g/dL (31.6-35.5); Mean Corpuscular Hemoglobin 27.9 pg (28.0-33.3); Mean Corpuscular Volume 89.5 fL (83.0-100.0); Mean Platelet Volume 8.8 fL (9.4-12.4); Platelet Count 129 K/mcL (140-400); Red Blood Count 3.15 M/mcL (3.82-4.97); Red Cell Distribution Width 13.8 % (11.5-14.5)
[2018-01-28 06:46] LABS: Calcium 8.3 mg/dL (8.6-10.3); Potassium 4.4 mEq/L (3.5-5.1)
[2018-01-28 08:03] LABS: Estimated Average Glucose 97 mg/dl
[2018-01-28] MEDS: Vancomycin Oral Soln 125 MG/2.5 ML UDC PO SCH ×4 (09:23→20:59)
--- NOTE | 2018-01-28 12:53 | Internal Med Progress Note ---
Date of Encounter: 01/28/18 Time of Encounter: 10:00 - Assessment and plan (1) Urinary tract infection Current Visit: Yes Status: Chronic Assessment and plan: ET scan of abdomen and pelvis did show bladder wall thickening. Some thought that there may be fecal contamination of her urine, but with the finding of bladder wall thickening I do believe a urinary tract infection is an issue. Await culture data, monitor. Anticipate a 3-5 day course of Cipro, especially with a new diagnosis of C. difficile colitis. Qualifiers: Urinary tract infection type: acute cystitis Hematuria presence: with hematuria Qualified Code(s): N30.01 - Acute cystitis with hematuria (2) Clostridium difficile infection Current Visit: No Status: Suspected Assessment and plan: Unclear how she got this. She states she may have been exposed to a caregiver who may have exposure. She is currently day 2 of enteric vancomycin 125 mg by mouth 4 times a day, anticipate 10-14 day course of therapy. Monitor. (3) Anemia of chronic disease Current Visit: No Status: Chronic Assessment and plan: Stable (4) Chronic renal failure, stage 3 (moderate) Current Visit: No Status: Chronic Assessment and plan: Pt has acute kidney injury on chronic kidney disease stage III. Creatinine did improve with IV fluids. Avoid nephrotoxins. Monitor. Suspect she was dehydrated on arrival. (5) Hypokalemia Current Visit: No Status: Acute Assessment and plan: At potassium to IV fluids, give oral potassium as well 01/28: Improved. Likely due to GI losses. (6) HTN (hypertension) Current Visit: No Status: Chronic Assessment and plan: Pressure under excellent control. Monitor Qualifiers: Hypertension type: essential hypertension Qualified Code(s): I10 - Essential (primary) hypertension (7) Nausea & vomiting Current Visit: No Status: Acute Assessment and plan: Due to colitis and urinary tract infection. Also dehydration. This is improved. Monitor Qualifiers: Vomiting type: unspecified Vomiting Intractability: unspecified Qualified Code(s): R11.2 - Nausea with vomiting, unspecified (8) Dehydration Current Visit: Yes Status: Acute Assessment and plan: Dehydration secondary to acute gastroenteritis and UTI Continue ciprofloxacin, culture ordered Continue IV fluids, Zofran as needed Omeprazole for GI prophylaxis and subcutaneous tenderness heparin for DVT prophylaxis. The patient will be admitted for observation. Full code. Time spent on this admission 40 minutes 01/28: Continue IV fluids. Encourage clear liquid diet. Monitor. - Time Spent With Patient Total time spent is greater than 50% in coordination of care (as documented) at patient's floor/unit and/or counseling patient: 25 - 35 minutes - Subjective Interval history: Ms. Hannon is a 62 year old female with a past medical history of nephrectomy, Takotsubo cardiomyopathy, chronic kidney disease stage III, GERD and recurrent urinary tract infections came to emergency room complaining of fever of 102, watery diarrhea since , chills, mild dysuria, nausea and vomiting. Became dehydrated, her creatinine has increased up to 1.92 from a baseline of 1.53. CT scan of the abdomen shows possible cystitis. Patient has been having also watery diarrhea and has had 4 episodes since yesterday, glucose is 154 today and hemoglobin is 9.1) baseline. Denies any cramps, no sick contacts or traveling. She says that in the past she had a documented allergy to penicillin but she has been able to take penicillin related medications without any problems recently. Was given ciprofloxacin at the emergency room as her UA suggested a UTI. 01/28: Patient is had 2 or 3 loose stools this morning. No blood. No abdominal pain. Otherwise she states she is feeling much better nausea or vomiting. No fevers or chills. No chest pain or shortness of breath. She denies any urinary complaints whatsoever. Patient's C. difficile PCR came back positive and she was started on empiric vancomycin 125 mg by mouth 4 times a day on January 27. Patient denies antibiotic use at all within the last few years. No history of C. difficile. - Constitutional Vitals: Temp Pulse Resp BP Pulse Ox 97.7 F 69 16 130/74 100 01/28/18 11:06 01/28/18 11:06 01/28/18 11:06 01/28/18 11:06 01/28/18 11:06 General appearance: Present: A&O X 3 - Head Head exam: Present: atraumatic, normocephalic - Eye Eye exam: Present: PERRL, conjuntiva pink, sclera anicteric Pupils: Present: PERRL - Neck Neck exam general surgery: Present: supple, trachea midline. Absent: lymphadenopathy - Respiratory Respiratory exam: Present: CTAB. Absent: accessory muscle use, rales, rhonchi, wheezes - Cardiovascular Cardiovascular exam: Present: RRR, +S1, +S2. Absent: diastolic murmur, gallop, rubs, systolic murmur - GI/Abdominal GI/Abdominal exam: Present: normal bowel sounds, soft, no peritoneal signs. Absent: distended, tenderness - Extremities Exam Extremities exam: Present: warm, radial pulses palpable and symmetrical. Absent : calf tenderness, cyanotic, pedal edema - Neurological Exam Neurological exam: Present: CN II-XII intact, oriented X3, no focal deficits. Absent: pronater drift, facial droop, speech deficit - Skin Skin exam: Present: dry, intact Internal Medicine: Result - Labs CBC & Chem 7: 01/28/18 06:06 01/28/18 06:06 Labs: Short CBC 01/28/18 Range/Units 06:06 WBC 5.6 (4.3-11.1) K/mcL Hgb 8.8 L (11.5-15.4) g/dL Hct 28.2 L (35.3-44.9) % Plt Count 129 L (140-400) K/mcL [facility] 01/28/18 06:06 Sodium 137 Potassium 4.4 D Chloride 116 H Carbon Dioxide 16 L BUN 14 Creatinine 1.54 H Glucose 111 H Calcium 8.3 L - ABG Interpretation ABG results: PT/INR, D-dimer PT 12.8 Seconds (9.4-12.1) H 01/27/18 08:47 Consult Discharge Plan - Plan Referrals: Mir Gomes DO [Primary Care Provider] -
[2018-01-28] MEDS: Acetaminophen/Aspirin/Caffeine TABLET PO PRN (12:56)
[2018-01-28] MEDS: 0.9 % Sodium Chloride 1,000 ML IVC SCH (17:20)
[2018-01-29] MEDS: 0.9 % Sodium Chloride 1,000 ML IVC SCH (04:32)
[2018-01-29] MEDS: Acetaminophen/Aspirin/Caffeine TABLET PO PRN (04:46)
[2018-01-29] MEDS: *HR* Heparin 5,000 UNIT/ML VIAL SQ SCH (05:41)
[2018-01-29] MEDS: Vancomycin Oral Soln 125 MG/2.5 ML UDC PO SCH ×2 (09:17→12:22)
[2018-01-29 10:52] VITALS: BP 118/76
--- NOTE | 2018-01-29 11:37 | Discharge Summary ---
- NOTES TO OUTPATIENT PROVIDER Notes to Outpatient Provider: Pt ith thickened bladder wall on CT concerning for cystitis. She is receiving a short course of Cipro. She is asymptomatic. Recommend she follow this up with urologist. Date of Encounter: 01/29/18 Time of Encounter: 11:35 - Discharge Diagnosis (1) Urinary tract infection Priority: Primary Status: Chronic Assessment and Plan: CT scan of abdomen and pelvis did show bladder wall thickening. Some thought that there may be fecal contamination of her urine, but with the finding of bladder wall thickening I do believe a urinary tract infection is an issue. Await culture data, monitor. Anticipate a 3-5 day course of Cipro, especially with a new diagnosis of C. difficile colitis. 01/29: Suspect patient had a cystitis. Rule out that there is contamination of her urine but nonetheless there was thickening of her bladder wall, and therefore she was treated with a short course course of abx. Patient received 2 doses of Cipro in the hospital, her urine grew out Escherichia coli and staph aureus. Based on sensitivities and listed drug allergies.she was changed to Macrobid to complete a 5 day course I do not suspect a staph aureus is related to systemic infection. Cannot rule out the fact that her organisms were due to fecal contamination however she did have blwill follow-up with her urologist. Qualifiers: Urinary tract infection type: acute cystitis Hematuria presence: with hematuria Qualified Code(s): N30.01 - Acute cystitis with hematuria (2) Clostridium difficile infection Priority: Primary Status: Suspected Assessment and Plan: Unclear how she got this. She states she may have been exposed to a caregiver who may have exposure. She is currently day 2 of enteric vancomycin 125 mg by mouth 4 times a day, anticipate 10-14 day course of therapy. Monitor. 01/29: #3 of a planned 14 day course of enteric vancomycin. Follow-up with primary care provider. (3) Anemia of chronic disease Priority: Secondary Status: Chronic (4) Chronic renal failure, stage 3 (moderate) Priority: Secondary Status: Chronic Assessment and Plan: Pt has acute kidney injury on chronic kidney disease stage III. Creatinine did improve with IV fluids. Avoid nephrotoxins. Monitor. Suspect she was dehydrated on arrival. 01/29: Cr improved (5) Hypokalemia Priority: Secondary Status: Acute Assessment and Plan: At potassium to IV fluids, give oral potassium as well 01/28: Improved. Likely due to GI losses. (6) HTN (hypertension) Priority: Secondary Status: Chronic Assessment and Plan: Pressure under excellent control. Monitor Qualifiers: Hypertension type: essential hypertension Qualified Code(s): I10 - Essential (primary) hypertension (7) Nausea & vomiting Priority: Secondary Status: Acute Assessment and Plan: Due to colitis and urinary tract infection. Also dehydration. This is improved. Monitor 01/29: Resolved Qualifiers: Vomiting type: unspecified Vomiting Intractability: unspecified Qualified Code(s): R11.2 - Nausea with vomiting, unspecified (8) Dehydration Priority: Secondary Status: Acute Hospital course: Ms. Hannon is a 62 year old female Ms. Hannon is a 62 year old female with a past medical history of nephrectomy, Takotsubo cardiomyopathy, chronic kidney disease stage III, GERD and recurrent urinary tract infections came to emergency room complaining of fever of 102, watery diarrhea since , chills, mild dysuria, nausea and vomiting. Became dehydrated, her creatinine has increased up to 1.92 from a baseline of 1.53. CT scan of the abdomen shows possible cystitis. Patient has been having also watery diarrhea and has had 4 episodes since yesterday, glucose is 154 today and hemoglobin is 9.1) baseline. Denies any cramps, no sick contacts or traveling. She says that in the past she had a documented allergy to penicillin but she has been able to take penicillin related medications without any problems recently. Was given ciprofloxacin at the emergency room as her UA suggested a UTI. 01/28: Patient is had 2 or 3 loose stools this morning. No blood. No abdominal pain. Otherwise she states she is feeling much better nausea or vomiting. No fevers or chills. No chest pain or shortness of breath. She denies any urinary complaints whatsoever. Patient's C. difficile PCR came back positive and she was started on empiric vancomycin 125 mg by mouth 4 times a day on January 27. Patient denies antibiotic use at all within the last few years. No history of C. difficile. 01/29: Patient did well. Continue enteric vancomycin to complete a 14 day course. Currently day 3 of vancomycin for C. difficile colitis. She had cystitis noted on a CAT scan and a markedly positive UA. There was concern that there was contamination as there was lots of epithelial cells. Thus I elected to treat for shorter duration with just 5 days of antibiotics. She received 2 days of Cipro and then was transitioned to 3 additional days of Keflex to complete a 5 day course. Cultures grew out staph aureus and Escherichia coli. I did not believe the staph aureus was due to systemic seeding. She will follow-up with her urologist. On day of discharge patient was doing well without any complaints and asking to go home. Patient stable for discharge. Discharge discussed with: patient - Time Spent with Patient Total time spent providing and/or coordinating discharge services: Less than 30 minutes - Discharge Medications Home Medications: Cetirizine HCl [All Day Allergy] 10 mg PO DAILY 11/04/17 [History] Omeprazole [PriLOSEC] 40 mg PO DAILY 12/23/17 [History] Acetaminophen/Aspirin/Caffeine [Excedrin EX] 1 tab PO Q6HR PRN 01/27/18 [History ] Allergies/Adverse Reactions: 3 Allergy/AdvReac Type Severity Reaction Status Date / Time cephalexin [From Keflex] Allergy See Verified 01/27/18 12:06 Comments Cephalosporins Allergy Rash Verified 01/27/18 12:06 hydrocodone [From Vicodin] Allergy Itching Verified 01/27/18 12:06 Oxycodone [From Percocet] Allergy Itching Verified 01/27/18 12:06 propoxyphene Allergy Itching Verified 01/27/18 12:06 [From Darvocet-N 100] diphenhydramine AdvReac Mild Confusion Verified 01/27/18 12:06 [From Benadryl] codeine AdvReac Nausea Verified 01/27/18 12:06 doxycycline AdvReac Vomiting Verified 01/27/18 12:06 morphine AdvReac Nausea Verified 01/27/18 12:06 tobramycin AdvReac Chest Pain Verified 01/27/18 12:06 beta-lactam Allergy Rash Uncoded 01/27/18 12:06 Date of admission: 01/27/18 12:43 Primary care physician: Sirena Taylor Discharging clinician: Darryn Tyler Anticipated date of discharge: 01/29/18 - Constitutional Vitals: Temp Pulse Resp BP Pulse Ox 97.7 F 65 16 118/76 100 01/29/18 10:45 01/29/18 10:45 01/29/18 10:45 01/29/18 10:45 01/29/18 10:45 General appearance: Present: A&O X 3 - Patient Status Disposition: Home, Self-Care Condition: Fair Functional capacity at discharge: independent ambulation Overall status at discharge: patient is back to baseline - Discharge Instructions Instructions: Clostridium Difficile Infection (GEN) Follow Up With: Mir Gomes DO [Primary Care Provider] - Additional Instructions: Follow up in one week - Diet and Activity Activity: increase activity as tolerated Diet: advance to your usual diet
== END 2018-01-29 14:04 | disposition home or self-care (01) ==
LOC: 3ANU 08:40 → EMEROO 08:40 → 3ANU 13:41
PROVIDERS: ADMIT Family Medicine; ATTEND Family Medicine

== ENCOUNTER 2018-10-04 10:38 | Inpatient (IN) ==
[2018-10-04] MEDS ORDERED: 0.9 % Sodium Chloride 1,000 ML IVC ONE (11:07)
[2018-10-04] MEDS ORDERED: Ondansetron 4 MG/2 ML VIAL IVP ONE (11:07)
--- NOTE | 2018-10-04 11:12 | Emergency Department Note ---
Disposition Clinical Impression: Hemorrhagic cystitis, Small bowel obstruction, Nausea vomiting and diarrhea Disposition: Admitted As Inpatient Condition: Good Referrals: Mir Gomes DO [Primary Care Provider] - Forms: ED Satisfaction Letter Time of Disposition: 13:29 General Adult HPI - General Chief complaint: ED Shortness of Breath/Dyspnea Stated complaint: SOB/Abd Pain/NVD Time Seen by Provider: 10/04/18 10:41 Source: patient, family (Granddaughter) Limitations: no limitations Nursing Notes Reviewed: Yes Vital Signs Reviewed: Yes - History of Present Illness HPI Narrative: 63-year-old female history of iron deficiency anemia presents to the emergency department with multiple complaints. She states starting last night she began developing a doll cramping sensation in the epigastric region with constant nausea and vomiting. Initially she was dry retching in later last night and into this morning has vomited up to 20 times. She describes a brown color. Denies blood. Nothing seems to make it better or worse. She also reports dyspn ea on exertion. This is something new. Walking from the [facility] to the emergency department made her very winded. She denies any chest pain associated with this. She reports a history of iron deficiency anemia as well as hematuria that has been evaluated by her urologist Dr. Contreras. She denies any urinary symptoms. She is scheduled for iron transfusion October 08 which is 4 days from now. She was seen and evaluated yesterday for similar symptoms of dizziness and weakness and was discharged home. She is concerned that she may ED hydrated or requires blood transfusion. She takes Excedrin daily for her arthritis. She has a known left nephrectomy with colectomy from diverticulitis. She is been experiencing nonbloody loose stools throughout last night. No history of bowel obstruction. Pain Scale: 0 - Related Data Home Medications Medication Instructions Recorded Confirmed Cetirizine HCl [All Day Allergy] 10 mg PO DAILY 11/04/17 01/27/18 Omeprazole [PriLOSEC] 40 mg PO DAILY 12/23/17 01/27/18 Acetaminophen/Aspirin/Caffeine 1 tab PO Q6HR PRN 01/27/18 01/27/18 [Excedrin EX] Previous Rx's Medication Instructions Recorded Nitrofurantoin Monohyd/M-Cryst 100 mg PO BID 3 Days #6 capsule 01/29/18 [Macrobid 100 mg Capsule] Vancomycin Oral Soln [Firvanq] 125 mg PO QID 11 Days #44 udc 01/29/18 Allergies Allergy/AdvReac Type Severity Reaction Status Date / Time cephalexin [From Keflex] Allergy See Verified 01/27/18 12:06 Comments Cephalosporins Allergy Rash Verified 01/27/18 12:06 hydrocodone [From Vicodin] Allergy Itching Verified 01/27/18 12:06 oxycodone [From Percocet] Allergy Itching Verified 01/27/18 12:06 propoxyphene Allergy Itching Verified 01/27/18 12:06 [From Darvocet-N 100] diphenhydramine AdvReac Mild Confusion Verified 01/27/18 12:06 [From Benadryl] codeine AdvReac Nausea Verified 01/27/18 12:06 doxycycline AdvReac Vomiting Verified 01/27/18 12:06 morphine AdvReac Nausea Verified 01/27/18 12:06 tobramycin AdvReac Chest Pain Verified 01/27/18 12:06 beta-lactam Allergy Rash Uncoded 01/27/18 12:06 All systems ED: reviewed and negative except as stated. Review of Systems: As Per HPI Constitutional: Reports: chills. Denies: fever ENT ED: Denies: congestion Cardiovascular: Denies: chest pain, syncope Respiratory: Reports: cough, dyspnea. Denies: sputum production Gastrointestinal: Reports: abdominal pain, nausea, vomiting, diarrhea. Denies: hematemesis, melena, hematochezia Genitourinary: Reports: hematuria. Denies: urgency, dysuria, discharge Musculoskeletal: Denies: back pain Integumentary: Denies: rash, abrasion Past Medical History - Past Medical History Attestation: Yes The following information was validated with the patient. 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 Absent: scleral icterus - ENT ENT exam: normal exam, normal oropharynx, mucous membranes moist - Neck Neck exam: Present: normal inspection, full ROM, trachea midline - Chest Chest inspection: Present: normal inspection, symmetric chest wall rise - Respiratory Respiratory exam: Present: normal lung sounds bilaterally - Cardiovascular Cardiovascular exam: Present: regular rate, normal rhythm, normal heart sounds - Abdominal Exam Abdominal exam: Present: soft, tenderness, normal bowel sounds, scar (Midline). Absent: Non-Tender, distention, guarding, rebound, rigidity, tenderness at McBurney's Point - Extremities Exam Extremities exam: Present: normal inspection, full ROM, normal capillary refill. Absent: tenderness, pedal edema - Back Exam Back exam: Present: normal inspection, full ROM. Absent: tenderness, CVA tenderness (R), CVA tenderness (L) - Neurological Exam Neurological exam: Present: alert, oriented X3 - Psychiatric Psychiatric exam: Present: normal affect, normal mood - Skin Skin exam: Present: warm, dry, intact, pallor. Absent: rash, cyanosis, diaphoresis Course Course Narrative: Patient presents with persistent weakness for past 2 weeks evaluated by her primary care provider scheduled for iron transfusion and was also evaluated yesterday. She has developed nausea vomiting with abdominal pain and some dyspnea. Denies any chest pain. No history of cardiac ischemic disease. On examination patient is afebrile and not tachycardic. She appears in no acute distress. Her lungs are clear auscultation bilaterally. She has mild tenderness in the epigastric region. She reports up the 20 episodes of nonbloody emesis. She is had multiple abdominal surgeries. At this time will evaluate her for possible dehydration with symptom control of IV fluids and Zofran. Will also obtain a CT scan without contrast to evaluate for obstruction or any other etiology. Suspect likely a viral gastroenteritis but cannot rule out anemia or G.I. bleed. - Reevaluation(s) Reevaluation #1: Hemoglobin is stable at 10. Her BUN and creatinine are elevated above baseline. Suggestive of possible prerenal dehydration acute kidney injury. CT scan showed multiple dilated small bowel loops concerning for small bowel obstruction with a possible transition point. At this time her symptoms have been controlled. Will defer NG tube placement to hospitalist team. Patient will be admitted for further management. Impression is small bowel traction. [facility] called regarding an addendum to the report concerning for cystitis. Review of her urinalysis is concerning for hemorrhagic cystitis. I reviewed her prior urine cultures insensitivities, she is resistant to multiple medications however Zosyn continues to be susceptible to the multiple organisms she has grown in the past. Will treat with this antibiotic. - Consultations Consultation #1: Patient symptoms have been controlled with medications. I consulted the doctor sending who the patient has been established with in the past who will be happy to consult the patient on the floor for her small bowel obstruction. No further orders at this time. Spoke with on-call hospitalist chery Tian to admit for SBO and cystitis. No further orders at this time Time: 13:25 Vital Signs Temperature 97.8 F 10/04/18 10:48 Pulse Rate 84 10/04/18 10:48 Respiratory Rate 20 10/04/18 10:48 Blood Pressure 139/84 10/04/18 10:48 O2 Sat by Pulse Oximetry 100 10/04/18 10:48 Temperature 97.8 F 10/04/18 10:48 Pulse Rate 76 10/04/18 13:07 Respiratory Rate 20 10/04/18 10:48 Blood Pressure 131/80 10/04/18 13:07 O2 Sat by Pulse Oximetry 100 10/04/18 13:07 Oxygen Delivery Oxygen Delivery Room Air Medical Decision Making - MDM Narrative Medical decision making narrative: Patient was discussed with my attending physician who agrees with ED management and final disposition. They independently evaluated the patient. Please refer to their attestation to this encounter for additional information. This note was generated by [employer] voice recognition software and as a result grammatical or spelling errors may occur using this program. - Medical Records Medical records reviewed: Yes I reviewed the patient's medical records. - Lab Data Lab results reviewed: Yes I reviewed the patient's lab results. Result diagrams: 10/04/18 11:25 10/04/18 11:25 Lab Results 10/04/18 10/04/18 Range/Units 11:25 11:25 WBC 9.6 (4.3-11.1) K/mcL RBC 4.37 (3.82-4.97) M/mcL Hgb 10.4 L (11.5-15.4) g/dL Hct 35.5 (35.3-44.9) % MCV 81.2 L (83.0-100.0) fL MCH 23.8 L (28.0-33.3) pg MCHC 29.3 L (31.6-35.5) g/dL RDW 15.5 H (11.5-14.5) % Plt Count 185 (140-400) K/mcL MPV 9.1 L (9.4-12.4) fL Immature Gran % 0.5 (0-4) % Seg Neutrophils % 87.9 % Lymphocytes % 5.9 % Monocytes % 4.4 % Eosinophils % 0.9 % Basophils % 0.4 % Neutrophils # 8.5 (1.6-8.9) K/mcL Lymphocytes # 0.6 (0.6-4.6) K/mcL Monocytes # 0.4 (0.0-1.3) K/mcL Eosinophils # 0.1 (0.0-0.6) K/mcL Basophils # 0.0 (0.0-0.2) K/mcL Sodium 137 (136-145) mEq/L Potassium 4.8 (3.5-5.1) mEq/L Chloride 111 H (98-107) mEq/L Carbon Dioxide 16 L (23-29) mEq/L BUN 45 H (8-23) mg/dL Creatinine 2.03 H (0.60-1.20) mg/dL Est GFR ( Amer) 30 L (> 60) Est GFR (Non-Af Amer) 25 L (> 60) BUN/Creatinine Ratio 22 (6-26) Glucose 131 H (70-105) mg/dL Calculated Osmolality 297 (280-300) Calcium 9.1 (8.6-10.3) mg/dL Total Bilirubin 0.4 (0.3-1.0) mg/dL Direct Bilirubin 0.0 (0.0-0.2) mg/dL Indirect Bilirubin 0.4 (0.0-1.2) mg/dL AST 15 (13-39) Units/L ALT 11 (7-52) Units/L Alkaline Phosphatase 75 (34-104) Units/L Troponin I < 0.03 (< 0.04) ng/mL Serum Total Protein 7.8 (6.4-8.9) g/dL Albumin 4.5 (3.5-5.7) g/dL Globulin 3.3 (2.4-3.5) g/dL Albumin/Globulin Ratio 1.4 (1.1-2.2) Lipase 40 (11-82) Units/L - Radiology Data Radiology results reviewed: Yes I reviewed the patient's radiology results. Chest X-Ray 10/04/18 11:08 IMPRESSION: No acute process. Bibasilar hypoaeration with subsegmental atelectatic changes D/ / Clark Adams MD / Clark Adams MD Interpreting Provider: Clark Adams MD Abdomen/Pelvis CT 10/04/18 11:13 IMPRESSION: Postsurgical changes from distal colon resection. Multiple loops of small bowel within the lower pelvis are dilated with findings concerning for small bowel obstruction with transition point likely in the right pelvis. D/ / Ivon Weinberg MD / Ivon Weinberg MD Interpreting Provider: Ivon Weinberg MD - EKG Data EKG #1 EKG attestation: Yes I reviewed and interpreted this EKG. EKG results narrative: EKG performed 1109 normal sinus rhythm 82 beats per minute, normal axis, good R wave progression, no ST elevation or depression, intervals appear within normal limits. Compared to prior EKG performed 10/03/2018 which shows similar consistent findings. No acute ischemic changes.
[2018-10-04 11:54] LABS: Basophils % 0.4 %; Eosinophils # 0.1 K/mcL (0.0-0.6); Eosinophils % 0.9 %; Hematocrit 35.5 % (35.3-44.9); Hemoglobin 10.4 g/dL (11.5-15.4); Immature Granulocytes % 0.5 % (0-4); Lymphocytes # 0.6 K/mcL (0.6-4.6); Lymphocytes % 5.9 %; Mean Corpuscular HGB Conc 29.3 g/dL (31.6-35.5); Mean Corpuscular Hemoglobin 23.8 pg (28.0-33.3); Mean Corpuscular Volume 81.2 fL (83.0-100.0); Mean Platelet Volume 9.1 fL (9.4-12.4); Monocytes # 0.4 K/mcL (0.0-1.3); Monocytes % 4.4 %; Neutrophils # 8.5 K/mcL (1.6-8.9); Platelet Count 185 K/mcL (140-400); Red Blood Count 4.37 M/mcL (3.82-4.97); Red Cell Distribution Width 15.5 % (11.5-14.5); Segmented Neutrophils % 87.9 %
[2018-10-04 11:56] LABS: Alanine Aminotransferase 11 Units/L (7-52); Albumin 4.5 g/dL (3.5-5.7); Albumin/Globulin Ratio 1.4 (1.1-2.2); Alkaline Phosphatase 75 Units/L (34-104); Aspartate Amino Transferase 15 Units/L (13-39); BUN/Creatinine Ratio 22 (6-26); Bilirubin,Indirect 0.4 mg/dL (0.0-1.2); Bilirubin,Total 0.4 mg/dL (0.3-1.0); Blood Urea Nitrogen 45 mg/dL (8-23); Calcium 9.1 mg/dL (8.6-10.3); Carbon Dioxide 16 mEq/L (23-29); Chloride 111 mEq/L (98-107); Globulin 3.3 g/dL (2.4-3.5); Glucose 131 mg/dL (70-105); Lipase 40 Units/L (11-82); Osmolality,Calculated 297 (280-300); Potassium 4.8 mEq/L (3.5-5.1); Sodium 137 mEq/L (136-145); Total Protein 7.8 g/dL (6.4-8.9); eGFR For Non-African Americans 25 (> 60)
[2018-10-04 12:35] LABS: Troponin I < 0.03 ng/mL (< 0.04)
[2018-10-04 13:24] LABS: Bilirubin,Urine Negative (Negative); Blood,Urine Large (Negative); Clarity,Urine Clear (Clear); Glucose,Urine (UA) Normal (Normal); Ketones,Urine Negative (Negative); Leukocyte Esterase,Urine Small (Negative); Nitrite,Urine Negative (Negative); Protein,Urine >=1000 mg/dL (Neg-Trace); Specific Gravity,Urine 1.017 (1.010-1.025); Urobilinogen,Urine Normal (Normal)
[2018-10-04 13:26] LABS: Color,Urine Red (Yellow); Hyaline Casts,Urine None Seen per lpf (None-Few)
--- NOTE | 2018-10-04 13:26 | Emergency Department Note ---
Disposition Clinical Impression: Small bowel obstruction Disposition: Admitted As Inpatient Forms: ED Satisfaction Letter General Adult HPI - General Chief complaint: ED Shortness of Breath/Dyspnea Stated complaint: SOB/Abd Pain/NVD Time Seen by Provider: 10/04/18 10:41 Source: patient, family (Granddaughter) Limitations: no limitations - History of Present Illness Pain Scale: 0 - Related Data Home Medications Medication Instructions Recorded Confirmed Cetirizine HCl [All Day Allergy] 10 mg PO DAILY 11/04/17 01/27/18 Omeprazole [PriLOSEC] 40 mg PO DAILY 12/23/17 01/27/18 Acetaminophen/Aspirin/Caffeine 1 tab PO Q6HR PRN 01/27/18 01/27/18 [Excedrin EX] Previous Rx's Medication Instructions Recorded Nitrofurantoin Monohyd/M-Cryst 100 mg PO BID 3 Days #6 capsule 01/29/18 [Macrobid 100 mg Capsule] Vancomycin Oral Soln [Firvanq] 125 mg PO QID 11 Days #44 udc 01/29/18 Allergies Allergy/AdvReac Type Severity Reaction Status Date / Time cephalexin [From Keflex] Allergy See Verified 01/27/18 12:06 Comments Cephalosporins Allergy Rash Verified 01/27/18 12:06 hydrocodone [From Vicodin] Allergy Itching Verified 01/27/18 12:06 oxycodone [From Percocet] Allergy Itching Verified 01/27/18 12:06 propoxyphene Allergy Itching Verified 01/27/18 12:06 [From Darvocet-N 100] diphenhydramine AdvReac Mild Confusion Verified 01/27/18 12:06 [From Benadryl] codeine AdvReac Nausea Verified 01/27/18 12:06 doxycycline AdvReac Vomiting Verified 01/27/18 12:06 morphine AdvReac Nausea Verified 01/27/18 12:06 tobramycin AdvReac Chest Pain Verified 01/27/18 12:06 beta-lactam Allergy Rash Uncoded 01/27/18 12:06 Constitutional: Reports: chills. Denies: fever ENT ED: Denies: congestion Cardiovascular: Denies: chest pain, syncope Respiratory: Reports: cough, dyspnea. Denies: sputum production Gastrointestinal: Reports: abdominal pain, nausea, vomiting, diarrhea. Denies: hematemesis, melena, hematochezia Genitourinary: Reports: hematuria. 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 - Social History Smoking Status: Never smoker Smokeless Tobacco Status: No Alcohol use: Reports: none Drug use: Reports: none Physical Exam - General Limitations: no limitations General appearance: alert, in no apparent distress, other (Patient appears very pale) Course Vital Signs Temperature 97.8 F 10/04/18 10:48 Pulse Rate 84 10/04/18 10:48 Respiratory Rate 20 10/04/18 10:48 Blood Pressure 139/84 10/04/18 10:48 O2 Sat by Pulse Oximetry 100 10/04/18 10:48 Temperature 97.8 F 10/04/18 10:48 Pulse Rate 76 10/04/18 13:07 Respiratory Rate 10/04/18 10:48 Blood Pressure 131/80 10/04/18 13:07 O2 Sat by Pulse Oximetry 100 10/04/18 13:07 Oxygen Delivery Oxygen Delivery Room Air Medical Decision Making - Lab Data Result diagrams: 10/04/18 11:25 10/04/18 11:25 Lab Results 10/04/18 10/04/18 Range/Units 11:25 11:25 WBC 9.6 (4.3-11.1) K/mcL RBC 4.37 (3.82-4.97) M/mcL Hgb 10.4 L (11.5-15.4) g/dL Hct 35.5 (35.3-44.9) % MCV 81.2 L (83.0-100.0) fL MCH 23.8 L (28.0-33.3) pg MCHC 29.3 L (31.6-35.5) g/dL RDW 15.5 H (11.5-14.5) % Plt Count 185 (140-400) K/mcL MPV 9.1 L (9.4-12.4) fL Immature Gran % 0.5 (0-4) % Seg Neutrophils % 87.9 % Lymphocytes % 5.9 % Monocytes % 4.4 % Eosinophils % 0.9 % Basophils % 0.4 % Neutrophils # 8.5 (1.6-8.9) K/mcL Lymphocytes # 0.6 (0.6-4.6) K/mcL Monocytes # 0.4 (0.0-1.3) K/mcL Eosinophils # 0.1 (0.0-0.6) K/mcL Basophils # 0.0 (0.0-0.2) K/mcL Sodium 137 (136-145) mEq/L Potassium 4.8 (3.5-5.1) mEq/L Chloride 111 H (98-107) mEq/L Carbon Dioxide 16 L (23-29) mEq/L BUN 45 H (8-23) mg/dL Creatinine 2.03 H (0.60-1.20) mg/dL Est GFR ( Amer) 30 L (> 60) Est GFR (Non-Af Amer) 25 L (> 60) BUN/Creatinine Ratio 22 (6-26) Glucose 131 H (70-105) mg/dL Calculated Osmolality 297 (280-300) Calcium 9.1 (8.6-10.3) mg/dL Total Bilirubin 0.4 (0.3-1.0) mg/dL Direct Bilirubin 0.0 (0.0-0.2) mg/dL Indirect Bilirubin 0.4 (0.0-1.2) mg/dL AST 15 (13-39) Units/L ALT 11 (7-52) Units/L Alkaline Phosphatase 75 (34-104) Units/L Troponin I < 0.03 (< 0.04) ng/mL Serum Total Protein 7.8 (6.4-8.9) g/dL Albumin 4.5 (3.5-5.7) g/dL Globulin 3.3 (2.4-3.5) g/dL Albumin/Globulin Ratio 1.4 (1.1-2.2) Lipase 40 (11-82) Units/L Attestation Statement - Attestation Attestation: I examined this patient and my medical decision-making was reviewed with the Resident Physician. I agree with the documented findings, disposition and tr eatment plan as described except to the extent set forth below. 63 destiny old female presents to the ED with complaints of abdomoinal pain and NVD. It appears that she has a SBO and she currently is not vomittng and is having watery small amount of stool production. [facility], kept NPO, and they have conslted surgery. We will treat or cystitis as she is a solitary kidney
[2018-10-04] MEDS ORDERED: Piperacillin/Tazobactam 3.375 GM in Water for inj. (sterile) 20 ML 20 ML IVP ONE (13:28)
[2018-10-04] MEDS ORDERED: 0.9 % Sodium Chloride 1,000 ML IVC SCH (13:30)
[2018-10-04 13:35] LABS: Bacteria,Urine Present per hpf (None-Few); RBC,Urine TNTC per hpf (0-3); Squamous Epithelial Cell,Urine Present per lpf (None-Few); WBC,Urine Present per hpf (0-3)
--- NOTE | 2018-10-04 13:53 | Internal Med History&Physical ---
Date of Encounter: 10/04/18 Time of Encounter: 14:49 Internal Medicine - H&P: HPI History of present illness: Ms. Hannon is a 63 year old female with history ofCKD stage III, nephrectomy, GI bleed, cardiomyopathy presented for multiple complaints. She primarily complains of abdominal pain. She has been complaining of shortness of breath with light headedness for the past 1-2 weeks. She usually attributes this to symptomatic anemia for which she usually gets iron infusions. 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 She has had an echocardiogram in 2016 which showed LVEF of 40-45% with LVF, with hypokinestic apical segments that were suggestive of Takotsubo Syndrome. In the ED, a CT of abdomen showed small bowel obstruction. Chest x-ray showed no acute process. Troponin was negative, BMP showed creatinine increasing above baseline to 2.03, lipase within normal limits, bicarb 16, hemoglobin was 10.4 which is better than her baseline. In the ED she had 1 L of normal saline administed with Zosyn. Past Med Surg Social Fam HX - Past Medical History Medical history: arthritis, cardiomyopathy, GERD, GI bleed, hypertension, osteoporosis, renal disease, other Additional medical history: irregular heart beat Psychiatric history: no psych history - Past Surgical History Surgical History: appendectomy, other Additional surgical history: RECONSTRUCTION ON URTER TUBE. TUBAL. EDG/COLONSCOPY. colostomy reversal - Social History Smoking Status: Never smoker Smokeless Tobacco Status: No Alcohol use: none Drug use: none - Family History Mother Living Status: Hx Family Cardiac Disorders: Yes Hx Family Respiratory Disorders: No Hx Family Cancer: No Hx Family GI Disorders: No Hx Family Endocrine Disorder: No Hx Family Neuromuscular Disorders: No Hx Family Neurologic Disorders: Yes (stroke) Hx Family HEENT Disorders: No Hx Family Autoimmune Disorders: No Internal Medicine - H&P: Meds Cetirizine HCl [All Day Allergy] 10 mg PO DAILY 11/04/17 [History] Omeprazole [PriLOSEC] 40 mg PO DAILY 12/23/17 [History] Acetaminophen/Aspirin/Caffeine [Excedrin EX] 1 tab PO Q6HR PRN 01/27/18 [History] Nitrofurantoin Monohyd/M-Cryst [Macrobid 100 mg Capsule] 100 mg PO BID 3 Days #6 capsule 01/29/18 [Rx] Vancomycin Oral Soln [Firvanq] 125 mg PO QID 11 Days #44 udc 01/29/18 [Rx] Allergy/AdvReac Type Severity Reaction Status Date / Time cephalexin [From Keflex] Allergy See Verified 01/27/18 12:06 Comments Cephalosporins Allergy Rash Verified 01/27/18 12:06 hydrocodone [From Vicodin] Allergy Itching Verified 01/27/18 12:06 oxycodone [From Percocet] Allergy Itching Verified 01/27/18 12:06 propoxyphene Allergy Itching Verified 01/27/18 12:06 [From Darvocet-N 100] diphenhydramine AdvReac Mild Confusion Verified 01/27/18 12:06 [From Benadryl] codeine AdvReac Nausea Verified 01/27/18 12:06 doxycycline AdvReac Vomiting Verified 01/27/18 12:06 morphine AdvReac Nausea Verified 01/27/18 12:06 tobramycin AdvReac Chest Pain Verified 01/27/18 12:06 beta-lactam Allergy Rash Uncoded 01/27/18 12:06 All Systems PM: A 10-system review of systems was performed and is negative for pertinent findings except as documented above in the HPI. - Constitutional Vitals: Temp Pulse Resp BP Pulse Ox 97.8 F 76 20 131/80 100 10/04/18 10:48 10/04/18 13:07 10/04/18 10:48 10/04/18 13:07 10/04/18 13:07 General appearance: Present: A&O X 3, no acute distress Exam: . - Head Head exam: Present: atraumatic, normocephalic - Eye Eye exam: Present: PERRL, conjuntiva pink, sclera anicteric Pupils: Present: PERRL - Neck Neck exam general surgery: Present: supple, trachea midline. Absent: lymphadenopathy - Respiratory Respiratory exam: Present: CTAB. Absent: accessory muscle use, rales, rhonchi, wheezes - Cardiovascular Cardiovascular exam: Present: RRR, +S1, +S2. Absent: diastolic murmur, gallop, rubs, systolic murmur - GI/Abdominal GI/Abdominal exam: Present: normal bowel sounds, soft, tenderness, no peritoneal signs. Absent: distended Additional comments: no guarding, no rebound tenderness, no rigidity. - Extremities Exam Extremities exam: Present: warm, radial pulses palpable and symmetrical. Absent: calf tenderness, cyanotic, pedal edema - Neurological Exam Neurological exam: Present: CN II-XII intact, oriented X3, no focal deficits. Absent: pronater drift, facial droop, speech deficit - Skin Skin exam: Present: dry, intact Internal Med - H&P Results - Labs CBC & Chem 7: 10/04/18 11:25 10/04/18 11:25 Labs: Short CBC 10/04/18 Range/Units 11:25 WBC 9.6 (4.3-11.1) K/mcL Hgb 10.4 L (11.5-15.4) g/dL Hct 35.5 (35.3-44.9) % Plt Count 185 (140-400) K/mcL Neutrophils # 8.5 (1.6-8.9) K/mcL BMP 10/04/18 11:25 Sodium 137 Potassium 4.8 Chloride 111 H Carbon Dioxide 16 L BUN 45 H Creatinine 2.03 H Glucose 131 H Calcium 9.1 Cardiac Enzymes 10/04/18 Range/Units 11:25 Troponin I < 0.03 (< 0.04) ng/mL Liver Function 10/04/18 Range/Units 11:25 Total Bilirubin 0.4 (0.3-1.0) mg/dL Direct Bilirubin 0.0 (0.0-0.2) mg/dL AST 15 (13-39) Units/L ALT 11 (7-52) Units/L Alkaline Phosphatase 75 (34-104) Units/L Albumin 4.5 (3.5-5.7) g/dL Urine 10/04/18 Range/Units 12:46 Urine Color Red A (Yellow) Urine Clarity Clear (Clear) Urine pH 6.0 (5.0-8.0) pH Units Ur Specific [place] 1.017 (1.010-1.025) Urine Protein >=1000 H (Neg-Trace) mg/dL Urine Glucose (UA) Normal (Normal) mg/dL - Impressions ITS Impressions Chest X-Ray 10/04/18 11:08 IMPRESSION: No acute process. Bibasilar hypoaeration with subsegmental atelectatic changes D/ / Clark Adams MD / Clark Adams MD Interpreting Provider: Clark Adams MD Abdomen/Pelvis CT 10/04/18 11:13 IMPRESSION: Postsurgical changes from distal colon resection. Multiple loops of small bowel within the lower pelvis are dilated with findings concerning for small bowel obstruction with transition point likely in the right pelvis. D/ / Ivon Weinberg MD / Ivon Weinberg MD Interpreting Provider: Ivon Weinberg MD - Assessment and plan (1) Small bowel obstruction Current Visit: Yes Status: Acute Assessment and plan: Patient has history of abdominal surgeries. CT abdomen/pelvis showed SBO. Patient abdomen is soft but tender with normal bowel sounds. Vital signs sta ble, patient non-toxic appearing. Lactic acid level is pending. Surgery consulted. Keep NPO, supportive care. IV fluid gentle as patient has history of low ejection fraction 40-45%. (2) Acute kidney injury superimposed on chronic kidney disease Current Visit: No Status: Acute Assessment and plan: Likely due from constant nausea and vomiting. Continue IV fluid hydration. Monitor I/Os, recheck renal function in AM. Fluid with caution as she has solitary kidney and cardiomyopathy. Rate was 115 ml/hr will titrate down to 75 ml/hr for now. (3) Dyspnea on exertion Current Visit: Yes Status: Acute Assessment and plan: Patient attributes many episodes of dyspnea and dizziness to symptomatic anemia that she regularly has. However, her hemoglobin is in the 10.4 currently, which is above baseline. There could be a component of hemoconcentration but not completely clear at this point. Given she has complaints of PASCAL, may need to pursue respiratory or cardiac etiology. Chest x-ray is negative. Troponin is negative. Echocardiogram findings in 2016 noted as above. Will repeat echocardiogram. Pulmonary embolism possible but less likely, cannot undergoe CTA due to renal injury or V/Q due to laying flat from back pain. Trend H&H to monitor for acute drop. (4) History of nephrectomy Current Visit: Yes Status: Acute (5) Dizziness Current Visit: No Status: Acute Assessment and plan: Patient attributes many episodes of dizziness to symptomatic anemia that she regularly has. However, her hemoglobin is in the 10.4 currently, which is above baseline. There could be a component of hemoconcentration but not completely clear at this point. Given she has complaints of PASCAL, may need to pursue respiratory or cardiac etiology. Chest x-ray is negative. Troponin is negative. Echocardiogram findings in 2016 noted as above. Will repeat echocardiogram. Pulmonary embolism possible but less likely, cannot undergoe CTA due to renal injury or V/Q due to laying flat from back pain. Trend H&H to monitor for acute drop. Obtain orthostatic vital signs. (6) Anemia of chronic disease Current Visit: No Status: Chronic (7) Chronic renal failure, stage 3 (moderate) Current Visit: No Status: Chronic (8) HTN (hypertension) Current Visit: No Status: Chronic Assessment and plan: Hydralazine IV prn while patient is NPO Qualifiers: Hypertension type: essential hypertension Qualified Code(s): I10 - Essential (primary) hypertension (9) Takotsubo cardiomyopathy Current Visit: No Status: Suspected Assessment and plan: No acute issues. Findings seen in 2016. Repeat echocardiogram ordered. (10) Cardiac LV ejection fraction of 40-49% Current Visit: Yes Status: Acute - Time Spent With Patient Total time spent is greater than 50% in coordination of care (as documented) at patient's floor/unit and/or counseling patient:
[2018-10-04] MEDS ORDERED: Naloxone 0.4 MG/ML INJ IVP PRN (14:05)
[2018-10-04] MEDS ORDERED: Ondansetron 4 MG/2 ML VIAL IVP PRN (15:04)
[2018-10-04] MEDS: *HR* FentaNYL (PF) 100 MCG/2 ML VIAL IVP PRN (16:53)
[2018-10-04] MEDS: 0.9 % Sodium Chloride 1,000 ML IVC SCH (16:57)
[2018-10-04] MEDS ORDERED: Acetaminophen IV 1,000 MG/100 ML INFUS..BTL IVPB ONE (20:02)
--- NOTE | 2018-10-04 20:06 | Event Note ---
Date of Encounter: 10/04/18 Time of Encounter: 19:48 Alerted by patient's nurse DANIEL Anton that patient has vomited twice since 16:30. Patient admitted for SBO. Patient complaining of severe stomach pain and stating that Fentanyl is only relieving pain for short period of time. Pt. has allergies to hydrocodone, oxycodone, codeine, and morphine. Will try Ofirmev IVPB infusion to see if abdominal pain improves. IVP Phenergan ordered as well. Nurse instructed to continue monitoring pt. closely and alert me immediately of any adverse changes.
[2018-10-04] MEDS: *HR* Promethazine 25 MG/ML VIAL IVP PRN (20:46)
[2018-10-05] MEDS: Pantoprazole 40 MG VIAL IVP SCH (08:30)
[2018-10-05] MEDS: 0.9 % Sodium Chloride 1,000 ML IVC SCH (08:33)
--- NOTE | 2018-10-05 08:44 | Internal Med Progress Note ---
<Judie Vega N - Last Filed: 10/05/18 20:27> Hospitalist Progress Note - Encounter Date of Encounter: 10/05/18 Time of Encounter: 08:44 - Subjective Interval History: Ms. Hannon was seen and evaluated at the bedside. She reports improvement in her abdominal pain; however, she reports that it still occurs intermittently and wit hout warning. She complains of right knee pain related to arthritis, and states that the only thing that alleviates her pain is Excedrin migraine. Additionally, she states that she feels like she is developing a caffeine headache. She endorses continued dyspnea on exertion. Nursing staff reported no acute overnight events. - Exam Vitals: Temp Pulse Resp BP Pulse Ox 98.3 F 82 16 121/75 98 10/05/18 04:38 10/05/18 04:38 10/05/18 04:38 10/05/18 04:38 10/05/18 04:38 Exam: GENERAL: Adult female resting in bed. She appears to be her stated age and does not appear to be in acute distress. HEENT: Atraumatic and normocephalic. CARDIOVASCULAR: Regular rate and rhythm. S1 and S2 present. No murmurs, gallops, or rubs appreciated. RESPIRATORY: Clear to auscultation bilaterally. Chest rises and falls symmetr ically with respiration. No accessory muscle use noted. GASTROINTESTINAL: Abdomen is soft and nondistended. Hypoactive bowel sounds present x 4 quadrants. Patient expresses tenderness to palpation localized to the epigastric area. EXTREMITIES: No clubbing, cyanosis, or edema present. NEUROLOGIC: Alert and oriented x3. Patient is cooperative with exam and answers questions appropriately. No apparent focal deficits present. - Assessment and Plan (1) Acute kidney injury superimposed on chronic kidney disease Current Visit: No Status: Acute Assessment and Plan: Likely secondary to dehydration from several days of nausea and vomiting. Creatinine on admission was elevated at 2.03, with improvement on AM labs to 1.73. - Continue IVF hydration with LR @75mL/hr. - Avoid nephrotoxins and renally dose medications. - Consider nephrology consult if creatinine worsens or does not improve as anticipated. (2) Small bowel obstruction Current Visit: Yes Status: Acute Assessment and Plan: Patient has a history of multiple abdominal surgeries. CT of the abdomen/pelvis was significant for multiple loops of small bowel within the lower pelvis that are dilated with findings concerning for SBO with transition point likely in the right pelvis. She has continued to have intermittent epigastric pain that she rates as severe. - Continue fluid hydration and NPO diet. - Will continue to monitor closely and await further recommendations per Dr. Smith. (3) Dyspnea on exertion Current Visit: Yes Status: Acute Assessment and Plan: Unclear etiology - symptomatic anemia vs. cardiac pathology vs. respiratory compensation for metabolic acidosis. Patient's baseline hemoglobin appears to be ~8-9; however, at the time of admission, hemoglobin was improved at 10.4. Echocardiogram demonstrated LVEF of 65%. Additional impressions are as follows: basal sigmoid septum, mild left ventricular diastolic dysfunction, mildy dilated left atrium, normal RV structure and function, mild tricuspid regurgitation, and no evidence of pulmonary hypertension. - Continue clinical monitoring. - Monitor and trend H&H for signs of acute/ongoing blood loss. (4) Anemia of chronic disease Current Visit: No Status: Chronic Assessment and Plan: Patient had a decrease in hemoglobin on AM labs, from 10.4 yesterday to 8.8; however, high suspicion for dilutional effect as decreases are evident in all cell lines. - Repeat hemoglobin and hematocrit; trend daily CBC. - Type and screen completed in the event that patient requires transfusion. (5) HTN (hypertension) Current Visit: No Status: Chronic Assessment and Plan: - Continue hydralazine 10mg IVP Q6H PRN while NPO. (6) DVT prophylaxis Current Visit: No Status: Acute Assessment and Plan: - SCDs. (7) Metabolic acidosis, normal anion gap (NAG) Current Visit: Yes Status: Acute Assessment and Plan: Unclear etiology - diarrhea vs. rapid saline infusion vs. renal tubular acidosis; however, considering the patient's HPI, high suspicion that this is secondary to GI losses via diarrhea. AM laboratory studies were significant for hyperchloremia and decreased CO2 (13, down from 17 yesterday. ABG demonstrated pH 7.32, pCO2 28, pO2 79, and HCO3 14. - Continue IVF hydration; however, discontinued NS in favor of LR due to hyperchloremia. - Continue close clinical and laboratory monitoring, with repeat electrolyte panel with AM labs. - Urine studies pending. If concerning for RTA, anticipate nephrology consult. - Time Spent with Patient Total time spent is greater than 50% in coordination of care (as documented) at patient's floor/unit and/or counseling patient: Internal Medicine: Result - Labs CBC & Chem 7: 10/05/18 15:00 10/05/18 15:00 Labs: Short CBC 10/04/18 Range/Units 11:25 WBC 9.6 (4.3-11.1) K/mcL Hgb 10.4 L (11.5-15.4) g/dL Hct 35.5 (35.3-44.9) % Plt Count 185 (140-400) K/mcL Neutrophils # 8.5 (1.6-8.9) K/mcL BMP 10/04/18 11:25 Sodium 137 Potassium 4.8 Chloride 111 H Carbon Dioxide 16 L BUN 45 H Creatinine 2.03 H Glucose 131 H Calcium 9.1 Cardiac Enzymes 10/04/18 Range/Units 11:25 Troponin I < 0.03 (< 0.04) ng/mL Liver Function 10/04/18 Range/Units 11:25 Total Bilirubin 0.4 (0.3-1.0) mg/dL Direct Bilirubin 0.0 (0.0-0.2) mg/dL AST 15 (13-39) Units/L ALT 11 (7-52) Units/L Alkaline Phosphatase 75 (34-104) Units/L Albumin 4.5 (3.5-5.7) g/dL Urine 10/04/18 Range/Units 12:46 Urine Color Red A (Yellow) Urine Clarity Clear (Clear) Urine pH 6.0 (5.0-8.0) pH Units Ur Specific [place] 1.017 (1.010-1.025) Urine Protein >=1000 H (Neg-Trace) mg/dL Urine Glucose (UA) Normal (Normal) mg/dL - Impressions Impressions Chest X-Ray 10/04/18 11:08 IMPRESSION: No acute process. Bibasilar hypoaeration with subsegmental atelectatic changes D/ / Clark Adams MD / Clark Adams MD Interpreting Provider: lCark Adams MD Abdomen/Pelvis CT 10/04/18 11:13 IMPRESSION: Postsurgical changes from distal colon resection. Multiple loops of small bowel within the lower pelvis are dilated with findings concerning for small bowel obstruction with transition point likely in the right pelvis. D/ / Ivon Weinberg MD / Ivon Weinberg MD Interpreting Provider: Ivon Weinberg MD Consult Discharge Plan - Plan Referrals: Mir Gomes DO [Primary Care Provider] - <Jose Chavarria - Last Filed: 10/07/18 08:06> Hospitalist Progress Note - Encounter Date of Encounter: 10/07/18 - Exam Vitals: Temp Pulse Resp BP Pulse Ox 98.2 F 66 15 134/81 100 10/07/18 07:04 10/07/18 07:04 10/07/18 07:04 10/07/18 07:04 10/07/18 07:04 - Assessment and Plan (1) Acute kidney injury superimposed on chronic kidney disease Current Visit: No Status: Acute (2) Anemia of chronic disease Current Visit: No Status: Chronic (3) HTN (hypertension) Current Visit: No Status: Chronic (4) DVT prophylaxis Current Visit: No Status: Acute (5) Small bowel obstruction Current Visit: Yes Status: Acute (6) Dyspnea on exertion Current Visit: Yes Status: Acute (7) Metabolic acidosis, normal anion gap (NAG) Current Visit: Yes Status: Acute - Time Spent with Patient Total time spent is greater than 50% in coordination of care (as documented) at patient's floor/unit and/or counseling patient: Internal Medicine: Result - Labs CBC & Chem 7: 10/07/18 06:33 10/07/18 06:33 Labs: Short CBC 10/06/18 10/07/18 Range/Units 07:57 06:33 WBC 4.5 4.3 (4.3-11.1) K/mcL Hgb 8.1 L 7.6 L (11.5-15.4) g/dL Hct 28.2 L 25.9 L (35.3-44.9) % Plt Count 117 L 115 L (140-400) K/mcL Neutrophils # 3.2 2.7 (1.6-8.9) K/mcL BMP 10/06/18 10/06/1819 07:57 17:53 06:33 Sodium 139 142 140 Potassium 4.2 4.1 4.1 Chloride 116 H 116 H 117 H Carbon Dioxide 15 L 16 L 15 L BUN 29 H 29 H 24 H Creatinine 1.59 H 1.80 H 1.51 H Glucose 69 L 107 H 99 Calcium 9.0 9.2 8.7 Liver Function 10/07/18 Range/Units 06:33 Total Bilirubin 0.3 (0.3-1.0) mg/dL AST 12 L (13-39) Units/L ALT 6 L (7-52) Units/L Alkaline Phosphatase 54 (34-104) Units/L Albumin 3.6 (3.5-5.7) g/dL - ABG Interpretation ABG results: ABG ABG pH 7.32 pH Units (7.32-7.45) 10/05/18 14:48 ABG pCO2 28 mmHg (35-45) L 10/05/18 14:48 ABG pO2 79 mmHg (85-104) L 10/05/18 14:48 ABG O2 Saturation 95 % (95-98) 10/05/18 14:48 - Impressions Impressions Small Bowel X-Ray 10/06/18 10:13 IMPRESSION: No findings to suggest obstruction. D/ / Ivon Weinberg MD / Ivon Weinberg MD Interpreting Provider: Ivon Weinberg MD - Attending Attestation I examined this patient and my medical decision-making was reviewed with the Resident Physician. I agree with the documented findings, disposition and treatment plan as described except to the extent set forth below. <[place],Judie N - Last Filed: 10/05/18 20:27> (5) HTN (hypertension) Qualifiers: Hypertension type: essential hypertension Qualified Code(s): I10 - Essential (primary) hypertension <Jose Chavarria - Last Filed: 10/07/18 08:06> (3) HTN (hypertension) Qualifiers: Hypertension type: essential hypertension Qualified Code(s): I10 - Essential (primary) hypertension
--- NOTE | 2018-10-05 09:44 | Urology - Consult Note ---
<Vijaya Titus N - Last Filed: 10/05/18 09:34> Date of Encounter: 10/05/18 Time of Encounter: 09:34 - Assessment and Plan (1) Hemorrhagic cystitis Current Visit: Yes Status: Acute Assessment and plan: Patient is a 63-year-old female who presents the history of gross hematuria. Patient is a long-standing history of hemorrhagic cystitis and frequent urinary tract infections. Patient is well known to our service and established with Dr. Florian and Dr. Contreras. Vital signs are currently stable and afebrile. Hemoglobin is stable. White blood cell count is reassuring. Serum creatinine is elevated above baseline at 2.03. Reviewed CT images, and there is no evidence of ureteral stone, obstructive uropathy, or clot retention. Urine culture is pending. Patient has received IV Zosyn. Patient is NPO for small bowel obstruction. Dr. Florian will evaluate patient later this afternoon, but urologic surgical intervention is not anticipated at this time. (2) History of nephrectomy Current Visit: Yes Status: Acute (3) Small bowel obstruction Current Visit: Yes Status: Acute Urology CN:HPI Consult date: 10/05/18 Reason for consult Urology: Gross Hematuria (left ureteral stone) History of present illness: Patient is a 63-year old female who presents with a history of gross hematuria. Patient is status post left nephrectomy for atrophic kidney, benign pathology, in October [address] Contreras. Patient initially presented to the emergency department for complaints of epigastric abdominal pain. Patient underwent a CT of the abdomen and pelvis revealing a small bowel obstruction but no evidence of obstructive uropathy. Patient has a long-standing history of intermittent gross hematuria and recently underwent a reassuring outpatient cystoscopy with Dr. Contreras in May 2018. Patient was instructed to follow-up in 3 months or sooner if hematuria returned for possible cystoscopy with fulguration under general anesthesia. Patient states she has not experienced any recurrence of gross hematuria until approximately two weeks ago. Patient denies any diff iculty voiding, hesitancy, dysuria, frequency, urgency, incontinence, nocturia, fever or chills. Patient states hematuria is intermittent and ranges from bright red to pink lemonade. Patient denies experiencing any blood clots with urination, although, she has experienced this in the past. Patient denies any past history of smoking or tobacco use. Patient denies any family history of malignancy. Past Med Surg Social Fam HX - Past Medical History Medical history: arthritis, cardiomyopathy, GERD, GI bleed, hypertension, o steoporosis, renal disease, other Additional medical history: irregular heart beat Psychiatric history: no psych history - Past Surgical History Surgical History: appendectomy, other Additional surgical history: RECONSTRUCTION ON URTER TUBE. TUBAL. EDG/COLONSCOPY. colostomy reversal. nephrectomy - Social History Smoking Status: Never smoker Smokeless Tobacco Status: No Alcohol use: none Drug use: none - Family History Father Living Status: Age at : 75 Cause of : bowel obstruction Hx Family Cancer: Yes (lung) Mother Living Status: Age at : 90 Cause of : "old age" Hx Family Cardiac Disorders: Yes (CABG) Hx Family Respiratory Disorders: No Hx Family Cancer: No Hx Family GI Disorders: No Hx Family Endocrine Disorder: No Hx Family Neuromuscular Disorders: No Hx Family Neurologic Disorders: Yes (stroke) Hx Family HEENT Disorders: No Hx Family Autoimmune Disorders: No Medications and Allergies Cetirizine HCl [All Day Allergy] 10 mg PO DAILY 11/04/17 [History] Omeprazole [PriLOSEC] 40 mg PO DAILY 12/23/17 [History] Acetaminophen/Aspirin/Caffeine [Excedrin EX] 2 tab PO Q6HR PRN 01/27/18 [History] Nitrofurantoin Monohyd/M-Cryst [Macrobid 100 mg Capsule] 100 mg PO BID 3 Days #6 capsule 01/29/18 [Rx] Vancomycin Oral Soln [Firvanq] 125 mg PO QID 11 Days #44 udc 01/29/18 [Rx] Allergy/AdvReac Type Severity Reaction Status Date / Time cephalexin [From Keflex] Allergy See Verified 01/27/18 12:06 Comments Cephalosporins Allergy Rash Verified 01/27/18 12:06 hydrocodone [From Vicodin] Allergy Itching Verified 01/27/18 12:06 oxycodone [From Percocet] Allergy Itching Verified 01/27/18 12:06 propoxyphene Allergy Itching Verified 01/27/18 12:06 [From Darvocet-N 100] diphenhydramine AdvReac Mild Confusion Verified 01/27/18 12:06 [From Benadryl] codeine AdvReac Nausea Verified 01/27/18 12:06 doxycycline AdvReac Vomiting Verified 01/27/18 12:06 morphine AdvReac Nausea Verified 01/27/18 12:06 tobramycin AdvReac Chest Pain Verified 01/27/18 12:06 beta-lactam Allergy Rash Uncoded 01/27/18 12:06 Review of Systems - Constitutional no chills, no fatigue, no fever(s) - EENT Nose, mouth and throat: no dizziness, no headache(s) - Cardiovascular no chest pain, no diaphoresis, no dyspnea - Respiratory no cough, no dyspnea - Gastrointestinal abdominal pain, change in bowel habits (experienced diarrhea yesterday ), nausea, no vomiting - Genitourinary Genitourinary: hematuria, no difficulty urinating, no dysuria, no flank pain, no urinary frequency, no urinary hesitancy, no urinary incontinence, no urinary urgency - Musculoskeletal no back pain, no muscle weakness - Integumentary no erythema, no rash - Neurological no confusion, no syncope - Psychiatric no anxiety, no confusion - Hematologic/Lymphatic no easy bleeding, no easy bruising - Allergic/Immunologic no throat swelling, no wheezing Exam Initial Vital Signs Temp Pulse Resp BP Pulse Ox 97.8 F 84 20 139/84 100 10/04/18 10:48 10/04/18 10:48 10/04/18 10:48 10/04/18 10:48 10/04/18 10:48 - General physical appearance Present: no distress, no pain - Eyes Present: PERRL, normal ocular movement - ENT Present: normal nares, no congestion, decreased hearing - Neck Present: no masses, trachea midline - Respiratory Present: normal respiratory effort - Abdomen Abdomen: Present: soft, tender (epigastric tenderness with superficial palpation ) - Integumentary Present: no rash, no abnormal pigmentation - Neurologic Present: normal coordination Urology Results - Labs 10/04/18 11:25 10/04/18 11:25 Abnormal lab results Hgb 10.4 g/dL (11.5-15.4) L 10/04/18 11:25 MCV 81.2 fL (83.0-100.0) L 10/04/18 11:25 MCH 23.8 pg (28.0-33.3) L 10/04/18 11:25 MCHC 29.3 g/dL (31.6-35.5) L 10/04/18 11:25 RDW 15.5 % (11.5-14.5) H 10/04/18 11:25 MPV 9.1 fL (9.4-12.4) L 10/04/18 11:25 Chloride 111 mEq/L (98-107) H 10/04/18 11:25 Carbon Dioxide 16 mEq/L (23-29) L 10/04/18 11:25 BUN 45 mg/dL (8-23) H 10/04/18 11:25 Creatinine 2.03 mg/dL (0.60-1.20) H 10/04/18 11:25 Est GFR ( Amer) 30 (> 60) L 10/04/18 11:25 Est GFR (Non-Af Amer) 25 (> 60) L 10/04/18 11:25 Glucose 131 mg/dL (70-105) H 10/04/18 11:25 Ur Specimen Adequacy See below A 10/04/18 12:46 Urine Color Red (Yellow) A 10/04/18 12:46 Urine Protein >=1000 mg/dL (Neg-Trace) H 10/04/18 12:46 Urine Blood Large (Negative) H 10/04/18 12:46 Ur Leukocyte Esterase Small (Negative) H 10/04/18 12:46 Urine Microscopic RBC TNTC per hpf (0-3) H 10/04/18 12:46 Ur Culture Indicated? YES (NO) A 10/04/18 12:46 Diabetes panel 10/04/18 Range/Units 11:25 Sodium 137 (136-145) mEq/L Potassium 4.8 (3.5-5.1) mEq/L Chloride 111 H (98-107) mEq/L Carbon Dioxide 16 L (23-29) mEq/L BUN 45 H (8-23) mg/dL Creatinine 2.03 H (0.60-1.20) mg/dL Glucose 131 H (70-105) mg/dL Calcium 9.1 (8.6-10.3) mg/dL AST 15 (13-39) Units/L ALT 11 (7-52) Units/L Alkaline Phosphatase 75 (34-104) Units/L Albumin 4.5 (3.5-5.7) g/dL Calcium panel 10/04/18 Range/Units 11:25 Calcium 9.1 (8.6-10.3) mg/dL Albumin 4.5 (3.5-5.7) g/dL Pituitary panel 10/04/18 Range/Units 11:25 Sodium 137 (136-145) mEq/L Potassium 4.8 (3.5-5.1) mEq/L Chloride 111 H (98-107) mEq/L Carbon Dioxide 16 L (23-29) mEq/L BUN 45 H (8-23) mg/dL Creatinine 2.03 H (0.60-1.20) mg/dL Glucose 131 H (70-105) mg/dL Calcium 9.1 (8.6-10.3) mg/dL Adrenal panel 10/04/18 Range/Units 11:25 Sodium 137 (136-145) mEq/L Potassium 4.8 (3.5-5.1) mEq/L Chloride 111 H (98-107) mEq/L Carbon Dioxide 16 L (23-29) mEq/L BUN 45 H (8-23) mg/dL Creatinine 2.03 H (0.60-1.20) mg/dL Glucose 131 H (70-105) mg/dL Calcium 9.1 (8.6-10.3) mg/dL Total Bilirubin 0.4 (0.3-1.0) mg/dL AST 15 (13-39) Units/L ALT 11 (7-52) Units/L Alkaline Phosphatase 75 (34-104) Units/L Albumin 4.5 (3.5-5.7) g/dL All other labs normal. - Imaging CT scan - abdomen: report reviewed, image reviewed CT scan - pelvis: report reviewed, image reviewed Consult Discharge Plan - Plan Referrals: Mir Gomes DO [Primary Care Provider] - <Maulik Florian - Last Filed: 10/05/18 19:37> Date of Encounter: 10/05/18 - Assessment and Plan (1) UTI (urinary tract infection) Current Visit: No Status: Suspected Assessment and plan: Patient seen and examined. I personally reviewed the CT scan and agree that there is no evidence of obstructing stone or other finding that would necessitate urologic surgical intervention. I recommend following the urine culture and treating with appropriate antibiotics if positive. She has a histo ry of complicated/resistant UTIs which have improved since her nephrectomy. We will continue to follow the patient while she is admitted Qualifiers: Urinary tract infection type: acute cystitis Hematuria presence: with hematuria Qualified Code(s): N30.01 - Acute cystitis with hematuria Exam Initial Vital Signs Temp Pulse Resp BP Pulse Ox 97.8 F 84 20 139/84 100 10/04/18 10:48 10/04/18 10:48 10/04/18 10:48 10/04/18 10:48 10/04/18 10:48 Urology Results - Labs 10/05/18 15:00 10/05/18 15:00 Abnormal lab results RBC 3.66 M/mcL (3.82-4.97) L 10/05/18 10:54 Hgb 8.6 g/dL (11.5-15.4) L 10/05/18 15:00 Hct 29.3 % (35.3-44.9) L 10/05/18 15:00 MCV 82.0 fL (83.0-100.0) L 10/05/18 10:54 MCH 24.0 pg (28.0-33.3) L 10/05/18 10:54 MCHC 29.3 g/dL (31.6-35.5) L 10/05/18 10:54 RDW 15.7 % (11.5-14.5) H 10/05/18 10:54 Plt Count 139 K/mcL (140-400) L 10/05/18 10:54 ABG pCO2 28 mmHg (35-45) L 10/05/18 14:48 ABG pO2 79 mmHg (85-104) L 10/05/18 14:48 ABG HCO3 14 mEq/L (21-27) L 10/05/18 14:48 ABG Total CO2 15 mEq/L (20-26) L 10/05/18 14:48 ABG Base Excess -11 mEq/L (-2 to 3) L 10/05/18 14:48 Chloride 117 mEq/L (98-107) H 10/05/18 15:00 Carbon Dioxide 14 mEq/L (23-29) L 10/05/18 15:00 BUN 30 mg/dL (8-23) H 10/05/18 15:00 Creatinine 1.73 mg/dL (0.60-1.20) H 10/05/18 15:00 Est GFR ( Amer) 36 (> 60) L 10/05/18 15:00 Est GFR (Non-Af Amer) 30 (> 60) L 10/05/18 15:00 AST 11 Units/L (13-39) L 10/05/18 15:00 Ur Specimen Adequacy See below A 10/04/18 12:46 Urine Color Red (Yellow) A 10/05/18 18:25 Urine Clarity Turbid (Clear) A 10/05/18 18:25 Urine Protein >=300 mg/dL (Neg-Trace) H 10/05/18 18:25 Urine Ketones 15 mg/dL (Negative) H 10/05/18 18:25 Urine Blood Large (Negative) H 10/05/18 18:25 Urine Bilirubin Moderate (Negative) H 10/05/18 18:25 Ur Leukocyte Esterase Large (Negative) H 10/05/18 18:25 Urine Microscopic RBC TNTC per hpf (0-3) H 10/05/18 18:25 Urine Microscopic WBC TNTC per hpf (0-3) H 10/05/18 18:25 Ur Squamous Epith Cells Many per lpf (None-Few) H 10/05/18 18:25 Urine Yeast Few per hpf (None Seen) H 10/05/18 18:25 Ur Culture Indicated? YES (NO) A 10/04/18 12:46 Diabetes panel 10/05/18 10/05/18 Range/Units 10:54 15:00 Sodium 140 141 (136-145) mEq/L Potassium 4.7 4.5 (3.5-5.1) mEq/L Chloride 117 H 117 H (98-107) mEq/L Carbon Dioxide 13 L 14 L (23-29) mEq/L BUN 32 H 30 H (8-23) mg/dL Creatinine 1.76 H 1.73 H (0.60-1.20) mg/dL Glucose 97 85 (70-105) mg/dL Calcium 8.4 L 8.9 (8.6-10.3) mg/dL AST 11 L (13-39) Units/L ALT 8 (7-52) Units/L Alkaline Phosphatase 59 (34-104) Units/L Albumin 3.9 (3.5-5.7) g/dL Calcium panel 10/05/18 10/05/18 Range/Units 10:54 15:00 Calcium 8.4 L 8.9 (8.6-10.3) mg/dL Albumin 3.9 (3.5-5.7) g/dL Pituitary panel 10/05/18 10/05/18 Range/Units 10:54 15:00 Sodium 140 141 (136-145) mEq/L Potassium 4.7 4.5 (3.5-5.1) mEq/L Chloride 117 H 117 H (98-107) mEq/L Carbon Dioxide 13 L 14 L (23-29) mEq/L BUN 32 H 30 H (8-23) mg/dL Creatinine 1.76 H 1.73 H (0.60-1.20) mg/dL Glucose 97 85 (70-105) mg/dL Calcium 8.4 L 8.9 (8.6-10.3) mg/dL Adrenal panel 10/05/18 10/05/18 Range/Units 10:54 15:00 Sodium 140 141 (136-145) mEq/L Potassium 4.7 4.5 (3.5-5.1) mEq/L Chloride 117 H 117 H (98-107) mEq/L Carbon Dioxide 13 L 14 L (23-29) mEq/L BUN 32 H 30 H (8-23) mg/dL Creatinine 1.76 H 1.73 H (0.60-1.20) mg/dL Glucose 97 85 (70-105) mg/dL Calcium 8.4 L 8.9 (8.6-10.3) mg/dL Total Bilirubin 0.4 (0.3-1.0) mg/dL AST 11 L (13-39) Units/L ALT 8 (7-52) Units/L Alkaline Phosphatase 59 (34-104) Units/L Albumin 3.9 (3.5-5.7) g/dL All other labs normal.
[2018-10-05 11:11] LABS: Basophils % 0.5 %; Eosinophils % 0.6 %; Immature Granulocytes % 0.6 % (0-4); Lymphocytes # 0.7 K/mcL (0.6-4.6); Lymphocytes % 10.7 %; Mean Corpuscular HGB Conc 29.3 g/dL (31.6-35.5); Mean Platelet Volume 9.4 fL (9.4-12.4); Monocytes # 0.5 K/mcL (0.0-1.3); Monocytes % 8.5 %; Platelet Count 139 K/mcL (140-400); Red Blood Count 3.66 M/mcL (3.82-4.97); Red Cell Distribution Width 15.7 % (11.5-14.5); Segmented Neutrophils % 79.1 %
[2018-10-05 11:22] LABS: Calcium 8.4 mg/dL (8.6-10.3); Potassium 4.7 mEq/L (3.5-5.1)
[2018-10-05 11:23] LABS: Hemoglobin 8.8 g/dL (11.5-15.4)
[2018-10-05] MEDS ORDERED: Perflutren Lipid Microsphere 1.3 ML in 0.9 % Sodium Chloride 8.7 ML IVP ONE (11:24)
[2018-10-05] MEDS ORDERED: Acetaminophen/Aspirin/Caffeine TABLET PO PRN (13:40)
[2018-10-05 14:51] LABS: ABG Base Excess -11 mEq/L (-2 to 3); ABG HCO3 14 mEq/L (21-27); ABG Oxygen Saturation 95 % (95-98); ABG PCO2 28 mmHg (35-45); ABG PH 7.32 pH Units (7.32-7.45); ABG PO2 79 mmHg (85-104); ABG TCO2 15 mEq/L (20-26)
[2018-10-05] MEDS: Acetaminophen/Aspirin/Caffeine TABLET PO PRN (14:53)
[2018-10-05 16:22] LABS: Hematocrit 29.3 % (35.3-44.9); Hemoglobin 8.6 g/dL (11.5-15.4)
[2018-10-05] MEDS ORDERED: Acetaminophen 325 MG TABLET PO PRN (16:28)
[2018-10-05 16:40] LABS: Albumin 3.9 g/dL (3.5-5.7); Albumin/Globulin Ratio 1.4 (1.1-2.2); Bilirubin,Total 0.4 mg/dL (0.3-1.0); Calcium 8.9 mg/dL (8.6-10.3); Globulin 2.8 g/dL (2.4-3.5); Potassium 4.5 mEq/L (3.5-5.1); Total Protein 6.7 g/dL (6.4-8.9)
[2018-10-05] MEDS: Ringers Solution, Lactated 1,000 ML IVC SCH (16:46)
--- NOTE | 2018-10-05 17:56 | General Surgery Consult Note ---
Date of Encounter: 10/05/18 Time of Encounter: 13:15 History of Present Illness Requesting physician: Juan Veloz History of present illness: General Surgery - this is a delayed dictation. Patient seen and examined at approx 1300 and again at 1800 63-year-old female very familiar to me, referred to me after presenting to the emergency department with complaints of abdominal pain, diarrhea, and a 1-2 week history of progressive lightheadedness. On presentation to the emergency department, labs were fairly unremarkable. White count 9.6, hemoglobin 10.4, hematocrit 35.5. Platelet count 185,000; differential within normal limits. Electrolytes are notable for a chloride of 111, BUN of 45, creatinine is 2.03 with an estimated GFR 25. Lactic acid 1.2, LFTs within normal limits. CT abdomen/pelvis, which I personally reviewed with [facility] demonstrated mi ld pulmonary atelectasis, postsurgical changes consistent with colon resection with rectal stump in the pelvis. There are multiple dilated loops of small bowel measuring up to 3.7 cm extending into the pelvis. Distal small bowel is decompressed with the colon appearing decompressed. The left kidney is surgically absent. Based on the patient's symptoms and radiologic findings suggestive of a distal small bowel obstruction the patient has been admitted with surgical consultation. Prior to the patient's admission she complained of copious diarrhea for approximately 48 hours before presentation to the emergency department for further evaluation and treatment. Past Medical History: Is notable for cardiomyopathy (LVEF in 2016 40-45% with hypokinetic apical segments suggestive Takotsubo Syndrome), gastroesophageal reflux disease history of GI bleed, hypertension, osteoporosis, CKD-3; chronic anemia requiring frequent transfusions, most likely due to the chronic kidney disease Surgical history: Previous heart catheterization; tubal ligation 1976; ureteral reimplantation approximately 2008 which ultimately failed requiring left nephrectomy; cystoscopy with bilateral stent placement followed by exploratory celiotomy sigmoid colectomy with mobilization of the splenic flexure to facil itate left nephroureterectomy with end descending colostomy and Nevin pouch and left salpingo-oophorectomy . Incidental appendectomy was completed at that time as well. Patient underwent reversal of the Nevin procedure with re-establishment colon continuity 05/28/17. Colonoscopy with anastomotic dilatation completed 11/04/2017. Flexible sigmoidoscopy with repeat dilatation the colo-colonic anastomosis, 12/23/17. Allergies: Percocet, Vicodin, Darvocet-N 100, Tylenol 3 with codeine, morphine Medications: Cetirizine HCL 10 mg by mouth daily Omeprazole 40 mg by mouth daily Excedrin EX (acetaminophen/aspirin/caffeine) 1 by mouth every 6 hours when necessary for headache/migraine Nitrofurantoin 100 mg by mouth twice a day for 3 days prescribed december/2017 Vancomycin oral solution 125 mg by mouth 4 times a day prescribed for 11 days, 01/29/18 Social history: Patient has never smoked, G2, P2. Menarche at 15. Patient denies tobacco, alcohol, or illicit drug use Family history: Father and brother with lung cancer; brother with heart disease. On physical examination: Age-appropriate woman resting comfortably in her hospital bed. Since admission, the patient has been afebrile, currently 98.4, pulse 91, respirations 16, blood pressure 132/69. SPO2 on room air 97% Skin: Warm without obvious jaundice Lungs: Clear bilaterally, no abdominal pain on deep inspiration Cardiac: Regular rate, no appreciable murmurs Abdomen: Soft, nontender, with hypoactive bowel sounds. Midline surgical scarring consistent with the patient's previous history of transabdominal surgeries. No detected fascial defects. No palpable masses. No rebound. Extremities: No obvious clubbing, cyanosis, or edema. Impression: 63-year-old, well known to me, status post Nevin procedure with left nephroureterectomy for refractory sigmoid diverticulitis with perforation, 11/05/16. This Nevin procedure was reversed 05/28/17. She has a known history of diffuse cystitis with recurrent hematuria being managed by [facility]. The patient has had chronic diarrhea since her Nevin procedure and subsequent reversal. 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 The patient admitted after presenting to the emergency department with rather severe dehydration. This is been partially addressed with aggressive fluid resuscitation since her admission. As a result of that fluid resuscitation, hemoglobin is [place] 8.6 with hematocrit 29.3. BUN has improved to 30, creatinine 1.73. Estimated GFR as improved to 30. Distal small bowel obstruction with loops of small bowel adherent in the pelvis remains a possibility. Recommendations: Continue rehydration Transfuse if necessary Correct any electrolyte abnormalities that develope I will follow along with you and make further recommendations pertaining to the possible distal small bowel obstruction. Past Med Surg Social Fam HX - Past Medical History Medical history: arthritis, cardiomyopathy, GERD, GI bleed, hypertension, osteoporosis, renal disease, other Additional medical history: irregular heart beat Psychiatric history: no psych history - Past Surgical History Surgical History: appendectomy, other Additional surgical history: RECONSTRUCTION ON URTER TUBE. TUBAL. EDG/COLONSCOPY. colostomy reversal. nephrectomy - Social History Smoking Status: Never smoker Smokeless Tobacco Status: No Alcohol use: none Drug use: none - Family History Father Living Status: Age at : 75 Cause of : bowel obstruction Hx Family Cancer: Yes (lung) Mother Living Status: Age at : 90 Cause of : "old age" Hx Family Cardiac Disorders: Yes (CABG) Hx Family Respiratory Disorders: No Hx Family Cancer: No Hx Family GI Disorders: No Hx Family Endocrine Disorder: No Hx Family Neuromuscular Disorders: No Hx Family Neurologic Disorders: Yes (stroke) Hx Family HEENT Disorders: No Hx Family Autoimmune Disorders: No Medications and Allergies Cetirizine HCl [All Day Allergy] 10 mg PO DAILY 11/04/17 [History] Omeprazole [PriLOSEC] 40 mg PO DAILY 12/23/17 [History] Acetaminophen/Aspirin/Caffeine [Excedrin EX] 2 tab PO Q6HR PRN 01/27/18 [History] Nitrofurantoin Monohyd/M-Cryst [Macrobid 100 mg Capsule] 100 mg PO BID 3 Days #6 capsule 01/29/18 [Rx] Vancomycin Oral Soln [Firvanq] 125 mg PO QID 11 Days #44 udc 01/29/18 [Rx] Allergy/AdvReac Type Severity Reaction Status Date / Time cephalexin [From Keflex] Allergy See Verified 01/27/18 12:06 Comments Cephalosporins Allergy Rash Verified 01/27/18 12:06 hydrocodone [From Vicodin] Allergy Itching Verified 01/27/18 12:06 oxycodone [From Percocet] Allergy Itching Verified 01/27/18 12:06 propoxyphene Allergy Itching Verified 01/27/18 12:06 [From Darvocet-N 100] diphenhydramine AdvReac Mild Confusion Verified 01/27/18 12:06 [From Benadryl] codeine AdvReac Nausea Verified 01/27/18 12:06 doxycycline AdvReac Vomiting Verified 01/27/18 12:06 morphine AdvReac Nausea Verified 01/27/18 12:06 tobramycin AdvReac Chest Pain Verified 01/27/18 12:06 beta-lactam Allergy Rash Uncoded 01/27/18 12:06 Review of Systems All systems PM: The remainder of the systems were reviewed and are negative General Surgery Exam Initial Vital Signs Temp Pulse Resp BP Pulse Ox 97.8 F 84 20 139/84 100 10/04/18 10:48 10/04/18 10:48 10/04/18 10:48 10/04/18 10:48 10/04/18 10:48 Exam Initial Vital Signs Temp Pulse Resp BP Pulse Ox 97.8 F 84 20 139/84 100 10/04/18 10:48 10/04/18 10:48 10/04/18 10:48 10/04/18 10:48 10/04/18 10:48 Results - Labs 10/05/18 15:00 10/05/18 15:00 Abnormal lab results RBC 3.66 M/mcL (3.82-4.97) L 10/05/18 10:54 Hgb 8.6 g/dL (11.5-15.4) L 10/05/18 15:00 Hct 29.3 % (35.3-44.9) L 10/05/18 15:00 MCV 82.0 fL (83.0-100.0) L 10/05/18 10:54 MCH 24.0 pg (28.0-33.3) L 10/05/18 10:54 MCHC 29.3 g/dL (31.6-35.5) L 10/05/18 10:54 RDW 15.7 % (11.5-14.5) H 10/05/18 10:54 Plt Count 139 K/mcL (140-400) L 10/05/18 10:54 ABG pCO2 28 mmHg (35-45) L 10/05/18 14:48 ABG pO2 79 mmHg (85-104) L 10/05/18 14:48 ABG HCO3 14 mEq/L (21-27) L 10/05/18 14:48 ABG Total CO2 15 mEq/L (20-26) L 10/05/18 14:48 ABG Base Excess -11 mEq/L (-2 to 3) L 10/05/18 14:48 Chloride 117 mEq/L (98-107) H 10/05/18 15:00 Carbon Dioxide 14 mEq/L (23-29) L 10/05/18 15:00 BUN 30 mg/dL (8-23) H 10/05/18 15:00 Creatinine 1.73 mg/dL (0.60-1.20) H 10/05/18 15:00 Est GFR ( Amer) 36 (> 60) L 10/05/18 15:00 Est GFR (Non-Af Amer) 30 (> 60) L 10/05/18 15:00 AST 11 Units/L (13-39) L 10/05/18 15:00 Ur Specimen Adequacy See below A 10/04/18 12:46 Urine Color Red (Yellow) A 10/04/18 12:46 Urine Protein >=1000 mg/dL (Neg-Trace) H 10/04/18 12:46 Urine Blood Large (Negative) H 10/04/18 12:46 Ur Leukocyte Esterase Small (Negative) H 10/04/18 12:46 Urine Microscopic RBC TNTC per hpf (0-3) H 10/04/18 12:46 Ur Culture Indicated? YES (NO) A 10/04/18 12:46 Diabetes panel 10/05/18 10/05/18 Range/Units 10:54 15:00 Sodium 140 141 (136-145) mEq/L Potassium 4.7 4.5 (3.5-5.1) mEq/L Chloride 117 H 117 H (98-107) mEq/L Carbon Dioxide 13 L 14 L (23-29) mEq/L BUN 32 H 30 H (8-23) mg/dL Creatinine 1.76 H 1.73 H (0.60-1.20) mg/dL Glucose 97 85 (70-105) mg/dL Calcium 8.4 L 8.9 (8.6-10.3) mg/dL AST 11 L (13-39) Units/L ALT 8 (7-52) Units/L Alkaline Phosphatase 59 (34-104) Units/L Albumin 3.9 (3.5-5.7) g/dL Calcium panel 10/05/18 10/05/18 Range/Units 10:54 15:00 Calcium 8.4 L 8.9 (8.6-10.3) mg/dL Albumin 3.9 (3.5-5.7) g/dL Pituitary panel 10/05/18 10/05/18 Range/Units 10:54 15:00 Sodium 140 141 (136-145) mEq/L Potassium 4.7 4.5 (3.5-5.1) mEq/L Chloride 117 H 117 H (98-107) mEq/L Carbon Dioxide 13 L 14 L (23-29) mEq/L BUN 32 H 30 H (8-23) mg/dL Creatinine 1.76 H 1.73 H (0.60-1.20) mg/dL Glucose 97 85 (70-105) mg/dL Calcium 8.4 L 8.9 (8.6-10.3) mg/dL Adrenal panel 10/05/18 10/05/18 Range/Units 10:54 15:00 Sodium 140 141 (136-145) mEq/L Potassium 4.7 4.5 (3.5-5.1) mEq/L Chloride 117 H 117 H (98-107) mEq/L Carbon Dioxide 13 L 14 L (23-29) mEq/L BUN 32 H 30 H (8-23) mg/dL Creatinine 1.76 H 1.73 H (0.60-1.20) mg/dL Glucose 97 85 (70-105) mg/dL Calcium 8.4 L 8.9 (8.6-10.3) mg/dL Total Bilirubin 0.4 (0.3-1.0) mg/dL AST 11 L (13-39) Units/L ALT 8 (7-52) Units/L Alkaline Phosphatase 59 (34-104) Units/L Albumin 3.9 (3.5-5.7) g/dL All other labs normal. Consult Discharge Plan - Plan Referrals: Mir Gomes DO [Primary Care Provider] -
[2018-10-05 19:01] LABS: Bilirubin,Urine Moderate (Negative); Blood,Urine Large (Negative); Clarity,Urine Turbid (Clear); Color,Urine Red (Yellow); Glucose,Urine (UA) Normal (Normal); Ketones,Urine 15 mg/dL (Negative); Leukocyte Esterase,Urine Large (Negative); Nitrite,Urine Negative (Negative); Protein,Urine >=300 mg/dL (Neg-Trace); Urobilinogen,Urine Normal (Normal)
[2018-10-05 19:07] LABS: Bacteria,Urine None Seen per hpf (None-Few); Squamous Epithelial Cell,Urine Many per lpf (None-Few); WBC,Urine TNTC per hpf (0-3)
[2018-10-05 19:22] LABS: Potassium,Urine 33.9 mEq/L; Sodium, Urine 137.6 mEq/L
[2018-10-05 19:27] LABS: Hyaline Casts,Urine Few per lpf (None-Few); RBC,Urine TNTC per hpf (0-3); Yeast,Urine Few per hpf (None Seen)
[2018-10-05] MEDS: *HR* FentaNYL (PF) 100 MCG/2 ML VIAL IVP PRN (20:36)
[2018-10-06] MEDS: Ringers Solution, Lactated 1,000 ML IVC SCH (06:45)
--- NOTE | 2018-10-06 08:17 | Internal Med Progress Note ---
<Judie Vega N - Last Filed: 10/07/18 00:48> Hospitalist Progress Note - Encounter Date of Encounter: 10/07/18 Time of Encounter: 08:16 - Subjective Interval History: Ms. Hannon was seen and evaluated at the bedside. She reports that she was able to have a bowel movement yesterday, and states that she has had resolution of her abdominal pain since that time. She denies any nausea or vomiting. Nursing staff reports no acute overnight events. - Exam Vitals: Temp Pulse Resp BP Pulse Ox 98.3 F 89 16 124/67 97 10/06/18 06:54 10/06/18 06:54 10/06/18 06:54 10/06/18 06:54 10/06/18 06:54 Exam: GENERAL: Adult female resting in bed. She does not appear to be in acute distress. HEENT: Atraumatic and normocephalic. CARDIOVASCULAR: Regular rate and rhythm. S1 and S2 present. No murmurs, gallops, or rubs appreciated. RESPIRATORY: Clear to auscultation bilaterally. Chest rises and falls symmetrically with respiration. No accessory muscle use noted. GASTROINTESTINAL: Abdomen is soft and nondistended. Active bowel sounds present x 4 quadrants. Patient is nontender to palpation. EXTREMITIES: No clubbing, cyanosis, or edema present. NEUROLOGIC: Alert and oriented x3. Patient is cooperative with exam and answers questions appropriately. No apparent focal deficits present. - Assessment and Plan (1) Acute kidney injury superimposed on chronic kidney disease Current Visit: No Status: Acute Assessment and Plan: Likely secondary to dehydration from several days of nausea and vomiting. Creatinine on admission was elevated at 2.03, with improvement on AM labs to 1.59; however, repeat BMP this afternoon demonstrated increase to 1.80. - Continue IVF hydration with D5 1/2NS @75mL/hr. - Avoid nephrotoxins and renally dose medications - Nephrology consult placed; anticipate further evaluation and recommendations tomorrow - Further plan as detailed above (2) Small bowel obstruction Current Visit: Yes Status: Acute Assessment and Plan: Patient has a history of multiple abdominal surgeries. CT of the abdomen/pelvis was significant for multiple loops of small bowel within the lower pelvis that are dilated with findings concerning for SBO with transition point likely in the right pelvis. Patient reported dramatic improvement in symptoms today and denies any continuing abdominal pain since she has been able to have a bowel movement. Small bowel follow through study this afternoon demonstrated no acute obstructio n. Patient was started on clear liquids by surgery and reportedly tolerated that without complication. Surgery has signed off on this patient with recommendations to continue IVF hydration overnight, particularly in light of her increase in creatinine. - Advance diet as tolerated beginning tomorrow if patient tolerates full liquids without complication (3) Dyspnea on exertion Current Visit: Yes Status: Acute Assessment and Plan: Unclear etiology - symptomatic anemia vs. cardiac pathology vs. respiratory compensation for metabolic acidosis. Patient's baseline hemoglobin appears to be ~8-9; most recent hemoglobin was decreased at 8.1, likely due to dilution from IVF hydration. Echocardiogram demonstrated LVEF of 65%. Additional impressions are as follows: basal sigmoid septum, mild left ventricular diastolic dysfunction, mildy dilated left atrium, normal RV structure and function, mild tricuspid regurgitation, and no evidence of pulmonary hypertension. - Continue clinical monitoring. - Monitor and trend H&H for signs of acute/ongoing blood loss. (4) Anemia of chronic disease Current Visit: No Status: Chronic Assessment and Plan: Patient had further decrease in hemoglobin on AM labs, from 8.8 yesterday to 8.1; however, high suspicion for dilutional effect as decreases are evident in all cell lines. - Trend CBC for signs of ongoing blood loss (5) HTN (hypertension) Current Visit: No Status: Chronic Assessment and Plan: - Continue hydralazine 10mg IVP Q6H PRN. Anticipate transition to oral therapy tomorrow. (6) DVT prophylaxis Current Visit: No Status: Acute Assessment and Plan: - SCDs. (7) Metabolic acidosis, normal anion gap (NAG) Current Visit: Yes Status: Acute Assessment and Plan: Unclear etiology - diarrhea vs. rapid saline infusion vs. renal tubular acidosis. Increasing suspicion for RTA. AM laboratory studies were significant for hyperchloremia and minimal improvement in CO2. VBG demonstrated pH 7.27, pCO2 31, pO2 122, and HCO3 14. Urine electrolytes obtained, which revealed a calculated urine anion gap of 24.5 mEq/L. Case was discussed with nephrology, with recommendations to obtain uric acid and PTH pending full consultation. Patient was started on 650mg sodium bicarbonate BID with plan to titrate to 21-26 as monitored by BMP. - Continue IVF hydration with D5 in 1/2 normal saline. - Continue close clinical and laboratory monitoring, with repeat electrolyte p jennifer and VBG with AM labs - Anticipate and appreciate further nephrology recommendations tomorrow - Time Spent with Patient Total time spent is greater than 50% in coordination of care (as documented) at patient's floor/unit and/or counseling patient: Internal Medicine: Result - Labs CBC & Chem 7: 10/06/18 07:57 10/06/18 17:53 Labs: Short CBC 10/05/18 10/05/18 Range/Units 10:54 15:00 WBC 6.4 (4.3-11.1) K/mcL Hgb 8.8 L D 8.6 L (11.5-15.4) g/dL Hct 30.0 L 29.3 L (35.3-44.9) % Plt Count 139 L (140-400) K/mcL Neutrophils # 5.0 (1.6-8.9) K/mcL BMP 10/05/18 10/05/18 10:54 15:00 Sodium 140 141 Potassium 4.7 4.5 Chloride 117 H 117 H Carbon Dioxide 13 L 14 L BUN 32 H 30 H Creatinine 1.76 H 1.73 H Glucose 97 85 Calcium 8.4 L 8.9 Liver Function 10/05/18 Range/Units 15:00 Total Bilirubin 0.4 (0.3-1.0) mg/dL AST 11 L (13-39) Units/L ALT 8 (7-52) Units/L Alkaline Phosphatase 59 (34-104) Units/L Albumin 3.9 (3.5-5.7) g/dL Urine 10/05/18 Range/Units 18:25 Urine Color Red A (Yellow) Urine Clarity Turbid A (Clear) Urine pH 6.0 (5.0-8.0) pH Units Ur Specific [place] 1.020 (1.010-1.025) Urine Protein >=300 H (Neg-Trace) mg/dL Urine Glucose (UA) Normal (Normal) mg/dL - ABG Interpretation ABG results: ABG ABG pH 7.32 pH Units (7.32-7.45) 10/05/18 14:48 ABG pCO2 28 mmHg (35-45) L 10/05/18 14:48 ABG pO2 79 mmHg (85-104) L 10/05/18 14:48 ABG O2 Saturation 95 % (95-98) 10/05/18 14:48 - Impressions Impressions Echocardiogram 10/04/18 15:01 Impressions: LVEF 65%. Basal sigmoid septum. Mild left ventricular diastolic dysfunction. Mildly dilated left atrium. Normal right ventricular structure and function. Mild tricuspid regurgitation. No pulmonary hypertension. Left Ventricular Wall Motion: Rest Echo Findings All wall segments showed normal motion. Findings: Study Quality * Technically adequate exam. ECG Findings * Sinus rhythm with BBB. Left Ventricle * LVEF 65%. * Normal LV chamber size, wall thickness systolic function. * Basal sigmoid septum. * Mild left ventricular diastolic dysfunction. Right Ventricle * Normal right ventricular structure and function. Left Atrium * Mildly dilated left atrium. Right Atrium * Normal right atrial size. Interatrial Septum * Interatrial septum not well evaluated. Aortic Valve * Trileaflet aortic valve. * No aortic stenosis. * No aortic regurgitation. Mitral Valve * Normal mitral valve structure. * No mitral stenosis. * Trace mitral regurgitation. Tricuspid Valve * Normal tricuspid valve structure. * No tricuspid stenosis. * Mild tricuspid regurgitation. * Estimated RVSP is 36 mmHg. * Estimated RA pressure is 3 mmHg. * No pulmonary hypertension. Pulmonic Valve * Pulmonic valve is not well visualized. * No pulmonic stenosis. * No pulmonic regurgitation. Aorta * Normally sized aortic root. Pericardium * The pericardium appears normal. IVC * Normal IVC dimensions and inspiratory collapse. Consult Discharge Plan - Plan Referrals: Mir Gomes DO [Primary Care Provider] - <Jose Chavarria - Last Filed: 10/07/18 08:06> Hospitalist Progress Note - Encounter Date of Encounter: 10/07/18 - Exam Vitals: Temp Pulse Resp BP Pulse Ox 98.2 F 66 15 134/81 100 10/07/18 07:04 10/07/18 07:04 10/07/18 07:04 10/07/18 07:04 10/07/18 07:04 - Assessment and Plan (1) Acute kidney injury superimposed on chronic kidney disease Current Visit: No Status: Acute (2) Anemia of chronic disease Current Visit: No Status: Chronic (3) HTN (hypertension) Current Visit: No Status: Chronic (4) DVT prophylaxis Current Visit: No Status: Acute (5) Small bowel obstruction Current Visit: Yes Status: Acute (6) Dyspnea on exertion Current Visit: Yes Status: Acute (7) Metabolic acidosis, normal anion gap (NAG) Current Visit: Yes Status: Acute - Time Spent with Patient Total time spent is greater than 50% in coordination of care (as documented) at patient's floor/unit and/or counseling patient: Internal Medicine: Result - Labs CBC & Chem 7: 10/07/18 06:33 10/07/18 06:33 Labs: Short CBC 10/06/18 10/07/18 Range/Units 07:57 06:33 WBC 4.5 4.3 (4.3-11.1) K/mcL Hgb 8.1 L 7.6 L (11.5-15.4) g/dL Hct 28.2 L 25.9 L (35.3-44.9) % Plt Count 117 L 115 L (140-400) K/mcL Neutrophils # 3.2 2.7 (1.6-8.9) K/mcL BMP 10/06/18 10/06/18 10/07/18 07:57 17:53 06:33 Sodium 139 142 140 Potassium 4.2 4.1 4.1 Chloride 116 H 116 H 117 H Carbon Dioxide 15 L 16 L 15 L BUN 29 H 29 H 24 H Creatinine 1.59 H 1.80 H 1.51 H Glucose 69 L 107 H 99 Calcium 9.0 9.2 8.7 Liver Function 10/07/18 Range/Units 06:33 Total Bilirubin 0.3 (0.3-1.0) mg/dL AST 12 L (13-39) Units/L ALT 6 L (7-52) Units/L Alkaline Phosphatase 54 (34-104) Units/L Albumin 3.6 (3.5-5.7) g/dL - ABG Interpretation ABG results: ABG ABG pH 7.32 pH Units (7.32-7.45) 10/05/18 14:48 ABG pCO2 28 mmHg (35-45) L 10/05/18 14:48 ABG pO2 79 mmHg (85-104) L 10/05/18 14:48 ABG O2 Saturation 95 % (95-98) 10/05/18 14:48 - Impressions Impressions Small Bowel X-Ray 10/06/18 10:13 IMPRESSION: No findings to suggest obstruction. D/ / Ivon Weinberg MD / Ivon Weinberg MD Interpreting Provider: Ivon Weinberg MD - Attending Attestation I examined this patient and my medical decision-making was reviewed with the Resident Physician. I agree with the documented findings, disposition and treatment plan as described except to the extent set forth below. <Judie Vega - Last Filed: 10/07/18 00:48> (5) HTN (hypertension) Qualifiers: Hypertension type: essential hypertension Qualified Code(s): I10 - Essential (primary) hypertension <Jose Chavarria - Last Filed: 10/07/18 08:06> (3) HTN (hypertension) Qualifiers: Hypertension type: essential hypertension Qualified Code(s): I10 - Essential (primary) hypertension
[2018-10-06 08:19] LABS: Basophils % 0.4 %; Mean Platelet Volume 9.1 fL (9.4-12.4); Red Cell Distribution Width 15.7 % (11.5-14.5)
[2018-10-06 08:21] LABS: Eosinophils # 0.1 K/mcL (0.0-0.6); Eosinophils % 1.3 %; Hematocrit 28.2 % (35.3-44.9); Hemoglobin 8.1 g/dL (11.5-15.4); Immature Granulocytes % 0.4 % (0-4); Lymphocytes # 0.7 K/mcL (0.6-4.6); Lymphocytes % 16.1 %; Mean Corpuscular HGB Conc 28.7 g/dL (31.6-35.5); Mean Corpuscular Hemoglobin 24.3 pg (28.0-33.3); Mean Corpuscular Volume 84.4 fL (83.0-100.0); Monocytes # 0.5 K/mcL (0.0-1.3); Monocytes % 11.3 %; Neutrophils # 3.2 K/mcL (1.6-8.9); Platelet Count 117 K/mcL (140-400); Red Blood Count 3.34 M/mcL (3.82-4.97); Segmented Neutrophils % 70.5 %
[2018-10-06 08:22] LABS: VBG HCO3 14 mEq/L (21-27); VBG PCO2 31 mmHg (41-51); VBG PH 7.27 pH Units (7.32-7.42); VBG PO2 122 mmHg (25-50)
[2018-10-06 08:38] LABS: Magnesium 1.9 mg/dL (1.6-2.6); Potassium 4.2 mEq/L (3.5-5.1)
[2018-10-06 08:42] LABS: Anisocytosis 1+ (Not Present)
[2018-10-06 08:43] LABS: Hypochromasia Present (Not Present); Platelet Estimate Slight Decrease (Normal)
[2018-10-06] MEDS: Acetaminophen/Aspirin/Caffeine TABLET PO PRN (09:27)
[2018-10-06] MEDS: Pantoprazole 40 MG VIAL IVP SCH (09:27)
--- NOTE | 2018-10-06 10:27 | General Surgery Progress Note ---
Date of Encounter: 10/06/18 Time of Encounter: 10:18 Subjective Patient reports: no new complaints Narrative: General Surgery - The patient remains afebrile, in no acute distress. Currently 98.3, pulse 89, RR 16 and unlabored; BP 124/67. Lungs: Clear, no abdominal pain on deep inspiration Abdomen: Soft, nontender though a palpable vague masses evident in the right lower quadrant. Active bowel sounds. Moderate loose liquid stool is recorded x2. The patient has had diarrhea for approximately the past year, if not longer. Urine output approximately 1700 mL for calendar day's 10/05/18; 500 mL recorded so far today Labs: WBC 4.5, hemoglobin continues to decrease, 8.1, hematocrit 28.2. Platelet count also diminished 117,000. Differential within normal limits Sodium 139, potassium 4.2, chloride 116, bicarbonate 15, BUN improved to 29, creatinine improved to 1.59, eGFR improved to 33 Impression: Patient feeling better Hydration status markedly improved. With aggressive rehydration, H&H as diminished CT reviewed with [facility] - no intra abdominal or pelvic mass identified. Patient complaining of long-standing diarrhea, exacerbated by any PPI. Plan: Evaluate the radiologic findings of small bowel obstruction with small bowel follow-through Discontinue PPI, try sucralfate Objective Vital Signs - Last 8 Hours Temp Pulse Resp BP Pulse Ox 10/06/18 06:54 98.3 F 89 16 124/67 97 10/06/18 03:27 98.4 F 88 15 108/66 98 Intake and Output 10/05/18 10/06/18 10/06/18 23:59 07:59 15:59 Intake Total 700 / 700 1000 / 1000 Output Total 500 / 500 200 / 200 300 / 300 Balance 200 / 200 800 / 800 -300 / -300 Intake: IV Fluids 700 / 700 1000 / 1000 0.9 % Sodium Chloride 1,000 ML 700 / 700 @ 75 mls/hr IVC .[id number] [facility] Rx #:[id number] Lactated Ringers 1,000 ML @ 75 1000 / 1000 mls/hr IVC .[id number] [facility] Rx#: [id number] Oral 0 / 0 0 / 0 Output: Urine 500 / 500 200 / 200 300 / 300 Other: Stool Size Moderate Stool Consistency loose liquid Stool Color Brown # Voids 1 # Bowel Movements 0 1 Weight 75.6 kg Blood Glucose* 85 74 Patient Weight 10/06/18 23:59 Weight 75.6 kg - Labs 10/06/18 07:57 10/06/18 07:57 Diabetes panel 10/05/18 10/05/18 10/06/18 Range/Units 10:54 15:00 07:57 Sodium 140 141 139 (136-145) mEq/L Potassium 4.7 4.5 4.2 (3.5-5.1) mEq/L Chloride 117 H 117 H 116 H (98-107) mEq/L Carbon Dioxide 13 L 14 L 15 L (23-29) mEq/L BUN 32 H 30 H 29 H (8-23) mg/dL Creatinine 1.76 H 1.73 H 1.59 H (0.60-1.20) mg/dL Glucose 97 85 69 L (70-105) mg/dL Calcium 8.4 L 8.9 9.0 (8.6-10.3) mg/dL AST 11 L (13-39) Units/L ALT 8 (7-52) Units/L Alkaline Phosphatase 59 (34-104) Units/L Albumin 3.9 (3.5-5.7) g/dL Calcium panel 10/05/18 10/05/18 10/06/18 Range/Units 10:54 15:00 07:57 Calcium 8.4 L 8.9 9.0 (8.6-10.3) mg/dL Albumin 3.9 (3.5-5.7) g/dL Pituitary panel 10/05/18 10/05/18 10/06/18 Range/Units 10:54 15:00 07:57 Sodium 140 141 139 (136-145) mEq/L Potassium 4.7 4.5 4.2 (3.5-5.1) mEq/L Chloride 117 H 117 H 116 H (98-107) mEq/L Carbon Dioxide 13 L 14 L 15 L (23-29) mEq/L BUN 32 H 30 H 29 H (8-23) mg/dL Creatinine 1.76 H 1.73 H 1.59 H (0.60-1.20) mg/dL Glucose 97 85 69 L (70-105) mg/dL Calcium 8.4 L 8.9 9.0 (8.6-10.3) mg/dL Adrenal panel 10/05/18 10/05/18 10/06/18 Range/Units 10:54 15:00 07:57 Sodium 140 141 139 (136-145) mEq/L Potassium 4.7 4.5 4.2 (3.5-5.1) mEq/L Chloride 117 H 117 H 116 H (98-107) mEq/L Carbon Dioxide 13 L 14 L 15 L (23-29) mEq/L BUN 32 H 30 H 29 H (8-23) mg/dL Creatinine 1.76 H 1.73 H 1.59 H (0.60-1.20) mg/dL Glucose 97 85 69 L (70-105) mg/dL Calcium 8.4 L 8.9 9.0 (8.6-10.3) mg/dL Total Bilirubin 0.4 (0.3-1.0) mg/dL AST 11 L (13-39) Units/L ALT 8 (7-52) Units/L Alkaline Phosphatase 59 (34-104) Units/L Albumin 3.9 (3.5-5.7) g/dL Consult Discharge Plan - Plan Referrals: Mir Gomes DO [Primary Care Provider] -
[2018-10-06] MEDS ORDERED: Dextrose Gel 15 GM/37.5 ML TUBE PO PRN ×2 (11:47)
[2018-10-06] MEDS ORDERED: *HR* Dextrose 50 % in Water (Syg) 50 ML SYRINGE IVP PRN (11:47)
[2018-10-06] MEDS ORDERED: D5% in Water 1,000 ML IVC PRN (11:47)
[2018-10-06] MEDS ORDERED: D5% in Water 1,000 ML IVC SCH (12:00)
[2018-10-06] MEDS: Sucralfate 1 GM TABLET PO SCH ×3 (13:17→20:50)
[2018-10-06] MEDS: *HR* Promethazine 25 MG/ML VIAL IVP PRN (17:26)
--- NOTE | 2018-10-06 17:39 | Event Note ---
Date of Encounter: 10/06/18 Time of Encounter: 17:35 Small bowel follow-through reviewed with [facility]. No evidence of SBO as contrast reached the colon within 45 minutes. Patient tolerated the small bowel follow-through without difficulty. No complaints of pain. We will allow full liquid diet tonight. Continue IV fluids through the night as the blood resuscitation has been an official to renal function. With no evidence of SBO, no surgical intervention anticipated. Thank you for this consultation. I will sign off. Please call if needed.
[2018-10-06 18:23] LABS: Calcium 9.2 mg/dL (8.6-10.3); Potassium 4.1 mEq/L (3.5-5.1)
[2018-10-06] MEDS: D5% in 0.45% NACL 1,000 ML IVC SCH (18:54)
[2018-10-07] MEDS: Acetaminophen/Aspirin/Caffeine TABLET PO PRN (06:50)
[2018-10-07 07:05] LABS: VBG HCO3 17 mEq/L (21-27); VBG Ionized Calcium 1.23 mmol/L (1.15-1.35); VBG PCO2 33 mmHg (41-51); VBG PH 7.32 pH Units (7.32-7.42); VBG PO2 96 mmHg (25-50)
[2018-10-07 07:24] LABS: Basophils % 0.2 %; Eosinophils # 0.1 K/mcL (0.0-0.6); Eosinophils % 2.6 %; Hematocrit 25.9 % (35.3-44.9); Hemoglobin 7.6 g/dL (11.5-15.4); Immature Granulocytes % 0.7 % (0-4); Lymphocytes # 0.9 K/mcL (0.6-4.6); Lymphocytes % 21.6 %; Mean Corpuscular HGB Conc 29.3 g/dL (31.6-35.5); Mean Corpuscular Hemoglobin 24.1 pg (28.0-33.3); Mean Corpuscular Volume 82.2 fL (83.0-100.0); Mean Platelet Volume 9.6 fL (9.4-12.4); Monocytes # 0.6 K/mcL (0.0-1.3); Monocytes % 12.8 %; Neutrophils # 2.7 K/mcL (1.6-8.9); Platelet Count 115 K/mcL (140-400); Red Blood Count 3.15 M/mcL (3.82-4.97); Red Cell Distribution Width 15.9 % (11.5-14.5); Segmented Neutrophils % 62.1 %
[2018-10-07 07:27] LABS: Albumin 3.6 g/dL (3.5-5.7); Albumin/Globulin Ratio 1.5 (1.1-2.2); Bilirubin,Total 0.3 mg/dL (0.3-1.0); Calcium 8.7 mg/dL (8.6-10.3); Globulin 2.4 g/dL (2.4-3.5); Potassium 4.1 mEq/L (3.5-5.1); Uric Acid 10.8 mg/dL (2.3-7.6)
[2018-10-07] MEDS: D5% in 0.45% NACL 1,000 ML IVC SCH ×2 (07:51→20:45)
[2018-10-07] MEDS: Sucralfate 1 GM TABLET PO SCH ×4 (07:51→20:44)
--- NOTE | 2018-10-07 08:49 | Internal Med Progress Note ---
Hospitalist Progress Note - Encounter Date of Encounter: 10/07/18 Time of Encounter: 08:49 - Subjective Interval History: Ms. Hannon was seen and evaluated at the bedside. She reports feeling well today, and states that she would like to further advance her PO intake to a regular diet. She denies any nausea, vomiting, or abdominal pain. She denies any acute complaints or concerns at this time. - Exam Vitals: Temp Pulse Resp BP Pulse Ox 98.2 F 66 15 134/81 100 10/07/18 07:04 10/07/18 07:04 10/07/18 07:04 10/07/18 07:04 10/07/18 07:04 Exam: GENERAL: Adult female resting in bed comfortably and in no acute distress. HEENT: Atraumatic and normocephalic. CARDIOVASCULAR: Regular rate and rhythm. S1 and S2 present. No murmurs, gallops, or rubs appreciated. RESPIRATORY: Clear to auscultation bilaterally. Chest rises and falls symmetrically with respiration. No accessory muscle use noted. GASTROINTESTINAL: Abdomen is soft and nontender. EXTREMITIES: No clubbing, cyanosis, or edema present. NEUROLOGIC: Alert and oriented x3. Patient is cooperative with exam and answers questions appropriately. No apparent focal deficits present. - Assessment and Plan (1) Metabolic acidosis, normal anion gap (NAG) Current Visit: Yes Status: Acute Assessment and Plan: Unclear etiology - diarrhea vs. rapid saline infusion vs. renal tubular acidosis. 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 AM laboratory studies continue to demonstrate hyperchloremia and low CO2. - IVF hydration with D5 in 1/2 normal saline. - Sodium bicarbonate supplementation titrated to serum CO2 >21. - Continue close clinical and laboratory monitoring, with repeat electrolyte panel and VBG with AM labs. (2) Acute kidney injury superimposed on chronic kidney disease Current Visit: No Status: Acute Assessment and Plan: Likely secondary to dehydration from several days of nausea and vomiting. Creatinine appears to have improved to baseline. - Continue IVF hydration with D5 1/2NS @75mL/hr. - Avoid nephrotoxins and renally dose medications - Appreciate nephrology recommendations. (3) Anemia of chronic disease Current Visit: No Status: Chronic Assessment and Plan: Patient had continued decrease in hemoglobin during this admission. Though initially attributed to dilutional effect from IVF hydration, hemoglobin has continued to drop without significant decreases in other cell lines. - Stool occult pending. - Due to ongoing hematuria and most recent hemoglobin of 7.3, 1 unit PRBC ordered with repeat H&H to follow. - Continue to trend daily CBC for evaluation of ongoing blood loss. (4) Hematuria Current Visit: Yes Status: Acute Assessment and Plan: History of chronic hematuria and hemorrhagic cystitis. Patient reports that this problem is ongoing at this time. Suspect that this is the source of her slow downward trend in H&H over this admission. - Plan as above for anemia. - Recommend outpatient followup with urology for ongoing management after discharge. (5) Small bowel obstruction Current Visit: Yes Status: Resolved Assessment and Plan: Patient has a history of multiple abdominal surgeries. CT of the abdomen/pelvis was significant for multiple loops of small bowel within the lower pelvis that are dilated with findings concerning for SBO with transition point likely in the right pelvis. Patient reported dramatic improvement in symptoms today and denies any continuing abdominal pain since she has been able to have a bowel movement. Small bowel follow through study this afternoon demonstrated no acute obstruction. Patient was started on clear liquids by surgery and reportedly tolerated that without complication. Patient reports tolerating liquids without complications and is eager to resume regular diet. (6) HTN (hypertension) Current Visit: No Status: Chronic Assessment and Plan: - Continue hydralazine 10mg IVP Q6H PRN. (7) DVT prophylaxis Current Visit: No Status: Acute Assessment and Plan: - SCDs. - Time Spent with Patient Total time spent is greater than 50% in coordination of care (as documented) at patient's floor/unit and/or counseling patient: Internal Medicine: Result - Labs CBC & Chem 7: 10/07/18 12:38 10/07/18 06:33 Labs: Short CBC 10/07/18 Range/Units 06:33 WBC 4.3 (4.3-11.1) K/mcL Hgb 7.6 L (11.5-15.4) g/dL Hct 25.9 L (35.3-44.9) % Plt Count 115 L (140-400) K/mcL Neutrophils # 2.7 (1.6-8.9) K/mcL BMP 10/06/18 10/07/18 17:53 06:33 Sodium 142 140 Potassium 4.1 4.1 Chloride 116 H 117 H Carbon Dioxide 16 L 15 L BUN 29 H 24 H Creatinine 1.80 H 1.51 H Glucose 107 H 99 Calcium 9.2 8.7 Liver Function 10/07/18 Range/Units 06:33 Total Bilirubin 0.3 (0.3-1.0) mg/dL AST 12 L (13-39) Units/L ALT 6 L (7-52) Units/L Alkaline Phosphatase 54 (34-104) Units/L Albumin 3.6 (3.5-5.7) g/dL - ABG Interpretation ABG results: ABG ABG pH 7.32 pH Units (7.32-7.45) 10/05/18 14:48 ABG pCO2 28 mmHg (35-45) L 10/05/18 14:48 ABG pO2 79 mmHg (85-104) L 10/05/18 14:48 ABG O2 Saturation 95 % (95-98) 10/05/18 14:48 - Impressions Impressions Small Bowel X-Ray 10/06/18 10:13 IMPRESSION: No findings to suggest obstruction. D/ / Ivon Weinberg MD / Ivon Weinberg MD Interpreting Provider: Ivon Weinberg MD Consult Discharge Plan - Plan Referrals: Mir Gomes DO [Primary Care Provider] - (4) Hematuria Qualifiers: Hematuria type: unspecified type Qualified Code(s): R31.9 - Hematuria, unspecified (6) HTN (hypertension) Qualifiers: Hypertension type: essential hypertension Qualified Code(s): I10 - Essential (primary) hypertension
--- NOTE | 2018-10-07 10:16 | Urology Progress Note ---
<Vijaya Titus N - Last Filed: 10/07/18 10:13> Date of Encounter: 10/07/18 Time of Encounter: 10:13 - Assessment and Plan (1) Hemorrhagic cystitis Current Visit: Yes Status: Acute Assessment and plan: Patient is a 63-year-old female who presents with a history hemorrhagic cystitis. Vital signs are currently stable and afebrile. Hemoglobin is decreased at 7.6. I reviewed patient's negative urine culture. Discussed outpatient follow-up with Dr. Contreras as previously planned. Patient is considering outpatient cystoscopy and fulguration as discussed with Dr. Contreras. At this time, no surgical urologic intervention is anticipated, and urology will sign off. (2) History of nephrectomy Current Visit: Yes Status: Acute (3) Small bowel obstruction Current Visit: Yes Status: Acute Progress Note Subjective: no new complaints Narrative: Patient seen and examined lying in bed in no apparent distress. Patient states she is voiding without difficulty and experiencing intermittent hematuria. Patient denies significant pain, flank pain, fever, chills, dysuria, urgency, frequency, hesitancy or incontinence. Objective Initial Vital Signs Temp Pulse Resp BP Pulse Ox 97.8 F 84 20 139/84 100 10/04/18 10:48 10/04/18 10:48 10/04/18 10:48 10/04/18 10:48 10/04/18 10:48 - General physical appearance Present: well developed, no distress, no pain - Respiratory Present: normal expansion, normal respiratory effort - Abdomen Present: soft, non tender - Integumentary Present: no rash, no abnormal pigmentation - Musculoskeletal Present: normal posture - Psychiatric Present: oriented to time, oriented to person, oriented to place, speech is normal, memory intact - Labs 10/07/18 06:33 10/07/18 06:33 Diabetes panel 10/06/18 10/07/18 Range/Units 17:53 06:33 Sodium 142 140 (136-145) mEq/L Potassium 4.1 4.1 (3.5-5.1) mEq/L Chloride 116 H 117 H (98-107) mEq/L Carbon Dioxide 16 L 15 L (23-29) mEq/L BUN 29 H 24 H (8-23) mg/dL Creatinine 1.80 H 1.51 H (0.60-1.20) mg/dL Glucose 107 H 99 (70-105) mg/dL Calcium 9.2 8.7 (8.6-10.3) mg/dL AST 12 L (13-39) Units/L ALT 6 L (7-52) Units/L Alkaline Phosphatase 54 (34-104) Units/L Albumin 3.6 (3.5-5.7) g/dL Calcium panel 10/06/18 10/07/18 Range/Units 17:53 06:33 Calcium 9.2 8.7 (8.6-10.3) mg/dL Albumin 3.6 (3.5-5.7) g/dL Pituitary panel 10/06/18 10/07/18 Range/Units 17:53 06:33 Sodium 142 140 (136-145) mEq/L Potassium 4.1 4.1 (3.5-5.1) mEq/L Chloride 116 H 117 H (98-107) mEq/L Carbon Dioxide 16 L 15 L (23-29) mEq/L BUN 29 H 24 H (8-23) mg/dL Creatinine 1.80 H 1.51 H (0.60-1.20) mg/dL Glucose 107 H 99 (70-105) mg/dL Calcium 9.2 8.7 (8.6-10.3) mg/dL Adrenal panel 10/06/18 10/07/18 Range/Units 17:53 06:33 Sodium 142 140 (136-145) mEq/L Potassium 4.1 4.1 (3.5-5.1) mEq/L Chloride 116 H 117 H (98-107) mEq/L Carbon Dioxide 16 L 15 L (23-29) mEq/L BUN 29 H 24 H (8-23) mg/dL Creatinine 1.80 H 1.51 H (0.60-1.20) mg/dL Glucose 107 H 99 (70-105) mg/dL Calcium 9.2 8.7 (8.6-10.3) mg/dL Total Bilirubin 0.3 (0.3-1.0) mg/dL AST 12 L (13-39) Units/L ALT 6 L (7-52) Units/L Alkaline Phosphatase 54 (34-104) Units/L Albumin 3.6 (3.5-5.7) g/dL Consult Discharge Plan - Plan Referrals: Mir Gomes DO [Primary Care Provider] - <Maulik Florian - Last Filed: 10/07/18 17:04> Date of Encounter: 10/07/18 - Assessment and Plan (1) UTI (urinary tract infection) Current Visit: No Status: Suspected Assessment and plan: pt not seen by MD. agree with PA assessment and plan Qualifiers: Urinary tract infection type: acute cystitis Hematuria presence: with hematuria Qualified Code(s): N30.01 - Acute cystitis with hematuria Objective Initial Vital Signs Temp Pulse Resp BP Pulse Ox 97.8 F 84 20 139/84 100 10/04/18 10:48 10/04/18 10:48 10/04/18 10:48 10/04/18 10:48 10/04/18 10:48 - Labs 10/07/18 12:38 10/07/18 06:33 Diabetes panel 10/06/18 10/07/18 Range/Units 17:53 06:33 Sodium 142 140 (136-145) mEq/L Potassium 4.1 4.1 (3.5-5.1) mEq/L Chloride 116 H 117 H (98-107) mEq/L Carbon Dioxide 16 L 15 L (23-29) mEq/L BUN 29 H 24 H (8-23) mg/dL Creatinine 1.80 H 1.51 H (0.60-1.20) mg/dL Glucose 107 H 99 (70-105) mg/dL Calcium 9.2 8.7 (8.6-10.3) mg/dL AST 12 L (13-39) Units/L ALT 6 L (7-52) Units/L Alkaline Phosphatase 54 (34-104) Units/L Albumin 3.6 (3.5-5.7) g/dL Calcium panel 10/06/18 10/07/18 Range/Units 17:53 06:33 Calcium 9.2 8.7 (8.6-10.3) mg/dL Albumin 3.6 (3.5-5.7) g/dL Pituitary panel 10/06/18 10/07/18 Range/Units 17:53 06:33 Sodium 142 140 (136-145) mEq/L Potassium 4.1 4.1 (3.5-5.1) mEq/L Chloride 116 H 117 H (98-107) mEq/L Carbon Dioxide 16 L 15 L (23-29) mEq/L BUN 29 H 24 H (8-23) mg/dL Creatinine 1.80 H 1.51 H (0.60-1.20) mg/dL Glucose 107 H 99 (70-105) mg/dL Calcium 9.2 8.7 (8.6-10.3) mg/dL Adrenal panel 10/06/18 10/07/18 Range/Units 17:53 06:33 Sodium 142 140 (136-145) mEq/L Potassium 4.1 4.1 (3.5-5.1) mEq/L Chloride 116 H 117 H (98-107) mEq/L Carbon Dioxide 16 L 15 L (23-29) mEq/L BUN 29 H 24 H (8-23) mg/dL Creatinine 1.80 H 1.51 H (0.60-1.20) mg/dL Glucose 107 H 99 (70-105) mg/dL Calcium 9.2 8.7 (8.6-10.3) mg/dL Total Bilirubin 0.3 (0.3-1.0) mg/dL AST 12 L (13-39) Units/L ALT 6 L (7-52) Units/L Alkaline Phosphatase 54 (34-104) Units/L Albumin 3.6 (3.5-5.7) g/dL
--- NOTE | 2018-10-07 11:37 | Nephrology Consult Note ---
Addendum entered and electronically signed by Flaco Laboy DO 10/07/18 20:31: I have personally performed a face to face evaluation on this patient. I have reviewed and agree with the care plan. History and Exam by me shows: The patient is a very pleasant 63-year-old female with a past medical history of prior urologic procedures including stents/bladder surgery and nephrectomy, chronic diarrhea s/p bowel resection followed by Dr. Smith, positive family history of solitary kidney, it was found to have chronic kidney disease and metabolic acidosis. Her outside electrical test technician is with the former [facility] group, Yasmine Baker CNP. I suspect she has developed an RTA related to her renal disease, chronic diarrhea and prior urologic procedures; and, I recommend she remain on oral sodium bicarbonate for a goal serum carbon dioxide greater than 21 (to monitor for lower extremity edema). I agree with efforts to reduce chronic diarrhea. Thank you for consulting the [facility], and I will continue to follow with you while hospitalized (since the patient's outside electrical test technician no longer has rounding privileges). Original Note: Date of Encounter: 10/07/18 Time of Encounter: 11:32 Assessment and Plan (1) Acute kidney injury superimposed on CKD Current Visit: Yes Status: Acute Baseline GFR appears to be 25-30. GFR is 35 today. Urine output for 24 hour total is 7 75, no urine recorded for today. Patient continues to have diarrhea which she states is a chronic problem at home. She also states that Dr. Smith changed her reflux medication to something else to help with that problem. Avoid nephrotoxins and renal dose all medications. Encouraged her to follow-up with Yasmine Woodward CNP after discharge. (2) Cardiac LV ejection fraction of 40-49% Current Visit: Yes Status: Acute Per primary. (3) Metabolic acidosis, normal anion gap (NAG) Current Visit: Yes Status: Acute Continue sodium bicarbonate tablets. (4) Nausea vomiting and diarrhea Current Visit: Yes Status: Acute Continue supportive care by primary team. (5) RTA (renal tubular acidosis) Current Visit: Yes Status: Acute Continue Sodium Bicarb tabs. History of Present Illness - Reason for Consult Consult date: 10/07/18 Chronic Kidney Disease Requesting physician: Venus Barcenas - Chief Complaint Ab pain, N/V/D - History of Present Illness Ms. Hannon is a 63 year old female who presented to ED with multiple complaints. She complained of of abdominal cramping, and pain vomiting up to 20 times and diarrhea. She presented on 10/04/18, it appears though that most of his symptoms have resolved. She was seen and evaluated by urology and Gen. surgery does have which signed off. She does see Yasmine Woodward CNP for her chronic kidney disease stage III, I encouraged her to get a follow-up after discharge. PMH: arthritis, cardiomyopathy, GERD, GI bleed, hypertension, osteoporosis. She denies any smoking history, EtOH or illicit drug use. Past Med Surg Social Fam HX - Past Medical History Medical history: arthritis, cardiomyopathy, GERD, GI bleed, hypertension, osteoporosis, renal disease, other Additional medical history: irregular heart beat Psychiatric history: no psych history - Past Surgical History Surgical History: appendectomy, other Additional surgical history: RECONSTRUCTION ON URTER TUBE. TUBAL. EDG/COLONSCOPY. colostomy reversal. nephrectomy - Social History Smoking Status: Never smoker Smokeless Tobacco Status: No Alcohol use: none Drug use: none - Family History Father Living Status: Age at : 75 Cause of : bowel obstruction Hx Family Cancer: Yes (lung) Mother Living Status: Age at : 90 Cause of : "old age" Hx Family Cardiac Disorders: Yes (CABG) Hx Family Respiratory Disorders: No Hx Family Cancer: No Hx Family GI Disorders: No Hx Family Endocrine Disorder: No Hx Family Neuromuscular Disorders: No Hx Family Neurologic Disorders: Yes (stroke) Hx Family HEENT Disorders: No Hx Family Autoimmune Disorders: No Medications and Allergies Cetirizine HCl [All Day Allergy] 10 mg PO DAILY 11/04/17 [History] Ranitidine HCl [Zantac 75] 75 mg PO DAILY 10/06/18 [History] Acetaminophen/Aspirin/Caffeine [Excedrin EX] 2 each PO Q6HR PRN 10/07/18 [History] Allergy/AdvReac Type Severity Reaction Status Date / Time cephalexin [From Keflex] Allergy See Verified 01/27/18 12:06 Comments Cephalosporins Allergy Rash Verified 01/27/18 12:06 hydrocodone [From Vicodin] Allergy Itching Verified 01/27/18 12:06 oxycodone [From Percocet] Allergy Itching Verified 01/27/18 12:06 propoxyphene Allergy Itching Verified 01/27/18 12:06 [From Darvocet-N 100] diphenhydramine AdvReac Mild Confusion Verified 01/27/18 12:06 [From Benadryl] codeine AdvReac Nausea Verified 01/27/18 12:06 doxycycline AdvReac Vomiting Verified 01/27/18 12:06 morphine AdvReac Nausea Verified 01/27/18 12:06 tobramycin AdvReac Chest Pain Verified 01/27/18 12:06 beta-lactam Allergy Rash Uncoded 01/27/18 12:06 Review of Systems All Systems review (narrative): The remainder of the systems are negative. Constitutional: fatigue, no chills, no fever(s) Cardiovascular: no chest pain, no dyspnea, no edema Respiratory: no dyspnea, no hemoptysis, no wheezing Gastrointestinal: diarrhea, loose stools, no melena, no nausea, no vomiting Genitourinary Female: hematuria, no urinary frequency, no urinary hesitancy, no urinary urgency Exam - Vital Signs Vital signs: Initial Vital Signs Temp Pulse Resp BP Pulse Ox 97.8 F 84 20 139/84 100 10/04/18 10:48 10/04/18 10:48 10/04/18 10:48 10/04/18 10:48 10/04/18 10:48 Vital Signs - Last 8 Hours Temp Pulse Resp BP Pulse Ox 10/07/18 11:01 98.3 F 72 16 118/75 98 10/07/18 07:04 98.2 F 66 15 134/81 100 10/07/18 03:55 98.3 F 76 16 111/66 97 Intake and Output 10/06/18 10/07/18 10/07/18 23:59 07:59 15:59 Intake Total 1000 / 1000 240 / 240 Output Total 275 / 275 0 / 0 0 / 0 Balance -275 / -275 1000 / 1000 240 / 240 Intake: IV Fluids 1000 / 1000 D5% And 0.45% Nacl 1000 Ml Bag 1000 / 1000 1,000 ML @ 75 mls/hr IVC . [id number] [facility] Rx#:[id number] Oral 0 / 0 240 / 240 Output: Urine 275 / 275 0 / 0 0 / 0 Other: Meal npo Breakfast Percent of Meal Consumed 100% Stool Size Small Stool Consistency liquid Stool Color Brown # Voids 3 1 # Bowel Movements 3 Weight 75.8 kg Blood Glucose* 94 Patient Weight 10/07/18 23:59 Weight 75.8 kg - General Appearance General appearance: well-developed, well-nourished EENT: ATNC, hearing intact, vision intact Neck: supple Respiratory: clear Cardiology: no edema, normal S1, normal S2 Gastrointestinal: normoactive bowel sounds, no tenderness, no guarding Integumentary: no rash, warm and dry Neurologic: alert and oriented x3 Musculoskeletal: no deformities, no erythema Psychiatric: mood/affect appropriate, cooperative Results - Lab Results 10/07/18 12:38 10/07/18 06:33 Most recent lab results ABG pH 7.32 pH Units (7.32-7.45) 10/05/18 14:48 ABG pCO2 28 mmHg (35-45) L 10/05/18 14:48 ABG pO2 79 mmHg (85-104) L 10/05/18 14:48 ABG HCO3 14 mEq/L (21-27) L 10/05/18 14:48 ABG O2 Saturation 95 % (95-98) 10/05/18 14:48 Calcium 8.7 mg/dL (8.6-10.3) 10/07/18 06:33 Magnesium 2.0 mg/dL (1.6-2.6) 10/07/18 06:33 Urine Sodium 137.6 mEq/L 10/05/18 18:00 Consult Discharge Plan - Plan Referrals: Mir Gomes DO [Primary Care Provider] -
--- NOTE | 2018-10-07 12:41 | Event Note ---
Date of Encounter: 10/07/18 Time of Encounter: 12:36 Patient seen and examined. I agree with the progress note as written by the resident physician. Patient with history of CKD stage III, nephrectomy, GI bleed, cardiomyopathy presented for multiple complaints. She was found to have small bowel obstructions which seems to have resolved. Surgery had signed off. While she is due she was found to have acute kidney injury on chronic kidney disease. Her kidney function seems to be improving. She is followed by nephrology for possi ble RTA. Has been started on sodium bicarbonate's. Kidney function seems to be back to around baseline. Hemoglobin seems to have dropped from 10.4 on presentation to 7.6 today. She has chronic hematuria from hemorrhagic cystitis. Urology is following with no plans for intervention inpatient but they plan outpatient cystoscopy. She is feeling well this morning. She is afebrile. Denies pain. GEN: NAD CVS: RRR. S1, S2, No m/r/g RESP: CTAB ABD: Soft, NT, ND, +BS EXT: No edema. 2+ DP. No rashes NEURO: Nonfocal Continue IV fluids. Advance diet as tolerated. Continue bicarbonate tablets Drop in hemoglobin possibly dilutional but patient is also having hematuria which is likely contributing. Urology to follow hematuria. ?? cystoscopy inpatient?? Recently had a colonoscopy in November 2017 with nothing acute. Repeat colonoscopy was recommended in 10 years. Possible discharge in 1-2 days if hemoglobin stabilizes/improves. SCDs for DVT prophylaxis
[2018-10-07 12:52] LABS: Hematocrit 24.3 % (35.3-44.9); Hemoglobin 7.3 g/dL (11.5-15.4)
--- NOTE | 2018-10-07 14:38 | Electrocardiograph Report ---
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
[2018-10-07] MEDS ORDERED: 0.9 % Sodium Chloride 500 ML ONE (18:30)
[2018-10-08 01:44] LABS: Hematocrit 27.5 % (35.3-44.9); Hemoglobin 8.3 g/dL (11.5-15.4)
[2018-10-08 02:03] LABS: Calcium 7.6 mg/dL (8.6-10.3)
[2018-10-08 07:15] VITALS: BP 151/87
[2018-10-08] MEDS: Sucralfate 1 GM TABLET PO SCH ×2 (07:52→10:43)
[2018-10-08] MEDS: D5% in 0.45% NACL 1,000 ML IVC SCH (07:57)
--- NOTE | 2018-10-08 09:00 | Discharge Summary ---
<Judie Vega N - Last Filed: 10/08/18 18:32> - NOTES TO OUTPATIENT PROVIDER Notes to Outpatient Provider: Patient presented with abdominal pain secondary to SBO, which was treated conservatively to resolution. Carafate started during this hospitalization, which appeared to improve abdominal pain, and was continued at time of discharge. She was found to have normal anion gap metabolic acidosis, and was evaluated by inpatient nephrology, with etiology determined to be RTA. PO sodium bicarbonate BID started, with prescription provided at discharge. Patient instructed to followup with established [facility] painter for ongoing management. Patient also had acute hemorrhagic cystitis, and required 1 unit PRBC for worsening anemia. Outpatient followup with urology for possible cystoscopy. Orders not resulted at time of discharge: Pending orders 10/09/18 04:00 BMP [Basic Metabolic Panel] AM 0400 Date of Encounter: 10/08/18 Time of Encounter: 09:00 - Discharge Diagnosis (1) Metabolic acidosis, normal anion gap (NAG) Priority: Secondary Status: Acute (2) Acute kidney injury superimposed on chronic kidney disease Priority: Secondary Status: Acute (3) Anemia of chronic disease Priority: Secondary Status: Chronic (4) Small bowel obstruction Priority: Primary Status: Resolved (5) HTN (hypertension) Priority: Secondary Status: Chronic Qualifiers: Hypertension type: essential hypertension Qualified Code(s): I10 - Essential (primary) hypertension (6) Hematuria Priority: Secondary Status: Acute Qualifiers: Hematuria type: unspecified type Qualified Code(s): R31.9 - Hematuria, unspecified Hospital course: Ms. Hannon is a 63 year old female who presented to the ED on 10/05/[address] of [address] of the abdomen and pelvis was significant for dilation of multiple loops of small bowel within lower pelvis with findings concerning for small bowel obstruction with likely transition point in the right pelvis. Inflammation of the bladder wall was also noted. Patient was also noted to be severely dehydrated, and laboratory studies demonstrated acute on chronic kidney injury. She was admitted to the hospital for management of SBO, dehydration, and BORIS. Patient was seen by Dr. Smith, as she is a long-established patient of [facility]. Patient reported significant improvement in symptoms with fluid hydration and short bowel rest. Small bowel follow-through study demonstrated no obstruction, and patient was started on a clear liquid diet, with progression to a regular diet prior to discharge. Patient was noted to have a non-anion gap metabolic acidosis, as evidenced by hyperchloremia and low CO2 on laboratory studies. Urine anion gap was elevated at 24.5. Inpatient nephrology service was consulted, and patient was started on oral sodium bicarbonate, with goal to titrate to CO2 >21 on metabolic panels. Per their consult documentation, suspicion for RTA secondary to renal disease, chronic diarrhea, and metabolic acidosis. Patient has a long history of chronic cystitis with intermittent hematuria, which is managed by [facility]. Patient was noted to have gross hematuria during this admission. Inpatient consult to urology was placed; however, no acute intervention was indicated and patient was instructed to follow up as an outpatient after discharge. At the time of admission, patient had hemoglobin above her baseline; however, this trended down over the course of her admission, and was found to be significantly decreased at 7.3 on 10/07/18. Patient received 1 unit PRBC, with improvement in hemoglobin to 8.3. Patient was urged to have close follow-up with both urology and her primary care provider regarding ongoing blood loss via hematuria. On day of discharge, patient voices no acute complaints or concerns. She was instructed to follow-up with urology and nephrology's outpatient clinics, with close PCP follow-up. Discharge discussed with: patient, nurse - Time Spent with Patient Total time spent providing and/or coordinating discharge services: - Discharge Medications Prescriptions: RX: Sodium Bicarbonate 650 mg PO BID #120 tablet Sucralfate [Carafate] 1 gm PO QID 30 Days #1 bottle Home Medications: RX: Cetirizine HCl [All Day Allergy] 10 mg PO DAILY 11/04/17 [History] RX: Ranitidine HCl [Zantac 75] 75 mg PO DAILY 10/06/18 [History] RX: Acetaminophen/Aspirin/Caffeine [Excedrin EX] 2 each PO Q6HR PRN 10/07/18 [History] RX: Sodium Bicarbonate 650 mg PO BID #120 tablet 10/08/18 [Rx] Sucralfate [Carafate] 1 gm PO QID 30 Days #1 bottle 10/08/18 [Rx] Allergies/Adverse Reactions: Allergy/AdvReac Type Severity Reaction Status Date / Time cephalexin [From Keflex] Allergy See Verified 01/27/18 12:06 Comments Cephalosporins Allergy Rash Verified 01/27/18 12:06 hydrocodone [From Vicodin] Allergy Itching Verified 01/27/18 12:06 oxycodone [From Percocet] Allergy Itching Verified 01/27/18 12:06 propoxyphene Allergy Itching Verified 01/27/18 12:06 [From Darvocet-N 100] diphenhydramine AdvReac Mild Confusion Verified 01/27/18 12:06 [From Benadryl] codeine AdvReac Nausea Verified 01/27/18 12:06 doxycycline AdvReac Vomiting Verified 01/27/18 12:06 morphine AdvReac Nausea Verified 01/27/18 12:06 tobramycin AdvReac Chest Pain Verified 01/27/18 12:06 beta-lactam Allergy Rash Uncoded 01/27/18 12:06 Date of admission: 10/04/18 21:47 Primary care physician: Mir Gomes DO Consults: 10/04/18 13:24 Consult to Surgery [CONS] Stat Consulting Provider: Surgery [facility] Reason for Consult: SBO Time Notified: 13:24 Call Completed: Yes 10/05/18 08:25 Consult to Urology [CONS] Routine Consulting Provider: [facility] Reason for Consult: hydronephrosis, stone Call Completed: No 10/06/18 17:08 Consult to Nephrology [CONS] Routine Consulting Provider: Kidney Tamie/MARA/MARIAMA/ASIA Reason for Consult: non-anion gap metabolic acidosis Call Completed: Yes Discharging clinician: Judie Vega Anticipated date of discharge: 10/08/18 - Constitutional Vitals: Temp Pulse Resp BP Pulse Ox 97.5 F L 61 16 151/87 100 10/08/18 07:13 10/08/18 07:13 10/08/18 07:13 10/08/18 07:13 10/08/18 07:13 General appearance: Present: A&O X 3, no acute distress Exam: GENERAL: Adult female resting in bed comfortably and in no acute distress. HEENT: Atraumatic and normocephalic. CARDIOVASCULAR: Regular rate and rhythm. S1 and S2 present. No murmurs, gallops, or rubs appreciated. RESPIRATORY: Clear to auscultation bilaterally. Chest rises and falls symmetrically with respiration. No accessory muscle use noted. GASTROINTESTINAL: Abdomen is soft and nontender. EXTREMITIES: No clubbing, cyanosis, or edema present. SKIN: Warm, dry, and intact. NEUROLOGIC: Alert and oriented x3. Patient is cooperative with exam and answers questions appropriately. No apparent focal deficits present. PSYCHIATRIC: Appropriate mood and affect. - Patient Status Disposition: Home, Self-Care Condition: Good Overall status at discharge: patient is progressing back to baseline - Discharge Instructions Follow Up With: Yasmine Baker CNP [Advanced Practice Nurse] - 10/20/18 3:00 pm Tadeo Contreras MD [Partnered Physician] - 10/13/18 7:45 am Mir Gomes DO [Primary Care Provider] - 10/14/18 1:30 pm Additional Instructions: Follow up with PCP in 3-5 days. Continue home medications. Continue taking sodium bicarbonate 650mg twice daily, as well as carafate 1gm PO four times daily with meals. Follow up with outpatient urology as scheduled. Follow up with your china painter. Return to the emergency department if you develop fevers or chills, if symptoms recur, or if new complaints or concerns arise. - Diet and Activity Activity: increase activity as tolerated Diet: low salt diet <Venus Barcenas - Last Filed: 10/08/18 20:22> Date of Encounter: 10/08/18 - Discharge Diagnosis (1) Acute kidney injury superimposed on chronic kidney disease Status: Acute (2) Anemia of chronic disease Status: Chronic (3) HTN (hypertension) Status: Chronic Qualifiers: Hypertension type: essential hypertension Qualified Code(s): I10 - Essential (primary) hypertension (4) Small bowel obstruction Status: Resolved (5) Metabolic acidosis, normal anion gap (NAG) Status: Acute (6) Hematuria Status: Acute Qualifiers: Hematuria type: unspecified type Qualified Code(s): R31.9 - Hematuria, unspecified Hospital course: Ms. Hannon is a 63 year old female - Time Spent with Patient Total time spent providing and/or coordinating discharge services: Date of admission: 10/04/18 21:47 Primary care physician: Mir Gomes DO Consults: 10/04/18 13:24 Consult to Surgery [CONS] Stat Consulting Provider: Surgery [facility] Reason for Consult: SBO Time Notified: 13:24 Call Completed: Yes 10/05/18 08:25 Consult to Urology [CONS] Routine Consulting Provider: [facility] Reason for Consult: hydronephrosis, stone Call Completed: No 10/06/18 17:08 Consult to Nephrology [CONS] Routine Consulting Provider: Kidney Tamie/MARA/MARIAMA/ASIA Reason for Consult: non-anion gap metabolic acidosis Call Completed: Yes - Constitutional Vitals: Temp Pulse Resp BP Pulse Ox 97.5 F L 61 16 151/87 100 10/08/18 07:13 10/08/18 07:13 10/08/18 07:13 10/08/18 07:13 10/08/18 07:50 - Attending Attestation I examined this patient and my medical decision-making was reviewed with the Resident Physician. I agree with the documented discharge as above. GEN: NAD CVS: RRR. S1, S2, No m/r/g RESP: CTAB ABD: Soft, NT, ND, +BS EXT: No edema. 2+ DP. No rashes NEURO: Nonfocal
[2018-10-08 09:51] LABS: VBG Ionized Calcium 1.16 mmol/L (1.15-1.35)
[2018-10-08] MEDS: Acetaminophen/Aspirin/Caffeine TABLET PO PRN (10:42)
--- NOTE | 2018-10-08 11:55 | Nephrology Progress Note ---
Date of Encounter: 10/08/18 Time of Encounter: 11:53 - Assessment and Plan (1) Acute kidney injury superimposed on CKD Current Visit: Yes Status: Acute Baseline GFR appears to be 25-30. GFR is 38 today. Avoid nephrotoxins and renal dose all medications. Encouraged her to follow-up with Yasmine Woodward CNP after discharge. (2) Cardiac LV ejection fraction of 40-49% Current Visit: Yes Status: Acute Per primary. (3) Metabolic acidosis, normal anion gap (NAG) Current Visit: Yes Status: Acute Continue sodium bicarbonate tablets. (4) Nausea vomiting and diarrhea Current Visit: Yes Status: Acute Continue supportive care by primary team. (5) RTA (renal tubular acidosis) Current Visit: Yes Status: Acute Continue Sodium Bicarb tabs. Subjective Principal diagnosis: SOB/Abdominal pain Interval history: Pt seen and examined, is ready for discharge. Will f/u with Yasmine Mejia CNP. Objective - Vital Signs Vital signs: Vital Signs Temp Pulse Resp BP Pulse Ox 10/08/18 07:50 100 10/08/18 07:13 97.5 F L 61 16 151/87 100 10/08/18 03:54 98.0 F 70 18 130/77 97 10/07/18 23:27 98.1 F 85 16 117/72 97 10/07/18 21:14 97.8 F 79 16 137/81 100 10/07/18 20:59 98.0 F 80 16 148/80 10/07/18 19:06 98.2 F 77 14 125/76 100 10/07/18 14:26 98.1 F 81 15 133/73 100 Intake and Output 10/07/18 10/08/18 10/08/18 23:59 07:59 15:59 Intake Total 1740 / 1740 1000 / 1000 120 / 120 Output Total 600 / 600 200 / 200 400 / 400 Balance 1140 / 1140 800 / 800 -280 / -280 Intake: IV Fluids 950 / 950 1000 / 1000 D5% And 0.45% Nacl 1000 Ml Bag 950 / 950 1000 / 1000 1,000 ML @ 75 mls/hr IVC . [id number] [facility] Rx#:[id number] Oral 440 / 440 120 / 120 Blood Product 350 / 350 Rbcs Leuko Poor As-1 Unit 350 / 350 [id number] Output: Urine 200 / 200 200 / 200 400 / 400 Urine/Stool Mix 400 / 400 Other: Meal Dinner Breakfast Percent of Meal Consumed 100% 100% Stool Size Moderate Stool Consistency loose loose Stool Color Brown Brown # Bowel Movements 0 2 - General Appearance General appearance: Present: well-developed, well-nourished EENT: Present: ATNC, hearing intact, vision intact Neck: Present: supple Respiratory: Present: clear Cardiology: Present: no edema, normal S1, normal S2 Gastrointestinal: Present: normoactive bowel sounds, no tenderness, no guarding Integumentary: Present: no rash, warm and dry Neurologic: Present: alert and oriented x3 Musculoskeletal: Present: no deformities, no erythema Psychiatric: Present: mood/affect appropriate, cooperative - Lab 10/08/18 01:06 10/08/18 01:06 Most recent lab results ABG pH 7.32 pH Units (7.32-7.45) 10/05/18 14:48 ABG pCO2 28 mmHg (35-45) L 10/05/18 14:48 ABG pO2 79 mmHg (85-104) L 10/05/18 14:48 ABG HCO3 14 mEq/L (21-27) L 10/05/18 14:48 ABG O2 Saturation 95 % (95-98) 10/05/18 14:48 Calcium 7.6 mg/dL (8.6-10.3) L 10/08/18 01:06 Magnesium 2.0 mg/dL (1.6-2.6) 10/07/18 06:33 Urine Sodium 137.6 mEq/L 10/05/18 18:00 Consult Discharge Plan - Plan Referrals: Mir Gomes DO [Primary Care Provider] -
== END 2018-10-08 14:13 | disposition home or self-care (01) | DRG 389 ==
LOC: 3ANU 10:38 → EMEROOARM 10:38 → 3ANU 15:06 → SUATTDRO 21:47
PROVIDERS: ADMIT Student in an Organized Health Care Education/Training Program; ATTEND Internal Medicine

== ENCOUNTER 2019-07-31 19:30 | Inpatient (IN) ==
[2019-07-31 20:38] LABS: Basophils # 0.1 K/mcL (0.0-0.2); Basophils % 0.7 %; Eosinophils # 0.2 K/mcL (0.0-0.6); Eosinophils % 2.2 %; Hematocrit 33.6 % (35.3-44.9); Hemoglobin 10.3 g/dL (11.5-15.4); Immature Granulocytes % 0.9 % (0-4); Lymphocytes % 11.6 %; Mean Corpuscular HGB Conc 30.7 g/dL (31.6-35.5); Mean Corpuscular Hemoglobin 27.5 pg (28.0-33.3); Mean Corpuscular Volume 89.8 fL (83.0-100.0); Monocytes # 0.8 K/mcL (0.0-1.3); Monocytes % 9.4 %; Neutrophils # 6.4 K/mcL (1.6-8.9); Platelet Count 228 K/mcL (140-400); Red Blood Count 3.74 M/mcL (3.82-4.97); Red Cell Distribution Width 14.9 % (11.5-14.5); Segmented Neutrophils % 75.2 %; White Blood Count 8.5 K/mcL (4.3-11.1)
[2019-07-31 20:45] LABS: Prothrombin Time 11.5 Seconds (9.4-12.1)
[2019-07-31 20:47] LABS: Activated Partial Thrombo Time 31.6 Seconds (26.0-36.0)
[2019-07-31 21:04] LABS: Calcium 8.9 mg/dL (8.6-10.3); Potassium 3.6 mEq/L (3.5-5.1); Troponin I 1.55 ng/mL (< 0.04)
[2019-07-31] MEDS ORDERED: Aspirin 81 MG TAB.CHEW PO STA (21:08)
[2019-07-31] MEDS ORDERED: *HR* Heparin 5,000 UNIT/ML VIAL IVP ONE (21:51)
[2019-07-31] MEDS ORDERED: *HR* Heparin 5,000 UNIT/ML VIAL IVP PRN ×2 (21:51)
[2019-07-31] MEDS: Heparin 25,000 UNIT/250 ML D5W 25,000 UNIT/250 ML IV.SOLN IVC SCH (23:14)
[2019-08-01] MEDS ORDERED: Nitroglycerin 0.4 MG TAB.SUBL SL PRN (00:09)
[2019-08-01] MEDS ORDERED: Naloxone 0.4 MG/ML INJ IVP PRN (00:09)
[2019-08-01 01:29] LABS: Basophils # 0.1 K/mcL (0.0-0.2); Basophils % 0.7 %; Eosinophils # 0.2 K/mcL (0.0-0.6); Eosinophils % 2.4 %; Hemoglobin 10.1 g/dL (11.5-15.4); Immature Granulocytes % 1.5 % (0-4); Lymphocytes # 1.5 K/mcL (0.6-4.6); Lymphocytes % 15.8 %; Mean Corpuscular HGB Conc 30.6 g/dL (31.6-35.5); Mean Corpuscular Hemoglobin 27.2 pg (28.0-33.3); Mean Corpuscular Volume 88.7 fL (83.0-100.0); Mean Platelet Volume 8.9 fL (9.4-12.4); Monocytes # 0.9 K/mcL (0.0-1.3); Monocytes % 9.7 %; Neutrophils # 6.8 K/mcL (1.6-8.9); Platelet Count 247 K/mcL (140-400); Red Blood Count 3.72 M/mcL (3.82-4.97); Red Cell Distribution Width 14.9 % (11.5-14.5); Segmented Neutrophils % 69.9 %; White Blood Count 9.7 K/mcL (4.3-11.1)
[2019-08-01 01:30] LABS: Immature Reticulocyte % 31.5 % (11.0-38.0); Retculocyte # 0.17 M/mcL (0.05-0.10); Reticulocyte % 4.3 % (1.6-2.8)
[2019-08-01 01:37] LABS: INR 1.1; Prothrombin Time 12.4 Seconds (9.4-12.1)
[2019-08-01 01:54] LABS: % Iron Saturation 5 % (15-50); Iron 18 mcg/dL (50-170); Transferrin 260 mg/dL (203-362)
[2019-08-01 02:09] LABS: Ferritin < 8 ng/mL (10-120)
[2019-08-01 02:17] LABS: Folate 8.4 ng/mL (3.0-16.0)
[2019-08-01 02:24] LABS: Albumin 3.9 g/dL (3.5-5.7); Albumin/Globulin Ratio 1.3 (1.1-2.2); Bilirubin,Total 0.2 mg/dL (0.3-1.0); Chol/HDL Ratio 4.5 (0-4.9); Globulin 3.1 g/dL (2.4-3.5); Magnesium 2.2 mg/dL (1.6-2.6); Phosphorous 3.4 mg/dL (2.7-4.5); Potassium 3.6 mEq/L (3.5-5.1); Thyroid Stimulating Hormone 0.673 mcIU/mL (0.340-5.600)
[2019-08-01] MEDS: Famotidine 20 MG TABLET PO SCH (05:45)
[2019-08-01] MEDS ORDERED: D5% in Water 1,000 ML IVC PRN (07:45)
[2019-08-01] MEDS ORDERED: *HR* Dextrose 50 % in Water (Syg) 50 ML SYRINGE IVP PRN (07:45)
[2019-08-01] MEDS ORDERED: Dextrose Gel 15 GM/37.5 ML TUBE PO PRN ×2 (07:45)
[2019-08-01 07:51] LABS: Estimated Average Glucose 97 mg/dl
[2019-08-01] MEDS ORDERED: D5% in 0.9% NACL 1,000 ML IVC SCH (08:00)
[2019-08-01] MEDS ORDERED: Perflutren Lipid Microsphere 1.3 ML in 0.9 % Sodium Chloride 8.7 ML IVP ONE (11:38)
[2019-08-01] MEDS ORDERED: Perflutren Lipid Microsphere 2 ML VIAL ONE (11:42)
[2019-08-01] MEDS ORDERED: Insulin LISPRO 300 UNITS/3 ML VIAL SQ SCH (12:00)
[2019-08-01 15:48] LABS: Bilirubin,Urine Negative (Negative); Blood,Urine Large (Negative); Clarity,Urine Turbid (Clear); Color,Urine Red (Yellow); Glucose,Urine (UA) Normal (Normal); Ketones,Urine Negative (Negative); Leukocyte Esterase,Urine Moderate (Negative); Nitrite,Urine Negative (Negative); Protein,Urine >=300 mg/dL (Neg-Trace); Specific Gravity,Urine 1.021 (1.010-1.025); Urobilinogen,Urine Normal (Normal)
[2019-08-01 16:06] LABS: Basophils % 0.6 %; Eosinophils # 0.2 K/mcL (0.0-0.6); Eosinophils % 2.2 %; Hematocrit 31.6 % (35.3-44.9); Hemoglobin 9.8 g/dL (11.5-15.4); Immature Granulocytes % 1.4 % (0-4); Lymphocytes # 1.4 K/mcL (0.6-4.6); Lymphocytes % 19.2 %; Mean Corpuscular Hemoglobin 26.8 pg (28.0-33.3); Mean Corpuscular Volume 86.3 fL (83.0-100.0); Mean Platelet Volume 8.7 fL (9.4-12.4); Monocytes # 0.9 K/mcL (0.0-1.3); Monocytes % 11.9 %; Neutrophils # 4.6 K/mcL (1.6-8.9); Platelet Count 226 K/mcL (140-400); Red Blood Count 3.66 M/mcL (3.82-4.97); Red Cell Distribution Width 14.9 % (11.5-14.5); Segmented Neutrophils % 64.7 %; White Blood Count 7.2 K/mcL (4.3-11.1)
[2019-08-01 16:33] LABS: Creatinine,Urine 147 mg/dL; Microalbumin,Urine > 1350 mg/L; Protein/Creatinine Ratio,Urine 3.29 mg/mg (0.00-0.20)
[2019-08-01 21:05] LABS: Basophils # 0.1 K/mcL (0.0-0.2); Basophils % 0.9 %; Eosinophils # 0.2 K/mcL (0.0-0.6); Eosinophils % 2.6 %; Hematocrit 31.8 % (35.3-44.9); Hemoglobin 10.2 g/dL (11.5-15.4); Immature Platelets 1.2 % (1.1-6.1); Lymphocytes # 2.1 K/mcL (0.6-4.6); Lymphocytes % 22.8 %; Mean Corpuscular HGB Conc 32.1 g/dL (31.6-35.5); Mean Corpuscular Hemoglobin 27.7 pg (28.0-33.3); Mean Corpuscular Volume 86.4 fL (83.0-100.0); Mean Platelet Volume 8.7 fL (9.4-12.4); Monocytes # 1.1 K/mcL (0.0-1.3); Monocytes % 12.1 %; Neutrophils # 5.5 K/mcL (1.6-8.9); Nucleated Red Blood Cells 0.2 /100 WBC (0); Platelet Count 277 K/mcL (140-400); Red Blood Count 3.68 M/mcL (3.82-4.97); Red Cell Distribution Width 15.2 % (11.5-14.5); Segmented Neutrophils % 59.6 %; White Blood Count 9.2 K/mcL (4.3-11.1)
[2019-08-01] MEDS: Heparin 25,000 UNIT/250 ML D5W 25,000 UNIT/250 ML IV.SOLN IVC SCH (22:24)
[2019-08-02 02:09] LABS: Basophils # 0.1 K/mcL (0.0-0.2); Basophils % 0.8 %; Eosinophils # 0.2 K/mcL (0.0-0.6); Eosinophils % 2.5 %; Hematocrit 30.7 % (35.3-44.9); Hemoglobin 9.5 g/dL (11.5-15.4); Immature Granulocytes % 2.5 % (0-4); Lymphocytes # 1.8 K/mcL (0.6-4.6); Lymphocytes % 23.4 %; Mean Corpuscular HGB Conc 30.9 g/dL (31.6-35.5); Mean Corpuscular Hemoglobin 26.7 pg (28.0-33.3); Mean Corpuscular Volume 86.2 fL (83.0-100.0); Mean Platelet Volume 8.8 fL (9.4-12.4); Monocytes # 0.8 K/mcL (0.0-1.3); Monocytes % 11.2 %; Neutrophils # 4.5 K/mcL (1.6-8.9); Platelet Count 215 K/mcL (140-400); Red Blood Count 3.56 M/mcL (3.82-4.97); Segmented Neutrophils % 59.6 %; White Blood Count 7.5 K/mcL (4.3-11.1)
[2019-08-02 02:30] LABS: Calcium 8.3 mg/dL (8.6-10.3); Phosphorous 4.3 mg/dL (2.7-4.5)
[2019-08-02] MEDS: Famotidine 20 MG TABLET PO SCH (05:51)
[2019-08-02] MEDS: Aspirin Enteric Coated 81 MG Tablet PO SCH (08:14)
[2019-08-02] MEDS ORDERED: Ringers Solution, Lactated 1,000 ML IVC SCH (09:00)
[2019-08-02 13:19] LABS: Hematocrit 34.8 % (35.3-44.9); Hemoglobin 10.7 g/dL (11.5-15.4)
[2019-08-02 20:51] LABS: Hematocrit 27.2 % (35.3-44.9)
[2019-08-02 20:53] LABS: Hemoglobin 8.6 g/dL (11.5-15.4)
[2019-08-03 02:15] LABS: Basophils # 0.1 K/mcL (0.0-0.2); Basophils % 0.7 %; Eosinophils # 0.2 K/mcL (0.0-0.6); Eosinophils % 3.2 %; Hematocrit 26.7 % (35.3-44.9); Lymphocytes # 1.6 K/mcL (0.6-4.6); Lymphocytes % 22.6 %; Mean Corpuscular Volume 90.2 fL (83.0-100.0); Mean Platelet Volume 8.9 fL (9.4-12.4); Monocytes # 0.7 K/mcL (0.0-1.3); Monocytes % 10.3 %; Neutrophils # 4.3 K/mcL (1.6-8.9); Platelet Count 189 K/mcL (140-400); Red Blood Count 2.96 M/mcL (3.82-4.97); Red Cell Distribution Width 14.8 % (11.5-14.5); Segmented Neutrophils % 61.2 %; White Blood Count 7.1 K/mcL (4.3-11.1)
[2019-08-03 02:34] LABS: Calcium 8.1 mg/dL (8.6-10.3); Magnesium 1.8 mg/dL (1.6-2.6); Phosphorous 3.5 mg/dL (2.7-4.5)
[2019-08-03] MEDS: Heparin 25,000 UNIT/250 ML D5W 25,000 UNIT/250 ML IV.SOLN IVC SCH (04:07)
[2019-08-03] MEDS: Famotidine 20 MG TABLET PO SCH (05:52)
[2019-08-03 06:11] LABS: Hematocrit 26.5 % (35.3-44.9); Hemoglobin 8.2 g/dL (11.5-15.4)
[2019-08-03] MEDS: Aspirin Enteric Coated 81 MG Tablet PO SCH (09:09)
[2019-08-03] MEDS: Metoprolol XL (24 HR) Succ 25 MG TAB.ER.24H PO SCH (09:09)
[2019-08-03 09:48] LABS: Hematocrit 27.9 % (35.3-44.9); Hemoglobin 8.5 g/dL (11.5-15.4)
[2019-08-03] MEDS ORDERED: *HR* Heparin 10,000 UNIT/10 ML VIAL ONE (15:26)
[2019-08-03] MEDS ORDERED: Heparin 1,000 UNITS/500 mL 500 ML ONE (15:26)
[2019-08-03] MEDS ORDERED: ISOVUE-370 200 ML INFUS..BTL ONE (15:26)
[2019-08-03] MEDS ORDERED: Nitroglycerin 1,000 MCG/10 ML VIAL IV ONE (15:26)
[2019-08-03] MEDS ORDERED: 0.9 % Sodium Chloride 2,000 ML ONE (15:26)
[2019-08-03] MEDS ORDERED: *HR* Midazolam HCl 2 MG/2 ML VIAL ONE (16:09)
[2019-08-03] MEDS ORDERED: *HR* FentaNYL (PF) 100 MCG/2 ML VIAL ONE (16:10)
[2019-08-04 03:32] LABS: Calcium 8.1 mg/dL (8.6-10.3); Potassium 4.1 mEq/L (3.5-5.1)
[2019-08-04 04:17] LABS: Hematocrit 25.3 % (35.3-44.9); Hemoglobin 7.5 g/dL (11.5-15.4); Mean Corpuscular HGB Conc 29.6 g/dL (31.6-35.5); Mean Corpuscular Hemoglobin 27.2 pg (28.0-33.3); Mean Corpuscular Volume 91.7 fL (83.0-100.0); Mean Platelet Volume 9.1 fL (9.4-12.4); Platelet Count 145 K/mcL (140-400); Red Blood Count 2.76 M/mcL (3.82-4.97); Red Cell Distribution Width 14.8 % (11.5-14.5); White Blood Count 5.8 K/mcL (4.3-11.1)
[2019-08-04] MEDS: Famotidine 20 MG TABLET PO SCH (05:17)
[2019-08-04 07:38] VITALS: BP 134/72
[2019-08-04 08:14] LABS: Hematocrit 28.5 % (35.3-44.9); Hemoglobin 8.4 g/dL (11.5-15.4)
[2019-08-04] MEDS: Aspirin Enteric Coated 81 MG Tablet PO SCH (08:35)
[2019-08-04] MEDS: Metoprolol XL (24 HR) Succ 25 MG TAB.ER.24H PO SCH (08:35)
[2019-08-04] MEDS: Heparin 25,000 UNIT/250 ML D5W 25,000 UNIT/250 ML IV.SOLN IVC SCH (09:19)
[2019-08-04] MEDS ORDERED: 0.9 % Sodium Chloride 1,000 ML IVC SCH (10:00)
== END 2019-08-04 13:25 | disposition home or self-care (01) | DRG 281 ==
LOC: 2NENU 19:30 → EMEROOARM 19:30 → SUATTDRO 21:52 → 2NENU 22:41 → SUATTDRO 08-01 13:36
PROVIDERS: ADMIT Internal Medicine; ATTEND Family Medicine

== ENCOUNTER 2019-11-15 16:54 | Observation (INO) ==
[2019-11-15] MEDS ORDERED: Aspirin 81 MG TAB.CHEW PO ONE ×2 (17:05→17:45)
[2019-11-15 17:44] LABS: Basophils % 0.5 %; Eosinophils # 0.2 K/mcL (0.0-0.6); Eosinophils % 4.1 %; Hematocrit 33.9 % (35.3-44.9); Hemoglobin 10.9 g/dL (11.5-15.4); Immature Granulocytes % 0.5 % (0-4); Mean Corpuscular HGB Conc 32.2 g/dL (31.6-35.5); Mean Corpuscular Hemoglobin 29.9 pg (28.0-33.3); Mean Corpuscular Volume 93.1 fL (83.0-100.0); Mean Platelet Volume 9.4 fL (9.4-12.4); Monocytes # 0.5 K/mcL (0.0-1.3); Monocytes % 8.2 %; Neutrophils # 4.1 K/mcL (1.6-8.9); Platelet Count 141 K/mcL (140-400); Red Blood Count 3.64 M/mcL (3.82-4.97); Red Cell Distribution Width 13.6 % (11.5-14.5); Segmented Neutrophils % 69.7 %; White Blood Count 5.9 K/mcL (4.3-11.1)
[2019-11-15 17:46] LABS: INR 1.1; Prothrombin Time 12.2 Seconds (9.4-12.1)
[2019-11-15 17:49] LABS: Activated Partial Thrombo Time 33.9 Seconds (26.0-36.0)
[2019-11-15 18:06] LABS: BUN/Creatinine Ratio 18 (6-26); Blood Urea Nitrogen 27 mg/dL (8-23); Calcium 8.9 mg/dL (8.6-10.3); Carbon Dioxide 24 mEq/L (23-29); Chloride 112 mEq/L (98-107); Glucose 110 mg/dL (70-105); Osmolality,Calculated 302 (280-300); Sodium 143 mEq/L (136-145); Troponin I < 0.03 ng/mL (< 0.04); eGFR For African Americans 43 (> 60); eGFR For Non-African Americans 35 (> 60)
[2019-11-15] MEDS ORDERED: Naloxone 0.4 MG/ML INJ IVP PRN (20:57)
[2019-11-15] MEDS: *HR* Heparin 5,000 UNIT/ML VIAL SQ SCH (22:20)
[2019-11-15] MEDS: Acetaminophen/Aspirin/Caffeine TABLET PO PRN (23:03)
[2019-11-16] MEDS: *HR* Heparin 5,000 UNIT/ML VIAL SQ SCH ×2 (05:13→12:49)
[2019-11-16] MEDS ORDERED: Regadenoson 0.4 MG/5 ML SYRINGE IVP ONE (06:15)
[2019-11-16] MEDS ORDERED: Metoprolol XL (24 HR) Succ 25 MG TAB.ER.24H PO SCH (09:00)
[2019-11-16] MEDS ORDERED: ALOE VERA PO SCH (09:00)
[2019-11-16] MEDS ORDERED: Famotidine 20 MG TABLET PO SCH (09:00)
[2019-11-16] MEDS ORDERED: Furosemide 20 MG TABLET PO SCH ×2 (09:00)
[2019-11-16 12:15] VITALS: BP 142/72
[2019-11-16] MEDS: Acetaminophen/Aspirin/Caffeine TABLET PO PRN (12:55)
[2019-11-17] MEDS ORDERED: Aspirin 81 MG TAB.CHEW PO SCH (09:00)
== END 2019-11-16 15:52 | disposition home or self-care (01) ==
LOC: EMEROOARM 16:54 → 3BNU 16:54
PROVIDERS: ADMIT Family Medicine; ATTEND Family Medicine

== ENCOUNTER 2020-02-26 15:00 | Inpatient (IN) ==
[2020-02-26 15:34] LABS: Basophils % 0.2 %; Eosinophils % 0.1 %; Hematocrit 29.1 % (35.3-44.9); Hemoglobin 9.1 g/dL (11.5-15.4); Immature Granulocytes % 2.6 % (0-4); Lymphocytes % 5.2 %; Mean Corpuscular HGB Conc 31.3 g/dL (31.6-35.5); Mean Corpuscular Hemoglobin 29.8 pg (28.0-33.3); Mean Corpuscular Volume 95.4 fL (83.0-100.0); Mean Platelet Volume 9.4 fL (9.4-12.4); Monocytes # 0.4 K/mcL (0.0-1.3); Neutrophils # 16.9 K/mcL (1.6-8.9); Nucleated Red Blood Cells 0.2 /100 WBC (0); Platelet Count 242 K/mcL (140-400); Red Blood Count 3.05 M/mcL (3.82-4.97); Red Cell Distribution Width 16.3 % (11.5-14.5); Segmented Neutrophils % 89.9 %; White Blood Count 18.8 K/mcL (4.3-11.1)
[2020-02-26 15:49] LABS: VBG Ionized Calcium 1.14 mmol/L (1.15-1.35)
[2020-02-26 15:55] LABS: Alanine Aminotransferase 12 Units/L (7-52); Albumin 4.1 g/dL (3.5-5.7); Albumin/Globulin Ratio 1.6 (1.1-2.2); Alkaline Phosphatase 62 Units/L (34-104); Aspartate Amino Transferase 11 Units/L (13-39); BUN/Creatinine Ratio 46 (6-26); Bilirubin,Total 0.4 mg/dL (0.3-1.0); Blood Urea Nitrogen 88 mg/dL (8-23); Carbon Dioxide 19 mEq/L (23-29); Chloride 101 mEq/L (98-107); Globulin 2.5 g/dL (2.4-3.5); Glucose 223 mg/dL (70-105); Magnesium 2.3 mg/dL (1.6-2.6); Osmolality,Calculated 312 (280-300); Phosphorous 3.9 mg/dL (2.7-4.5); Potassium 4.5 mEq/L (3.5-5.1); Sodium 134 mEq/L (136-145); Total Protein 6.6 g/dL (6.4-8.9); Troponin I < 0.03 ng/mL (< 0.04); eGFR For African Americans 32 (> 60); eGFR For Non-African Americans 26 (> 60)
[2020-02-26 16:08] LABS: Thyroid Stimulating Hormone 1.549 mcIU/mL (0.340-5.600)
[2020-02-26 16:43] LABS: Bilirubin,Urine Negative (Negative); Blood,Urine Moderate (Negative); Clarity,Urine Clear (Clear); Color,Urine Colorless (Yellow); Glucose,Urine (UA) Normal (Normal); Ketones,Urine Negative (Negative); Leukocyte Esterase,Urine Small (Negative); Nitrite,Urine Negative (Negative); Protein,Urine Negative (Neg-Trace); RBC,Urine 50-100 per hpf (0-3); Squamous Epithelial Cell,Urine Few per hpf (None-Few); Urobilinogen,Urine Normal (Normal); WBC,Urine 15-30 per hpf (0-3)
[2020-02-26] MEDS ORDERED: cefTRIAXone 1,000 MG in Water for inj. (sterile) 10 ML IVP ONE (16:48)
[2020-02-26] MEDS ORDERED: 0.9 % Sodium Chloride 500 ML IVC ONE ×2 (16:50→23:30)
[2020-02-26] MEDS ORDERED: Ondansetron 4 MG/2 ML VIAL IVP PRN (16:57)
[2020-02-26] MEDS ORDERED: Sodium Bicarbonate 75 MEQ in 0.45 % Sodium Chloride 1,000 ML IVC SCH (17:00)
[2020-02-26] MEDS ORDERED: Famotidine 20 MG TABLET PO PRN (17:02)
[2020-02-26 18:12] LABS: C-Reactive Protein < 5 mg/L (Less than 10)
[2020-02-26 18:30] LABS: Ferritin 41 ng/mL (10-120)
[2020-02-27 00:26] LABS: Hematocrit 25.5 % (35.3-44.9); Hemoglobin 7.9 g/dL (11.5-15.4); Mean Corpuscular Hemoglobin 29.6 pg (28.0-33.3); Mean Corpuscular Volume 95.5 fL (83.0-100.0); Mean Platelet Volume 9.2 fL (9.4-12.4); Platelet Count 206 K/mcL (140-400); Red Blood Count 2.67 M/mcL (3.82-4.97); Red Cell Distribution Width 16.5 % (11.5-14.5); White Blood Count 14.7 K/mcL (4.3-11.1)
[2020-02-27 00:46] LABS: Calcium 8.7 mg/dL (8.6-10.3); Magnesium 2.5 mg/dL (1.6-2.6); Phosphorous 3.8 mg/dL (2.7-4.5); Potassium 3.9 mEq/L (3.5-5.1)
[2020-02-27 00:51] LABS: Troponin I 0.07 ng/mL (< 0.04)
[2020-02-27] MEDS: *HR* Heparin 5,000 UNIT/ML VIAL SQ SCH ×2 (05:15→16:26)
[2020-02-27] MEDS ORDERED: Sodium Bicarbonate 75 MEQ in 0.45 % Sodium Chloride 1,000 ML IVC SCH (07:30)
[2020-02-27] MEDS: cefTRIAXone 1,000 MG in 0.9 % Sodium Chloride Mini Bag 100 ML IVPB SCH (08:51)
[2020-02-27] MEDS: Aspirin 81 MG TAB.CHEW PO SCH (08:51)
[2020-02-27] MEDS: Metoprolol XL (24 HR) Succ 25 MG TAB.ER.24H PO SCH (08:51)
[2020-02-27] MEDS ORDERED: 0.9 % Sodium Chloride 250 ML ONE ×2 (10:32→22:41)
[2020-02-27 15:53] LABS: Hematocrit 24.2 % (35.3-44.9); Hemoglobin 7.6 g/dL (11.5-15.4)
[2020-02-27] MEDS: Pantoprazole 40 MG VIAL IVP SCH (16:50)
[2020-02-27] MEDS: Acetaminophen 325 MG TABLET PO PRN (23:09)
[2020-02-28 04:32] LABS: Hematocrit 25.4 % (35.3-44.9); Hemoglobin 8.2 g/dL (11.5-15.4); Mean Corpuscular HGB Conc 32.3 g/dL (31.6-35.5); Mean Corpuscular Hemoglobin 30.6 pg (28.0-33.3); Mean Corpuscular Volume 94.8 fL (83.0-100.0); Mean Platelet Volume 9.2 fL (9.4-12.4); Platelet Count 107 K/mcL (140-400); Red Blood Count 2.68 M/mcL (3.82-4.97); Red Cell Distribution Width 16.6 % (11.5-14.5)
[2020-02-28 04:35] LABS: White Blood Count 5.9 K/mcL (4.3-11.1)
[2020-02-28 04:52] LABS: Calcium 7.9 mg/dL (8.6-10.3); Potassium 3.9 mEq/L (3.5-5.1)
[2020-02-28] MEDS: Pantoprazole 40 MG VIAL IVP SCH ×2 (06:34→17:24)
[2020-02-28] MEDS ORDERED: *HR* FentaNYL (PF) 100 MCG/2 ML VIAL ONE (08:21)
[2020-02-28] MEDS ORDERED: *HR* Midazolam HCl 5 MG/5 ML VIAL IVP ONE ×2 (08:22→08:35)
[2020-02-28] MEDS ORDERED: *HR* FentaNYL (PF) 100 MCG/2 ML VIAL IVP ONE (08:35)
[2020-02-28] MEDS ORDERED: Simethicone 40 MG/0.6 ML MLS IR ONE (08:35)
[2020-02-28] MEDS: Aspirin 81 MG TAB.CHEW PO SCH (08:41)
[2020-02-28] MEDS: Metoprolol XL (24 HR) Succ 25 MG TAB.ER.24H PO SCH (08:54)
[2020-02-28] MEDS: cefTRIAXone 1,000 MG in 0.9 % Sodium Chloride Mini Bag 100 ML IVPB SCH (11:04)
[2020-02-28] MEDS: Acetaminophen 325 MG TABLET PO PRN (21:03)
[2020-02-28] MEDS: 0.9 % Sodium Chloride 1,000 ML IVC SCH (21:48)
[2020-02-29 04:03] LABS: Hematocrit 26.1 % (35.3-44.9); Hemoglobin 8.2 g/dL (11.5-15.4); Mean Corpuscular HGB Conc 31.4 g/dL (31.6-35.5); Mean Corpuscular Hemoglobin 30.1 pg (28.0-33.3); Mean Platelet Volume 9.3 fL (9.4-12.4); Platelet Count 118 K/mcL (140-400); Red Blood Count 2.72 M/mcL (3.82-4.97); Red Cell Distribution Width 17.8 % (11.5-14.5)
[2020-02-29 04:21] LABS: Potassium 4.3 mEq/L (3.5-5.1)
[2020-02-29] MEDS: Pantoprazole 40 MG VIAL IVP SCH (06:26)
[2020-02-29 07:27] VITALS: BP 108/63
[2020-02-29] MEDS: 0.9 % Sodium Chloride 1,000 ML IVC SCH (09:01)
[2020-02-29] MEDS: Metoprolol XL (24 HR) Succ 25 MG TAB.ER.24H PO SCH (09:08)
[2020-02-29] MEDS: Aspirin 81 MG TAB.CHEW PO SCH (09:08)
[2020-02-29] MEDS: cefTRIAXone 1,000 MG in 0.9 % Sodium Chloride Mini Bag 100 ML IVPB SCH (09:12)
== END 2020-02-29 12:29 | disposition home health service (06) | DRG 378 ==
LOC: 2ANU 15:00 → EMEROOARM 15:00 → SUATTDRO 19:15 → 2ANU 19:30
PROVIDERS: ADMIT Internal Medicine; ATTEND Internal Medicine
PROC: ENDOEBX (2020-02-28 15:00)

== ENCOUNTER 2020-04-07 15:25 | Inpatient (IN) ==
[2020-04-07 16:30] LABS: Basophils % 0.2 %; Eosinophils % 0.1 %; Hemoglobin 11.6 g/dL (11.5-15.4); Immature Granulocytes % 1.4 % (0-4); Lymphocytes # 0.8 K/mcL (0.6-4.6); Lymphocytes % 5.4 %; Mean Corpuscular HGB Conc 30.5 g/dL (31.6-35.5); Mean Corpuscular Hemoglobin 27.8 pg (28.0-33.3); Monocytes # 1.5 K/mcL (0.0-1.3); Monocytes % 10.1 %; Neutrophils # 12.5 K/mcL (1.6-8.9); Platelet Count 225 K/mcL (140-400); Red Blood Count 4.17 M/mcL (3.82-4.97); Red Cell Distribution Width 14.8 % (11.5-14.5); Segmented Neutrophils % 82.8 %; White Blood Count 15.1 K/mcL (4.3-11.1)
[2020-04-07 16:42] LABS: Mean Corpuscular Volume 91.1 fL (83.0-100.0)
[2020-04-07 16:49] LABS: Albumin 4.3 g/dL (3.5-5.7); Albumin/Globulin Ratio 1.2 (1.1-2.2); Bilirubin,Total 0.8 mg/dL (0.3-1.0); Calcium 9.7 mg/dL (8.6-10.3); Globulin 3.5 g/dL (2.4-3.5); Potassium 3.9 mEq/L (3.5-5.1); Total Protein 7.8 g/dL (6.4-8.9)
[2020-04-07] MEDS ORDERED: levoFLOXacin 500 MG/100 ML 500 MG/100 ML BAG IVPB ONE (17:08)
[2020-04-07] MEDS ORDERED: 0.9 % Sodium Chloride 1,000 ML IVC ONE (17:20)
[2020-04-07 17:26] LABS: Bilirubin,Urine Negative (Negative); Blood,Urine Large (Negative); Clarity,Urine Turbid (Clear); Color,Urine Red (Yellow); Glucose,Urine (UA) Normal (Normal); Ketones,Urine Negative (Negative); Leukocyte Esterase,Urine Small (Negative); Nitrite,Urine Negative (Negative); PH,Urine 6.5 pH Units (5.0-8.0); Protein,Urine >=300 mg/dL (Neg-Trace); Specific Gravity,Urine 1.016 (1.010-1.025); Urobilinogen,Urine Normal (Normal)
[2020-04-07 17:31] LABS: Adenovirus Not Detected (Not Detect); Bordetella Pertussis Not Detected (Not Detect); Chlamydophila pneumoniae Not Detected (Not Detect); Coronavirus 229E Not Detected (Not Detect); Coronavirus HKU1 Not Detected (Not Detect); Coronavirus NL63 Not Detected (Not Detect); Coronavirus OC43 Not Detected (Not Detect); Human Metapneumovirus Not Detected (Not Detect); Human Rhinovirus/Enterovirus Not Detected (Not Detect); Influenza A Subtype 2009 H1 Not Detected (Not Detect); Influenza B Not Detected (Not Detect); Mycoplasma pneumoniae Not Detected (Not Detect); Parainfluenza Virus 1 Not Detected (Not Detect); Parainfluenza Virus 2 Not Detected (Not Detect); Parainfluenza Virus 3 Not Detected (Not Detect); Parainfluenza Virus 4 Not Detected (Not Detect); Respiratory Syncytial Virus Not Detected (Not Detect)
[2020-04-07] MEDS ORDERED: Naloxone 0.4 MG/ML INJ IVP PRN (17:48)
[2020-04-07] MEDS: *HR* Heparin 5,000 UNIT/ML VIAL SQ SCH (21:05)
[2020-04-08 05:34] LABS: Basophils % 0.3 %; Eosinophils # 0.1 K/mcL (0.0-0.6); Eosinophils % 0.7 %; Hematocrit 31.8 % (35.3-44.9); Immature Granulocytes % 1.6 % (0-4); Lymphocytes # 0.9 K/mcL (0.6-4.6); Lymphocytes % 8.5 %; Mean Corpuscular HGB Conc 31.1 g/dL (31.6-35.5); Mean Corpuscular Hemoglobin 28.9 pg (28.0-33.3); Mean Corpuscular Volume 92.7 fL (83.0-100.0); Mean Platelet Volume 9.1 fL (9.4-12.4); Monocytes # 1.6 K/mcL (0.0-1.3); Monocytes % 14.4 %; Platelet Count 157 K/mcL (140-400); Red Blood Count 3.43 M/mcL (3.82-4.97); Red Cell Distribution Width 14.8 % (11.5-14.5); Segmented Neutrophils % 74.5 %; White Blood Count 10.8 K/mcL (4.3-11.1)
[2020-04-08 05:38] LABS: Hemoglobin 9.9 g/dL (11.5-15.4)
[2020-04-08] MEDS: *HR* Heparin 5,000 UNIT/ML VIAL SQ SCH ×3 (05:47→21:13)
[2020-04-08 05:51] LABS: Calcium 8.9 mg/dL (8.6-10.3)
[2020-04-08] MEDS: Loratadine 10 MG TABLET PO SCH (09:36)
[2020-04-08] MEDS: Furosemide 40 MG TABLET PO SCH (09:37)
[2020-04-08] MEDS: allopurinoL 100 MG TABLET PO SCH (09:37)
[2020-04-08] MEDS: Metoprolol XL (24 HR) Succ 25 MG TAB.ER.24H PO SCH (09:37)
[2020-04-08] MEDS ORDERED: Acetaminophen IV 1,000 MG/100 ML INFUS..BTL IVPB ONE (19:46)
[2020-04-09 06:04] LABS: Basophils % 0.4 %; Eosinophils # 0.1 K/mcL (0.0-0.6); Eosinophils % 1.2 %; Hematocrit 31.1 % (35.3-44.9); Hemoglobin 9.4 g/dL (11.5-15.4); Immature Granulocytes % 2.9 % (0-4); Lymphocytes # 1.1 K/mcL (0.6-4.6); Lymphocytes % 14.6 %; Mean Corpuscular HGB Conc 30.2 g/dL (31.6-35.5); Mean Corpuscular Hemoglobin 27.8 pg (28.0-33.3); Mean Platelet Volume 9.2 fL (9.4-12.4); Monocytes # 1.2 K/mcL (0.0-1.3); Monocytes % 15.2 %; Neutrophils # 5.1 K/mcL (1.6-8.9); Platelet Count 148 K/mcL (140-400); Red Blood Count 3.38 M/mcL (3.82-4.97); Red Cell Distribution Width 14.6 % (11.5-14.5); Segmented Neutrophils % 65.7 %; White Blood Count 7.7 K/mcL (4.3-11.1)
[2020-04-09] MEDS: *HR* Heparin 5,000 UNIT/ML VIAL SQ SCH ×3 (06:08→20:48)
[2020-04-09 06:19] LABS: Calcium 8.9 mg/dL (8.6-10.3); Potassium 4.1 mEq/L (3.5-5.1)
[2020-04-09] MEDS ORDERED: 0.9 % Sodium Chloride 1,000 ML IVC SCH (08:00)
[2020-04-09] MEDS ORDERED: levoFLOXacin 750 MG/150 ML 750 MG/150 ML BAG IVPB SCH (09:00)
[2020-04-09] MEDS: allopurinoL 100 MG TABLET PO SCH (09:38)
[2020-04-09] MEDS: Furosemide 40 MG TABLET PO SCH (09:38)
[2020-04-09] MEDS: Loratadine 10 MG TABLET PO SCH (09:38)
[2020-04-09] MEDS: Metoprolol XL (24 HR) Succ 25 MG TAB.ER.24H PO SCH (09:40)
[2020-04-10] MEDS: *HR* Heparin 5,000 UNIT/ML VIAL SQ SCH (05:14)
[2020-04-10 06:45] LABS: Basophils % 0.3 %; Eosinophils # 0.1 K/mcL (0.0-0.6); Eosinophils % 1.6 %; Hematocrit 23.6 % (35.3-44.9); Hemoglobin 7.3 g/dL (11.5-15.4); Immature Granulocytes % 2.8 % (0-4); Lymphocytes % 15.4 %; Mean Corpuscular HGB Conc 30.9 g/dL (31.6-35.5); Mean Corpuscular Hemoglobin 28.1 pg (28.0-33.3); Mean Corpuscular Volume 90.8 fL (83.0-100.0); Mean Platelet Volume 9.1 fL (9.4-12.4); Monocytes # 0.8 K/mcL (0.0-1.3); Monocytes % 12.3 %; Neutrophils # 4.6 K/mcL (1.6-8.9); Platelet Count 130 K/mcL (140-400); Red Cell Distribution Width 14.5 % (11.5-14.5); Segmented Neutrophils % 67.6 %; White Blood Count 6.8 K/mcL (4.3-11.1)
[2020-04-10 07:11] LABS: Calcium 8.6 mg/dL (8.6-10.3); Potassium 3.8 mEq/L (3.5-5.1)
[2020-04-10 08:22] LABS: Hematocrit 26.1 % (35.3-44.9)
[2020-04-10] MEDS: allopurinoL 100 MG TABLET PO SCH (09:07)
[2020-04-10] MEDS: Loratadine 10 MG TABLET PO SCH (09:07)
[2020-04-10] MEDS: Metoprolol XL (24 HR) Succ 25 MG TAB.ER.24H PO SCH (09:07)
[2020-04-10] MEDS: Furosemide 40 MG TABLET PO SCH (09:07)
[2020-04-11 08:36] LABS: Basophils % 0.5 %; Eosinophils # 0.1 K/mcL (0.0-0.6); Eosinophils % 1.5 %; Hematocrit 25.6 % (35.3-44.9); Immature Granulocytes % 2.5 % (0-4); Lymphocytes # 0.8 K/mcL (0.6-4.6); Lymphocytes % 10.3 %; Mean Corpuscular HGB Conc 31.3 g/dL (31.6-35.5); Mean Corpuscular Hemoglobin 28.9 pg (28.0-33.3); Mean Corpuscular Volume 92.4 fL (83.0-100.0); Mean Platelet Volume 9.2 fL (9.4-12.4); Monocytes # 0.6 K/mcL (0.0-1.3); Monocytes % 8.1 %; Neutrophils # 6.1 K/mcL (1.6-8.9); Platelet Count 161 K/mcL (140-400); Red Blood Count 2.77 M/mcL (3.82-4.97); Red Cell Distribution Width 14.4 % (11.5-14.5); Segmented Neutrophils % 77.1 %; White Blood Count 7.9 K/mcL (4.3-11.1)
[2020-04-11 08:55] LABS: Calcium 8.8 mg/dL (8.6-10.3); Potassium 3.5 mEq/L (3.5-5.1)
[2020-04-11] MEDS: Furosemide 40 MG TABLET PO SCH (08:59)
[2020-04-11] MEDS: Metoprolol XL (24 HR) Succ 25 MG TAB.ER.24H PO SCH (08:59)
[2020-04-11] MEDS: Loratadine 10 MG TABLET PO SCH (08:59)
[2020-04-11] MEDS: allopurinoL 100 MG TABLET PO SCH (09:00)
[2020-04-11] MEDS ORDERED: levoFLOXacin 750 MG TABLET PO SCH (09:00)
[2020-04-11] MEDS ORDERED: 0.9 % Sodium Chloride 250 ML ONE (19:40)
[2020-04-12] MEDS ORDERED: 0.9 % Sodium Chloride 250 ML ONE (00:44)
[2020-04-12 06:38] LABS: Basophils # 0.1 K/mcL (0.0-0.2); Basophils % 0.5 %; Eosinophils # 0.2 K/mcL (0.0-0.6); Eosinophils % 1.4 %; Hematocrit 31.8 % (35.3-44.9); Lymphocytes # 0.9 K/mcL (0.6-4.6); Lymphocytes % 7.8 %; Mean Corpuscular HGB Conc 31.8 g/dL (31.6-35.5); Mean Corpuscular Hemoglobin 28.4 pg (28.0-33.3); Mean Corpuscular Volume 89.3 fL (83.0-100.0); Mean Platelet Volume 9.4 fL (9.4-12.4); Monocytes # 0.8 K/mcL (0.0-1.3); Monocytes % 7.3 %; Nucleated Red Blood Cells 0.3 /100 WBC (0); Platelet Count 158 K/mcL (140-400); Red Blood Count 3.56 M/mcL (3.82-4.97); Red Cell Distribution Width 14.6 % (11.5-14.5); White Blood Count 11.4 K/mcL (4.3-11.1)
[2020-04-12 06:39] LABS: Hemoglobin 10.1 g/dL (11.5-15.4)
[2020-04-12 06:58] LABS: Calcium 8.8 mg/dL (8.6-10.3); Potassium 4.4 mEq/L (3.5-5.1)
[2020-04-12 07:01] VITALS: BP 100/64
[2020-04-12] MEDS: allopurinoL 100 MG TABLET PO SCH (09:12)
[2020-04-12] MEDS: Metoprolol XL (24 HR) Succ 25 MG TAB.ER.24H PO SCH (09:12)
[2020-04-12] MEDS: Furosemide 40 MG TABLET PO SCH (09:12)
[2020-04-12] MEDS: Loratadine 10 MG TABLET PO SCH (09:12)
== END 2020-04-12 11:30 | disposition home or self-care (01) | DRG 872 ==
LOC: EMEROOARM 15:25 → 3ANU 15:25 → SUATTDRO 04-08 17:50
PROVIDERS: ADMIT Internal Medicine; ATTEND Student in an Organized Health Care Education/Training Program

== ENCOUNTER 2022-03-06 05:12 | Inpatient (IN) ==
[2022-03-06] MEDS ORDERED: Ondansetron 4 MG/2 ML VIAL IVP ONE (05:28)
[2022-03-06] MEDS ORDERED: Famotidine 20 MG/2 ML VIAL IVP ONE (05:28)
[2022-03-06] MEDS ORDERED: *HR* HYDROmorphone 2 MG/ML SYRINGE IVP ONE (05:40)
[2022-03-06] MEDS ORDERED: Iopamidol - 370 500 ML MLS IVP ONE (05:41)
[2022-03-06 06:04] LABS: Basophils % 0.3 %; Eosinophils % 0.2 %; Hematocrit 43.7 % (35.3-44.9); Hemoglobin 14.3 g/dL (11.5-15.4); Immature Granulocytes % 0.6 % (0-4); Lymphocytes # 0.9 K/mcL (0.6-4.6); Lymphocytes % 6.8 %; Mean Corpuscular HGB Conc 32.7 g/dL (31.6-35.5); Mean Corpuscular Hemoglobin 32.9 pg (28.0-33.3); Mean Corpuscular Volume 100.5 fL (83.0-100.0); Mean Platelet Volume 9.1 fL (9.4-12.4); Monocytes # 0.6 K/mcL (0.0-1.3); Monocytes % 4.3 %; Neutrophils # 11.5 K/mcL (1.6-8.9); Platelet Count 162 K/mcL (140-400); Red Blood Count 4.35 M/mcL (3.82-4.97); Red Cell Distribution Width 13.5 % (11.5-14.5); Segmented Neutrophils % 87.8 %; White Blood Count 13.1 K/mcL (4.3-11.1)
[2022-03-06 06:19] LABS: Alanine Aminotransferase 12 Units/L (7-52); Albumin 4.8 g/dL (3.5-5.7); Albumin/Globulin Ratio 1.7 (1.1-2.2); Alkaline Phosphatase 57 Units/L (34-104); Aspartate Amino Transferase 17 Units/L (13-39); BUN/Creatinine Ratio 20 (6-26); Bilirubin,Total 0.6 mg/dL (0.3-1.0); Blood Urea Nitrogen 29 mg/dL (8-23); Calcium 9.9 mg/dL (8.6-10.3); Carbon Dioxide 23 mEq/L (23-29); Chloride 106 mEq/L (98-107); Globulin 2.8 g/dL (2.4-3.5); Glucose 169 mg/dL (70-105); Lipase 53 Units/L (11-82); Osmolality,Calculated 300 (280-300); Potassium 4.1 mEq/L (3.5-5.1); Sodium 140 mEq/L (136-145); Total Protein 7.6 g/dL (6.4-8.9); Troponin I < 0.03 ng/mL (< 0.04); eGFR For African Americans 44 (> 60); eGFR For Non-African Americans 36 (> 60)
[2022-03-06] MEDS ORDERED: Tetracaine/Benzocaine/Butamben 1 SPRAY AEROSOL MM ONE (07:53)
[2022-03-06] MEDS ORDERED: *HR* LORazepam 2 MG/ML VIAL IVP ONE (07:53)
[2022-03-06] MEDS ORDERED: 0.9 % Sodium Chloride 1,000 ML IVC ONE (08:02)
[2022-03-06] MEDS ORDERED: Melatonin 3 MG TABLET PO PRN (09:01)
[2022-03-06] MEDS ORDERED: Naloxone 0.4 MG/ML INJ IVP PRN (09:01)
[2022-03-06] MEDS: 0.9 % Sodium Chloride 1,000 ML IVC SCH ×2 (10:10→13:22)
[2022-03-06] MEDS: Ondansetron 4 MG/2 ML VIAL IVP PRN ×2 (13:24→23:33)
[2022-03-06] MEDS: *HR* Heparin 5,000 UNIT/ML VIAL SQ SCH (16:54)
[2022-03-06] MEDS: *HR* HYDROmorphone (PF) 1 MG/ML SYRINGE IVP PRN (23:33)
[2022-03-07 04:40] LABS: Calcium 8.4 mg/dL (8.6-10.3); Potassium 4.5 mEq/L (3.5-5.1)
[2022-03-07] MEDS: *HR* Heparin 5,000 UNIT/ML VIAL SQ SCH ×2 (05:36→19:00)
[2022-03-07] MEDS ORDERED: D5% in Lactated Ringers 1,000 ML IVC SCH (07:15)
[2022-03-07] MEDS: D5% in 0.45% NACL 1,000 ML IVC SCH ×2 (09:35→22:25)
[2022-03-07] MEDS: *HR* HYDROmorphone (PF) 1 MG/ML SYRINGE IVP PRN (09:40)
[2022-03-07] MEDS: Ondansetron 4 MG/2 ML VIAL IVP PRN (11:34)
[2022-03-08 04:57] LABS: Hematocrit 36.8 % (35.3-44.9); Mean Corpuscular HGB Conc 31.8 g/dL (31.6-35.5); Mean Corpuscular Volume 103.7 fL (83.0-100.0); Mean Platelet Volume 9.1 fL (9.4-12.4); Platelet Count 123 K/mcL (140-400); Red Blood Count 3.55 M/mcL (3.82-4.97); Red Cell Distribution Width 13.6 % (11.5-14.5)
[2022-03-08 04:58] LABS: Hemoglobin 11.7 g/dL (11.5-15.4)
[2022-03-08 05:15] LABS: Magnesium 2.3 mg/dL (1.6-2.6); Phosphorous 2.5 mg/dL (2.7-4.5)
[2022-03-08 05:17] LABS: Calcium 8.7 mg/dL (8.6-10.3); Potassium 3.8 mEq/L (3.5-5.1)
[2022-03-08] MEDS: *HR* Heparin 5,000 UNIT/ML VIAL SQ SCH ×2 (06:13→19:05)
[2022-03-08] MEDS ORDERED: Acetaminophen 325 MG TABLET PO PRN (14:30)
[2022-03-08] MEDS: D5% in 0.45% NACL 1,000 ML IVC SCH (14:31)
[2022-03-09] MEDS: *HR* Heparin 5,000 UNIT/ML VIAL SQ SCH (05:57)
[2022-03-09 06:10] LABS: Calcium 8.5 mg/dL (8.6-10.3); Potassium 3.7 mEq/L (3.5-5.1)
[2022-03-09 07:15] VITALS: BP 105/61; PULSE 72; TEMP 98.9; O2SAT 96
== END 2022-03-09 13:00 | disposition home or self-care (01) | DRG 389 ==
LOC: EMEROOARM 05:12 → 3NENU 05:12
PROVIDERS: ADMIT Internal Medicine; ATTEND Internal Medicine